=== PATIENT | female | born 1955 | race Caucasian/White ===

== ENCOUNTER 2023-08-06 12:20 | Day surgery (SDC) | payer MEDICARE, SELFPAY ==
[2023-08-04 12:43] VITALS: BMI 30.4
--- NOTE | 2023-08-05 11:59 | HO.ANESPROP2 ---
HPI - Anesthesia Eval Consult details Narrative: 68yo F for Upper Endoscopy and Colonoscopy PMFSH Past Medical History Medical History (Updated 08/04/23 @ 12:38 by Tammy Goss, RN) Hyperlipidemia Thyroid disease Hx of bladder cancer Surgical History Surgical History (Updated 08/04/23 @ 12:38 by Tammy Goss, RN) History of surgery on left wrist History of left knee replacement Hx of appendectomy History of bunionectomy Hx of cystoscopy H/O colonoscopy Meds Allergies Allergy/AdvReac Type Severity Reaction Status Date / Time acetaminophen [From Vicodin] Allergy Unknown Verified 08/04/23 12:38 hydrocodone [From Vicodin] Allergy Unknown Verified 08/04/23 12:38 methocarbamol [From Robaxin] Allergy Unknown Verified 08/04/23 12:38 Home Medications Medication Instructions Recorded Confirmed Last Taken Type amoxicillin 500 mg tablet 2,000 mg PO ONCE 08/04/23 08/04/23 Unknown History atorvastatin 20 mg tablet 20 mg PO DAILY 08/04/23 08/04/23 Unknown History cholecalciferol (vitamin D3) 50 50 mcg PO DAILY 08/04/23 08/04/23 Unknown History mcg (2,000 unit) capsule (Vitamin D3) clobetasol 0.05 % topical foam 1 appl topical DAILY 08/04/23 08/04/23 Unknown History levothyroxine 50 mcg tablet 50 mcg PO QAM 08/04/23 08/04/23 Unknown History naproxen 500 mg tablet mg PO 08/04/23 Unknown History Exam Height,Weight and Vital Signs: Height 5 ft 2 in Weight 75.296 kg Assessment and Plan Assessment Anesthesia Assessment: Chart Reviewed
[2023-08-06 12:40] VITALS: BMI 29.9
[2023-08-06 12:48] VITALS: BP 145/85; PULSE 78; RESP 16; TEMP 36.6; O2SAT 96
[2023-08-06] MEDS: Lactated Ringers 1,000 ML 100 ML IVCONT (12:55)
--- NOTE | 2023-08-06 12:59 | HO.ANESPROP2 ---
FORMERLY [facility], [facility] Past Medical History Medical History (Updated 08/04/23 @ 12:38 by Tammy Goss RN) Hyperlipidemia Thyroid disease Hx of bladder cancer Family History Family history of problems with anesthesia: No Surgical History Surgical History (Updated 08/04/23 @ 12:38 by Tammy Goss RN) History of surgery on left wrist History of left knee replacement Hx of appendectomy History of bunionectomy Hx of cystoscopy H/O colonoscopy History of Problems with Anesthesia: No Social History Social History Patient Tobacco Use Status: Never used Tobacco Use of substances other than those prescribed or required for medical reasons: Yes Substance Use Type Other:: Smoke Substance Use Frequency: Occasionally Are you DNR?: No Advance Directives: No Advance Directives Information Provided: Yes Meds Allergies Allergy/AdvReac Type Severity Reaction Status Date / Time acetaminophen [From Vicodin] Allergy Unknown Verified 08/06/23 12:58 hydrocodone [From Vicodin] Allergy Unknown Verified 08/06/23 12:58 methocarbamol [From Robaxin] Allergy Unknown Verified 08/06/23 12:58 Active Medications: Current Medications Lactated Ringer's (Lr) 1,000 mls @ 100 mls/hr IVCONT .Q10H JORDAN Last Admin: 08/06/23 12:55 Dose: 100 mls/hr Sodium Biphosphate/Sodium Phosphate (Sodium Phosphate,[place]-Dibasic 133 Ml Enema) 133 ml NH ONCE PRN PRN Reason: Poor Colonoscopy Prep Results Home Medications Medication Instructions Recorded Confirmed Last Taken Type amoxicillin 500 mg tablet 2,000 mg PO ONCE 08/04/23 08/04/23 Unknown History atorvastatin 20 mg tablet 20 mg PO DAILY 08/04/23 08/04/23 Unknown History cholecalciferol (vitamin D3) 50 50 mcg PO DAILY 08/04/23 08/04/23 Unknown History mcg (2,000 unit) capsule (Vitamin D3) clobetasol 0.05 % topical foam 1 appl topical DAILY 08/04/23 08/04/23 Unknown History levothyroxine 50 mcg tablet 50 mcg PO QAM 08/04/23 08/04/23 Unknown History naproxen 500 mg tablet mg PO 08/04/23 Unknown History Exam Height,Weight and Vital Signs: Height 5 ft 2 in Weight 74.162 kg Last Vital Signs Temp 97.9 F 08/06/23 12:48 Pulse 78 08/06/23 12:48 Resp 16 08/06/23 12:48 BP 145/85 H 08/06/23 12:48 Pulse Ox 96 08/06/23 12:48 O2 Del Method Room Air 08/06/23 12:48 Airway Mallampati Class: II TM Dist: >3cm Neck ROM: Full Denture: Upper Assessment and Plan Assessment Anesthesia Assessment: Anesthesia Plan Discussed and Chart Reviewed Final Anesthetic Review Family History of Problems with Anesthesia: No History of Problems with Anesthesia: No NPO: Yes ASA Class: II Final Preanesthetic Review: No Changes in Pt Med Stat, Meds/Allgs Chart Reviewed, Consent Obtained/Reviewed and Anes Risks/Benef Reviewed Patient Risk: Low Procedure Risk: Low Anesthetic Plan Anesthetic Plan: TIVA Disposition: Standard PACU
[2023-08-06 14:59] VITALS: BP 108/65; PULSE 85; RESP 16; TEMP 36.7; O2SAT 98
--- NOTE | 2023-08-06 15:03 | P.BOP_ITS ---
Brief Operative Note Date of Service: 08/06/23 Pre-op diagnosis: GERD, Change in Bowel habits Post-op diagnosis: other (Hiatal hernia, polyp) Procedure: EGD with biopsies, Colonoscopy to the cecum with hot snare polypectomy x 1 Surgeon: Ismael Wallace MD Anesthesia: MAC Was an Assistant Operations Manager used for this Procedure?: No Estimated blood loss (mL): 2.0 Pathology: other (A. Descending duodenum B. EG Junction at 38cm C. Polyp at Hepatic flexure) Condition: stable Disposition: PACU
[2023-08-06 15:14] VITALS: BP 118/76; PULSE 84; RESP 16; TEMP 36.7; O2SAT 99
--- NOTE | 2023-08-10 14:02 | OP_ITS ---
DATE OF SERVICE: 08/06/2023 SURGEON: Ismael Wallace MD INDICATIONS: The patient presents for evaluation of gastroesophageal reflux and change in bowel habits. Full consent has been obtained from her for this, including risks of bleeding and perforation. PREOPERATIVE DIAGNOSIS: POSTOPERATIVE DIAGNOSIS: PROCEDURE PERFORMED: Esophagogastroduodenoscopy with biopsies, and colonoscopy to the cecum with hot snare polypectomy x 1. ESTIMATED BLOOD LOSS: COMPLICATIONS: ANESTHESIA: Monitored anesthesia care. ASSISTANTS: SPECIMENS: PREOPERATIVE DIAGNOSES: Gastroesophageal reflux and change in bowel habits. POSTOPERATIVE DIAGNOSES: Gastroesophageal reflux and change in bowel habits, small hiatal hernia, rule out celiac disease, colon polyp, diverticulosis, and internal hemorrhoids. DESCRIPTION OF PROCEDURE: The patient was placed in the left lateral decubitus position. The Olympus video gastroscope was passed in the posterior oropharynx and upper esophagus under direct vision. The scope was passed slowly into the distal esophagus. The gastroesophageal junction appeared at 38 cm. There was some slight irregularity consistent with some reflux but no evidence of any esophagitis nor any definitive Cueva's mucosa. The scope entered the stomach. There was a small hiatal hernia. The scope was advanced to the pylorus, and the duodenum was cannulated to the descending portion. The duodenum including the bulb appeared normal without mass or ulceration. Biopsies were obtained from the 2nd and 3rd portions of the duodenum. The scope was withdrawn back to the stomach. The gastric antrum and body appeared normal with good peristalsis. The scope was retroflexed visualizing the proximal stomach carefully, which appeared normal, without any sign of mass or ulceration. Scope was straightened and withdrawn into the esophagus. Biopsies were obtained at the EG junction at 38 cm. Proximal to this, the esophageal mucosa appeared normal. The scope was withdrawn from the patient. She was turned around for the colonoscopy. The digital rectal exam revealed no abnormalities. The Olympus video pediatric colonoscope was entered into the rectum and advanced to the cecum with the assistance of abdominal wall pressure. Once in the cecum, I did identify cecal pouch with appendiceal orifice and a normal-appearing ileocecal valve. The entire cecum and ileocecal valve appeared normal. There was transillumination of light deep in the right lower quadrant. The scope was slowly withdrawn assessing all mucosal surfaces carefully. Preparation was excellent. In the region of the hepatic flexure, was a flat, but raised approximately 10 mm polyp, which was removed by hot snare polypectomy and recovered by suction. The polypectomy site appeared clean, without any sign of residual polyp nor bleeding. I did not visualize any other polyps, colitis, nor angiodysplasia. There was a mild amount of sigmoid diverticulosis. In the rectum, scope was retroflexed visualizing internal hemorrhoids, but no other pathology. The rectal mucosa appeared normal. The scope was straightened and withdrawn from the patient. She tolerated both procedures well and was returned to the recovery area in stable condition. IMPRESSION: 1. Small hiatal hernia, gastroesophageal reflux, rule out Cueva's esophagus. 2. Rule out celiac disease. 3. Colon polyp. 4. Diverticulosis. 5. Internal hemorrhoids. PLAN: The results of the pathology will be checked. If the colon polyp is a tubular adenoma, I would recommend a followup colonoscopy in 5 years. If it is only hyperplastic, then I do not think she would need any further screening colonoscopies given her age. She was advised not to use any aspirin nor NSAIDs for 1 week. She was advised to use omeprazole or other rbtj-nwh-uphrdeg acid entry level account manager medication as needed for any reflux and heartburn symptoms, but I do not think she needs to be on anything regularly given that her symptoms of reflux are not particularly frequent at this point. She was advised to continue her daily Metamucil and MiraLAX regimen that she has been using, which she reports has helped her bowel movements to regulate and become more comfortable. If things are otherwise stable, she will see me on a p.r.n. basis. MD YEIMY Santana/EB / [phone] ARMEN
== END 2023-08-06 15:40 | disposition home or self-care (01) ==
PROVIDERS: PCP Family Medicine; Visit Provider Internal Medicine
PROC: (CPT 43239; principal; 2023-08-06 13:40)
DX: K21.9 Gastro-esophageal reflux disease without esophagitis (principal); K44.9 Diaphragmatic hernia without obstruction or gangrene; Z12.11 Encounter for screening for malignant neoplasm of colon; D12.3 Benign neoplasm of transverse colon; K57.30 Diverticulosis of large intestine without perforation or abscess without bleeding; K64.8 Other hemorrhoids; E78.5 Hyperlipidemia, unspecified; R19.4 Change in bowel habit; Z85.51 Personal history of malignant neoplasm of bladder; Z79.899 Other long term (current) drug therapy
CPT/HCPCS: 43239; 45385; 88305; 88342

== ENCOUNTER 2023-11-30 13:52 | Outpatient (AMB) | payer MEDICARE, SELFPAY ==
[2023-11-30 14:20] VITALS: BMI 29.8
--- NOTE | 2023-11-30 14:20 | A.OFFVIS_ITS ---
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 She did undergo left total knee replacement surgery in 2017. She denies any discomfort in her left knee. She describes her right knee pain as sharp and severe in nature, 10/10. Her right knee pain has gotten worse over the last few years in spite of continued non operative treatments. She has done physical therapy which aggravated her pain. She has failed conservative treatment over the last 6 weeks. She has had multiple injections. The most recent injection gave her no relief. She has tried Tylenol and anti- inflammatory medicines which gave her minimal relief. The patient has difficulty walking even short distances because of her pain. At this point her right knee pain is interfering with her activities of daily living and her ability to sleep well through the night. Allergies acetaminophen [From Vicodin] Allergy (Verified 08/06/23 12:58) Unknown hydrocodone [From Vicodin] Allergy (Verified 08/06/23 12:58) Unknown methocarbamol [From Robaxin] Allergy (Verified 08/06/23 12:58) Unknown Medication List - Last Reconciled 12/01/23 by Milton Hammond MD amoxicillin 2,000 mg PO ONCE atorvastatin 20 mg PO DAILY cholecalciferol (vitamin D3) (Vitamin D3) 50 mcg PO DAILY clobetasol 0.05% 1 appl topical DAILY levothyroxine 50 mcg PO QAM naproxen mg PO Saccharomyces boulardii (Daily Probiotic (S. boulardii)) 250 mg PO BID PFSH Medical History Hyperlipidemia Thyroid disease Hx of bladder cancer Surgical History History of surgery on left wrist History of left knee replacement Hx of appendectomy History of bunionectomy Hx of cystoscopy H/O colonoscopy Social History Patient Tobacco Use Status: Never used Tobacco Current occupational status: retired Current occupation: Right hand dominate Physical Exam Vital Signs: BMI result Body Mass Index 29.8 Const Other: Well-nourished well-developed very friendly female awake alert and oriented x3 in no acute distress Extrem Other: Bilateral lower extremity examination shows good capillary refill, no skin lesions noted, normal sensation light touch Right knee examination shows a minimal effusion, palpable crepitus with range of motion, pain with range of motion, range of motion from -3 degrees to 115 degrees, no instability Results Reviewed Results Reviewed: X-rays of the patient's right knee show end-stage degenerative joint disease with grade 4 [id number]-[id number] arthritis, subchondral sclerosis, osteophyte formation, no acute bony abnormalities Assessment & Plan Assessment & Plan (1) Arthritis of right knee: Code(s): M17.11 - Unilateral primary osteoarthritis, right knee Category: Medical Plan Ms. Gallegos presents with progressively worsening right knee pain due to end-sta ge degenerative joint disease. I had a lengthy discussion with the patient regarding the treatment options. At this point she has failed continued non operative treatments. The risks and benefits of left total knee replacement surgery were discussed at length with the patient. The patient wishes to proceed with surgery. She will be scheduled for next available date. convention services director will be consulted following her surgery for home physical therapy and nursing. The patient will follow-up as instructed. Feel free to call me at any time should questions regarding her orthopedic management arise. I spent 22 minutes in reviewing the patient's records and imaging studies, seeing the patient and documenting in the medical record. Coding Level of Care Code New Pt Level 2 (95049) Diagnoses Arthritis of right knee M17.11
== END 2023-11-30 14:38 | disposition home or self-care (01) ==
PROVIDERS: PCP Family Medicine; Visit Provider Orthopaedic Surgery
DX: M17.11 Unilateral primary osteoarthritis, right knee (principal)
CPT/HCPCS: 99202

== ENCOUNTER → 2023-11-30 13:52 | Outpatient (BNVA) | payer MEDICARE, SELFPAY | PROVIDERS: PCP Family Medicine; Visit Provider Orthopaedic Surgery | DX: M17.11 Unilateral primary osteoarthritis, right knee (principal) | CPT/HCPCS: 99202 ==

== ENCOUNTER → 2023-12-31 08:56 | Outpatient (BNVA) | payer MEDICARE, SELFPAY | PROVIDERS: PCP Family Medicine | DX: Z01.818 Encounter for other preprocedural examination (principal) ==

== ENCOUNTER 2024-01-27 08:01 | Outpatient (AMB) | payer MEDICARE, SELFPAY ==
--- NOTE | 2024-01-27 08:16 | MHC.OFFVIS ---
Vital Signs 01/27/24 08:16 Height 5 ft 2 in Weight 164 lb BMI 30.0 Intake Visit Reasons: Pre-Op: R TKA w/DR 01/31/24 Intake Note: Adriel is a 68 year old female who presents as a new patient with progressively worsening right knee pain. She did undergo left total knee replacement surgery in 2017. She denies any discomfort in her left knee. She describes her right knee pain as sharp and severe in nature, 10/10. Her right knee pain has gotten worse over the last few years in spite of continued non operative treatments. She has done physical therapy which aggravated her pain. She has failed conservative treatment over the last 6 weeks. She has had multiple injections. The most recent injection gave her no relief. She has tried Tylenol and anti-inflammatory medicines which gave her minimal relief. The patient has difficulty walking even short distances because of her pain. At this point her right knee pain is interfering with her activities of daily living and her ability to sleep well through the night. Allergies hydrocodone [From Vicodin] Allergy (Verified 01/27/24 08:17) Unknown methocarbamol [From Robaxin] Allergy (Verified 01/27/24 08:17) Unknown Medication List - Last Reconciled 01/27/24 by Milton Hammond MD amoxicillin 2,000 mg PO ONCE atorvastatin 20 mg PO BEDTIME cholecalciferol (vitamin D3) (Vitamin D3) 50 mcg PO DAILY clobetasol 0.05% 1 appl topical BID levothyroxine 50 mcg PO QAM Saccharomyces boulardii (Daily Probiotic (S. boulardii)) 250 mg PO DAILY walker Folding front wheeled walker [facility] Medical History Scalp psoriasis Lichen sclerosus Malignant neoplasm of urinary bladder Osteopenia Supraclavicular mass Migraine aura without headache Adrenal adenoma Multiple lung nodules Coronary artery calcification Acquired hallux rigidus Benign paroxysmal positional vertigo of left ear Anxiety Prediabetes Constipation GERD (gastroesophageal reflux disease) Osteoarthritis Back pain Hyperlipidemia Thyroid disease Hx of bladder cancer Surgical History History of surgery on left wrist History of left knee replacement Hx of appendectomy History of bunionectomy Hx of cystoscopy H/O colonoscopy Social History Are you a primary career development consultant to a significant other at home: No Do you presently have visiting nurse or other home services: No Patient Tobacco Use Status: Former Tobacco user Current occupational status: retired Current occupation: Right hand dominate Physical Exam Vital Signs: BMI result Body Mass Index 30.0 Const Other: Well-nourished well-developed very friendly female awake alert and oriented x3 in no acute distress Extrem Other: Bilateral lower extremity examination shows good capillary refill, no skin lesions noted, normal sensation light touch Left knee examination shows that the surgical incision is well healed, no erythema, full active extension and flexion to 120 degrees, her patella tracks well Right knee examination shows a mild effusion, palpable crepitus with range of motion, pain with range of motion, range of motion from -3 degrees to 115 degrees, no instability Results Reviewed Results Reviewed: X-rays of the patient's left knee taken today show a total knee arthroplasty in good position with no signs of loosening, no acute bony abnormalities X-rays of the patient's right knee taken today show severe degenerative joint disease with grade 4 ozgh-ko-klqr arthritis, subchondral sclerosis, no acute bony abnormalities Assessment & Plan Assessment & Plan (1) Left knee pain: Code(s): M25.562 - Pain in left knee Category: Medical (2) Arthritis of right knee: Code(s): M17.11 - Unilateral primary osteoarthritis, right knee Category: Medical Plan Ms. Gallegos presents with progressively worsening right knee pain due to end-stage degenerative joint disease. I had a lengthy discussion with the patient regarding the treatment options. At this point she has failed continued non operative treatments. The risks and benefits of right total knee replacement surgery were discussed at length with the patient. The patient wishes to proceed with surgery. director of physiotherapy services will be consulted following her surgery for home physical therapy and nursing. The patient will follow-up as instructed. Feel free to call me at any time should questions regarding her orthopedic management arise. I spent 22 minutes in reviewing the patient's records and imaging studies, seeing the patient and documenting in the medical record. Orders: Orders XR knee RT 3V Today M17.11 - Unilateral primary osteoarthritis, right knee Coding Level of Care Code Est Pt Level 3 (31691) Diagnoses Left knee pain M25.562 Arthritis of right knee M17.11
== END 2024-01-27 08:35 | disposition home or self-care (01) ==
PROVIDERS: PCP Family Medicine; Visit Provider Orthopaedic Surgery
DX: M17.11 Unilateral primary osteoarthritis, right knee (principal); M25.562 Pain in left knee
CPT/HCPCS: 99024

== ENCOUNTER 2024-01-27 08:02 | Outpatient (REF) | payer MEDICARE, SELFPAY ==
--- NOTE | ~2024-01-27 | XR_ITS ---
EXAMINATION: XR KNEE, BILATERAL CLINICAL INDICATION: Pain. COMPARISON: 05/27/2023 Fabrice Rosado. TECHNIQUE: 3 views of each knee. FINDINGS: LEFT KNEE: Status post left total knee arthroplasty. Hardware appears intact. Alignment is maintained. Moderate joint effusion. RIGHT KNEE: Jnyuvjnj-dk-wnepyj narrowing of the medial compartment with lucency along the medial aspect of the tibial plateau and marginal osteophytes. Trace joint effusion. Degenerative changes in the patellofemoral space with small posterior osteophytes. XR/XR knee LT 3V IMPRESSION: 1. Status post left total knee arthroplasty. Hardware appears intact. 2. Moderate joint effusion. 3. Ebqvafvd-lo-dtczdo degenerative changes right knee.
--- NOTE | ~2024-01-27 | XR_ITS ---
EXAMINATION: XR KNEE, BILATERAL CLINICAL INDICATION: Pain. COMPARISON: 05/27/2023 Fabrice Rosado. TECHNIQUE: 3 views of each knee. FINDINGS: LEFT KNEE: Status post left total knee arthroplasty. Hardware appears intact. Alignment is maintained. Moderate joint effusion. RIGHT KNEE: Ymolwuid-cr-tmebqu narrowing of the medial compartment with lucency along the medial aspect of the tibial plateau and marginal osteophytes. Trace joint effusion. Degenerative changes in the patellofemoral space with small posterior osteophytes. XR/XR knee RT 3V IMPRESSION: 1. Status post left total knee arthroplasty. Hardware appears intact. 2. Moderate joint effusion. 3. Fktozqze-za-fqqomn degenerative changes right knee.
== END 2024-01-27 08:03 | disposition home or self-care (01) ==
LOC: HO.HOSX 08:02
PROVIDERS: Visit Provider Orthopaedic Surgery
DX: Z01.818 Encounter for other preprocedural examination (principal); M25.562 Pain in left knee; M17.11 Unilateral primary osteoarthritis, right knee
CPT/HCPCS: 73562; 99212

== ENCOUNTER → 2024-01-31 06:02 | Day surgery (SDC) | payer MEDICARE, SELFPAY ==
[2024-01-18 12:05] VITALS: BP 135/70; PULSE 63; RESP 18; O2SAT 98; BMI 30.4
--- NOTE | 2024-01-18 12:24 | HO.ANESPROP2 ---
HPI - Anesthesia Eval Consult details Narrative: Cx'd DOS. Per RN note: Upon intake interview of patient she disclosed she had a syncopal episode at a restaurant last night. A reverse logistics analyst who was an EMT found pt to be pulseless and initiated CPR while 911 was called. Pt was worked up at [facility] and discharged home. Dr. Ray was made aware of incident and advised pt be rescheduled. Discussed with patient and urged that she reach out to her primary care physician who would hopefully designate a cardiology work up. Urged that pt get this looked into to optimize her cardiac function prior to an elective surgery. 68yo F for Right Knee Replacement Total, 01/31/24 Medically optimized per PCP No recent illness No CP/SOB within limits of knee pain PreDM: No rx GERD: prn tx only Supraclavicular mass/subcentimeter pulmo nodules: Followed by PCP with Chest CTs. Last 2022 without new or enlarging or suspicious nodules/masses (report on chart). PMFSH Active Problems Active Problems: All Active Problems Arthritis of right knee (Acute) Past Medical History Medical History Scalp psoriasis Lichen sclerosus Malignant neoplasm of urinary bladder Osteopenia Supraclavicular mass Migraine aura without headache Adrenal adenoma Multiple lung nodules Coronary artery calcification Acquired hallux rigidus Benign paroxysmal positional vertigo of left ear Anxiety Prediabetes Constipation GERD (gastroesophageal reflux disease) Osteoarthritis Back pain Hyperlipidemia Thyroid disease Hx of bladder cancer Family History Family history of problems with anesthesia: No Surgical History Surgical History History of surgery on left wrist History of left knee replacement Hx of appendectomy History of bunionectomy Hx of cystoscopy H/O colonoscopy History of Problems with Anesthesia: No Social History Social History Are you a primary certified caregiver to a significant other at home: No Do you presently have visiting nurse or other home services: No Patient Tobacco Use Status: Former Tobacco user Use of substances other than those prescribed or required for medical reasons: Yes Substance Use Frequency: Weekly Have you been hit, kicked, punched, or otherwise hurt by someone within the past year? If so, by whom?: No Are you DNR?: No Advance Directives: No Advance Directives Information Provided: Yes Advance Directives on File: No Recently lost weight without trying: No Eating poorly because of decreased appetite: No Nutrition Risks: No Nutritional Risk Patient : No : No Poor oral hygiene: Yes (upper partial) Current occupational status: retired Current occupation: Right hand dominate Meds Allergies Allergy/AdvReac Type Severity Reaction Status Date / Time hydrocodone [From Vicodin] Allergy Unknown Verified 01/27/24 08:17 methocarbamol [From Robaxin] Allergy Unknown Verified 01/27/24 08:17 Home Medications ?Medication ?Instructions ?Recorded ?Confirmed ?Last Taken ?Type amoxicillin 500 mg tablet 2,000 mg PO ONCE 08/04/23 01/27/24 Unknown History atorvastatin 20 mg tablet 20 mg PO BEDTIME 08/04/23 01/27/24 Unknown History cholecalciferol (vitamin D3) 50 50 mcg PO DAILY 08/04/23 01/27/24 Unknown History mcg (2,000 unit) capsule (Vitamin D3) levothyroxine 50 mcg tablet 50 mcg PO QAM 08/04/23 01/27/24 08/06/23 History Saccharomyces boulardii 250 mg 250 mg PO DAILY 11/30/23 01/27/24 Unknown History capsule (Daily Probiotic (S. boulardii)) clobetasol 0.05 % topical ointment 1 appl topical BID 01/27/24 01/27/24 Unknown History Exam Height,Weight and Vital Signs: Height 5 ft 2 in Weight 75.296 kg Last Vital Signs Pulse 63 01/18/24 12:05 Resp 18 01/18/24 12:05 BP 135/70 01/18/24 12:05 Pulse Ox 98 01/18/24 12:05 O2 Del Method Room Air 01/18/24 12:05 Pertinent Lab Results Pertinent Lab Results: CBC and BMP from outside facility 12/2023 WNL Narrative Narrative: EKG 11/2023 NSR @ 82 Airway Mallampati Class: I TM Dist: >3cm Neck ROM: Full Partial: Upper Loose/Missing/Broken Teeth: Yes (Molars crowned) Heart: RRR Lungs: CTAB Assessment and Plan Assessment Anesthesia Assessment: Anesthesia Plan Discussed and PAT Visit Final Anesthetic Review Family History of Problems with Anesthesia: No History of Problems with Anesthesia: No
[2024-01-18 14:11] LABS: MRSA Nasal PCR NEGATIVE (Negative); SA Nasal PCR NEGATIVE (Negative)
--- NOTE | 2024-01-31 06:42 | PC.NURSE ---
Upon intake interview of patient she disclosed she had a syncopal episode at a restaurant last night. A morning caregiver who was an EMT found pt to be pulseless and initiated CPR while 911 was called. Pt was worked up at [facility] and discharged home. Dr. Ray was made aware of incident and advised pt be rescheduled. Discussed with patient and urged that she reach out to her primary care physician who would hopefully designate a cardiology work up. Urged that pt get this looked into to optimize her cardiac function prior to an elective surgery.
== END ==
PROVIDERS: Physician Assistant; PCP Family Medicine; Visit Provider Orthopaedic Surgery
DX: M17.11 Unilateral primary osteoarthritis, right knee (principal); Z53.8 Procedure and treatment not carried out for other reasons; I25.10 Atherosclerotic heart disease of native coronary artery without angina pectoris; I25.84 Coronary atherosclerosis due to calcified coronary lesion; E78.5 Hyperlipidemia, unspecified; R73.03 Prediabetes; Z79.899 Other long term (current) drug therapy; Z88.8 Allergy status to other drugs, medicaments and biological substances; Z96.652 Presence of left artificial knee joint; Z87.891 Personal history of nicotine dependence
CPT/HCPCS: 86850; 86900; 86901; 87640; 87641

== ENCOUNTER → 2024-08-14 13:39 | Outpatient (BNV) | payer SELFPAY | PROVIDERS: Visit Provider Internal Medicine | DX: I49.5 Sick sinus syndrome (principal); R94.31 Abnormal electrocardiogram [ECG] [EKG] | CPT/HCPCS: 93010 ==

== ENCOUNTER → 2024-08-18 08:36 | Outpatient (BNVA) | payer MEDICARE, SELFPAY | DX: Z01.818 Encounter for other preprocedural examination (principal) ==

== ENCOUNTER → 2024-09-06 07:47 | Outpatient (BNVA) | payer MEDICARE, SELFPAY | PROVIDERS: Visit Provider Orthopaedic Surgery | DX: M25.561 Pain in right knee (principal); M17.11 Unilateral primary osteoarthritis, right knee | CPT/HCPCS: 99212 ==

== ENCOUNTER 2024-09-11 07:46 | Day surgery (SDC) | payer MEDICARE, SELFPAY ==
--- OUTSIDE RECORDS SUMMARY | 2024-07-31 10:22 | XMS_ITS | Patient Health Record ---
Author Organization [facility] Address [address] [place] [address] Care Team Providers Care Vehicle Detailer Name Role Phone Inez COYNE, Bebeto Primary Care Provider Ismael Nelson Unavailable [phone] ALLERGIES Allergen (clinical drug ingredient) Drug/Non Drug Allergy documented on EMR Reaction Allergy Type Onset Date Status Vicodin Unknown Drug Allergy Active methocarbamol Robaxin Unknown Drug Allergy Act scar RESULTS Component Value Reference Range Notes Pathology Reviewed date:08/25/2023 07:56:07 AM Interpretation: Performing Lab:[facility], [address] [place] [id number] Notes/Report: REASON FOR REFERRAL No Information MEDICATIONS Medication SIG (Take, Route, Frequency, Duration) Notes Start Date End Date Status Vitamin D 50 MCG (1999) 1 tablet Orally Once a day for 30 day(s) 05/07/2023 Active Clobetasol Emul Foam w/MoistCr 0.05 % as directed Externally 05/07/2023 Active Levothyroxine Sodium 50 MCG TAKE 1 TABLET BY MOUTH EVERY DAY IN THE MORNING Oral for 90 Active Naproxen 500 MG Oral for 10 PRN for knee-started 04/2023 Active Amoxicillin 500 MG TAKE 4 TABLETS BY MOUTH 1 HOUR PRIOR TO DENTAL APPOINTMENT Oral for 5 Active Atorvastatin Calcium 20 MG TAKE 1 TABLET BY MOUTH EVERY DAY Oral for 90 Active IMMUNIZATIONS Vaccine Route Administration Date Status Comme nts Influenza Unknown 04/21/2022 Administered SOCIAL HISTORY Tobacco Use: Social History Observation Description Date Details (start date - stop date) Never Smoker NA - NA Sex Assigned At : Social History Observation Description Sex Assigned At Unknown Tobacco Use/Smoking Question Answer Notes Patient is a nonsmoker Alcohol Screen Question Answer Notes Did you have a drink contain ing alcohol in the past year? Yes How often did you have a dri nk containing alcohol in the past year? 4 or more times a week (4 points) How many drinks did you have on a typical day when you were drinking in the past year? 1 or 2 drinks (0 point) How often did you have 6 or more drinks on one occasion in the past year? Never (0 point) Points 4 Interpretation Positive PROBLEMS Problem Type ICD Code Onset Dates Problem Status W/U Status Risk SNOMED Code Notes Problem Constipation, unspecified constipation type (K59.00) Active confirmed 96310208 Problem Gastroesophageal reflux disease, unspecified whether esophagitis present (K21.9) Active confirmed 342289615 Problem Change in bowel habits (R19.4) Active confirmed 05895299 Problem Abdominal bloating (R14.0) Active confirmed 739826343 Problem Diverticulosis of large intestine without perforation or abscess without bleeding (K57.30) Active confirmed Diverticul ar disease of colon (958375279) Problem Gastroesophageal reflux disease (K21.9) Active confirmed Gastroesophagea l reflux disease (474637678) Encounters Encounter Location Date Provider Diagnosis [facility] [place] Outpatient [address] [place] [phone] 08/06/2023 Ismael Wallace Colon polyps K63.5 ; Change in bowel habits R19.4 ; Diverticulosis of large intestine without perforation or abscess without bleeding K57.30 ; Other hemorrhoids K64.8 ; Gastroesophageal reflux disease K21.9 and Hiatal hernia K44.9 ASSESSMENTS Encounter Date Diagnosis Assessment Notes Treatment Notes Treatment Clinical Notes 08/06/2023 Change in bowel habi ts (ICD-10 - R19.4) 08/06/2023 Colon polyps (ICD-10 - K63.5) 08/06/2023 Diverticulosis of la rge intestine without perforation or abscess without bleeding (ICD-10 - K57.30) 08/06/2023 Other hemorrhoids (ICD-10 - K64.8) 08/06/2023 Gastroesophageal ref lux disease (ICD-10 - K21.9) 08/06/2023 Hiatal hernia (ICD-1 0 - K44.9) PLAN OF TREATMENT Pending Test Test Name Order Date CELIAC PANEL #10 05/07/2023 Future Test Test Name Order Date UPPER GI ENDOSCOPY 05/07/2023 COLONOSCOPY 05/07/2023 Insurance Providers Payer Name Payer Address Payer Phone Subscriber Number Group Number Insured Name Patient Relationship to Insured Coverage Start Date Coverage End Date [facility] [address] [place] [id number] SAMMIMARIA INESGEE NUÑEZ Self - patient is the insured MEDICAL (GENERAL) HISTORY Medical History History ICD Code Bladder cancer for which she undergoes p eriodic cystoscopies Hypothyroidism Hyperlipidemia Denies NE,DM,CVA,Lung disease,renal dise ase She describes a negative col onoscopy at age 49 and another negative colonoscopy in 2015. Surgical History Surgery Date(Month/Year) Bladder cancer treated with cystoscopy Bunionectomy Appendectomy Left knee replacement 2016 Left wrist 2022
--- OUTSIDE RECORDS SUMMARY | 2024-07-31 10:22 | XMS_ITS | Patient Health Record ---
Author Organization [facility] Address [address] [place] [address] Care Team Providers Care Manager Fund Name Role Phone Bebeto Wiley MD Primary Care Provider Adin Watson Unavailable [phone] Allergies Allergen (clinical drug ingredient) Drug/Non Drug Allergy documented on EMR Reaction Allergy Type Onset Date Status methocarbamol Robaxin hives Drug Allergy Act scar Vicodin nausea and vomiting Drug Allergy Active Reason For Referral No Information Medications Medication SIG (Take, Route, Frequency, Duration) Notes Start Date End Date Status Atorvastatin Calcium Active Probiotic - as directed Orally Active Propranolol HCl 10 MG 1 tablet Orally Once a day for 30 day(s) Active Levothyroxine Sodium 50 MCG 1 tablet in the morning on an empty stomach Orally Once a day for 30 day(s) Active Amoxicillin 500 MG 1 capsule Orally every 8 hrs for 5 day(s) Before dental appointments Active Voltaren 1 % as directed Externally Active Clobex 0.05 % 1 application Externally Once a day for 10 day(s) Active Turmeric 1 daily Active Vitamin D3 25 MCG (1000 UT) 1 capsule Orally Once a day for 30 day(s) Active Immunizations Vaccine Route Administration Date Status Comme nts COVID-19 Moderna Vaccine Unknown 10/30/2020 Administere d 1st 10/02/20 Social History Tobacco Use: Social History Observation Description Date Details (start date - stop date) Former Smoker 12/11/2005 - NA Tobacco Use/Smoking Question Answer Notes Are you a: former smoker When did you start smoking? 12/11/2005 Additional Findings: Tobacco Non-User Ex-cigaret te smoker Alcohol Screen Question Answer Notes Did you have a drink containing alcohol in the p ast year? Yes Points 0 Interpretation Negative Tobacco use other than smoking: Question Answer Notes Are you an other tobacco user? No Problems Problem Type SNOMED Code ICD Code Onset Dates Problem Status W/U Status Risk Notes Problem Acquired hallux rigidus (7026346) Hallux rigidus, left foot (M20.22) Active confirmed Problem Acquired hammer toe of right foot (7483384490814 105) Other hammer toe(s) (acquired), right foot (M20.41) Active confirmed Problem Acquired hammer toe of left foot (8152737821939 103) Other hammer toe(s) (acquired), left foot (M20.42) Active confirmed Problem Acquired hallux rigidus (8891694) Hallux rigidus, right foot (M20.21) Active confirmed Plan Of Treatment Pending Test Test Name Order Date X ray : Foot, left 3V 01/01/2021 X ray : Foot, right 3V 01/01/2021 Insurance Providers Payer Name Payer Address Payer Phone Subscriber Number Group Number Insured Name Patient Relationship to Insured Coverage Start Date Coverage End Date [employer] [address] [place] [address] [phone] [id number] Rico Self - patient is the insured Medical (General) History Medical History History ICD Code Lung nodule Migraines Supraclavicular mass Osteopenia bladder cancer Hyperlipidemia Hypothyroidism Lichens Sclerosis Psoriasis uterine leiomyoma Knee Pain Anxiety Arthritis Back,Hip,and Knee pain Broken bones Cancer Osteoporosis Psoriasis/eczema chronic sinusitis thyroid Measles Chicken pox Joint implants/screws Degenerative joint disease Surgical History Surgery Date(Month/Year) carpal tunnel surgery, bilat 1985, 1988 left knee replacement 2017 multiple tumor removal, bladder 1986- 0 bunionectomy, left ft 03/2009
--- OUTSIDE RECORDS SUMMARY | 2024-07-31 10:22 | XMS_ITS ---
Author Organization [facility] Address [address] [place] [address] Care Team Providers Care Wind Turbine Technician Name Role Phone Bebeto Wiley MD Primary Care Provider Ismael Nelson Unavailable [phone] REASON FOR VISIT constipation, change in bowels,gerd PROBLEMS Problem Type ICD Code Onset Dates Problem Status W/U Status Risk SNOMED Code Notes Problem Diverticulosis of large intestine without perforation or abscess without bleeding (K57.30) Active confirmed Diverticul ar disease of colon (583196204) Problem Gastroesophageal reflux disease (K21.9) Active confirmed Gastroesophagea l reflux disease (228419286) Encounters Encounter Location Date Provider Diagnosis [facility] [place] Out[place] [address] [place], [place] [phone] 08/06/2023 Ismael Rodrigo Colon polyps K63.5 ; Change in bowel habits R19.4 ; Diverticulosis of large intestine without perforation or abscess without bleeding K57.30 ; Other hemorrhoids K64.8 ; Gastroesophageal reflux disease K21.9 and Hiatal hernia K44.9 ASSESSMENTS Encounter Date Diagnosis Assessment Notes Treatment Notes Treatment Clinical Notes 08/06/2023 Colon polyps (ICD-10 - K63.5) 08/06/2023 Change in bowel habi ts (ICD-10 - R19.4) 08/06/2023 Diverticulosis of la rge intestine without perforation or abscess without bleeding (ICD-10 - K57.30) 08/06/2023 Other hemorrhoids (ICD-10 - K64.8) 08/06/2023 Gastroesophageal ref lux disease (ICD-10 - K21.9) 08/06/2023 Hiatal hernia (ICD-1 0 - K44.9) PLAN OF TREATMENT No Information
--- OUTSIDE RECORDS SUMMARY | 2024-07-31 10:22 | XMS_ITS ---
Author Organization [facility] Address [address] [place] [phone] Care Team Providers Care Supervisor Instrument Mechanics Name Role Phone Bebeto Wiley MD Primary Care Provider Ismael Nelson Unavailable [phone] ALLERGIES Allergen (clinical drug ingredient) Drug/Non Drug Allergy documented on EMR Reaction Allergy Type Onset Date Status Vicodin Unknown Drug Allergy Active methocarbamol Robaxin Unknown Drug Allergy Act scar REASON FOR VISIT Patient presents today for a COLON SCREENING, CHANGE IN BOWEL HABITS MEDICATIONS Medication SIG (Take, Route, Frequency, Duration) Notes Start Date End Date Status Clobetasol Emul Foam w/MoistCr 0.05 % as [...] MOUTH EVERY DAY Oral for 90 Active Vitamin D 50 MCG (2000 UT) 1 tablet Orally Once a day for 30 day(s) 05/07/2023 Active SOCIAL HISTORY Tobacco Use: Social History Observation [...] Constipation, unspecified constipation type (K59.00) Active confirmed 40643617 Problem Gastroesophageal reflux disease, unspecified whether esophagitis present (K21.9) Active confirmed 864268331 Problem Change in bowel habits (R19.4) Active confirmed 70901562 Problem Abdominal bloating (R14.0) Active confirmed 146489642 VITAL SIGNS BMI 30.36 kg/m2 05/07/2023 Blood pressure systolic 000 mm Hg 05/07/20 23 Blood pressure diastolic 00 mm Hg 023 Height 5 ft 2 in in 05/07/2023 Temperature 98.6 degrees Fahrenheit 05/07/20 23 Weight 166 lbs 05/07/2023 Encounters Encounter Location Date Provider Diagnosis [facility] [address] [place] [phone] 05/07/2023 Ismael Wallace Constipation, unspec ified constipation type K59.00 ; Gastroesophageal reflux disease, unspecified whether esophagitis present K21.9 ; Change in bowel habits R19.4 and Abdominal bloating R14.0 ASSESSMENTS Encounter Date Diagnosis Assessment Notes Treatment Notes Treatment Clinical Notes 05/07/2023 Constipation, unspecified constipation type (ICD-10 - K59.00) Try using 2 Metamucil fiber pills once or twice a day with a lot of water, as well as some Miralax daily, to help with the BM's. 05/07/2023 Gastroesophageal ref lux disease, unspecified whether esophagitis present (ICD-10 - K21.9) 05/07/2023 Change in bowel habi ts (ICD-10 - R19.4) 05/07/2023 Abdominal bloating (ICD-10 - R14.0) PLAN OF TREATMENT Treatment Notes Assessment Notes Constipation, unspecified constipation t ype Try using 2 Metamucil fiber pills once or twice a day with a lot of water, as well as some Miralax daily, to help with the BM's. Pending Test Test Name Order Date CELIAC PANEL #10 05/07/2023 Future Test Test Name Order Date UPPER GI ENDOSCOPY 05/07/2023 COLONOSCOPY 05/07/2023 Next Appt Details Follow Up: prn, Reason: Progress Notes * Examination Category Sub-Category Detail Notes General Examination GENERAL APPEARANCE: pleasant , well nourished, well developed, in no acute distress HEAD: EYES: sclera non-icteric EARS: NOSE: THROAT: NECK/THYROID: no cervical lymphade nopathy, neck supple HEART: S1, S2 normal CHEST: LUNGS: clear to auscultatio n bilaterally ABDOMEN: normal bowel sounds, no guarding or rigidity, no guarding or rigidity, no masses palpable, soft, nontender, nondistended NEUROLOGIC: alert and oriented SKIN: nonjaundiced, no spi jurgen angiomata EXTREMITIES: no edema PERIPHERAL PULSES: BACK: BREASTS: MUSCULOSKELETAL: MALE GENITOURINARY: LYMPH NODES: RECTAL EXAM: FEMALE GENITOURINARY: ORAL CAVITY: mucosa moist
--- NOTE | 2024-08-14 | ECG_ITS ---
Test Reason : PREOP Blood Pressure : / mmHG Vent. Rate : 061 BPM Atrial Rate : 061 BPM P-R Int : 130 ms QRS Dur : 086 ms QT Int : 396 ms P-R-T Axes : 071 053 030 degrees QTc Int : 398 ms Normal sinus rhythm with sinus arrhythmia cannot exclude old Septal infarct , age undetermined - could be related to body habitus and lead placement. Abnormal ECG No previous ECGs available Referred By: Megan David Electronically Signed By:ROMEO JEAN
[2024-08-14 12:49] VITALS: BP 161/76; PULSE 80; RESP 16; O2SAT 98; BMI 30.3
--- NOTE | 2024-08-14 13:23 | HO.ANESPROP2 ---
Documented by User: Megan David NP 08/21/24 14:11 HPI - Anesthesia Eval Consult details Narrative: 69yo F for Right Total Knee Arthroplasty, 09/11/24 Rescheduled from 01/2024 d/t syncopal episode evening before [facility] optimized. Negative w/u. Tilt table test pending, but ok to proceed with surgery first. Medically optimized per PCP Recent URI with nasal congestion, no cough. Will monitor and discuss with PCP No CP/SOB within limits of knee pain PreDM: No rx GERD: prn tx only Supraclavicular mass/subcentimeter pulmo nodules: Followed by PCP with Chest CTs. Last 2022 without new or enlarging or suspicious nodules/masses (report on chart). [facility] Active Problems Active Problems: All Active Problems Left knee pain (Acute) Arthritis of right knee (Acute) Past Medical History Medical History (Updated 08/14/24 @ 13:14 by Heather Jason RN) Hx of bladder cancer (~1986) Hx of syncope (11/30/23) Seasonal allergies Scalp psoriasis Lichen sclerosus Malignant neoplasm of urinary bladder Osteopenia Supraclavicular mass Migraine aura without headache Adrenal adenoma Multiple lung nodules Coronary artery calcification Acquired hallux rigidus Benign paroxysmal positional vertigo of left ear Anxiety Prediabetes Constipation GERD (gastroesophageal reflux disease) Osteoarthritis Back pain Hyperlipidemia Thyroid disease Hx of bladder cancer Family History Family history of problems with anesthesia: No Surgical History Surgical History (Updated 08/14/24 @ 13:09 by Heather Jason RN) History of esophagogastroduodenoscopy (EGD) (08/06/23) History of surgery on left wrist History of left knee replacement Hx of appendectomy History of bunionectomy Hx of cystoscopy H/O colonoscopy History of Problems with Anesthesia: No Social History Social History (Updated 08/14/24 @ 13:25 by Heather Jason RN) Are you a primary care worker to a significant other at home: No Do you presently have visiting nurse or other home services: No Patient Tobacco Use Status: Former Tobacco user Tobacco use type: Cigarette Smoked in Last 30 Days: No Use of substances other than those prescribed or required for medical reasons: Yes Substance Use Type: Marijuana Substance Use Frequency: Occasionally Have you been hit, kicked, punched, or otherwise hurt by someone within the past year? If so, by whom?: No Are you DNR?: No Advance Directives: No Advance Directives Information Provided: Yes Advance Directives on File: No Recently lost weight without trying: No Nutrition Risks: No Nutritional Risk Poor oral hygiene: No (right upper tooth pulled 07/14/2024) Current occupational status: retired Current occupation: Right hand dominate Meds Allergies Allergy/AdvReac Type Severity Reaction Status Date / Time hydrocodone [From Vicodin] Allergy Severe Nausea Verified 09/06/24 08:00 methocarbamol [From Robaxin] Allergy Severe Hives Verified 09/06/24 08:00 Home Medications ?Medication ?Instructions ?Recorded ?Confirmed ?Last Taken ?Type cholecalciferol (vitamin D3) 50 50 mcg PO DAILY 08/04/23 09/06/24 08/29/24 History mcg (2,000 unit) capsule (Vitamin D3) levothyroxine 50 mcg tablet 50 mcg PO QAM 08/04/23 09/06/24 09/11/24 History Saccharomyces boulardii 250 mg 250 mg PO DAILY 11/30/23 09/11/24 08/29/24 History capsule (Daily Probiotic (S. boulardii)) clobetasol 0.05 % topical ointment 1 appl topical BID 01/27/24 09/06/24 08/29/24 History acetaminophen 500 mg tablet 1,000 mg PO Q6H PRN Pain 08/14/24 09/06/24 08/29/24 History (Acetaminophen Extra Strength) Exam Height,Weight and Vital Signs: Height 5 ft 2.25 in Weight 75.7 kg Last Vital Signs Pulse 80 08/14/24 12:49 Resp 16 08/14/24 12:49 BP 161/76 H 08/14/24 12:49 Pulse Ox 98 08/14/24 12:49 O2 Del Method Room Air 08/14/24 12:49 Pertinent Lab Results Pertinent Lab Results: CBC and BMP from outside facility 08/2024 WNL Narrative Narrative: EKG 08/2024 Vent. Rate : 061 BPM Atrial Rate : 061 BPM P-R Int : 130 ms QRS Dur : 086 ms QT Int : 396 ms P-R-T Axes : 071 053 030 degrees QTc Int : 398 ms Normal sinus rhythm with sinus arrhythmia cannot exclude old Septal infarct , age undetermined - could be related to body habitus and lead placement. Abnormal ECG No previous ECGs available No change from PCP office EKG Airway Mallampati Class: I TM Dist: >3cm Neck ROM: Full Partial: Upper Loose/Missing/Broken Teeth: Yes (~#6 pulled 07/2024) Heart: RRR Lungs: CTAB Assessment and Plan Assessment Anesthesia Assessment: Anesthesia Plan Discussed and PAT Visit Final Anesthetic Review Family History of Problems with Anesthesia: No History of Problems with Anesthesia: No Documented by User: Codi Joyce MD 09/11/24 10:08 [facility] Past Medical History Medical History (Updated 08/14/24 @ 13:14 by Heather Jason RN) Hx of bladder cancer (~1986) Hx of syncope (11/30/23) Seasonal allergies Scalp psoriasis Lichen sclerosus Malignant neoplasm of urinary bladder Osteopenia Supraclavicular mass Migraine aura without headache Adrenal adenoma Multiple lung nodules Coronary artery calcification Acquired hallux rigidus Benign paroxysmal positional vertigo of left ear Anxiety Prediabetes Constipation GERD (gastroesophageal reflux disease) Osteoarthritis Back pain Hyperlipidemia Thyroid disease Hx of bladder cancer Surgical History Surgical History (Updated 08/14/24 @ 13:09 by Heather Jason RN) History of esophagogastroduodenoscopy (EGD) (08/06/23) History of surgery on left wrist History of left knee replacement Hx of appendectomy History of bunionectomy Hx of cystoscopy H/O colonoscopy Social History Social History (Updated 08/14/24 @ 13:25 by Heather Jason, DUONG) Are you a primary care worker to a significant other at home: No Do you presently have visiting nurse or other home services: No Patient Tobacco Use Status: Former Tobacco user Tobacco use type: Cigarette Smoked in Last 30 Days: No Use of substances other than those prescribed or required for medical reasons: Yes Substance Use Type: Marijuana Substance Use Frequency: Occasionally Have you been hit, kicked, punched, or otherwise hurt by someone within the past year? If so, by whom?: No Are you DNR?: No Advance Directives: No Advance Directives Information Provided: Yes Advance Directives on File: No Recently lost weight without trying: No Nutrition Risks: No Nutritional Risk Poor oral hygiene: No (right upper tooth pulled 07/14/2024) Current occupational status: retired Current occupation: Right hand dominate Meds Allergies Allergy/AdvReac Type Severity Reaction Status Date / Time hydrocodone [From Vicodin] Allergy Severe Nausea Verified 09/06/24 08:00 methocarbamol [From Robaxin] Allergy Severe Hives Verified 09/06/24 08:00 Home Medications ?Medication ?Instructions ?Recorded ?Confirmed ?Last Taken ?Type cholecalciferol (vitamin D3) 50 50 mcg PO DAILY 08/04/23 09/06/24 08/29/24 History mcg (2,000 unit) capsule (Vitamin D3) levothyroxine 50 mcg tablet 50 mcg PO QAM 08/04/23 09/06/24 09/11/24 History Saccharomyces boulardii 250 mg 250 mg PO DAILY 11/30/23 09/11/24 08/29/24 History capsule (Daily Probiotic (S. boulardii)) clobetasol 0.05 % topical ointment 1 appl topical BID 01/27/24 09/06/24 08/29/24 History acetaminophen 500 mg tablet 1,000 mg PO Q6H PRN Pain 08/14/24 09/06/24 08/29/24 History (Acetaminophen Extra Strength) Assessment and Plan Final Anesthetic Review NPO: Yes ASA Class: II Final Preanesthetic Review: No Changes in Pt Med Stat, Meds/Allgs Chart Reviewed and Consent Obtained/Reviewed Patient Risk: Low Procedure Risk: Low Anesthetic Plan Anesthetic Plan: Spinal Disposition: Standard PACU
[2024-08-14 14:56] LABS: MRSA Nasal PCR NEGATIVE (Negative); SA Nasal PCR NEGATIVE (Negative)
[2024-09-11] VITALS (12 sets, daily range): BP systolic 101–165; BP diastolic 58–93; PULSE 52–87; RESP 13–18; TEMP 36.1–36.6; O2SAT 95–99; BMI 30.4
--- OUTSIDE RECORDS SUMMARY | 2024-09-11 07:50 | XMS_ITS | Clinical Summary ---
Author Organization [facility] Address [address] [place] [address] Care Team Providers Care Spa Attendant Name Role Phone Bebeto Wiley MD Primary Care Provider [phone] Immunizations Name Administration Dates Next Due Moderna SARS-CoV-2 COVID-19, mRNA, LNP-S, preservative free 10/30/2020,10/02/2020 Surgical History Surgery Date Site/Laterality Comments FOOT SURGERY PROCEDURE:FOOT SURGERY JOINT REPLACEMENT PROCEDURE:JOINT REPLACEMENT CARPAL TUNNEL RELEASE PROCEDURE:CARPAL TUNNEL RELEASE TOTAL KNEE ARTHROPLASTY 2016 Left PROCEDURE:TOTAL KNEE ARTHROPLASTY BLADDER TUMOR EXCISION 2018 PROCEDURE:BLADDER TUMOR EXCISION BLADDER TUMOR EXCISION 1986 PROCEDURE:BLADDER TUMOR EXCISION BUNIONECTOMY 2009 Left PROCEDURE:BUNIONECTOMY CARPAL TUNNEL RELEASE 1985 Bilateral PROCEDURE:CARPAL TUNNEL RELEASE Medical History Medical History Date Comments Cancer (CMS/HCC) DX:Cancer (HCC) Thyroid disorder DX:Thyroid diso rder Osteoporosis DX:Osteoporosis Psoriasis DX:Psoriasis Arthritis DX:Arthritis Daytime somnolence DX:Daytime so mnolence Snoring DX:Snoring Night muscle spasms DX:Night mus amado spasms Family History Medical History Relation Name Comments Heart attack Brother Heart disease Brother Heart attack Father Heart disease Father Hypertension Father Arthritis Mother Cancer Mother Lung disease Mother Osteoporosis Mother Arthritis Sister Cancer Sister Relation Name Status Comments Brother Father Mother Sister Social History Tobacco Use Types Packs/Day Years Used Date Smoking Tobacco: Former Cigarettes Smokeless Tobacco: Never Alcohol Use Standard Drinks/Week Comments Yes 0 (1 standard drink = 0.6 oz pur e alcohol) Sex and Gender Information Value Date Recorded Sex Assigned at Not on file Gender Identity Not on file Sexual Orientation Not on file Obstetrics History Plan of Treatment Health Maintenance Due Date Last Done Comments DTaP,Tdap,and Td Vaccines (1 - Tdap) 1973 Zoster Vaccines (1 of 2) 2004 Pneumococcal Vaccine: 65+ Years (1 of 1 - PCV) 2019 Breast Cancer Screening 12/15/2020 12/15/2018 Colorectal Cancer Screening: Colonoscopy 07/18/2022 Depression Screening 07/18/2022 Falls Risk Assessment 07/18/2022 Hepatitis C Screening 07/18/2022 Social Influencers of Health Screening 07/18/2022 COVID-19 Vaccine (3 - 2023-2 5 season) 2024 10/30/2020, 10/02/2020 Influenza Vaccine (#1) 2024 Osteoporosis Screening (Bone Density Screening) 10/21/2028 10/21/2018 RSV Immunization Patients 60 + Years Old (1 - 1-dose 75+ series) 2029 HIB Vaccines Aged Out No longer eligi ble based on patient's age to complete this topic HPV Vaccines Aged Out No longer eligi ble based on patient's age to complete this topic Hepatitis A Vaccines Aged Out No long er eligible based on patient's age to complete this topic Hepatitis B Vaccines Aged Out No long er eligible based on patient's age to complete this topic IPV Vaccines Aged Out No longer eligi ble based on patient's age to complete this topic MMR Vaccines Aged Out No longer eligi ble based on patient's age to complete this topic Meningococcal ACWY Vaccine Aged Out N o longer eligible based on patient's age to complete this topic RSV Immunization Patients Under 20 months Aged Out No longer eligible b ased on patient's age to complete this topic Varicella Vaccines Aged Out No longer eligible based on patient's age to complete this topic Procedures Procedure Name Priority Date/Time Associated Diagnosis Comments [facility] SCREENING DIGITAL Routine 12/15/2018 1:07 PM EDT Encounter for screening mammogram for malignant neoplasm of breast [facility] DEXA AXIAL SKELETON Routine 10/21/2018 2:56 PM EDT Encounter for screening for osteoporosis from Last 3 Months or Most Recently Relevant to Health Maintenance Results * [facility] SCREENING DIGITAL (12/15/2018 1:07 PM EDT) Anatomical Region Laterality Modality Mammography 12/15/2018 10:5 2 AM EDT Narrative 12/15/2018 1:07 PM EDT [facility] Diagnostic Imaging Department [address] [place] [address] Patient: ??JASWANTGEE ?/Age/Sex: 1955 63 - F Unit#: ??[id number] ? Location/Status: ??SPDIMAM/REG CLI ? Mnemonic/Ordering Site: ??DIGSC/SPMAM Ordering Physician: ??NAM SAHU MD [facility] Screening Digital - 12/15/181106 INDICATION: Screening. Family history breast cancer in sister at age 55 COMPARISON: Prior mammograms dating back to 2003 TECHNIQUE: Routine views of both breasts were obtained using full-field direct digital mammography. Bilateral tomosynthesis was performed in MLO projection. Computer Aided Detection was utilized. BREAST PARENCHYMAL COMPOSITION: The breast parenchyma is composed of scattered fibroglandular densities. (Category b density ) . FINDINGS: ??There is no suspicious finding within either breast. Benign- appearing microcalcifications including secretory and vascular calcifications in both breasts. IMPRESSION: 1. No mammographic evidence of malignancy. 2. Annual screening mammography is recommended . OVERALL FINAL ASSESSMENT: BI-RADS Assessment Category 2: Benign. PQRI CPT II 3342 F A negative mammogram in the presence of clinically suspicious palpable abnormality does not preclude the possibility of malignancy or alter the indicat ions for biopsy. Note: Patient information entered into a reminder system with a target due date for the next mammogram: ??CPT II 7025F [id number] [id number] Dictating Physician: ??NATA CHAO MD Electronically Signed by: ??NATA CHAO MD Dic Date/Time: ??12/15/18 1303 Sign date/Time: ??12/15/18 1307 Procedure Note Nata Chao MD - 07/28/2022 [facility] Diagnostic Imaging Department [address] [place] [address] Patient: JASWANTGEE /Age/Sex: 1955 - 63 - F Unit#: [id number] Location/Status: [facility] CLI Mnemonic/Ordering Site: [facility] Ordering Physician: NAM SAHU MD [facility] Screening Digital - 12/15/18 - 7 INDICATION: Screening. Family history breast cancer in sister at age 55 COMPARISON: Prior mammograms dating back to 2003 TECHNIQUE: Routine views of both breasts were obtained using full-fielddirect digital mammography. Bilateral tomosynthesis was performed in MLOprojection. Computer Aided Detection was utilized. BREAST PARENCHYMAL COMPOSITION: The breast parenchyma is composed ofscattered fibroglandular densities. (Category b density ) . FINDINGS: There is no suspicious finding within either breast. Benign- appearing microcalcifications including secretory and vascularcalcifications in both breasts. IMPRESSION: 1. No mammographic evidence of malignancy. 2. Annual screening mammography is recommended . OVERALL FINAL ASSESSMENT: BI-RADS Assessment Category 2: Benign. PQRI CPT II 3342 F A negative mammogram in the presence of clinically suspicious palpable abnormality does not preclude the possibility of malignancy or alter theindicat ions for biopsy. Note: Patient information entered into a reminder system with a target duedate for the next mammogram: CPT II 7025F [id number] [id number] Dictating Physician: NATA CHAO MD Electronically Signed by: NATA CHAO MD Dic Date/Time: 12/15/18 1305 Sign date/Time: 12/15/18 1307 Nam Sahu MD IMG BI PROCEDURES * [facility] DEXA AXIAL SKELETON (10/21/2018 2:56 PM EDT) Anatomical Region Laterality Modality Mammography 10/21/2018 8:08 AM EDT Narrative 10/21/2018 2:56 PM EDT [facility] Diagnostic Imaging Department [address] [place] [address] Patient: ??GEE GALLEGOS ?/Age/Sex: 1955 - 63 - F Unit#: ??[id number] ? Location/Status: ??SPDIMAM/REG CLI ? Mnemonic/Ordering Site: ??MAMDEXAAX/SPMAM Ordering Physician: ??NAM SAHU MD [facility] Dexa Axial Skeleton - 10/21/18 - 1440 HISTORY: ??The patient is a 63-year-old postmenopausal female with clinical concern for metabolic bone disease. FINDINGS: ??Dual energy x-ray absorptiometry of the lumbar spine and femurs is performed. The mean bone mineral density at L1-L4 (with the exclusion of L3) is 1.181 gm/cm2 which is 101% of that of young normals and 114% of that of age matched controls. This yields a T-score of 0.1 and a Z-score of 1.2 and there is therefore no evidence of osteoporosis or osteopenia here. The mean bone mineral density of the femurs bilaterally is 0.916 gm/cm2 which is 91% of that of young normals and 102% of that of age matched controls. ??This yields a T-score of -0.7 and a Z-score of 0.1 and there is therefore no evidence of osteoporosis or osteopenia here. However, the T-score of the right femoral neck is -1.9 and that of the left femoral neck is -1.6 which is diagnostic of osteopenia. IMPRESSION: 1. Osteopenia. 2. FRAX analysis yields a 10-year probability of major osteoporotic fracture of 9.7% and a 10-year probability of hip fracture of 1.3%. Code 95931 Dictating Physician: ??SALEEM LI MD Electronically Signed by: ??SALEEM LI MD Dic Date/Time: ??10/21/181453 Sign date/Time: ??10/21/181455 Procedure Note Saleem Li MD - 07/29/2022 [facility] Diagnostic Imaging Department [address] [place] [address] Patient: GEE GALLEGOS /Age/Sex: 1955 - 63 - F Unit#: [id number] [facility] Mnemonic/Ordering Site: [facility] Ordering Physician: NAM SAHU MD [facility] Dexa Axial Skeleton - 10/21/18 - 9672 HISTORY: The patient is a 63-year-old postmenopausal female withclinical concern for metabolic bone disease. FINDINGS: Dual energy x-ray absorptiometry of the lumbar spine and femursis performed. The mean bone mineral density at L1-L4 (with the exclusion ofL3) is 1.181 gm/cm2 which is 101% of that of young normals and 114% of that ofage matched controls. This yields a T-score of 0.1 and a Z-score of 1.2 andthere is therefore no evidence of osteoporosis or osteopenia here. The mean bone mineral density of the femurs bilaterally is 0.916 gm/st8torvb is 91% of that of young normals and 102% of that of age matched controls.This yields a T-score of -0.7 and a Z-score of 0.1 and there is therefore noevidence of osteoporosis or osteopenia here. However, the T-score of the rightfemoral neck is -1.9 and that of the left femoral neck is -1.6 which is diagnosticof osteopenia. IMPRESSION: 1. Osteopenia. 2. FRAX analysis yields a 10-year probability of major osteoporoticfracture of 9.7% and a 10-year probability of hip fracture of 1.3%. Code 02454 Dictating Physician: SALEEM LI MD Electronically Signed by: SALEEM LI MD Dic Date/Time: 10/21/181453 Sign date/Time: 10/21/181455 Nam Sahu MD IMG BI PROCEDURES from Last 3 Months or Most Recently Relevant to Health Maintenance Care Teams Spa Attendant Relationship Specialty Start Date End Date Bebeto Wiley MD [address] [id number] PCP - General 09/12/10
--- OUTSIDE RECORDS SUMMARY | 2024-09-11 07:50 | XMS_ITS | Clinical Summary ---
Author Organization [facility] Address [address] [place] [address] Care Team Providers Care Budget Analyst Name Role Phone Bebeto Wiley MD Primary Care Provider [phone] Allergies Active Allergy Reactions Criticality Noted Date Comments Methocarbamol Hives 09/16/2016 Hydrocodone-Acetaminophen 05/27/2017 Medications Medication Sig Dispensed Refills Start Date End Date Status levothyroxine (SYNTHROID, LEVOXYL) tablet 50 mcg TAKE 1/2 TABLET BY MOUTH EVERY DAY IN THE MORNING ON AN EMPTY STOMACH DIRECTED 3 05/04/2017 Active Cholecalciferol 25 MCG (1000 UT) tablet Take 1,000 Units by mouth. 0 Active Diclofenac Sodium 1 % GEL Apply 2 g topically. 0 12/16/2020 Active LORazepam (ATIVAN) 0.5 MG tablet Take 0.5 mg by mouth. 0 Active atorvastatin (LIPITOR) tablet 20 mg Take 20 mg by mouth daily. 0 12/09/2020 Active amoxicillin (AMOXIL) 500 MG tablet Take 4 tabs 1 hour prior to dental appointment 20 tablet 3 04/29/2022 Active Active Problems Problem Noted Date Diagnosed Date Mass of soft tissue of knee 02/27/2021 Chronic pain of left knee 05/27/2017 Family History Medical History Relation Name Comments Heart attack Brother Heart disease Brother Heart attack Father Heart disease Father Hypertension Father Arthritis Mother Cancer Mother Lung disease Mother Osteoporosis Mother Arthritis Sister Cancer Sister Relation Name Status Comments Brother Father Mother Sister Social History Tobacco Use Types Packs/Day Years Used Date Smoking Tobacco: Former Cigarettes 0.5 15 Smokeless Tobacco: Never Tobacco Cessation:Counseling Given: No Alcohol Use Standard Drinks/Week Comments Yes 0 (1 standard drink = 0.6 oz pur e alcohol) 2x/week Sex and Gender Information Value Date Recorded Sex Assigned at Not on file Gender Identity Not on file Sexual Orientation Not on file Job Start Date Occupation Industry Not on file Not on file Not on file Last Filed Vital Signs Vital Sign Reading Time Taken Comments Blood Pressure 152/91 03/11/2021 10:19 AM EDT Pulse 86 03/11/2021 10:19 AM EDT Temperature 36.5 ??C (97.7 ??F) 03/11/2021 10:19 AM E DT Respiratory Rate - - Oxygen Saturation - - Inhaled Oxygen Concentration - - Weight 77.1 kg (170 lb) 03/11/2021 10:19 AM EDT Height 160 cm (5' 3 ) 03/11/2021 10:19 AM EDT Body Mass Index 30.11 03/11/2021 10:19 AM EDT Plan of Treatment Health Maintenance Due Date Last Done Comments Hepatitis C Screening 1955 Depression Screening 1966 BMI Counseling 1972 Preventative Health Evaluation 1972 Colon Cancer Screening (Colonoscopy) 1999 Breast Cancer Screening (Mammogram) 2004 Fall Risk Assessment 2019 Osteoporosis Screening (DEXA Scan) 2019 Pneumococcal Vaccine (2 of 2 - PCV) 05/22/2021 05/22/2020 DTap / Tdap / Td (2 - Td or Tdap) 05/23/2023 05/23/2013, 04/04/1999 COVID-19 Vaccine (3 - 2023-2 5 season) 2024 10/30/2020, 10/02/2020 Influenza Vaccine (#1) 2024 0, 05/03/2014, 05/09/2013 RSV Adult > 60+ Yrs or (1 - 1-dose 75+ series) 2029 Shingrix-Zoster Vaccine Completed 05/17/20 19, 01/11/2019 Hepatitis B Vaccines Aged Out No long er eligible based on patient's age to complete this topic RSV Ped < 20 months Aged Out No longe r eligible based on patient's age to complete this topic Care Teams Budget Analyst Relationship Specialty Start Date End Date Bebeto Wiley MD [address] [address] PCP - General Family Medicine 04/19/17
[2024-09-11] MEDS: Lactated Ringers 1,000 ML 100 ML IVCONT ×3 (08:21→23:30)
--- NOTE | 2024-09-11 13:45 | PM.OP ---
Brief Operative Note Date of Service: 09/11/24 Pre-op diagnosis: Right knee degenerative joint disease Post-op diagnosis: same Procedure: Right total knee arthroplasty Implants: [place] [employer] cemented posterior stabilized total knee arthroplasty with a femoral component size 3 right, tibial component size 2, polyethylene liner size 2 with 9 mm of thickness, a symmetric patellar component size 27 with 8 mm of thickness Surgeon: Milton Hammond MD Anesthesia: regional and spinal Was an Oracle Application Consultant used for this Procedure?: No Oracle Application Consultant: Kuldip Tracy Estimated blood loss (mL): 200 Pathology: other (Bony fragments from the right femur, tibia and patella) Condition: stable Disposition: PACU
--- NOTE | 2024-09-11 13:46 | P.OP_ITS ---
Operative Note Operative Note Date of Service: 09/11/24 Narrative: After the patient was identified as Adriel Gallegos and her right knee was initialed by myself the patient was brought to the holding area where a right leg nerve block was performed by the anesthesiologist in routine fashion. The patient was then brought to the operating room where conscious sedation and spinal anesthesia were performed by the anesthesiologist in routine fashion. The patient was given 2 g of IV Ancef preoperatively for infection prophylaxis. The patient's right lower extremity was prepped and draped in sterile fashion. A formal time-out was completed. The patient's right knee was placed onto a small bump to produce 30? of knee flexion during exposure. A #10 scalpel blade was used to make a midline incision extending 1 handbreadth proximal and distal to the patella. A second #10 scalpel blade was used to dissect the subcutaneous tissues down to the extensor mechanism. The subcutaneous flaps were maintained as thick as possible. A medial parapatellar arthrotomy was then performed using a #10 scalpel blade. The arthrotomy was begun just medial to the patellar tendon. The arthrotomy was continued 1 cm medial to the patella and then 5 mm into the medial aspect of the quadriceps tendon. The infrapatellar fat pad was partially excised to help with exposure. The soft tissue retinaculum was raised one-half of the way around the medial aspect of the proximal tibia. The patella was everted and the knee was flexed to 90?. There was no injury to the patellar tendon or its insertion onto the tibial tubercle. A drill bit was introduced into the distal aspect of the femur with a starting point 1 cm anterior to the origin of the posterior cruciate ligament. The intramedullary alignment deb was put into place. The distal alignment guide was set for a 5 degree valgus cut. The distal cutting block was put into place and was held with 4 pins. The intramedullary alignment deb was removed. Soft tissues were retracted in the distal femoral cut was made using a sagittal saw. The distal aspect of the femur measured to be a size 3 right component. Two drill holes were placed into the distal aspect of the femur marking 3? of external rotation. The distal cutting block was impacted into place and was held with 2 pins. Soft tissues were retracted and the 4 distal femoral cuts were made using a sagittal saw. Final notching and drilling of the distal aspect of the femur were performed in routine fashion. The trial femoral component was impacted into place. The knee was taken through a full range of motion. The patella tracked well. The patella was everted and the knee was flexed to 90?. The trial component was removed and our attention was directed to the proximal tibia. The medial and lateral menisci were removed using a #10 scalpel blade. A small rim of the medial meniscus was left intact to help prevent injury to the medial collateral ligament. A drill bit was then introduced into the proximal tibia with a starting point midway from medial to lateral and one-third of the way posteriorly. The intramedullary alignment deb was put into place. The proximal tibial cutting guide was placed over the alignment deb in line with the 2nd toe. The guide was held in place using 3 pins. The intramedullary alignment deb was removed. Soft tissues were retracted and the proximal tibial cut was made using a sagittal saw. The proximal tibia measured to be a size 2 component. The tibial tray was put into place with a 9 mm liner. The femoral component was impacted into place. The knee was taken through a full range of motion. There was full flexion and full extension. There was no instability with varus or valgus stress testing with the knee in flexion or extension. The patella tracked well with no medially directed force. The rotation of the tibial tray was marked using electrocautery with the knee in extension. The patella was everted and the knee was flexed to 90?. All trial components were removed. The tibial tray was placed onto the proximal tibia in line with the electrocautery walter. The tray was held in place using 3 pins. Final broaching of the proximal tibia was performed in routine fashion. The trial liner and trial femoral component were put into place. The knee was brought into extension and our attention was directed to the patella. The patella measured 25 mm in thickness. The patellar resection guide was set for a 10 mm resection. Soft tissues were retracted and the patella cut was made using a sagittal saw. The remaining patella measured 15 mm in thickness. The undersurface of the patella was me asured to be a size 27 symmetric component. Three drill holes were placed into the undersurface of the patella in routine fashion. The trial component was put into place. The knee was taken through a full range of motion. The patella tracked well. The patella was everted and the knee was flexed to 90?. All trial components were removed. The knee was once again brought into extension and placed onto a small bump. The knee joint was irrigated with copious amounts of normal saline solution via pulse lavage while the cement was mixed. The patella was everted and the knee was flexed to 90?. A small amount of cement was placed along the posterior aspects of the tibial and femoral components. Cement was then pressurized into the proximal tibia. The tibial component was impacted into place. Any excess cement was removed. The polyethylene liner was then impacted into place. Cement was then pressurized into the distal aspect of the femur. A small amount of cement was placed into the intramedullary canal to help reduce bleeding. The femoral component was impacted into place. Any excess cement was removed. The knee was then brought into extension. Cement was pressurized into the undersurface of the patella. The patellar component was put into place and was held with a patella clamp. Any excess cement was removed. Once the cement had hardened the patellar clamp was removed. The knee was taken through a full range of motion. There was full flexion and extension. There was no instability with varus or valgus stress testing with the knee in flexion or extension. The patella tracked well with no medially directed force. The knee joint was irrigated with copious amounts of normal saline solution via pulse lavage. Any significant bleeding vessels were coagulated. The patient's right knee was placed onto a small bump. The arthrotomy was closed with #2 Ethibond [id number] interrupted suture as well as #1 Vicryl [id number] interrupted suture. The wound was once again irrigated. The subcutaneous tissues were closed with 0 Vicryl and 2-0 Vicryl interrupted sutures. The skin was closed with skin bhavana. Dry sterile dressing and Eduard bandages were placed over the patient's right knee. The patient was awake and alert. The patient was transferred to the recovery room in stable condition.
--- NOTE | 2024-09-11 13:47 | PHA.MEDREC ---
Addendum entered by Jessica Maza RPh 09/11/24 13:50: reviewed by [facility]. Original Note: Pharmacy Consult ? Medication Reconciliation Pharmacy has reviewed the medication reconciliation done by nursing.
--- NOTE | 2024-09-11 15:02 | P.CONHOSP_ITS ---
History of Present Illness Data of Consult Service Date: 09/11/24 Primary Care Provider: Unknown Physician HPI A 69-year-old female with hypothyroidism, vitamin D deficiency, and degenerative joint disease underwent elective right knee arthroplasty today. She is doing well postoperatively without any acute medical issues at this time. Her pain appears to be adequately controlled, and her vital signs are stable. Review of Systems Review of Systems: Gen: no fever Resp: no sob, no cough CV: no chest, no ARCHER, no leg edema GI: No n/v, no abd pain Neuro: No confusion [facility] Medical History (Updated 09/11/24 @ 15:18 by Warren Cueto MD) Hx of bladder cancer (~1986) Hx of syncope (11/30/23) Seasonal allergies Scalp psoriasis Lichen sclerosus Malignant neoplasm of urinary bladder Osteopenia Supraclavicular mass Migraine aura without headache Adrenal adenoma Multiple lung nodules Coronary artery calcification Acquired hallux rigidus Benign paroxysmal positional vertigo of left ear Anxiety Prediabetes Constipation GERD (gastroesophageal reflux disease) Osteoarthritis Back pain Hyperlipidemia Thyroid disease Hx of bladder cancer Surgical History (Updated 08/14/24 @ 13:09 by Heather Jason RN) History of esophagogastroduodenoscopy (EGD) (08/06/23) History of surgery on left wrist History of left knee replacement Hx of appendectomy History of bunionectomy Hx of cystoscopy H/O colonoscopy Social History (Updated 08/14/24 @ 13:25 by Heather Jason RN) Housing: House Are you a primary pet care associate to a significant other at home: No Do you presently have visiting nurse or other home services: No Patient Tobacco Use Status: Former Tobacco user Tobacco use type: Cigarette Substance Use Type: Marijuana Current occupational status: retired Current occupation: Right hand dominate Meds Allergies Allergy/AdvReac Type Severity Reaction Status Date / Time hydrocodone [From Vicodin] Allergy Severe Nausea Verified 09/06/24 08:00 methocarbamol [From Robaxin] Allergy Severe Hives Verified 09/06/24 08:00 Active Medications: Current Medications Acetaminophen (Acetaminophen 325 Mg Tablet) 650 mg PO Q6H PRN PRN Reason: Pain, Mild 1-3,fever,headache Aspirin (Aspirin 325 Mg Tablet) 325 mg PO BID JORDAN Celecoxib (Celecoxib 200 Mg Capsule) 200 mg PO BID JORDAN Docusate Sodium (Docusate Sodium 100 Mg Capsule) 100 mg PO BID [facility] Gabapentin (Gabapentin 100 Mg Capsule) 100 mg PO BEDTIME [facility] Hydromorphone HCl (Hydromorphone Hcl 0.5 Mg/0.5 Ml Syringe) 0.25 mg IVPUSH Q4H PRN; Protocol PRN Reason: Pain, Severe (Pain Scale 7-10) Hydromorphone HCl (Hydromorphone Hcl 0.5 Mg/0.5 Ml Syringe) 0.5 mg IVPUSH Q4H PRN; Protocol PRN Reason: Pain, Severe (Pain Scale 7-10) Cefazolin Sodium/Dextrose (Ancef) 2 gm in 50 mls @ 100 mls/hr IV Q8H [facility] Stop: 09/12/24 16:59 Lactated Ringer's (Lr) 1,000 mls @ 100 mls/hr IVCONT .Q10H [facility] Stop: 09/12/24 12:00 Levothyroxine Sodium (Levothyroxine Sodium 50 Mcg Tablet) 50 mcg PO DAILY@0600 [facility] Melatonin (Melatonin 3 Mg Tablet) 6 mg PO BEDTIME PRN PRN Reason: Insomnia Ondansetron HCl (Ondansetron Hcl 4 Mg/2 Ml Vial) 4 mg IVPUSH Q8H PRN PRN Reason: Nausea and Vomiting Oxycodone HCl (Oxycodone Hcl Immed Release 5 Mg Tablet) 5 mg PO Q4H PRN PRN Reason: Pain, Moderate(Pain Scale 4-6) Oxycodone HCl (Oxycodone Hcl Er 10 Mg Tab.Er.12h) 10 mg PO BID [facility] Oxycodone HCl (Oxycodone Hcl Immed Release 5 Mg Tablet) 10 mg PO Q4H PRN PRN Reason: Pain, Moderate(Pain Scale 4-6) Sodium Chloride (0.9 % Sodium Chloride Flush 3 Ml Syringe) 3 ml IVFLUSH QSHIFT [facility] Home Medications ?Medication ?Instructions ?Recorded ?Confirmed ?Last Taken ?Type cholecalciferol (vitamin D3) 50 50 mcg PO DAILY 08/04/23 09/06/24 08/29/24 History mcg (2,000 unit) capsule (Vitamin D3) levothyroxine 50 mcg tablet 50 mcg PO DAILY@0600 08/04/23 09/11/24 09/11/24 History Saccharomyces boulardii 250 mg 250 mg PO DAILY 11/30/23 09/11/24 08/29/24 History capsule (Daily Probiotic (S. boulardii)) acetaminophen 500 mg tablet 1,000 mg PO Q6H PRN Pain 08/14/24 09/06/24 08/29/24 History (Acetaminophen Extra Strength) Physical Exam Vital Signs and Narrative: Vital Signs: Last Vital Signs Temp 97.3 F 09/11/24 14:45 Pulse 60 09/11/24 14:45 Resp 16 09/11/24 14:45 BP 132/93 H 09/11/24 14:45 Pulse Ox 98 09/11/24 14:45 O2 Del Method Nasal Cannula 09/11/24 14:45 BMI result Body Mass Index 30.3 Const: Other: General: AO X 3, no acute distress Resp: CTA bilateral CVS: S1,S2,RRR GI: +BS, NT, no distention Skin: No rash Neuro: motor grossly intact Psych: appropriate affect Results Labs Labs: Laboratory Results - last 24 hr 09/11/24 08:36 Blood Type O Positive Antibody Screen NEGATIVE Assessment and Plan (1) Hypothyroidism: Status: Acute Plan A 69-year-old female with hypothyroidism, vitamin D deficiency, and degenerative joint disease underwent elective right knee arthroplasty today. She is doing well postoperatively without any acute medical issues at this time. Her pain appears to be adequately controlled, and her vital signs are stable. Continue her med for hypothyroidism, vit-d deficiency post op care by ortho including pain control and dvt prevention Given no acute medical issues at this time and patient being stable, will sing off and follow on as needed basis. Thanks
[2024-09-11] MEDS: HYDROmorphone HCl 0.5 MG/0.5 ML SYRINGE 0.25 MG IVPUSH (16:23)
[2024-09-11] MEDS: ceFAZolin Sodium/Dextrose,Iso 2 GM/50 ML PIGGYBACK IV ×2 (16:29→23:30)
--- NOTE | 2024-09-11 17:27 | PC.NURSE ---
Pt was able to ambulate to bathroom with 1A and walker, voided 1x. Pt tolerated well.
[2024-09-11] MEDS: Aspirin 325 MG TABLET PO (19:58)
[2024-09-11] MEDS: Celecoxib 200 MG CAPSULE PO (19:58)
[2024-09-11] MEDS: Docusate Sodium 100 MG CAPSULE PO (20:02)
[2024-09-11] MEDS: oxyCODONE HCl ER 10 MG TAB.ER.12H PO (20:03)
[2024-09-12] VITALS: BP 124/70; PULSE 62; RESP 16; TEMP 36.1; O2SAT 96
[2024-09-12 03:08] VITALS: BP 116/71; PULSE 71; RESP 16; TEMP 36; O2SAT 96
[2024-09-12] MEDS: Levothyroxine Sodium 50 MCG TABLET PO (05:56)
[2024-09-12 06:13] LABS: MANUAL DIFF FLAG NO
[2024-09-12 06:23] LABS: Basophils Percent Auto 0.3 % (0-2); Eosinophils Percent Auto 0.1 % (0-4); Hematocrit 37.5 % (37.0-47.0); Hemoglobin 12.8 g/dl (12.0-16.0); Imm Gran Abs Auto 0.05 X10*3/uL (0.00-0.03); Imm Gran Pct Auto 0.4 % (0.0-0.4); Lymphocytes Absolute Auto 1.4 X10*3/uL (1.2-4.9); Mean Corpuscular HGB Conc 34.1 g/dl (31.0-35.0); Mean Corpuscular Hemoglobin 30.1 pg (27.0-33.0); Mean Corpuscular Volume 88.2 fL (80.0-98.0); Mean Platelet Volume 10.2 fL (9.4-12.3); Monocytes Percent Auto 7.9 % (2-11); Neutrophils Percent Auto 80.3 % (45-73); Platelet Count 197 X10*3/uL (160-400); Red Blood Count 4.25 X10*6/uL (4.20-5.50); Red Cell Distribution Width 13.2 % (11.0-16.0); White Blood Count 12.4 X10*3/uL (4.8-10.8)
[2024-09-12 06:34] LABS: Anion Gap 11 (12-20); Blood Urea Nitrogen 13 mg/dL (9-16); Calcium 8.7 mg/dL (8.4-10.2); Carbon Dioxide 26 mmol/L (22-29); Chloride 109 mmol/L (96-108); Creatinine Clr Calc Pharmacy 72.3; Estimated Glomerular Filt Rate > 60; Glucose Fasting 124 mg/dL (60-99); Potassium 4.2 mmol/L (3.3-5.1); Sodium 142 mmol/L (135-145)
[2024-09-12] MEDS: HYDROmorphone HCl 0.5 MG/0.5 ML SYRINGE 0.25 MG IVPUSH ×2 (07:30→14:43)
[2024-09-12] MEDS: 0.9 % Sodium Chloride Flush 3 ML SYRINGE IVFLUSH (07:31)
[2024-09-12 07:37] VITALS: BP 145/84; PULSE 76; RESP 18; TEMP 36.5; O2SAT 97
[2024-09-12 07:58] VITALS: BP 145/84; PULSE 76; O2SAT 97
[2024-09-12] MEDS: Aspirin 325 MG TABLET PO (08:28)
[2024-09-12] MEDS: ceFAZolin Sodium/Dextrose,Iso 2 GM/50 ML PIGGYBACK IV (08:28)
[2024-09-12] MEDS: Celecoxib 200 MG CAPSULE PO (08:29)
[2024-09-12] MEDS: oxyCODONE HCl ER 10 MG TAB.ER.12H PO (08:29)
[2024-09-12] MEDS: Docusate Sodium 100 MG CAPSULE PO (08:29)
--- NOTE | 2024-09-12 09:20 | MHC.CM.PN ---
Addendum entered by Charu East RN 09/12/24 12:08: Patient medically cleared for dc home w/ services. [facility] aware of dc. Private transport. Addendum entered by Charu East RN 09/12/24 09:21: Son plans to stay w/ patient for first few days while recovering. Original Note: Patient lives in a home alone. Functionally independent. Uses a cane PRN when in community. Also has crutches and a walker. PCP Bebeto Wiley MD No HCP. CM provided education and offered assistance. Patient declined. Accepted blank HCP and will consider completing at home after discussing w/ family. DP: PT rec home w/ services. [facility] is preferred and has accepted. Son to transport. CM will continue to follow.
--- NOTE | 2024-09-12 09:37 | W.MHC.F2F ---
Service Date Service Date: 09/12/24 Encounter Date of encounter: 09/12/24 Reasons for Services Signs and symptoms assessed: Weakness, poor balance, poor gait mechanics Reason for physical therapy: home safety and mobility, therapeutic exercises, restore joint function, gait/transfer training, ADL training and energy conservation Reason for occupational therapy: home safety and mobility, therapeutic exercises, restore joint function, gait/transfer training, ADL training and energy conservation Overseeing Care: Mliton Hammond Homebound: Leaving the home is medically contraindicated at this time without the asist of a device and/or another person due th the listed conditions above and below. Reason homebound: unsteady gait / fall risk, pain with ambulation, poor balance / fall risk, shortness of breath at rest and unable to drive Homebound supporting statement: Pt. is considered home bound due to recent surgery. Unable to drive, poor balance, poor gait mechanics. Certification: Based on the above findings, I certify that this patient is confined to the home and needs intermittent residential care, physical therapy and/or speech therapy, or continues to need occupational therapy. The patient is under my care, and I have initiated the establishment of the plan of care. The patient will be followed by a physician who will periodically review the plan of care. Time Spent With Patient Time: Total time managing care of this patient today ____ minutes.
--- NOTE | 2024-09-12 09:38 | P.DS_ITS ---
DS: Providers Provider Date of Service: 09/12/24 Date of discharge: 09/12/24 Primary care physician: Unknown Physician Consults: 09/11/24 14:45 Consult to Hospitalist Routine Comment: Consulting Provider: [facility] Hospitalists Reason For Exam: Ongoing medical management DS: Diagnosis Discharge Diagnosis (1) Status post total right knee replacement: Status: Acute DS: Summary Hospital Course Hospital Course: The patient underwent a successful right total knee arthroplasty on 09/11/[address] Hammond, was transferred to PACU and then to the floor to recover. During their stay, their vitals were stable, afebrile at 97.7. Labs were unremarkable, H/H 12.8/37.5 . POD 1 she was started on ASA 325mg tabs po bid for DVT ppx, they also received Physical Therapy services twice a day. Physical therapy should include gait training, ROM to tolerance and quad strength. He is WBAT. Prior to discharge, her dressing was clean dry and intact, The Aquacel dressing should remain intact and dry at all times. Any concerns with the dressing, please contact orthopedic office. No showering. The plan is to be discharged home with VNA Time Attestation Discharge Coordination Time (in mins): 30 Quality: Safe Use of Opioids Does Pt have an Active Cancer Diagnosis on the Problem List?: No Quality: Stroke Does the patient have a stroke diagnosis?: No Physical Exam Vital Signs: Vital Signs: Last Vital Signs Temp 97.7 F 09/12/24 07:37 Pulse 76 09/12/24 07:58 Resp 18 09/12/24 07:37 BP 145/84 H 09/12/24 07:58 Pulse Ox 97 09/12/24 07:58 O2 Del Method Room Air 09/12/24 07:37 BMI result Body Mass Index 30.4 Const: General: cooperative, healthy appearing and no acute distress Resp: Effort & Inspection: normal respiratory effort and able to speak in complete sentences Cardio: Rate: regular rate Peripheral pulses: Peripheral pulses 2+ throughout GI: Palpation (GI): Soft to palpation Skin: General skin exam: no rashes or lesions noted Extrem: Other: right knee bandage clean , dry and intact. She is able to dorsi and plantar flex. NVI. DS: Data Data Completed and Pending Pending studies at discharge: Pending at discharge 09/11/24 12:21 Surgical [PTH] Routine Labs on day of discharge: Laboratory Results - last 24 hr 09/12/24 05:55 WBC 12.4 H RBC 4.25 Hgb 12.8 Hct 37.5 MCV 88.2 MCH 30.1 MCHC 34.1 RDW 13.2 Plt Count 197 MPV 10.2 Immature Gran % (Auto) 0.4 Neut % (Auto) 80.3 H Lymph % (Auto) 11.0 L [place] % (Auto) 7.9 Eos % (Auto) 0.1 Baso % (Auto) 0.3 Lymph # (Auto) 1.4 [place] # (Auto) 1.0 Eos # (Auto) 0.0 Baso # (Auto) 0.0 Abs Immat Gran (auto) 0.05 H Absolute Neuts (auto) 10.0 H Absolute Nucleated RBC 0.000 Nucleated RBC % (auto) 0.0 Sodium 142 Potassium 4.2 Chloride 109 H Carbon Dioxide 26 Anion Gap 11 L BUN 13 Creatinine 0.69 Estim Creat Clear Calc 72.3 Estimated GFR > 60 Fasting Glucose 124 H Calcium 8.7 Discharge Plan Discharge Patient Disposition: Home Health Service Referrals: [facility] [Outside[facility] - [facility] to [facility] Nhi Villavicencio PA-C [Physician Environmental Compliance Officer] - 2 Weeks (09/28/24 12:45 [facility] Orthopedic Surgeons Nhi Villavicencio PA-C) Discharge Medications: New celecoxib 200 mg Capsule 200 mg PO BID 30 Days Qty: 60 0RF aspirin 325 mg Tablet 325 mg PO BID 30 Days Qty: 60 0RF docusate sodium 100 mg Capsule 100 mg PO BID 7 Days Qty: 14 0RF gabapentin 100 mg Capsule 100 mg PO BEDTIME 7 Days Qty: 7 0RF oxycodone 5 mg Tablet 5 mg PO Q4H PRN (Reason: Pain, Moderate(Pain Scale 4-6)) 7 Days Qty: 42 0RF Rx Instructions: Partial Fill upon patient request. acetaminophen 325 mg Tablet 650 mg PO Q6H PRN (Reason: Pain, Mild 1-3,Fever,Headache) 30 Days Qty: 240 0RF Continued (DME) walker Misc See Rx Instructions .ROUTE .MEDSUPPLY Qty: 1 0RF Rx Instructions: Folding front wheeled walker levothyroxine 50 mcg tablet 50 mcg PO DAILY@0600 cholecalciferol (vitamin D3) [Vitamin D3] 50 mcg (2,000 unit) Capsule 50 mcg PO DAILY Saccharomyces boulardii [Daily Probiotic (S. boulardii)] 250 mg capsule 250 mg PO DAILY Discontinued acetaminophen [Acetaminophen Extra Strength] 500 mg Tablet 1,000 mg PO Q6H PRN (Reason: Pain) Discharge Orders: Discharge Order (Routine); Ordered 09/12/24 Ordered By: Vitaly Mendoza Diet: Regular diet Activity on Discharge: Use cane or walker Activity Restrictions/Additional Instructions: Physical Therapy for Total knee arthroplasty: WBAT, gait training, ROM 0-12, quad strength * Limit stair climbing * No showering, no tub bath-keep dressing clean, dry and intact * No driving x6 weeks * Continue Aspirin twice a day x 6 weeks * Follow up with [facility] Orthopedics in 2 weeks: Print Language: Persian
[2024-09-12 10:48] VITALS: BP 145/84; PULSE 76; O2SAT 97
--- NOTE | 2024-09-12 11:54 | HO.POSTANES ---
Post Anesthesia Evaluation Post Anesthesia Evaluation Date of Service: 09/12/24 Vital Signs: Vital Signs Temp Pulse Resp BP Pulse Ox O2 Del Method 09/12/24 10:48 76 145/84 H 97 09/12/24 07:58 76 145/84 H 97 09/12/24 07:37 97.7 F 76 18 145/84 H 97 Room Air 09/12/24 03:08 96.8 F 71 16 116/71 96 Room Air 09/12/24 00:00 96.9 F 62 16 124/70 96 Room Air Anesthesia: Spinal and Nerve Block (right adductor canal block and right ipack block) Mental Status: Awake Pain Control: Satisfactory Nausea/Vomiting: None Hydration: Adequate Anesthesia-Related Issues: No Anes. Related Issues
[2024-09-12 12:00] VITALS: BP 148/71; PULSE 80; RESP 16; TEMP 36.2; O2SAT 97
[2024-09-12] MEDS: oxyCODONE HCl Immed Release 5 MG TABLET 10 MG PO (12:29)
== END 2024-09-12 14:43 | disposition home health service (06) ==
LOC: HO.SSS 07:53 → HO.S3 14:02
PROVIDERS: Physician Assistant; PCP Family Medicine; Visit Provider Orthopaedic Surgery
PROC: (CPT 27447; principal; 2024-09-11 11:00)
DX: M17.11 Unilateral primary osteoarthritis, right knee (principal); M85.80 Other specified disorders of bone density and structure, unspecified site; E03.9 Hypothyroidism, unspecified; R73.03 Prediabetes; E55.9 Vitamin D deficiency, unspecified; E78.5 Hyperlipidemia, unspecified; Z85.51 Personal history of malignant neoplasm of bladder; D35.02 Benign neoplasm of left adrenal gland; R91.8 Other nonspecific abnormal finding of lung field; H81.12 Benign paroxysmal vertigo, left ear; Z96.652 Presence of left artificial knee joint; Z87.891 Personal history of nicotine dependence; Z98.890 Other specified postprocedural states
CPT/HCPCS: 27447; 36415; 80048; 85025; 86850; 86900; 86901; 87640; 87641; 88305; 88311; 93005; 97110; 97116; 97161; C1776; J0131; J0665; J0690; J1100; J1171; J2003; J2250; J2704; J3370; J7120

== ENCOUNTER → 2024-09-11 07:46 | Outpatient (BNV) | payer MEDICARE, SELFPAY | PROVIDERS: Visit Provider Internal Medicine | DX: E03.9 Hypothyroidism, unspecified (principal) | CPT/HCPCS: 99222 ==

== ENCOUNTER → 2024-09-11 07:46 | Outpatient (BNV) | payer MEDICARE, SELFPAY | PROVIDERS: Visit Provider Orthopaedic Surgery | DX: Z47.1 Aftercare following joint replacement surgery (principal); Z96.651 Presence of right artificial knee joint | CPT/HCPCS: 27447; 99024 ==

== ENCOUNTER 2024-09-28 10:33 | Outpatient (REF) | payer MEDICARE, SELFPAY ==
--- NOTE | ~2024-09-28 | XR_ITS ---
EXAMINATION: XR KNEE, RIGHT CLINICAL INFORMATION: M25.569 - Pain in unspecified knee COMPARISON: 05/27/2023. MRI right knee 10/20/2023. TECHNIQUE: AP view bilateral knees, and 2 views right knee. FINDINGS: Left Knee: Total left knee arthroplasty without complication and normal alignment on this limited AP view. Normal soft tissues. Right Knee: Recent total right knee arthroplasty. Femoral and tibial components are intact, anatomically aligned, without periprosthetic fracture or complication. There has been associated patellar resurfacing. There is ventral soft tissue swelling with joint effusion. There are skin bhavana ventrally along the midline. There are early vascular calcifications. XR/XR knee RT 3V IMPRESSION: 1. Status post right knee arthroplasty without complication. 2. Total left knee arthroplasty without complication on this limited AP view.. Electronically signed by: Nish Tamez MD 09/29/2024 09:34 AM EST
--- OUTSIDE RECORDS SUMMARY | 2024-09-29 11:31 | XMS_ITS | Clinical Summary ---
Author Organization [facility] Address [address] [place] [address] Care Team Providers Care Laboratory Helper Name Role Phone Bebeto Wiley MD Primary Care Provider [phone] Allergies Active Allergy Reactions Criticality Noted Date [...] age to complete this topic Care Teams Laboratory Helper Relationship Specialty Start Date End Date Bebeto Wiley MD [address] [address] PCP - General Family Medicine 04/19/17
--- OUTSIDE RECORDS SUMMARY | 2024-09-29 11:31 | XMS_ITS | Clinical Summary ---
Author Organization [facility] Address [address] [place] [address] Care Team Providers Care Soil Fertility Specialist Name Role Phone Bebeto Wiley MD Primary Care Provider [phone] Immunizations Name Administration Dates Next Due Moderna [...] Name Priority Date/Time Associated Diagnosis Comments [facility] SCREENING DIGITAL Routine 12/15/2018 1:07 PM EDT Encounter for screening mammogram for malignant neoplasm of breast [facility] DEXA AXIAL SKELETON Routine 10/21/2018 2:56 PM EDT Encounter for screening for osteoporosis from Last 3 Months or Most Recently Relevant to Health Maintenance Results * [facility] SCREENING DIGITAL (12/15/2018 1:07 PM EDT) Anatomical Region Laterality Modality Mammography 12/15/2018 10:5 2 AM EDT Narrative 12/15/2018 1:07 PM EDT [facility] Diagnostic Imaging Department [address] [place] [address] Patient: ??GEE MICHAUD ?/Age/Sex: 1955 - 63 - F Unit#: ??[id number] ? Location/Status: ??SPDIMAM/REG CLI ? Mnemonic/Ordering Site: [...] for the next mammogram: ??CPT II 7025F [id number] Dictating Physician: ??NATA CHAO MD Electronically Signed by: ??NATA CHAO MD Dic Date/Time: ??12/15/18 1305 Sign date/Time: ??12/15/18 1307 Procedure Note Nata Chao MD - 07/28/2022 [facility] Diagnostic Imaging Department [address] [place] [address] Patient: GEE MICHAUD D.O.B./Age/Sex: 1955 - 63 - F Unit#: [id number] [facility]/Ordering Site: [facility] Ordering Physician: NAM SAHU MD Elissa Screening [...] for the next mammogram: CPT II 7025F [id number] Dictating Physician: NATA CHAO MD Electronically Signed by: NATA CHAO MD Dic Date/Time: 12/15/18 1305 Sign date/Time: 12/15/18 1307 Nam Sahu MD IMG BI PROCEDURES Final Result * [facility] DEXA AXIAL SKELETON (10/21/2018 2:56 PM EDT) Anatomical Region Laterality Modality Mammography 10/21/2018 8:08 AM EDT Narrative 10/21/2018 2:56 PM EDT [facility] Diagnostic Imaging Department [address] [place] [address] Patient: ??GEE MICHAUD ?/Age/Sex: 1955 - 63 - F Unit#: ??[id number] ? Location/Status: ??SPDIMAM/REG CLI ? Mnemonic/Ordering Site: ??MAMDEXAAX/SPMAM Ordering Physician: ??NAM SAHU MD [facility] Dexa Axial Skeleton - 10/21/18 - 8833 HISTORY: ??The patient is a 63-year-old postmenopausal [...] probability of hip fracture of 1.3%. Code 55802 Dictating Physician: ??SALEEM LI MD Electronically Signed by: ??SALEEM LI MD Dic Date/Time: ??10/21/181453 Sign date/Time: ??10/21/181455 Procedure Note Saleem Li MD - 07/29/2022 [facility] Diagnostic Imaging Department [address] [place] [address] Patient: GEE MICHAUD/Age/Sex: 1955 - 63 - F Unit#: [id number] Location/Status: SPDIMAM/REG CLI [facility] Ordering Physician: NAM SAHU MD [facility] Dexa Axial Skeleton - 10/21/18 - 1440 [...] density of the femurs bilaterally is 0.916 gm/ud8gnrmd is 91% of that of young normals [...] probability of hip fracture of 1.3%. Code 07409 Dictating Physician: SALEEM LI MD Electronically Signed by: SALEEM LI MD Dic Date/Time: 10/21/18 Sign date/Time: 10/21/181455 Nam Sahu MD IMG BI PROCEDURES Final Result from Last 3 Months or Most Recently Relevant to Health Maintenance Care Teams Soil Fertility Specialist Relationship Specialty Start Date End Date Wiley, Bebeto, MD [address] [address] PCP - General 09/12/10
--- OUTSIDE RECORDS SUMMARY | 2024-09-29 11:31 | XMS_ITS | Clinical Summary ---
Author Organization Unknown Care Team Providers Care Broom Worker Name Role Phone BARRINGTON PETERSON MD Unavailable Unavailable BRIDGETTE PT, SALEEM Unavailable Unavailable KATERYNA AGUIAR, SALEEM Unavailable Unavailable Payers Payer Name Policy Type Policy Number Effective Date Expira tion Date MEDICARE.NGS.PDGM [id number] Problems Condition Name Condition Details Condition Category Status Onset Date Resolution Date Last Treatment Date Treating Clinician Comments AFTERCARE FOLLOWING JOINT REPLACEMENT SURGERY Active 09-13 00:00: 00 PRESENCE OF RIGHT ARTIFICIAL KNEE JOINT Active 09-13 00:00: 00 ATHSCL HEART DISEASE OF [place] CORONARY ARTERY W/O ANG PCTRS Active 09-13 [...] 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 Active 09-13 00:00: 00 SCREENING TECH (CURRENT) USE OF ASPIRIN Active 09-13 00:00: 00 MCC (CURRENT) USE OF NON-STEROIDA L NON-INFLAM (NSAID) [...] Planned Date Details Comments Future Scheduled Test PT/SCREW CUTTER TO PROVIDE GAIT TRAINING FOR IMPROVED MOBILITY AND /OR TO NORMALIZE GAIT PATTERN [code = PT/SCREW CUTTER TO PROVIDE GAIT TRAINING FOR IMPROVED MOBILITY AND /OR TO NORMALIZE GAIT PATTERN] Future Scheduled Test THERAPEUTI C EXERCISES AND ESTABLISHING A HOME EXERCISE PROGRAM (PT/SCREW CUTTER) [code = THERAPEUTIC EXERCISES AND ESTABLISHING A HOME EXERCISE PROGRAM (PT/SCREW CUTTER)] Future Scheduled Test PT/SCREW CUTTER TO IDENTIFY FALL RISK FACTORS; EDUCATE THE PATIENT/CAREGIVER ON WAYS TO REDUCE FALL RISK FACTORS AND ESTABLISH HOME EXERCISE PROGRAM TO MINIMIZE FALL RISK. MAY TEACH THE PATIENT FLOOR RECOVERY WHEN CLINICALLY APPROPRIATE [code = PT/SCREW CUTTER TO IDENTIFY FALL RISK FACTORS; EDUCATE THE PATIENT/CAREGIVER ON WAYS TO REDUCE FALL RISK FACTORS AND ESTABLISH HOME EXERCISE PROGRAM TO MINIMIZE FALL RISK. MAY TEACH THE PATIENT FLOOR RECOVERY WHEN CLINICALLY APPROPRIATE] Future Scheduled Test PT/SCREW CUTTER TO PROVIDE STAIR TRAINING [code = PT/SCREW CUTTER TO PROVIDE STAIR TRAINING] Future Scheduled Test BED TRANSF ERS (PT/SCREW CUTTER) [code = BED TRANSFERS (PT/SCREW CUTTER)] Future Scheduled Test CHAIR DONIS SFERS (PT/SCREW CUTTER) [code = CHAIR TRANSFERS (PT/SCREW CUTTER)] Future Scheduled Test PT / SCREW CUTTER M AY EDUCATE ON PAIN MANAGEMENT CLINICALLY INDICATED, INCLUDING NON-PHARMACOLOGICAL PAIN REDUCTION TECHNIQUES [code = PT / SCREW CUTTER MAY EDUCATE ON PAIN MANAGEMENT CLINICALLY INDICATED, INCLUDING NON-PHARMACOLOGICAL PAIN REDUCTION TECHNIQUES] Future Scheduled Test AGENCY MAY PERFORM A RESUMPTION OF CARE VISIT FOLLOWING ANY HOSPITAL ADMISSION. PT TO EVALUATE, OBSERVE / ASSESS, AND MONITOR, SCREW CUTTER TO OBSERVE AND MONITOR, PROVIDE SKILLED THERAPEUTIC INTERVENTION, ACTIVITY, EDUCATION, AND TRAINING TO ADDRESS; [code = AGENCY MAY PERFORM A RESUMPTION OF CARE VISIT FOLLOWING ANY HOSPITAL ADMISSION. PT TO EVALUATE, OBSERVE / ASSESS, AND MONITOR, SCREW CUTTER TO OBSERVE AND MONITOR, PROVIDE SKILLED THERAPEUTIC INTERVENTION, ACTIVITY, EDUCATION, AND TRAINING TO ADDRESS;] Future Scheduled Test NEUROMUSCU LAR RE-EDUCATION / BALANCE / POSTURAL CONTROL (PT) [code = NEUROMUSCULAR RE-EDUCATION / BALANCE / POSTURAL CONTROL (PT)] Future Scheduled Test PT/SCREW CUTTER TO TEACH KNEE REPLACEMENT SELF-MANAGEMENT [code = PT/SCREW CUTTER TO TEACH KNEE REPLACEMENT SELF-MANAGEMENT] Future Scheduled Test PT TO ASSE SS / SCREW CUTTER TO MONITOR FOR AND REPORT EARLY SIGNS OF ANTICOAGULANT TOXICITY TO THE PHYSICIAN AND/OR THE RN CLINICAL PAYROLL LEAD FOR PHYSICIAN NOTIFICATION AND TO PROVIDE PATIENT/CAREGIVER EDUCATION ON ANTICOAGULANT THERAPY [code = PT TO ASSESS / SCREW CUTTER TO MONITOR FOR AND REPORT EARLY SIGNS OF ANTICOAGULANT TOXICITY TO THE PHYSICIAN AND/OR THE RN CLINICAL PAYROLL LEAD FOR PHYSICIAN NOTIFICATION AND TO PROVIDE PATIENT/CAREGIVER EDUCATION ON ANTICOAGULANT THERAPY] Future Scheduled Test PT / SCREW CUTTER T O OBSERVE WOUND/INCISION AND/OR INTACT DRESSING ON R KNEE AND REPORT EARLY SIGNS AND SYMPTOMS OF WOUND DETERIORATION, COMPLICATIONS, OR INFECTION TO PHYSICIAN AND/OR THE RN CLINICAL PAYROLL LEAD FOR PHYSICIAN NOTIFICATION. NON-REMOVABLE DRESSING TO BE TAKEN OFF AT FIRST POST-OP VISIT. [code = PT / SCREW CUTTER TO OBSERVE WOUND/INCISION AND/OR INTACT DRESSING ON R KNEE AND REPORT EARLY SIGNS AND SYMPTOMS OF WOUND DETERIORATION, COMPLICATIONS, OR INFECTION TO PHYSICIAN AND/OR THE RN CLINICAL PAYROLL LEAD FOR PHYSICIAN NOTIFICATION. NON-REMOVABLE DRESSING TO BE [...] End Date/Time Encounter Type Admission Type Attending [facility] Care Department Encounter ID Discharge Date Discharge Status Discharge Condition Discharge Reason Percent Goals Met 2024-09-13 00:00:00 2024-11-11 00:00:00 Outpatient NEW ADMISSION [facility] [id number] .00
--- OUTSIDE RECORDS SUMMARY | 2024-09-29 11:31 | XMS_ITS ---
Author Organization [facility] Address [address] [place] [address] Care Team Providers Care Certified Pharmacy Technician Name Role Phone Bebeto Wiley MD Primary Care Provider Ismael Nelson Unavailable [phone] REASON FOR VISIT constipation, change in bowels,gerd PROBLEMS Problem Type ICD Code Onset Dates Problem Status W/U Status Risk SNOMED Code Notes Problem Diverticulosis of large intestine without perforation or abscess without bleeding (K57.30) Active confirmed Diverticul ar disease of colon (151802118) Problem Gastroesophageal reflux disease (K21.9) Active confirmed Gastroesophagea l reflux disease (538908584) Encounters Encounter Location Date Provider Diagnosis [facility] [address] [place], [place] [id number] 08/06/2023 Ismael Rodrigo Colon polyps K63.5 ; [...]
--- OUTSIDE RECORDS SUMMARY | 2024-09-29 11:31 | XMS_ITS | Clinical Summary ---
Author Organization Unknown Care Team Providers Care Credit Verifier Name Role Phone BARRINGTON PETERSON MD Unavailable Unavailable BRIDGETTE PT, SALEEM Unavailable Unavailable KATERYNA AGUIAR, SALEEM Unavailable Unavailable Payers Payer Name Policy Type Policy Number Effective Date Expira tion Date MEDICARE.NGS.PDGM [id number] Problems Condition Name Condition Details Condition Category Status Onset Date Resolution Date Last Treatment Date Treating Clinician Comments AFTERCARE FOLLOWING JOINT REPLACEMENT SURGERY Active 09-13 00:00: 00 PRESENCE OF RIGHT ARTIFICIAL KNEE JOINT Active 09-13 00:00: 00 ATHSCL HEART DISEASE OF [place] CORONARY ARTERY W/O ANG PCTRS Active 09-13 [...] 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 Active 09-13 00:00: 00 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 ASPIRIN Active 09-13 00:00: 00 USP (CURRENT) USE OF NON-STEROIDA L NON-INFLAM (NSAID) [...] Planned Date Details Comments Future Scheduled Test PT/FRONT END WEB DESIGNER TO PROVIDE GAIT TRAINING FOR IMPROVED MOBILITY AND /OR TO NORMALIZE GAIT PATTERN [code = PT/FRONT END WEB DESIGNER TO PROVIDE GAIT TRAINING FOR IMPROVED MOBILITY AND /OR TO NORMALIZE GAIT PATTERN] Future Scheduled Test THERAPEUTI C EXERCISES AND ESTABLISHING A HOME EXERCISE PROGRAM (PT/FRONT END WEB DESIGNER) [code = THERAPEUTIC EXERCISES AND ESTABLISHING A HOME EXERCISE PROGRAM (PT/FRONT END WEB DESIGNER)] Future Scheduled Test PT/FRONT END WEB DESIGNER TO IDENTIFY FALL RISK FACTORS; EDUCATE THE PATIENT/CAREGIVER ON WAYS TO REDUCE FALL RISK FACTORS AND ESTABLISH HOME EXERCISE PROGRAM TO MINIMIZE FALL RISK. MAY TEACH THE PATIENT FLOOR RECOVERY WHEN CLINICALLY APPROPRIATE [code = PT/FRONT END WEB DESIGNER TO IDENTIFY FALL RISK FACTORS; EDUCATE THE PATIENT/CAREGIVER ON WAYS TO REDUCE FALL RISK FACTORS AND ESTABLISH HOME EXERCISE PROGRAM TO MINIMIZE FALL RISK. MAY TEACH THE PATIENT FLOOR RECOVERY WHEN CLINICALLY APPROPRIATE] Future Scheduled Test PT/FRONT END WEB DESIGNER TO PROVIDE STAIR TRAINING [code = PT/FRONT END WEB DESIGNER TO PROVIDE STAIR TRAINING] Future Scheduled Test BED TRANSF ERS (PT/FRONT END WEB DESIGNER) [code = BED TRANSFERS (PT/FRONT END WEB DESIGNER)] Future Scheduled Test CHAIR DONIS SFERS (PT/FRONT END WEB DESIGNER) [code = CHAIR TRANSFERS (PT/FRONT END WEB DESIGNER)] Future Scheduled Test PT / FRONT END WEB DESIGNER M AY EDUCATE ON PAIN MANAGEMENT CLINICALLY INDICATED, INCLUDING NON-PHARMACOLOGICAL PAIN REDUCTION TECHNIQUES [code = PT / FRONT END WEB DESIGNER MAY EDUCATE ON PAIN MANAGEMENT CLINICALLY INDICATED, INCLUDING NON-PHARMACOLOGICAL PAIN REDUCTION TECHNIQUES] Future Scheduled Test AGENCY MAY PERFORM A RESUMPTION OF CARE VISIT FOLLOWING ANY HOSPITAL ADMISSION. PT TO EVALUATE, OBSERVE / ASSESS, AND MONITOR, FRONT END WEB DESIGNER TO OBSERVE AND MONITOR, PROVIDE SKILLED THERAPEUTIC INTERVENTION, ACTIVITY, EDUCATION, AND TRAINING TO ADDRESS; [code = AGENCY MAY PERFORM A RESUMPTION OF CARE VISIT FOLLOWING ANY HOSPITAL ADMISSION. PT TO EVALUATE, OBSERVE / ASSESS, AND MONITOR, FRONT END WEB DESIGNER TO OBSERVE AND MONITOR, PROVIDE SKILLED THERAPEUTIC INTERVENTION, ACTIVITY, EDUCATION, AND TRAINING TO ADDRESS;] Future Scheduled Test NEUROMUSCU LAR RE-EDUCATION / BALANCE / POSTURAL CONTROL (PT) [code = NEUROMUSCULAR RE-EDUCATION / BALANCE / POSTURAL CONTROL (PT)] Future Scheduled Test PT/FRONT END WEB DESIGNER TO TEACH KNEE REPLACEMENT SELF-MANAGEMENT [code = PT/FRONT END WEB DESIGNER TO TEACH KNEE REPLACEMENT SELF-MANAGEMENT] Future Scheduled Test PT TO ASSE SS / FRONT END WEB DESIGNER TO MONITOR FOR AND REPORT EARLY SIGNS OF ANTICOAGULANT TOXICITY TO THE PHYSICIAN AND/OR THE RN CLINICAL RAISIN WASHER FOR PHYSICIAN NOTIFICATION AND TO PROVIDE PATIENT/CAREGIVER EDUCATION ON ANTICOAGULANT THERAPY [code = PT TO ASSESS / FRONT END WEB DESIGNER TO MONITOR FOR AND REPORT EARLY SIGNS OF ANTICOAGULANT TOXICITY TO THE PHYSICIAN AND/OR THE RN CLINICAL RAISIN WASHER FOR PHYSICIAN NOTIFICATION AND TO PROVIDE PATIENT/CAREGIVER EDUCATION ON ANTICOAGULANT THERAPY] Future Scheduled Test PT / FRONT END WEB DESIGNER T O OBSERVE WOUND/INCISION AND/OR INTACT DRESSING ON R KNEE AND REPORT EARLY SIGNS AND SYMPTOMS OF WOUND DETERIORATION, COMPLICATIONS, OR INFECTION TO PHYSICIAN AND/OR THE RN CLINICAL RAISIN WASHER FOR PHYSICIAN NOTIFICATION. NON-REMOVABLE DRESSING TO BE TAKEN OFF AT FIRST POST-OP VISIT. [code = PT / FRONT END WEB DESIGNER TO OBSERVE WOUND/INCISION AND/OR INTACT DRESSING ON R KNEE AND REPORT EARLY SIGNS AND SYMPTOMS OF WOUND DETERIORATION, COMPLICATIONS, OR INFECTION TO PHYSICIAN AND/OR THE RN CLINICAL RAISIN WASHER FOR PHYSICIAN NOTIFICATION. NON-REMOVABLE DRESSING TO BE [...] End Date/Time Encounter Type Admission Type Attending [facility] Care Department Encounter ID Discharge Date Discharge Status Discharge Condition Discharge Reason Percent Goals Met 2024-09-13 00:00:00 2024-11-11 00:00:00 Outpatient NEW ADMISSION SALEEM [facility] [id number] .00
--- OUTSIDE RECORDS SUMMARY | 2024-09-29 11:31 | XMS_ITS | Patient Health Record ---
Author Organization [facility] Address [address] [place] [address] Care Team Providers Care Hvac Sales Engineer Name Role Phone Inez COYNE, Bebeto Primary Care Provider Ismael Nelson Unavailable [phone] ALLERGIES Allergen (clinical drug ingredient) Drug/Non Drug [...] Constipation, unspecified constipation type (K59.00) Active confirmed 60950336 Problem Gastroesophageal reflux disease, unspecified whether esophagitis present (K21.9) Active confirmed 854832482 Problem Change in bowel habits (R19.4) Active confirmed 84434062 Problem Abdominal bloating (R14.0) Active confirmed 723882549 Problem Diverticulosis of large intestine without perforation or abscess without bleeding (K57.30) Active confirmed Diverticul ar disease of colon (209086790) Problem Gastroesophageal reflux disease (K21.9) Active confirmed Gastroesophagea l reflux disease (515444639) PLAN OF TREATMENT Pending Test Test Name Order Date CELIAC PANEL #10 05/07/2023 Future Test Test Name Order Date UPPER GI ENDOSCOPY 05/07/2023 COLONOSCOPY 05/07/2023 Insurance Providers Payer Name Payer Address Payer Phone Subscriber Number Group Number Insured Name Patient Relationship to Insured Coverage Start Date Coverage End Date [facility] [address] [place], [place] [id number] JASWANT GEE Self - patient is the insured MEDICAL (GENERAL) HISTORY Medical History History ICD Code Bladder cancer for which she undergoes p eriodic cystoscopies Hypothyroidism Hyperlipidemia Denies AR,DM,CVA,Lung disease,renal dise ase She describes a negative col onoscopy at age 49 and another negative colonoscopy in 2015. Surgical History Surgery Date(Month/Year) Bladder cancer treated with cystoscopy Bunionectomy Appendectomy Left knee replacement 2016 Left wrist 2022
--- OUTSIDE RECORDS SUMMARY | 2024-09-29 11:31 | XMS_ITS | Patient Health Record ---
Author Organization [facility] Address [address] [place] [address] Care Team Providers Care Guncotton Packer Name Role Phone Bebeto Wiley MD Primary Care Provider Adin Watson Unavailable [phone] Allergies Allergen (clinical drug ingredient) Drug/Non Drug [...] Status Risk Notes Problem Acquired hallux rigidus (2691172) Hallux rigidus, left foot (M20.22) Active confirmed Problem Acquired hammer toe of right foot (2277068993539 105) Other hammer toe(s) (acquired), right foot (M20.41) Active confirmed Problem Acquired hammer toe of left foot (4621218620446 103) Other hammer toe(s) (acquired), left foot (M20.42) Active confirmed Problem Acquired hallux rigidus (5219030) Hallux rigidus, right foot (M20.21) Active confirmed Plan Of Treatment Pending Test Test Name Order Date X ray : Foot, left 3V 01/01/2021 X ray : Foot, right 3V 01/01/2021 Insurance Providers Payer Name Payer Address Payer Phone Subscriber Number Group Number Insured Name Patient Relationship to Insured Coverage Start Date Coverage End Date [employer] [address] [place] [address] [id number] Rico Self - patient is the insured [...]
--- OUTSIDE RECORDS SUMMARY | 2024-09-29 11:31 | XMS_ITS ---
Author Organization [facility] Address [address] [place] [address] Care Team Providers Care Aircraft Structural Repair Mechanic Name Role Phone Bebeto Wiley MD Primary Care Provider Ismael Nelson Unavailable [phone] ALLERGIES Allergen (clinical drug ingredient) Drug/Non Drug [...] Constipation, unspecified constipation type (K59.00) Active confirmed 26154689 Problem Gastroesophageal reflux disease, unspecified whether esophagitis present (K21.9) Active confirmed 875010140 Problem Change in bowel habits (R19.4) Active confirmed 86337529 Problem Abdominal bloating (R14.0) Active confirmed 878107804 VITAL SIGNS BMI 30.36 kg/m2 05/07/2023 Blood pressure systolic 000 mm Hg 05/07/20 23 Blood pressure diastolic 00 mm Hg 023 Height 5 ft 2 in in 05/07/2023 Temperature 98.6 degrees Fahrenheit 05/07/20 23 Weight 166 lbs 05/07/2023 Encounters Encounter Location Date Provider Diagnosis [facility] [address] [place] [address] 05/07/2023 Ismael Wallace Constipation, unspec ified constipation [...]
== END 2024-09-28 10:34 | disposition home or self-care (01) ==
LOC: HO.HOSX 10:33
PROVIDERS: Visit Provider Physician Assistant
DX: M25.561 Pain in right knee (principal); Z96.651 Presence of right artificial knee joint
CPT/HCPCS: 73562; 99212

== ENCOUNTER 2024-09-28 12:18 | Outpatient (AMB) | payer MEDICARE, SELFPAY ==
--- NOTE | 2024-09-28 12:31 | A.OFFVIS_ITS ---
Intake Visit Reasons: 2WK PO: R TKA w/ 09/11/24 Intake Note: Adriel is a 69 year old female who presents today for a post op appointment s/p right TKA 09/11/24 NE. Patient states she is attending P.T and so far its been helpful with her ROM. States she feels like her knee feels tight. Next appt rhonda/ 10/19 @ 12:45PM Allergies hydrocodone [From Vicodin] Allergy (Severe, Verified 09/28/24 12:33) Nausea methocarbamol [From Robaxin] Allergy (Severe, Verified 09/28/24 12:33) Hives HPI HPI 2WK PO: R TKA w/ 09/11/24: Details: Patient presents to the office today for routine follow-up status post right total knee arthroplasty with Dr. Hammond on 09/11/2024. Overall the patient is doing very well. Her pain is well-controlled. No additional complaints. [facility] Medical History (Updated 09/14/24 @ 00:02 by Waqar Cortes) Hypothyroidism Hx of bladder cancer (~1986) Hx of syncope (11/30/23) Seasonal allergies Scalp psoriasis Lichen sclerosus Malignant neoplasm of urinary bladder Osteopenia Supraclavicular mass Migraine aura without headache Adrenal adenoma Multiple lung nodules Coronary artery calcification Acquired hallux rigidus Benign paroxysmal positional vertigo of left ear Anxiety Prediabetes Constipation GERD (gastroesophageal reflux disease) Osteoarthritis Back pain Hyperlipidemia Thyroid disease Hx of bladder cancer Surgical History History of esophagogastroduodenoscopy (EGD) (08/06/23) History of surgery on left wrist History of left knee replacement Hx of appendectomy History of bunionectomy Hx of cystoscopy H/O colonoscopy Social History Housing: House Are you a primary manager career to a significant other at home: No Do you presently have visiting nurse or other home services: No Patient Tobacco Use Status: Former Tobacco user Tobacco use type: Cigarette Substance Use Type: Marijuana service: No Current occupational status: retired Current occupation: Right hand dominate Review of Systems Const All systems reviewed & are unremarkable except as noted in HPI and below Physical Exam Const General: cooperative, healthy appearing and no acute distress Resp Effort & Inspection: normal respiratory effort and able to speak in complete sentences Cardio Rate: regular rate Peripheral pulses: Peripheral pulses 2+ throughout Skin Lesions: no lesions Rashes: no rashes Extrem Other: Right knee bhavana intact. No surrounding erythema drainage. No signs of infection. Range of motion 0-125 degrees. NVI. Assessment & Plan Assessment & Plan (1) Status post total right knee replacement: Code(s): Z96.651 - Presence of right artificial knee joint Category: Surgical Plan While in the office today, bhavana were removed and Steri-Strips were applied. We did discuss the role of physical therapy and the patient is interested in attending physical therapy for strengthening of the right lower extremity. Physical therapy should focus on glute core and quad strengthening as well as gait training. I sent a prescription for an antibiotic prophylactically for possible dental work in the future. However, the patient was educated they should not have any major dental work for the first 3 months post op after a?right total knee arthroplasty. X-rays were obtained while in the office today of the right knee and reviewed by me, reveal intact arthroplasty with satisfactory alignment. Orders: Orders XR knee RT 3V Today M25.569 - Pain in unspecified knee XR knee LT 1V Today M25.569 - Pain in unspecified knee Medications: New amoxicillin 2,000 mg (4 x 500 mg) PO ONCE 1 day 4 tabs 0RF take 4 tabs by mouth 1 hour prior to dental ppx Coding Level of Care Code Global (65965) Diagnoses Status post total right knee replacement Z96.651
--- OUTSIDE RECORDS SUMMARY | 2024-09-28 13:17 | XMS_ITS | Patient Health Record ---
Author Organization [facility] Address [address] [place] [id number] Care Team Providers Care Machine Stuffer Name Role Phone Inez COYNE, Bebeto Primary Care Provider Ismael Nelson Unavailable [phone] ALLERGIES Allergen (clinical drug ingredient) Drug/Non Drug Allergy documented on EMR Reaction Allergy Type Onset Date Status Vicodin Unknown Drug Allergy Active methocarbamol Robaxin Unknown Drug Allergy Act scar REASON FOR REFERRAL No Information MEDICATIONS Medication [...] Constipation, unspecified constipation type (K59.00) Active confirmed 84738302 Problem Gastroesophageal reflux disease, unspecified whether esophagitis present (K21.9) Active confirmed 995021076 Problem Change in bowel habits (R19.4) Active confirmed 31705932 Problem Abdominal bloating (R14.0) Active confirmed 564289829 Problem Diverticulosis of large intestine without perforation or abscess without bleeding (K57.30) Active confirmed Diverticul ar disease of colon (494970646) Problem Gastroesophageal reflux disease (K21.9) Active confirmed Gastroesophagea l reflux disease (887693951) PLAN OF TREATMENT Pending Test Test Name Order Date CELIAC PANEL #10 05/07/2023 Future Test Test Name Order Date UPPER GI ENDOSCOPY 05/07/2023 COLONOSCOPY 05/07/2023 Insurance Providers Payer Name Payer Address Payer Phone Subscriber Number Group Number Insured Name Patient Relationship to Insured Coverage Start Date Coverage End Date [facility] [address] [place], [place] [id number] JASWANT GEE Self - patient is the insured MEDICAL (GENERAL) HISTORY Medical History History ICD Code Bladder cancer for which she undergoes p eriodic cystoscopies Hypothyroidism Hyperlipidemia Denies CA,DM,CVA,Lung disease,renal dise ase She describes a negative col onoscopy at age 49 and another negative colonoscopy in 2015. Surgical History Surgery Date(Month/Year) Bladder cancer treated with cystoscopy Bunionectomy Appendectomy Left knee replacement 2016 Left wrist 2022
--- OUTSIDE RECORDS SUMMARY | 2024-09-28 13:17 | XMS_ITS | Clinical Summary ---
Author Organization [facility] Address [address] [place] [address] Care Team Providers Care Crankshaft Balancer Name Role Phone Bebeto Wiley MD Primary Care Provider [phone] Immunizations Name Administration Dates Next Due Moderna [...] drink = 0.6 oz pur e alcohol) Comments Unknown Sex and Gender Information Value Date Recorded Sex Assigned at Not on file Legal Sex Female 8:50 PM EST Gender Identity Not on file Sexual Orientation Not on file Obstetrics History Plan of Treatment Health Maintenance Due Date Last Done Comments DTaP,Tdap,and Td Vaccines (1 - Tdap) 1973 Pneumococcal Vaccine: 50+ Years (1 of 1 - PCV) 2004 Zoster Vaccines (1 of 2) 2004 Breast Cancer Screening 12/15/2020 12/15/2018 Colorectal Cancer [...] patient's age to complete this topic Meningococcal B Vacine Aged Out No lo nger eligible based on patient's age to complete this topic RSV Immunization Patients Under 20 months Aged Out No longer eligible b ased on patient's age to complete this topic Varicella Vaccines Aged Out No longer eligible based on patient's age to complete this topic Procedures Procedure Name Priority Date/Time Associated Diagnosis Comments [facility] SCREENING DIGITAL Routine 12/15/2018 1:07 PM EDT Encounter for screening mammogram for malignant neoplasm of breast [facility] DEXA AXIAL SKELETON Routine 10/21/2018 2:56 PM EDT Encounter for screening for osteoporosis from Last 3 Months or Most Recently Relevant to Health Maintenance Results * [facility] SCREENING DIGITAL (12/15/2018 1:07 PM EDT) Anatomical Region Laterality Modality Mammography 12/15/2018 10:5 2 AM EDT Narrative 12/15/2018 1:07 PM EDT [facility] Diagnostic Imaging Department [address] [place] [address] Patient: ??GEE MICHAUD ?/Age/Sex: 1955 - 63 - F Unit#: ??[id number] ? Location/Status: ??SPDIMAM/REG CLI ? Mnemonic/Ordering Site: ??DIGSC/SPMAM Ordering Physician: ??NAM SAHU MD Elissa Screening Digital - 12/15/18 - 1107 INDICATION: Screening. Family history breast cancer in [...] for the next mammogram: ??CPT II 7025F [id number] Dictating Physician: ??NATA CHAO MD Electronically Signed by: ??NATA CHAO MD Dic Date/Time: ??12/15/18 1305 Sign date/Time: ??12/15/18 1307 Procedure Note Nata Chao MD - 07/28/2022 [facility] Diagnostic Imaging Department [address] [place] [address] Patient: GEE MICHAUD D.O.B./Age/Sex: 1955 - 63 - F Unit#: [id number] Location/Status: [facility] Mnemonic/Ordering Site: [facility] Ordering Physician: NAM SAHU MD Elissa Screening Digital - 12/15/18 - 1107 INDICATION: Screening. Family history breast cancer in [...] for the next mammogram: CPT II 7025F [id number] Dictating Physician: NATA CHAO MD Electronically Signed by: NATA CHAO MD Dic Date/Time: 12/15/18 1305 Sign date/Time: 12/15/18 1307 Nam Sahu MD IMG BI PROCEDURES Final Result * ELISSA DEXA AXIAL SKELETON (10/21/2018 2:56 PM EDT) Anatomical Region Laterality Modality Mammography 10/21/2018 8:08 AM EDT Narrative 10/21/2018 2:56 PM EDT [facility] Diagnostic Imaging Department [address] [place] [address] Patient: ??GEE MICHAUD ?/Age/Sex: 1955 - 63 - F Unit#: ??[id number] ? Location/Status: ??SPDIMAM/REG CLI ? Mnemonic/Ordering Site: ??MAMDEXAAX/SPMAM Ordering Physician: ??NAM SAHU MD Elissa Dexa Axial Skeleton - 10/21/18 - 9198 HISTORY: ??The patient is a 63-year-old postmenopausal [...] probability of hip fracture of 1.3%. Code 63674 Dictating Physician: ??SALEEM LI MD Electronically Signed by: ??SALEEM LI MD Dic Date/Time: ??10/21/181453 Sign date/Time: ??10/21/181455 Procedure Note Saleem Li MD - 07/29/2022 [facility] Diagnostic Imaging Department [address] [place] [address] Patient: GEE MICHAUD/Age/Sex: 1955 - 63 - F Unit#: [id number] Location/Status: SPDIMAM/REG CLI [facility] Ordering Physician: NAM SAHU MD [facility] Dexa Axial Skeleton - 10/21/18 - 1440 HISTORY: The patient is a 63-year-old postmenopausal [...] density of the femurs bilaterally is 0.916 gm/wr3supzh is 91% of that of young normals [...] probability of hip fracture of 1.3%. Code 71876 Dictating Physician: SALEEM LI MD Electronically Signed by: SALEEM LI MD Dic Date/Time: 10/21/188 Sign date/Time: 10/21/181455 Nam Sahu MD IMG BI PROCEDURES Final Result from Last 3 Months or Most Recently Relevant to Health Maintenance Care Teams Crankshaft Balancer Relationship Specialty Start Date End Date Wiley, Bebeto, MD [address] [address] PCP - General 09/12/10
--- OUTSIDE RECORDS SUMMARY | 2024-09-28 13:17 | XMS_ITS ---
Author Organization [facility] Address [address] [place] [address] Care Team Providers Care Yard Manager Name Role Phone Bebeto Wiley MD Primary Care Provider Ismael Nelson Unavailable [phone] ALLERGIES Allergen (clinical drug ingredient) Drug/Non Drug [...] Constipation, unspecified constipation type (K59.00) Active confirmed 72749870 Problem Gastroesophageal reflux disease, unspecified whether esophagitis present (K21.9) Active confirmed 958643121 Problem Change in bowel habits (R19.4) Active confirmed 53392596 Problem Abdominal bloating (R14.0) Active confirmed 156104793 VITAL SIGNS BMI 30.36 kg/m2 05/07/2023 Blood pressure systolic 000 mm Hg 05/07/20 23 Blood pressure diastolic 00 mm Hg 023 Height 5 ft 2 in in 05/07/2023 Temperature 98.6 degrees Fahrenheit 05/07/20 23 Weight 166 lbs 05/07/2023 Encounters Encounter Location Date Provider Diagnosis [facility] [address] [place] [phone] 05/07/2023 Ismael Wallace Constipation, unspec ified constipation [...]
--- OUTSIDE RECORDS SUMMARY | 2024-09-28 13:17 | XMS_ITS ---
Author Organization [facility] Address [address] [place] [address] Care Team Providers Care Fast Food Manager Name Role Phone Bebeto Wiley MD Primary Care Provider Ismael Nelson Unavailable [phone] REASON FOR VISIT constipation, change in bowels,gerd PROBLEMS Problem Type ICD Code Onset Dates Problem Status W/U Status Risk SNOMED Code Notes Problem Diverticulosis of large intestine without perforation or abscess without bleeding (K57.30) Active confirmed Diverticul ar disease of colon (774730555) Problem Gastroesophageal reflux disease (K21.9) Active confirmed Gastroesophagea l reflux disease (755891735) Encounters Encounter Location Date Provider Diagnosis [facility] Outpatient [address] [place], [place] [id number] 08/06/2023 Ismael Rodrigo Colon polyps K63.5 ; [...]
--- OUTSIDE RECORDS SUMMARY | 2024-09-28 13:18 | XMS_ITS | Clinical Summary ---
Author Organization Unknown Care Team Providers Care Fiber Artist Name Role Phone BARRINGTON PETERSON MD Unavailable Unavailable BRIDGETTE PT, SALEEM Unavailable Unavailable KATERYNA AGUIAR, SALEEM Unavailable Unavailable Payers Payer Name Policy Type Policy Number Effective Date Expira tion Date MEDICARE.NGS.PDGM [id number] Problems Condition Name Condition Details Condition Category Status Onset Date Resolution Date Last Treatment Date Treating Clinician Comments AFTERCARE FOLLOWING JOINT REPLACEMENT SURGERY Active 09-13 00:00: 00 PRESENCE OF RIGHT ARTIFICIAL KNEE JOINT Active 09-13 00:00: 00 ATHSCL HEART DISEASE OF [place] CORONARY ARTERY W/O ANG PCTRS Active 09-13 00:00: 00 HYPERLIPIDEM IA, UNSPECIFIED Active 09-13 00:00: 00 MIGRAINE, UNSP, NOT INTRACTABLE, WITHOUT STATUS MIGRAINOSUS Active 09-13 00:00: 00 OTH DISRD OF BONE DENSITY AND STRUCTURE, UNSPECIFIED SITE Active 09-13 00:00: 00 ANXIETY DISORDER, UNSPECIFIED Active 09-13 00:00: 00 HYPOTHYROIDI SM, UNSPECIFIED Active 09-13 00:00: 00 UNSPECIFIED OSTEOARTHRIT IS, UNSPECIFIED SITE Active 09-13 00:00: 00 HALLUX RIGIDUS, UNSPECIFIED FOOT Active 09-13 00:00: 00 BENIGN PAROXYSMAL VERTIGO, LEFT EAR Active 09-13 00:00: 00 OTHER PSORIASIS Active 09-13 00:00: 00 LICHEN SCLEROSUS ET ATROPHICUS Active 09-13 00:00: 00 PREDIABETES Active - 00:00: 00 OTHER NONSPECIFIC ABNORMAL FINDING OF LUNG FIELD Active 09-13 00:00: 00 CONSTIPATION , UNSPECIFIED Active 09-13 00:00: 00 GASTRO-ESOPH AGEAL REFLUX 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 Active 09-13 00:00: 00 JOB SITE SUPERVISOR (CURRENT) USE OF ASPIRIN Active 09-13 00:00: 00 MCFP (CURRENT) USE OF NON-STEROIDA L NON-INFLAM (NSAID) Active 09-13 00:00: 00 PERSONAL HISTORY OF NICOTINE DEPENDENCE Active 09-13 00:00: 00 PRESENCE OF LEFT ARTIFICIAL KNEE JOINT Active 09-13 00:00: 00 Allergies, Adverse Reactions, Alerts Allergy Name Allergy Type Status Severity Reaction(s) Onset Date Inactive Date Treating Clinician Comments VICODIN Propensity to adverse reactions Active 2024-09 07:39:1 5 ROBAXIN Propensity to adverse reactions Active 2024-09 07:39:5 7 Vital Signs Vital Name Observation Time Observation Value Commen ts Temperature 2024-09-27 14:26:00.000 98.1 [degF] Temperature 2024-09-22 14:47:00.000 98.1 [degF] Temperature 2024-09-21 20:52:00.000 98.1 [degF] Temperature 2024-09-18 09:10:00.000 97.2 [degF] Temperature 2024-09-15 09:05:00.000 97.5 [degF] Temperature 2024-09-13 13:38:00.000 97.5 [degF] BMI (%) 2024-09-13 13:38:00.000 29 kg/m2 Height 2024-09-13 13:38:00.000 62 [in_us] Pulse 2024-09-27 14:26:00.000 90 /min Pulse 2024-09-22 14:47:00.000 68 /min Pulse 2024-09-21 20:52:00.000 74 /min Pulse 2024-09-18 09:10:00.000 86 /min Pulse 2024-09-15 09:05:00.000 80 /min Pulse 2024-09-13 13:38:00.000 90 /min O2 Saturation (%) 2024-09-27 14:26:00.000 98 % O2 Saturation (%) 2024-09-22 14:47:00.000 98 % O2 Saturation (%) 2024-09-21 20:52:00.000 98 % O2 Saturation (%) 2024-09-18 09:10:00.000 98 % O2 Saturation (%) 2024-09-15 09:05:00.000 98 % O2 Saturation (%) 2024-09-13 13:38:00.000 97 % Respirations 2024-09-27 14:26:00.000 16 /min Respirations 2024-09-22 14:47:00.000 16 /min Respirations 2024-09-21 20:52:00.000 16 /min Respirations 2024-09-18 09:10:00.000 18 /min Respirations 2024-09-15 09:05:00.000 16 /min Respirations 2024-09-13 13:38:00.000 16 /min Weight (lbs) 2024-09-13 13:38:00.000 164 [lb_av] Systolic Blood Pressure 2024-09-27 14:26:00.000 112 mm [Hg] Systolic Blood Pressure 2024-09-22 14:47:00.000 148 mm [Hg] Systolic Blood Pressure 2024-09-21 20:52:00.000 124 mm [Hg] Systolic Blood Pressure 2024-09-18 09:10:00.000 122 mm [Hg] Systolic Blood Pressure 2024-09-15 09:05:00.000 120 mm [Hg] Systolic Blood Pressure 2024-09-13 13:38:00.000 138 mm [Hg] Diastolic Blood Pressure 2024-09-27 14:26:00.000 78 mm [Hg] Diastolic Blood Pressure 2024-09-22 14:47:00.000 84 mm [Hg] Diastolic Blood Pressure 2024-09-21 20:52:00.000 68 mm [Hg] Diastolic Blood Pressure 2024-09-18 09:10:00.000 76 mm [Hg] Diastolic Blood Pressure 2024-09-15 09:05:00.000 70 mm [Hg] Diastolic Blood Pressure 2024-09-13 13:38:00.000 70 mm [Hg] Plan of Treatment Planned Activity Planned Date Details Comments Future Scheduled Test PT/PULMONARY PHYSICIAN TO PROVIDE GAIT TRAINING FOR IMPROVED MOBILITY AND /OR TO NORMALIZE GAIT PATTERN [code = PT/PULMONARY PHYSICIAN TO PROVIDE GAIT TRAINING FOR IMPROVED MOBILITY AND /OR TO NORMALIZE GAIT PATTERN] Future Scheduled Test THERAPEUTI C EXERCISES AND ESTABLISHING A HOME EXERCISE PROGRAM (PT/PULMONARY PHYSICIAN) [code = THERAPEUTIC EXERCISES AND ESTABLISHING A HOME EXERCISE PROGRAM (PT/PULMONARY PHYSICIAN)] Future Scheduled Test PT/PULMONARY PHYSICIAN TO IDENTIFY FALL RISK FACTORS; EDUCATE THE PATIENT/CAREGIVER ON WAYS TO REDUCE FALL RISK FACTORS AND ESTABLISH HOME EXERCISE PROGRAM TO MINIMIZE FALL RISK. MAY TEACH THE PATIENT FLOOR RECOVERY WHEN CLINICALLY APPROPRIATE [code = PT/PULMONARY PHYSICIAN TO IDENTIFY FALL RISK FACTORS; EDUCATE THE PATIENT/CAREGIVER ON WAYS TO REDUCE FALL RISK FACTORS AND ESTABLISH HOME EXERCISE PROGRAM TO MINIMIZE FALL RISK. MAY TEACH THE PATIENT FLOOR RECOVERY WHEN CLINICALLY APPROPRIATE] Future Scheduled Test PT/PULMONARY PHYSICIAN TO PROVIDE STAIR TRAINING [code = PT/PULMONARY PHYSICIAN TO PROVIDE STAIR TRAINING] Future Scheduled Test BED TRANSF ERS (PT/PULMONARY PHYSICIAN) [code = BED TRANSFERS (PT/PULMONARY PHYSICIAN)] Future Scheduled Test CHAIR DONIS SFERS (PT/PULMONARY PHYSICIAN) [code = CHAIR TRANSFERS (PT/PULMONARY PHYSICIAN)] Future Scheduled Test PT / PULMONARY PHYSICIAN M AY EDUCATE ON PAIN MANAGEMENT CLINICALLY INDICATED, INCLUDING NON-PHARMACOLOGICAL PAIN REDUCTION TECHNIQUES [code = PT / PULMONARY PHYSICIAN MAY EDUCATE ON PAIN MANAGEMENT CLINICALLY INDICATED, INCLUDING NON-PHARMACOLOGICAL PAIN REDUCTION TECHNIQUES] Future Scheduled Test AGENCY MAY PERFORM A RESUMPTION OF CARE VISIT FOLLOWING ANY HOSPITAL ADMISSION. PT TO EVALUATE, OBSERVE / ASSESS, AND MONITOR, PULMONARY PHYSICIAN TO OBSERVE AND MONITOR, PROVIDE SKILLED THERAPEUTIC INTERVENTION, ACTIVITY, EDUCATION, AND TRAINING TO ADDRESS; [code = AGENCY MAY PERFORM A RESUMPTION OF CARE VISIT FOLLOWING ANY HOSPITAL ADMISSION. PT TO EVALUATE, OBSERVE / ASSESS, AND MONITOR, PULMONARY PHYSICIAN TO OBSERVE AND MONITOR, PROVIDE SKILLED THERAPEUTIC INTERVENTION, ACTIVITY, EDUCATION, AND TRAINING TO ADDRESS;] Future Scheduled Test NEUROMUSCU LAR RE-EDUCATION / BALANCE / POSTURAL CONTROL (PT) [code = NEUROMUSCULAR RE-EDUCATION / BALANCE / POSTURAL CONTROL (PT)] Future Scheduled Test PT/PULMONARY PHYSICIAN TO TEACH KNEE REPLACEMENT SELF-MANAGEMENT [code = PT/PULMONARY PHYSICIAN TO TEACH KNEE REPLACEMENT SELF-MANAGEMENT] Future Scheduled Test PT TO ASSE SS / PULMONARY PHYSICIAN TO MONITOR FOR AND REPORT EARLY SIGNS OF ANTICOAGULANT TOXICITY TO THE PHYSICIAN AND/OR THE RN CLINICAL DRUM DRIER FOR PHYSICIAN NOTIFICATION AND TO PROVIDE PATIENT/CAREGIVER EDUCATION ON ANTICOAGULANT THERAPY [code = PT TO ASSESS / PULMONARY PHYSICIAN TO MONITOR FOR AND REPORT EARLY SIGNS OF ANTICOAGULANT TOXICITY TO THE PHYSICIAN AND/OR THE RN CLINICAL DRUM DRIER FOR PHYSICIAN NOTIFICATION AND TO PROVIDE PATIENT/CAREGIVER EDUCATION ON ANTICOAGULANT THERAPY] Future Scheduled Test PT / PULMONARY PHYSICIAN T O OBSERVE WOUND/INCISION AND/OR INTACT DRESSING ON R KNEE AND REPORT EARLY SIGNS AND SYMPTOMS OF WOUND DETERIORATION, COMPLICATIONS, OR INFECTION TO PHYSICIAN AND/OR THE RN CLINICAL DRUM DRIER FOR PHYSICIAN NOTIFICATION. NON-REMOVABLE DRESSING TO BE TAKEN OFF AT FIRST POST-OP VISIT. [code = PT / PULMONARY PHYSICIAN TO OBSERVE WOUND/INCISION AND/OR INTACT DRESSING ON R KNEE AND REPORT EARLY SIGNS AND SYMPTOMS OF WOUND DETERIORATION, COMPLICATIONS, OR INFECTION TO PHYSICIAN AND/OR THE RN CLINICAL DRUM DRIER FOR PHYSICIAN NOTIFICATION. NON-REMOVABLE DRESSING TO BE TAKEN OFF AT FIRST POST-OP VISIT.] Goal Patient Goal - DECREASE PAIN . WALK Goal Provider Goal - PT LTG: PATIENT WILL DEMONSTRATE IMPROVED AMBULATION FROM MIN A TO INDEPENDENT WITHIN 5 WEEKS PT LTG: PATIENT WILL DEMONSTRATE IMPROVE STAIR SKILLS FROM MINIMAL ASSISTANCE TO INDEPENDENT WITHIN 5 WEEKS TO ALLOW PATIENT TO GET TO AND FROM CAR INDEPENDENTLY. PT LTG: PATIENT WILL DEMONSTRATE INCREASED STRENGTH OF RLE LES FROM 3- TO 3+/5 WITHIN 4 WEEKS IN ORDER TO RETURN TO INDEPENDENT TRANSFER AND AMBULATION SKILLS. PT STG: PATIENT WILL DEMONSTRATE IMPROVED ABILITY TO PERFORM SIT TO/FROM STAND TRANSFERS TO REDUCE THE RISK OF SKIN BREAKDOWN AND REDUCE FALL RISK FROM MIN A TO INDEPENDENT WITHIN 1 WEEK. PT STG: PATIENT WILL DEMONSTRATE IMPROVED ABILITY TO PERFORM CHAIR TRANSFERS TO REDUCE THE RISK OF SKIN BREAKDOWN AND FALL RISK FROM MIN A TO INDEPENDENT WITHIN 1 WEEK. PT GOAL: PATIENT WILL DEMONSTRATE UNDERSTANDING OF PAIN MANAGEMENT TECHNIQUES EVIDENCED BY REDUCED PAIN IN L HIP FROM 7 TO 2 WITHIN 5 WEEKS. Goal Provider Goal - PT LTG: PATIENT WILL DEMONSTRATE INCREASED ROM OF R KNEE FROM 5-90 TO 0-120 WITHIN 5 WEEKS. Goal Provider Goal - PT LTG: PATIENT/CAREGIVER WILL DEMONSTRATE ADHERENCE TO FALL REDUCTION SELF-MANAGEMENT AND REDUCING FALL RISK FACTORS TO MINIMIZE FALL RISK BY END OF EPISODE. Goal Provider Goal - Goal Provider Goal - PT STG: PATIENT WILL DEMONSTRATE IMPROVED ABILITY TO PERFORM BED TRANSFERS IN ORDER TO REDUCE RISK OF SKIN BREAKDOWN FROM MIN A TO INDEPENDENT WITHIN 1 WEEK. Goal Provider Goal - Goal Provider Goal - PT GOAL: PATIENT WILL DEMONSTRATE UNDERSTANDING OF PAIN MANAGEMENT TECHNIQUES EVIDENCED BY REDUCED PAIN Goal Provider Goal - Goal Provider Goal - Goal Provider Goal - PT GOAL: PATIENT WILL DEMONSTRATE OPTIMAL OUTCOMES, INCLUDING INCREASED ROM AND STRENGTH AND FUNCTIONAL MOBILITY FOLLOWING KNEE SURGERY BY END OF EPISODE. Goal Provider Goal - PT LTG: PATIENT WILL NOT EXHIBIT SIGNS AND SYMPTOMS OF ANTICOAGULANT TOXICITY THROUGHOUT EPISODE OF CARE. Goal Provider Goal - PT GOAL: THE PATIENT WILL NOT DEMONSTRATE ANY WOUND COMPLICATIONS DURING THE EPISODE OF CARE. Encounters Start Date/Time End Date/Time Encounter Type Admission Type Attending [facility] Care Department Encounter ID Discharge Date Discharge Status Discharge Condition Discharge Reason Percent Goals Met 2024-09-13 00:00:00 2024-11-11 00:00:00 Outpatient NEW ADMISSION SALEEM ANGELES [facility] [id number]
--- OUTSIDE RECORDS SUMMARY | 2024-09-28 13:18 | XMS_ITS | Clinical Summary ---
Author Organization [facility] Address [address] [place] [address] Care Team Providers Care Tuber Helper Name Role Phone Bebeto Wiley MD Primary Care Provider [phone] Allergies Active Allergy Reactions Criticality Noted Date [...] age to complete this topic Care Teams Tuber Helper Relationship Specialty Start Date End Date Bebeto Wiley MD [address] [address] PCP - General Family Medicine 04/19/17
--- OUTSIDE RECORDS SUMMARY | 2024-09-28 13:18 | XMS_ITS | Patient Health Record ---
Author Organization [facility] Address [address] [place] [address] Care Team Providers Care Roller Man Name Role Phone Bebeto Wiley MD Primary Care Provider Adin Watson Unavailable [phone] Allergies Allergen (clinical drug ingredient) Drug/Non Drug [...] Status Risk Notes Problem Acquired hallux rigidus (9258229) Hallux rigidus, left foot (M20.22) Active confirmed Problem Acquired hammer toe of right foot (4608586318253 105) Other hammer toe(s) (acquired), right foot (M20.41) Active confirmed Problem Acquired hammer toe of left foot (5609027854101 103) Other hammer toe(s) (acquired), left foot (M20.42) Active confirmed Problem Acquired hallux rigidus (5896667) Hallux rigidus, right foot (M20.21) Active confirmed Plan Of Treatment Pending Test Test Name Order Date X ray : Foot, left 3V 01/01/2021 X ray : Foot, right 3V 01/01/2021 Insurance Providers Payer Name Payer Address Payer Phone Subscriber Number Group Number Insured Name Patient Relationship to Insured Coverage Start Date Coverage End Date [employer] [address] [place] [address] [id number] Rico Self - patient is the insured [...]
== END 2024-09-28 13:06 | disposition home or self-care (01) ==
PROVIDERS: Visit Provider Physician Assistant
DX: Z96.651 Presence of right artificial knee joint (principal)
CPT/HCPCS: 99024

== ENCOUNTER → 2024-09-28 12:24 | Outpatient (BNV) | payer MEDICARE, SELFPAY | PROVIDERS: Visit Provider Radiology Diagnostic Radiology | DX: M25.561 Pain in right knee (principal); Z96.651 Presence of right artificial knee joint | CPT/HCPCS: 73562 ==

== ENCOUNTER 2024-10-19 12:15 | Outpatient (AMB) | payer MEDICARE, SELFPAY ==
--- NOTE | 2024-10-19 12:38 | MHC.OFFVIS ---
Vital Signs 10/19/24 12:41 Height 5 ft 2.25 in Weight 167 lb BMI 30.3 Intake Visit Reasons: 6WK PO: R TKA w/DR 09/11/24 Intake Note: Adriel is a 69 year old female who presents with complaints of mild discomfort in her right knee after undergoing right total knee replacement surgery on 09/11/2024. She continues to go to formal physical therapy here at [facility]. She denies any fevers or chills. She takes Tylenol for her discomfort which gives her fairly good relief. Allergies hydrocodone [From Vicodin] Allergy (Severe, Verified 10/19/24 12:42) Nausea methocarbamol [From Robaxin] Allergy (Severe, Verified 10/19/24 12:42) Hives Medication List - Last Reviewed 10/19/24 by SOTERO Booker acetaminophen 650 mg (2 x 325 mg) PO Q6H PRN 30 days amoxicillin 2,000 mg (4 x 500 mg) PO ONCE 1 day aspirin 325 mg PO BID 30 days celecoxib 200 mg PO BID 30 days cholecalciferol (vitamin D3) (Vitamin D3) 50 mcg PO DAILY docusate sodium 100 mg PO BID 7 days gabapentin 100 mg PO BEDTIME 7 days levothyroxine 50 mcg PO DAILY@0600 Saccharomyces boulardii (Daily Probiotic (S. boulardii)) 250 mg PO DAILY walker Folding front wheeled walker [facility] Medical History (Updated 10/20/24 @ 10:37 by Milton Hammond MD) Hypothyroidism Hx of bladder cancer (~1986) Hx of syncope (11/30/23) Seasonal allergies Scalp psoriasis Lichen sclerosus Malignant neoplasm of urinary bladder Osteopenia Supraclavicular mass Migraine aura without headache Adrenal adenoma Multiple lung nodules Coronary artery calcification Acquired hallux rigidus Benign paroxysmal positional vertigo of left ear Anxiety Prediabetes Constipation GERD (gastroesophageal reflux disease) Osteoarthritis Back pain Hyperlipidemia Thyroid disease Hx of bladder cancer Surgical History History of esophagogastroduodenoscopy (EGD) (08/06/23) History of surgery on left wrist History of left knee replacement Hx of appendectomy History of bunionectomy Hx of cystoscopy H/O colonoscopy Social History (Reviewed 09/28/24 @ 12:33 by VINOD Jefferson Housing: House Are you a primary director of patient care to a significant other at home: No Do you presently have visiting nurse or other home services: No Patient Tobacco Use Status: Former Tobacco user Tobacco use type: Cigarette Substance Use Type: Marijuana service: No Current occupational status: retired Current occupation: Right hand dominate Physical Exam Vital Signs: BMI result Body Mass Index 30.3 Extrem Other: Right knee examination shows that the surgical incision is healing well, no erythema, full active extension and flexion to 120 degrees, her patella tracks well Assessment & Plan Assessment & Plan (1) Right knee pain: Code(s): M25.561 - Pain in right knee Category: Medical Plan Adriel continues to do well after undergoing right total knee replacement surgery on 09/11/2024 she will continue going to formal physical for now. She will gradually transition to a home exercise program. She does know to take antibiotics before any dental work. She will contact me prior to her follow-up appointment in 6 weeks should any questions or concerns arise. Feel free to call me at any time should questions regarding her orthopedic management arise. Coding Level of Care Code Global (09399) Diagnoses Right knee pain M25.561
[2024-10-19 12:41] VITALS: BMI 30.3
--- OUTSIDE RECORDS SUMMARY | 2024-10-19 15:38 | XMS_ITS | Patient Health Record ---
[facility] Address [address] [place] [address] Care Team Providers Care Electrical Appliance Servicer Name Role Phone Bebeto Wiley MD Primary Care Provider Adin Watson Unavailable [phone] Allergies Allergen (clinical drug ingredient) Drug/Non Drug [...] Status Risk Notes Problem Acquired hallux rigidus (3693370) Hallux rigidus, left foot (M20.22) Active confirmed Problem Acquired hammer toe of right foot (1037779227376 105) Other hammer toe(s) (acquired), right foot (M20.41) Active confirmed Problem Acquired hammer toe of left foot (3332953145229 103) Other hammer toe(s) (acquired), left foot (M20.42) Active confirmed Problem Acquired hallux rigidus (2321701) Hallux rigidus, right foot (M20.21) Active confirmed Plan Of Treatment Pending Test Test Name Order Date X ray : Foot, left 3V 01/01/2021 X ray : Foot, right 3V 01/01/2021 Insurance Providers Payer Name Payer Address Payer Phone Subscriber Number Group Number Insured Name Patient Relationship to Insured Coverage Start Date Coverage End Date [employer] [address] [place] [phone] [id number] Rico Self - patient is the insured [...]
--- OUTSIDE RECORDS SUMMARY | 2024-10-19 15:38 | XMS_ITS ---
Author Organization [facility] Address [address] [place] [id number] Care Team Providers Care Plastic Surgery Manager Name Role Phone Bebeto Wiley MD Primary Care Provider Ismael Nelson Unavailable [phone] Allergies Allergen (clinical drug ingredient) Drug/Non Drug Allergy documented on EMR Reaction Allergy Type Onset Date Status Vicodin Unknown Drug Allergy Active methocarbamol Robaxin Unknown Drug Allergy Act scar REASON FOR VISIT Patient presents today for a COLON SCREENING, CHANGE IN BOWEL HABITS Medications Medication SIG (Take, Route, Frequency, Duration) [...] a day for 30 day(s) 05/07/2023 Active Social History Tobacco Use: Social History Observation Description Date Details (start date - stop date) Never Smoker NA - NA Tobacco Use/Smoking Question Answer Notes Patient is [...] Never (0 point) Points 4 Interpretation Positive Section Notes: 4 or 5 drinks per week; nons moker Problems Problem Type SNOMED Code ICD Code Onset Dates Problem Status W/U Status Risk Notes Problem 36286055 Constipation, unspecified constipation type (K59.00) Active confirmed Problem 555178455 Gastroesophageal reflux disease, unspecified whether esophagitis present (K21.9) Active confirmed Problem 31865400 Change in bowel habits (R19.4) Active confirmed Problem 966609339 Abdominal bloati ng (R14.0) Active confirmed Vital Signs Temperature 98.6 degrees Fahrenheit 05/07/20 23 Blood pressure systolic 000 mm Hg 05/07/20 23 Blood pressure diastolic 00 mm Hg 023 Height 5 ft 2 in in 05/07/2023 Weight 166 lbs 05/07/2023 BMI 30.36 kg/m2 05/07/2023 Encounters Encounter Location Date Provider Diagnosis [facility] [address] [place] [phone] 05/07/2023 Ismael Wallace Constipation, unspec ified constipation type K59.00 ; Gastroesophageal reflux disease, unspecified whether esophagitis present K21.9 ; Change in bowel habits R19.4 and Abdominal bloating R14.0 Assessments Encounter Date Diagnosis (ICD Code) Assessment Notes Treatment Notes Treatment Clinical Notes Section Notes 05/07/2023 Constipation, unspecified constipation type (ICD-10 - K59.00) Try using 2 Metamucil fiber pills once or twice a day with a lot of water, as well as some Miralax daily, to help with the BM's. Overall, Beth appears well from a clinical standpoint. Given her overall symptomatology, her good clinical appearance, and 2 negative colonoscopies in the past, I suspect she has some functional bowel disease. I doubt her change in bowel habits represents any significant GI pathology. I suspect her abdominal bloating and discomfort are as a result of her constipation. I did recommend that she start a regimen of daily Metamucil and MiraLax with plenty of fluids to hopefully facilitate a better and more regular bowel regimen. We also reviewed that she should stay on a healthy and high-fiber diet with plenty of fluids as well. Although my suspicion is low, I did recommend a colonoscopy for further evaluation given her persistent change in bowel habits and her last colonoscopy being back in 2016. We did review the rationale for that in regard to colorectal cancer prevention and/or early detection. I also recommended an upper endoscopy on the same day given her reflux and GI symptomatology. I advised her that I would plan to obtain duodenal biopsies to rule out celiac disease as a contributing factor. I shall check laboratories for celiac disease in the meanwhile. Full consent was obtained from her for both procedures, including risks of bleeding and perforation. The procedures will be done with monitored anesthesia care. Gee was comfortable with this plan. Thank you again for allowing me to participate in Gee's care. I shall continue to keep you advised of her progress. 05/07/2023 Gastroesophageal reflux disease, unspecified whether esophagitis present (ICD-10 - K21.9) Overall, Beth appears well from a clinical standpoint. Given her overall symptomatology, her good clinical appearance, and 2 negative colonoscopies in the past, I suspect she has some functional bowel disease. I doubt her change in bowel habits represents any significant GI pathology. I suspect her abdominal bloating and discomfort are as a result of her constipation. I did recommend that she start a regimen of daily Metamucil and MiraLax with plenty of fluids to hopefully facilitate a better and more regular bowel regimen. We also reviewed that she should stay on a healthy and high-fiber diet with plenty of fluids as well. Although my suspicion is low, I did recommend a colonoscopy for further evaluation given her persistent change in bowel habits and her last colonoscopy being back in 2016. We did review the rationale for that in regard to colorectal cancer prevention and/or early detection. I also recommended an upper endoscopy on the same day given her reflux and GI symptomatology. I advised her that I would plan to obtain duodenal biopsies to rule out celiac disease as a contributing factor. I shall check laboratories for celiac disease in the meanwhile. Full consent was obtained from her for both procedures, including risks of bleeding and perforation. The procedures will be done with monitored anesthesia care. Gee was comfortable with this plan. Thank you again for allowing me to participate in Gee's care. I shall continue to keep you advised of her progress. 05/07/2023 Change in bowel habits (ICD-10 - R19.4) Overall, Beth appears well from a clinical standpoint. Given her overall symptomatology, her good clinical appearance, and 2 negative colonoscopies in the past, I suspect she has some functional bowel disease. I doubt her change in bowel habits represents any significant GI pathology. I suspect her abdominal bloating and discomfort are as a result of her constipation. I did recommend that she start a regimen of daily Metamucil and MiraLax with plenty of fluids to hopefully facilitate a better and more regular bowel regimen. We also reviewed that she should stay on a healthy and high-fiber diet with plenty of fluids as well. Although my suspicion is low, I did recommend a colonoscopy for further evaluation given her persistent change in bowel habits and her last colonoscopy being back in 2015. We did review the rationale for that in regard to colorectal cancer prevention and/or early detection. I also recommended an upper endoscopy on the same day given her reflux and GI symptomatology. I advised her that I would plan to obtain duodenal biopsies to rule out celiac disease as a contributing factor. I shall check laboratories for celiac disease in the meanwhile. Full consent was obtained from her for both procedures, including risks of bleeding and perforation. The procedures will be done with monitored anesthesia care. Gee was comfortable with this plan. Thank you again for allowing me to participate in Gee's care. I shall continue to keep you advised of her progress. 05/07/2023 Abdominal bloating (ICD-10 - R14.0) Overall, Beth appears well from a clinical standpoint. Given her overall symptomatology, her good clinical appearance, and 2 negative colonoscopies in the past, I suspect she has some functional bowel disease. I doubt her change in bowel habits represents any significant GI pathology. I suspect her abdominal bloating and discomfort are as a result of her constipation. I did recommend that she start a regimen of daily Metamucil and MiraLax with plenty of fluids to hopefully facilitate a better and more regular bowel regimen. We also reviewed that she should stay on a healthy and high-fiber diet with plenty of fluids as well. Although my suspicion is low, I did recommend a colonoscopy for further evaluation given her persistent change in bowel habits and her last colonoscopy being back in 2015. We did review the rationale for that in regard to colorectal cancer prevention and/or early detection. I also recommended an upper endoscopy on the same day given her reflux and GI symptomatology. I advised her that I would plan to obtain duodenal biopsies to rule out celiac disease as a contributing factor. I shall check laboratories for celiac disease in the meanwhile. Full consent was obtained from her for both procedures, including risks of bleeding and perforation. The procedures will be done with monitored anesthesia care. Gee was comfortable with this plan. Thank you again for allowing me to participate in Gee's care. I shall continue to keep you advised of her progress. Plan Of Treatment Treatment Notes Assessment Notes Constipation, unspecified constipation [...] Follow Up: prn, Reason: Progress Notes * GEE MICHAUD EDOB:1954 (67 yo F)Acc No.[id number]:05/07/2023 Progress Notes Patient:?GEE MICHAUD Provider:?Ismael Wallace MD :1955???Age:67 Y???Sex:Female D ate:05/07/2023 Address:[address] [place] [address] Pcp:Bebeto Wiley MD Subjective: * Chief Complaints: * ???Patient presents today fo r a COLON SCREENING, CHANGE IN BOWEL HABITS * HPI: ???incontinence:? I saw Gee in consultation today in regard to further evaluation of her change in bowel habits with associated constipation, gastroesophageal reflux, and abdominal bloating and discomfort. ?As you know, Gee is a generally healthy 59-year-old female who presently feels well. However, she has been troubled by some persistent and somewhat progressive change in bowel habits for more than one year. She describes constipation in which she will not have a bowel movement for about 2 or 3 days and will then use some senna on a p.r.n. basis with some relief. She has also used some probiotics with some relief. During this time she has had some nausea, abdominal bloating, and abdominal cramps. She did have some transient episodes of diarrhea but those have resolved. She has never noticed any hematochezia nor melena. ?She has had intermittent heartburn as well, but she denies any associated vomiting, early satiety, anorexia, abdominal pain, jaundice, nor significant weight loss. However, she does think she has lost about 10 pounds over the past year or so. ?She describes a negative colonoscopy at age 49 and again in 2016 at [facility]. She has never had an upper endoscopy. She denies any known family history of colorectal cancer, inflammatory bowel disease, nor celiac disease. She does not use much in the way of any milk products. ?She denies any particular rashes, fevers, red or swollen joints, nor any eye problems. * ROS:?General/Constitutional:?Change in appetite?denies.?Chills?denies.?Fatigue?denies.?Ophthalmologic:?Comments?all negative.?ENT:?Comments?all negative.?Respiratory:?hemoptysis?denies.?Cough?denies.?Cardiovascular:?Chest pain?denies.?Orthopnea?denies.?Gastrointestinal:?Comments?See HPI for details.?Genitourinary:?Hematuria?denies.?Dysuria?denies.?Musculoskeletal:?Painful joints?denies.?Weakness?denies.?Skin:?Itching?denies.?Rash?denies.?Neurologic:?Headache?denies.?Seizures?denies.?Psychiatric:?Comments?all negative.? * Medical History:? * Surgical History:?Bladder ca ncer treated with cystoscopy Bunionectomy Appendectomy Left knee replacement 2016Left 2022 * Hospitalization/Major Diagno stic Procedure:? * Family History:?Father: dece ased, diagnosed with HTN (hypertension).?Mother: .? No family history of colon cancer, inflammatory bowel disease, nor celiac disease. * Social History:?Tobacco Use:?Tobacco Use/Smoking?Patient is a?nonsmoker.?Drugs/Alcohol:?Alcohol Screen?Did you have a drink containing alcohol in the past year??Yes,?How often did you have a drink containing alcohol in the past year??4 or more times a week (4 points),?How many drinks did you have on a typical day when you were drinking in the past year??1 or 2 drinks (0 point),?How often did you have 6 or more drinks on one occasion in the past year??Never (0 point),?Points?4,?Interpretation?Positive.?Miscellaneous:?Marital status: . Occupation: retired. ???4 or 5 drinks per week; nonsmoker. * Medications:?TakingNaproxen 500 MG Tablet Oral , Notes: PRN for knee-started 04/2023Levothyroxine Sodium 50 MCG Tablet TAKE 1 TABLET BY MOUTH EVERY DAY IN THE MORNING Oral Atorvastatin Calcium 20 MG Tablet TAKE 1 TABLET BY MOUTH EVERY DAY Oral Amoxicillin 500 MG Tablet TAKE 4 TABLETS BY MOUTH 1 HOUR PRIOR TO DENTAL APPOINTMENT Oral Vitamin D 50 MCG (2000 UT) Tablet 1 tablet Orally Once a dayClobetasol Emul Foam w/MoistCr 0.05 % Kit as directed Externally Medication List reviewed and reconciled with the patientTaking Naproxen 500 MG Tablet Oral , Notes: PRN for knee-started 04/2023Taking Levothyroxine Sodium 50 MCG Tablet TAKE 1 TABLET BY MOUTH EVERY DAY IN THE MORNING Oral Taking Atorvastatin Calcium 20 MG Tablet TAKE 1 TABLET BY MOUTH EVERY DAY Oral Taking Amoxicillin 500 MG Tablet TAKE 4 TABLETS BY MOUTH 1 HOUR PRIOR TO DENTAL APPOINTMENT Oral Taking Vitamin D 50 MCG (2000 UT) Tablet 1 tablet Orally Once a dayTaking Clobetasol Emul Foam w/MoistCr 0.05 % Kit as directed Externally Medication List reviewed and reconciled with the patient * Allergies:?VicodinRobaxinyes [Allergies Verified] Objective: * Vitals:?Wt: 166 lbs, Ht: 5 f t 2 in, BMI:30.36 Index, BP: 000/00 mm Hg, Temp: 98.6. * Examination: ???General Examination: ?GENERAL APPEARANCE:?pleasant, well nourished, well developed, in no acute distress.?EYES:?sclera non-icteric.?ORAL CAVITY:?mucosa moist.?NECK/THYROID:?no cervical lymphadenopathy, neck supple.?SKIN:?nonjaundiced, no spider angiomata.?HEART:?S1, S2 normal.?LUNGS:?clear to auscultation bilaterally.?ABDOMEN:?normal bowel sounds, no guarding or rigidity, no guarding or rigidity, no masses palpable, soft, nontender, nondistended.?EXTREMITIES:?no edema.?NEUROLOGIC:?alert and oriented.? Assessment: * Assessment: 1.?Constipation, unspecified constipation type - K59.00 (Primary)?2.?Gastroesophageal reflux disease, unspecified whether esophagitis present - K21.9?3.?Change in bowel habits - R19.4?4.?Abdominal bloating - R14.0? Overall, Beth appears we ll from a clinical standpoint. Given her overall symptomatology, her good clinical appearance, and 2 negative colonoscopies in the past, I suspect she has some functional bowel disease. I doubt her change in bowel habits represents any significant GI pathology. I suspect her abdominal bloating and discomfort are as a result of her constipation. I did recommend that she start a regimen of daily Metamucil and MiraLax with plenty of fluids to hopefully facilitate a better and more regular bowel regimen. We also reviewed that she should stay on a healthy and high-fiber diet with plenty of fluids as well. Although my suspicion is low, I did recommend a colonoscopy for further evaluation given her persistent change in bowel habits and her last colonoscopy being back in 2016. We did review the rationale for that in regard to colorectal cancer prevention and/or early detection. I also recommended an upper endoscopy on the same day given her reflux and GI symptomatology. I advised her that I would plan to obtain duodenal biopsies to rule out celiac disease as a contributing factor. I shall check laboratories for celiac disease in the meanwhile. Full consent was obtained from her for both procedures, including risks of bleeding and perforation. The procedures will be done with monitored anesthesia care. Gee was comfortable with this plan. Thank you again for allowing me to participate in Gee's care. I shall continue to keep you advised of her progress. Plan: * Treatment: Notes: Try using 2 Metamucil fiber pills once or twice a day with a lot of water, as well as some Miralax daily, to help with the BM's.?? 2.?Gastroesophageal reflux disease, unspecified whether esophagitis present?Procedure: UPPER GI ENDOSCOPY (Ordered for 05/07/2023)* with MACsched for 08/06/23 a t 1:40 pm 3.?Change in bowel habits?LAB: CELIAC PANEL #10 ?Procedure: COLONOSCOPY (Ordered for 05/07/2023)* with MACsched for 08/06/23 a t 1:40 pmmiralax 4.?Abdominal bloating?LAB: CELIAC PANEL #10 * Procedure Codes:?3017F COLOR ECTAL CA SCREEN DOC [id number] TOBACCO NON-[id number] BP SCR NOT PRFRM REC REASON NOS * Preventive Medicine:? ??Counseling:?Care goal follow-up plan:?Above Normal BMI Follow-up?Giving encouragement to exercise,?BMI management provided?Yes.? ??Urinary Incontinence:?Urinary Incontinence?Assessment:?Absent,?Plan of care documented:?No, reason not specified.? * Follow Up:?prn * * Sign off status: Completed true * Provider:?Ismael Wallace MD Date:? 023 Generated for Chetan huang/Janelle/Bib on:?10/19/2024 03:38 PM EDT History and Physical Notes * HPI (History of Present Illness) Category Sub-Category Detail Notes Category Not es incontinence I saw Gee in consultation today in regard to further evaluation of her change in bowel habits with associated constipation, gastroesophageal reflux, and abdominal bloating and discomfort. As you know, Gee is a generally healthy 59-year-old female who presently feels well. However, she has been troubled by some persistent and somewhat progressive change in bowel habits for more than one year. She describes constipation in which she will not have a bowel movement for about 2 or 3 days and will then use some senna on a p.r.n. basis with some relief. She has also used some probiotics with some relief. During this time she has had some nausea, abdominal bloating, and abdominal cramps. She did have some transient episodes of diarrhea but those have resolved. She has never noticed any hematochezia nor melena. She has had intermittent heartburn as well, but she denies any associated vomiting, early satiety, anorexia, abdominal pain, jaundice, nor significant weight loss. However, she does think she has lost about 10 pounds over the past year or so. She describes a negative colonoscopy at age 49 and again in 2016 at [facility]. She has never had an upper endoscopy. She denies any known family history of colorectal cancer, inflammatory bowel disease, nor celiac disease. She does not use much in the way of any milk products. She denies any particular rashes, fevers, red or swollen joints, nor any eye problems. Examination Category Sub-Category Detail Notes Category Not es General Examination GENERAL APPEARANCE: pleasant , well [...]
--- OUTSIDE RECORDS SUMMARY | 2024-10-19 15:38 | XMS_ITS | Patient Health Record ---
Author Organization [facility] Address [address] [place] [address] Care Team Providers Care Quality Engineer Name Role Phone Inez COYNE, Bebeto Primary Care Provider Ismael Nelson Unavailable [phone] Allergies Allergen (clinical drug ingredient) Drug/Non Drug Allergy documented on EMR Reaction Allergy Type Onset Date Status Vicodin Unknown Drug Allergy Active methocarbamol Robaxin Unknown Drug Allergy Act scar Reason For Referral No Information Medications Medication [...] MOUTH EVERY DAY Oral for 90 Active Immunizations Vaccine Route Administration Date Status Comme nts Influenza Unknown 04/21/2022 Administered Social History Tobacco Use: Social History Observation [...] Problem Status W/U Status Risk Notes Problem 415412282 Abdominal bloati ng (R14.0) Active confirmed Problem 60523457 Change in bowel habits (R19.4) Active confirmed Problem Diverticular disease of colon (863860486) Diverticulosis of large intestine without perforation or abscess without bleeding (K57.30) Active confirmed Problem Gastroesophageal reflux disease (314382565) Gastroesophageal reflux disease (K21.9) Active confirmed Problem 46050013 Constipation, unspecified constipation type (K59.00) Active confirmed Problem 958812985 Gastroesophageal reflux disease, unspecified whether esophagitis present (K21.9) Active confirmed Plan Of Treatment Pending Test Test Name Order Date CELIAC PANEL #10 05/07/2023 Future Test Test Name Order Date UPPER GI ENDOSCOPY 05/07/2023 COLONOSCOPY 05/07/2023 Insurance Providers Payer Name Payer Address Payer Phone Subscriber Number Group Number Insured Name Patient Relationship to Insured Coverage Start Date Coverage End Date [facility] [address] [place], [place] [id number] SAMMIMARIA INESGEE NUÑEZ Self - patient is the insured Medical (General) History Medical History History ICD Code Bladder cancer for which she undergoes p eriodic cystoscopies Hypothyroidism Hyperlipidemia Denies DC,DM,CVA,Lung disease,renal dise ase She describes a negative col onoscopy at age 49 and another negative colonoscopy in 2015. Surgical History Surgery Date(Month/Year) Bladder cancer treated with cystoscopy Bunionectomy Appendectomy Left knee replacement 2016 Left wrist 2022
--- OUTSIDE RECORDS SUMMARY | 2024-10-19 15:38 | XMS_ITS | Clinical Summary ---
Author Organization Unknown Care Team Providers Care Customer Resolution Specialist Name Role Phone BARRINGTON PETERSON MD Unavailable Unavailable BRIDGETTE PT, SALEEM Unavailable Unavailable KATERYNA AGUIAR, SALEEM Unavailable Unavailable Payers Payer Name Policy Type Policy Number Effective Date Expira tion Date MEDICARE.NGS.PDGM [id number] Problems Condition Name Condition Details Condition Category Status Onset Date Resolution Date Last Treatment Date Treating Clinician Comments AFTERCARE FOLLOWING JOINT REPLACEMENT SURGERY Active 09-13 00:00: 00 PRESENCE OF RIGHT ARTIFICIAL KNEE JOINT Active 09-13 00:00: 00 ATHSCL HEART DISEASE OF [place] CORONARY ARTERY W/O ANG PCTRS Active 09-13 [...] 00:00: 00 LICHEN SCLEROSUS ET ATROPHICUS Active - 00:00: 00 PREDIABETES Active - 00:00: 00 OTHER NONSPECIFIC ABNORMAL FINDING OF LUNG FIELD Active - 00:00: 00 CONSTIPATION , UNSPECIFIED Active 09-13 00:00: 00 GASTRO-ESOPH AGEAL REFLUX 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 Active 09-13 00:00: 00 [facility] (CURRENT) USE OF ASPIRIN Active 09-13 00:00: 00 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 Ordering Clinician Indication Dosage Frequency Signature (SIG) Comments Components celecoxib 200 mg capsule 09-12 00:00: 00 Yes [id number] PAIN 1 capsule 2 TIMES DAILY 1 capsule 2 TIMES DAILY (route: oral) Med Classific ation: Analgesic , Anti-infl ammatory or Antipyret ic gabapentin 100 mg capsule 09-12 00:00: 00 Yes [id number] PAIN 1 capsule BEDTIME 1 capsule BEDTIME (route: oral) Med Classific ation: Central Nervous System Agents oxycodone 5 mg tablet 09-12 00:00: 00 Yes [id number] PAIN 1 tablet EVERY 4 HOURS 1 tablet EVERY 4 HOURS (route: oral) Med Classific ation: Analgesic , Anti-infl ammatory or Antipyret ic levothyroxi ne 50 mcg tablet 125 00:00: 00 Yes [id number] THYROID Per instruc tions EVERY DAY Per instructio ns EVERY DAY (route: oral) Med Classific ation: Endocrine aspirin 325 mg tablet 09-12 00:00: 00 Yes [id number] DVT PROPHYLAXIS 1 tablet 2 TIMES DAILY 1 tablet 2 TIMES DAILY (route: oral) Med Classific ation: Analgesic , Anti-infl ammatory or Antipyret ic docusate sodium 100 mg capsule 09-12 00:00: 00 Yes [id number] CONSTIPATIO N 1 capsule 2 TIMES DAILY 1 capsule 2 TIMES DAILY (route: oral) Med Classific ation: Gastroint estinal Therapy Agents Tylenol 325 mg tablet 09-12 00:00: 00 Yes [id number] PAIN 2 tablet EVERY 6 HOURS 2 tablet EVERY 6 HOURS (route: oral) Med Classific ation: Analgesic , Anti-infl ammatory or Antipyret ic cholecalcif vladimir (vitamin D3) 50 mcg (2,000 unit) capsule 09-14 00:00: 00 Yes [id number] supplement 1 capsule DAILY 1 capsule DAILY (route: oral) Med Classific ation: Electroly te Balance-N utritiona l Products Vital Signs Vital Name Observation Time Observation Value Commen ts Temperature 2024-10-06 14:14:00.000 97.9 [degF] Temperature 2024-10-03 14:01:00.000 98.1 [degF] Temperature 2024-09-27 14:26:00.000 98.1 [degF] Temperature 2024-09-22 14:47:00.000 98.1 [degF] Temperature 2024-09-21 20:52:00.000 98.1 [degF] Temperature 2024-09-18 09:10:00.000 97.2 [degF] Temperature 2024-09-15 09:05:00.000 97.5 [degF] Temperature 2024-09-13 13:38:00.000 97.5 [degF] BMI (%) 2024-09-13 13:38:00.000 29 kg/m2 Height 2024-09-13 13:38:00.000 62 [in_us] Pulse 2024-10-06 14:14:00.000 92 /min Pulse 2024-10-03 14:01:00.000 76 /min Pulse 2024-09-27 14:26:00.000 90 /min Pulse 2024-09-22 14:47:00.000 68 /min Pulse 2024-09-21 20:52:00.000 74 /min Pulse 2024-09-18 09:10:00.000 86 /min Pulse 2024-09-15 09:05:00.000 80 /min Pulse 2024-09-13 13:38:00.000 90 /min O2 Saturation (%) 2024-10-06 14:14:00.000 99 % O2 Saturation (%) 2024-10-03 14:01:00.000 98 % O2 Saturation (%) 2024-09-27 14:26:00.000 98 % O2 Saturation (%) 2024-09-22 14:47:00.000 98 % O2 Saturation (%) 2024-09-21 20:52:00.000 98 % O2 Saturation (%) 2024-09-18 09:10:00.000 98 % O2 Saturation (%) 2024-09-15 09:05:00.000 98 % O2 Saturation (%) 2024-09-13 13:38:00.000 97 % Respirations 2024-10-06 14:14:00.000 18 /min Respirations 2024-10-03 14:01:00.000 16 /min Respirations 2024-09-27 14:26:00.000 16 /min Respirations 2024-09-22 14:47:00.000 16 /min Respirations 2024-09-21 20:52:00.000 16 /min Respirations 2024-09-18 09:10:00.000 18 /min Respirations 2024-09-15 09:05:00.000 16 /min Respirations 2024-09-13 13:38:00.000 16 /min Weight (lbs) 2024-09-13 13:38:00.000 164 [lb_av] Systolic Blood Pressure 2024-10-06 14:14:00.000 118 mm [Hg] Systolic Blood Pressure 2024-10-03 14:01:00.000 130 mm [Hg] Systolic Blood Pressure 2024-09-27 14:26:00.000 112 mm [Hg] Systolic Blood Pressure 2024-09-22 14:47:00.000 148 mm [Hg] Systolic Blood Pressure 2024-09-21 20:52:00.000 124 mm [Hg] Systolic Blood Pressure 2024-09-18 09:10:00.000 122 mm [Hg] Systolic Blood Pressure 2024-09-15 09:05:00.000 120 mm [Hg] Systolic Blood Pressure 2024-09-13 13:38:00.000 138 mm [Hg] Diastolic Blood Pressure 2024-10-06 14:14:00.000 70 mm [Hg] Diastolic Blood Pressure 2024-10-03 14:01:00.000 88 mm [Hg] Diastolic Blood Pressure 2024-09-27 14:26:00.000 78 mm [Hg] Diastolic Blood Pressure 2024-09-22 14:47:00.000 84 mm [Hg] Diastolic Blood Pressure 2024-09-21 20:52:00.000 68 mm [Hg] Diastolic Blood Pressure 2024-09-18 09:10:00.000 76 mm [Hg] Diastolic Blood Pressure 2024-09-15 09:05:00.000 70 mm [Hg] Diastolic Blood Pressure 2024-09-13 13:38:00.000 70 mm [Hg] Plan of Treatment Planned Activity Planned Date Details Comments Future Scheduled Test PT/PRIVATE BANKER TO PROVIDE GAIT TRAINING FOR IMPROVED MOBILITY AND /OR TO NORMALIZE GAIT PATTERN [code = PT/PRIVATE BANKER TO PROVIDE GAIT TRAINING FOR IMPROVED MOBILITY AND /OR TO NORMALIZE GAIT PATTERN] Future Scheduled Test THERAPEUTI C EXERCISES AND ESTABLISHING A HOME EXERCISE PROGRAM (PT/PRIVATE BANKER) [code = THERAPEUTIC EXERCISES AND ESTABLISHING A HOME EXERCISE PROGRAM (PT/PRIVATE BANKER)] Future Scheduled Test PT/PRIVATE BANKER TO IDENTIFY FALL RISK FACTORS; EDUCATE THE PATIENT/CAREGIVER ON WAYS TO REDUCE FALL RISK FACTORS AND ESTABLISH HOME EXERCISE PROGRAM TO MINIMIZE FALL RISK. MAY TEACH THE PATIENT FLOOR RECOVERY WHEN CLINICALLY APPROPRIATE [code = PT/PRIVATE BANKER TO IDENTIFY FALL RISK FACTORS; EDUCATE THE PATIENT/CAREGIVER ON WAYS TO REDUCE FALL RISK FACTORS AND ESTABLISH HOME EXERCISE PROGRAM TO MINIMIZE FALL RISK. MAY TEACH THE PATIENT FLOOR RECOVERY WHEN CLINICALLY APPROPRIATE] Future Scheduled Test PT/PRIVATE BANKER TO PROVIDE STAIR TRAINING [code = PT/PRIVATE BANKER TO PROVIDE STAIR TRAINING] Future Scheduled Test BED TRANSF ERS (PT/PRIVATE BANKER) [code = BED TRANSFERS (PT/PRIVATE BANKER)] Future Scheduled Test CHAIR DONIS SFERS (PT/PRIVATE BANKER) [code = CHAIR TRANSFERS (PT/PRIVATE BANKER)] Future Scheduled Test PT / PRIVATE BANKER M AY EDUCATE ON PAIN MANAGEMENT CLINICALLY INDICATED, INCLUDING NON-PHARMACOLOGICAL PAIN REDUCTION TECHNIQUES [code = PT / PRIVATE BANKER MAY EDUCATE ON PAIN MANAGEMENT CLINICALLY INDICATED, INCLUDING NON-PHARMACOLOGICAL PAIN REDUCTION TECHNIQUES] Future Scheduled Test AGENCY MAY PERFORM A RESUMPTION OF CARE VISIT FOLLOWING ANY HOSPITAL ADMISSION. PT TO EVALUATE, OBSERVE / ASSESS, AND MONITOR, PRIVATE BANKER TO OBSERVE AND MONITOR, PROVIDE SKILLED THERAPEUTIC INTERVENTION, ACTIVITY, EDUCATION, AND TRAINING TO ADDRESS; [code = AGENCY MAY PERFORM A RESUMPTION OF CARE VISIT FOLLOWING ANY HOSPITAL ADMISSION. PT TO EVALUATE, OBSERVE / ASSESS, AND MONITOR, PRIVATE BANKER TO OBSERVE AND MONITOR, PROVIDE SKILLED THERAPEUTIC INTERVENTION, ACTIVITY, EDUCATION, AND TRAINING TO ADDRESS;] Future Scheduled Test NEUROMUSCU LAR RE-EDUCATION / BALANCE / POSTURAL CONTROL (PT) [code = NEUROMUSCULAR RE-EDUCATION / BALANCE / POSTURAL CONTROL (PT)] Future Scheduled Test PT/PRIVATE BANKER TO TEACH KNEE REPLACEMENT SELF-MANAGEMENT [code = PT/PRIVATE BANKER TO TEACH KNEE REPLACEMENT SELF-MANAGEMENT] Future Scheduled Test PT TO ASSE SS / PRIVATE BANKER TO MONITOR FOR AND REPORT EARLY SIGNS OF ANTICOAGULANT TOXICITY TO THE PHYSICIAN AND/OR THE RN CLINICAL DIRECTOR MEDICAL SURGICAL FOR PHYSICIAN NOTIFICATION AND TO PROVIDE PATIENT/CAREGIVER EDUCATION ON ANTICOAGULANT THERAPY [code = PT TO ASSESS / PRIVATE BANKER TO MONITOR FOR AND REPORT EARLY SIGNS OF ANTICOAGULANT TOXICITY TO THE PHYSICIAN AND/OR THE RN CLINICAL DIRECTOR MEDICAL SURGICAL FOR PHYSICIAN NOTIFICATION AND TO PROVIDE PATIENT/CAREGIVER EDUCATION ON ANTICOAGULANT THERAPY] Future Scheduled Test PT / PRIVATE BANKER T O OBSERVE WOUND/INCISION AND/OR INTACT DRESSING ON R KNEE AND REPORT EARLY SIGNS AND SYMPTOMS OF WOUND DETERIORATION, COMPLICATIONS, OR INFECTION TO PHYSICIAN AND/OR THE RN CLINICAL DIRECTOR MEDICAL SURGICAL FOR PHYSICIAN NOTIFICATION. NON-REMOVABLE DRESSING TO BE TAKEN OFF AT FIRST POST-OP VISIT. [code = PT / PRIVATE BANKER TO OBSERVE WOUND/INCISION AND/OR INTACT DRESSING ON R KNEE AND REPORT EARLY SIGNS AND SYMPTOMS OF WOUND DETERIORATION, COMPLICATIONS, OR INFECTION TO PHYSICIAN AND/OR THE RN CLINICAL DIRECTOR MEDICAL SURGICAL FOR PHYSICIAN NOTIFICATION. NON-REMOVABLE DRESSING TO BE TAKEN OFF AT FIRST POST-OP VISIT.] Goal 2024-10-06 Patient Goal - DECREASE PAIN . WALK [...] WOUND COMPLICATIONS DURING THE EPISODE OF CARE. Reason for Visit INDEPENDENT IN THE HOME Encounters Start Date/Time End Date/Time Encounter Type Admission Type Attending [facility] Care Department Encounter ID Discharge Date Discharge Status Discharge Condition Discharge Reason Percent Goals Met 2024-09-13 00:00:00 2024-10-06 00:00:00 Outpatient NEW ADMISSION SALEEM ANGELES [facility] [id number] 2024-10-06 00:00:00 DISCHARGE TO HOME OR SELF CARE INDEPENDEN T IN THE HOME HH ONLY - OUT PATIENT 93.75
--- OUTSIDE RECORDS SUMMARY | 2024-10-19 15:38 | XMS_ITS | Clinical Summary ---
Author Organization [facility] Address [address] [place] [address] Care Team Providers Care Banbury Machine Operator Name Role Phone Bebeto Wiley MD Primary Care Provider [phone] Immunizations Name Administration Dates Next Due Moderna [...] 12/15/2020 12/15/2018 Colorectal Cancer Screening: Colonoscopy 07/18/2022 COVID-19 Vaccine (3 - 2023-2 5 [...] Procedure Name Priority Date/Time Associated Diagnosis Comments [facility] SCREENING DIGITAL Routine 12/15/2018 1:07 PM EDT Encounter for screening mammogram for malignant neoplasm of breast [facility] DEXA AXIAL SKELETON Routine 10/21/2018 2:56 PM EDT Encounter for screening for osteoporosis from Last 3 Months or Most Recently Relevant to Health Maintenance Results * [facility] SCREENING DIGITAL (12/15/2018 1:07 PM EDT) Anatomical Region Laterality Modality Mammography 12/15/2018 10:5 2 AM EDT Narrative 12/15/2018 1:07 PM EDT [facility] Diagnostic Imaging Department [address] [place] [id number] Patient: ??JASWANTGEE ?/Age/Sex: 1955 63 - F Unit#: ??[id number] ? Location/Status: ??SPDIMAM/REG CLI ? Mnemonic/Ordering Site: [...] for the next mammogram: ??CPT II 7025F [id number] Dictating Physician: ??NATA CHAO MD Electronically Signed by: ??NATA CHAO MD Dic Date/Time: ??12/15/18 1301 Sign date/Time: ??12/15/18 1307 Procedure Note Nata Chao MD - 07/28/2022 [facility] Diagnostic Imaging Department [address] [place] [address] Patient: JASWANTGEE /Age/Sex: 1955 - 63 - F Unit#: [id number] Location/Status: [facility] CLI Mnemonic/Ordering Site: [facility] Ordering Physician: NAM SAHU MD Elissa Screening [...] for the next mammogram: CPT II 7025F [id number] Dictating Physician: NATA CHAO MD Electronically Signed by: NATA CHAO MD Dic Date/Time: 12/15/18 1301 Sign date/Time: 12/15/18 1307 us Nam Sahu MD IMG BI PROCEDURES Final Result * [facility] DEXA AXIAL SKELETON (10/21/2018 2:56 PM EDT) Anatomical Region Laterality Modality Mammography 10/21/2018 8:08 AM EDT Narrative 10/21/2018 2:56 PM EDT [facility] Diagnostic Imaging Department [address] [place] [address] Patient: ??GEE MICHAUD ?/Age/Sex: 1955 - 63 - F Unit#: ??[id number] ? Location/Status: ??SPDIMAM/REG CLI ? Mnemonic/Ordering Site: ??MAMDEXAAX/SPMAM Ordering Physician: ??NAM SAHU MD [facility]issa Dexa Axial Skeleton - 10/21/18 - 1800 HISTORY: ??The patient is a 63-year-old postmenopausal [...] probability of hip fracture of 1.3%. Code 12570 Dictating Physician: ??SALEEM LI MD Electronically Signed by: ??SALEEM LI MD Dic Date/Time: ??10/21/181453 Sign date/Time: ??10/21/181455 Procedure Note Saleem Li MD - 07/29/2022 [facility] Diagnostic Imaging Department [address] [place] [address] Patient: GEE MICHAUD Lia/Age/Sex: 1955 - 63 - F Unit#: [id number] [facility]Ordering Site: MAMDEXAAX/SPMAM Ordering Physician: NAM SAHU MD [facility] Dexa Axial Skeleton - 10/21/18 - 1440 [...] density of the femurs bilaterally is 0.916 gm/jc0reybw is 91% of that of young normals [...] probability of hip fracture of 1.3%. Code 77644 Dictating Physician: SALEEM LI MD Electronically Signed by: SALEEM LI MD Dic Date/Time: 10/21/181453 Sign date/Time: 10/21/181455 Nam Sahu MD IMG BI PROCEDURES Final Result from Last 3 Months or Most Recently Relevant to Health Maintenance Care Teams Banbury Machine Operator Relationship Specialty Start Date End Date Bebeto Wiley [place] [address] PCP - General 09/12/10
--- OUTSIDE RECORDS SUMMARY | 2024-10-19 15:38 | XMS_ITS ---
Author Organization [facility] Address [address] [place] [address] Care Team Providers Care Electric Motorman Name Role Phone Bebeto Wiley MD Primary Care Provider Ismael Nelson Unavailable [phone] REASON FOR VISIT constipation, change in bowels,gerd Problems Problem Type SNOMED Code ICD Code Onset Dates Problem Status W/U Status Risk Notes Problem Diverticular disease of colon (100559586) Diverticulosis of large intestine without perforation or abscess without bleeding (K57.30) Active confirmed Problem Gastroesophageal reflux disease (428461904) Gastroesophageal reflux disease (K21.9) Active confirmed Encounters Encounter Location Date Provider Diagnosis [facility] Outpatient [address] [place], [place] [id number] 08/06/2023 Ismael Wallace Colon polyps K63.5 ; Change in bowel habits R19.4 ; Diverticulosis of large intestine without perforation or abscess without bleeding K57.30 ; Other hemorrhoids K64.8 ; Gastroesophageal reflux disease K21.9 and Hiatal hernia K44.9 Assessments Encounter Date Diagnosis (ICD Code) Assessment Notes Treatment Notes Treatment Clinical Notes Section Notes 08/06/2023 Colon polyps (ICD-10 - K63.5) 08/06/2023 Change in bowel habits (ICD-10 - R19.4) 08/06/2023 Diverticulosis of large intestine without perforation or abscess without bleeding (ICD-10 - K57.30) 08/06/2023 Other hemorrhoids (ICD-10 - K64.8) 08/06/2023 Gastroesophageal reflux disease (ICD-10 - K21.9) 08/06/2023 Hiatal hernia (ICD-10 - K44.9) Plan Of Treatment No Information Progress Notes * GEE MICHAUD EDOB:1954 (69 yo F)Acc No.[id number]:08/06/2023 EGD and COL/MAC Patient:?GEE MICHAUD Provider:?Ismael Wallace MD :1955???Age:68 Y???Sex:Female D ate:08/06/2023 Address:[address] [place], [place] [id number] Pcp:Bebeto Wiley MD Subjective: * Chief Complaints: * ???1. Constipation, change i n bowels,gerd. * Medical History:? Objective: * Vitals:? 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 Plan: * Treatment: * Procedure Codes:?13370 LESIO N REMOVAL COLONOSCOPY, 0529F INTRVL 3+YRS PTS CLNSCP DOCD, Modifiers: 8P , 0528F RCMND FLW-UP 10 YRS DOCD, Modifiers: 1P , 28890 UPPER GI ENDOSCOPY, BIOPSY * * The named appointment provid er may or may not be the originator of this progress note, and it is not deemed complete until electronically signed by the appointment provider. Sign off status: Pending * Provider:?Ismael Wallace MD Date:? 023 Generated for Chetan huang/Janelle/eTransmitting on:?10/19/2024 03:38 PM EDT
--- OUTSIDE RECORDS SUMMARY | 2024-10-19 15:39 | XMS_ITS | Clinical Summary ---
Author Organization [facility] Address [address] [place] [address] Care Team Providers Care Veneer Stock Layer Name Role Phone Bebeto Wiley MD Primary Care Provider [phone] Allergies Active Allergy Reactions Criticality Noted Date [...] age to complete this topic Care Teams Veneer Stock Layer Relationship Specialty Start Date End Date Bebeto Wiley MD [address] [address] PCP - General Family Medicine 04/19/17
--- OUTSIDE RECORDS SUMMARY | 2024-10-19 15:39 | XMS_ITS | Clinical Summary ---
Author Organization Unknown Care Team Providers Care Paper Cutting Machine Operator Name Role Phone BARRINGTON PETERSON MD Unavailable Unavailable BRIDGETTE PT, SALEEM Unavailable Unavailable KATERYNA AGUIAR, SALEEM Unavailable Unavailable Payers Payer Name Policy Type Policy Number Effective Date Expira tion Date MEDICARE.NGS.PDGM [id number] Problems Condition Name Condition Details Condition Category Status Onset Date Resolution Date Last Treatment Date Treating Clinician Comments AFTERCARE FOLLOWING JOINT REPLACEMENT SURGERY Active 09-13 00:00: 00 PRESENCE OF RIGHT ARTIFICIAL KNEE JOINT Active 09-13 00:00: 00 ATHSCL HEART DISEASE OF [place] CORONARY ARTERY W/O ANG PCTRS Active 09-13 [...] 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 Active 09-13 00:00: 00 SKILLED NURSING (CURRENT) USE OF ASPIRIN Active 09-13 00:00: 00 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 NON-STEROIDA L NON-INFLAM (NSAID) [...] 200 mg capsule 09-12 00:00: 00 Yes [id number] PAIN 1 capsule 2 TIMES DAILY 1 capsule 2 TIMES DAILY (route: oral) Med Classific ation: Analgesic , Anti-infl ammatory or Antipyret ic gabapentin 100 mg capsule 09-12 00:00: 00 Yes [id number] PAIN 1 capsule BEDTIME 1 capsule BEDTIME (route: oral) Med Classific ation: Central Nervous System Agents oxycodone 5 mg tablet 09-12 00:00: 00 Yes [id number] PAIN 1 tablet EVERY 4 HOURS 1 tablet EVERY 4 HOURS (route: oral) Med Classific ation: Analgesic , Anti-infl ammatory or Antipyret ic levothyroxi ne 50 mcg tablet 125 00:00: 00 Yes [id number] THYROID Per instruc tions EVERY DAY Per instructio ns EVERY DAY (route: oral) Med Classific ation: Endocrine aspirin 325 mg tablet 09-12 00:00: 00 Yes [id number] DVT PROPHYLAXIS 1 tablet 2 TIMES DAILY 1 tablet 2 TIMES DAILY (route: oral) Med Classific ation: Analgesic , Anti-infl ammatory or Antipyret ic docusate sodium 100 mg capsule 09-12 00:00: 00 Yes [id number] CONSTIPATIO N 1 capsule 2 TIMES DAILY 1 capsule 2 TIMES DAILY (route: oral) Med Classific ation: Gastroint estinal Therapy Agents Tylenol 325 mg tablet 09-12 00:00: 00 Yes [id number] PAIN 2 tablet EVERY 6 HOURS 2 tablet EVERY 6 HOURS (route: oral) Med Classific ation: Analgesic , Anti-infl ammatory or Antipyret ic cholecalcif vladimir (vitamin D3) 50 mcg (2,000 unit) capsule 09-14 00:00: 00 Yes [id number] supplement 1 capsule DAILY 1 capsule DAILY [...] Planned Date Details Comments Future Scheduled Test PT/ETHICAL HACKER TO PROVIDE GAIT TRAINING FOR IMPROVED MOBILITY AND /OR TO NORMALIZE GAIT PATTERN [code = PT/ETHICAL HACKER TO PROVIDE GAIT TRAINING FOR IMPROVED MOBILITY AND /OR TO NORMALIZE GAIT PATTERN] Future Scheduled Test THERAPEUTI C EXERCISES AND ESTABLISHING A HOME EXERCISE PROGRAM (PT/ETHICAL HACKER) [code = THERAPEUTIC EXERCISES AND ESTABLISHING A HOME EXERCISE PROGRAM (PT/ETHICAL HACKER)] Future Scheduled Test PT/ETHICAL HACKER TO IDENTIFY FALL RISK FACTORS; EDUCATE THE PATIENT/CAREGIVER ON WAYS TO REDUCE FALL RISK FACTORS AND ESTABLISH HOME EXERCISE PROGRAM TO MINIMIZE FALL RISK. MAY TEACH THE PATIENT FLOOR RECOVERY WHEN CLINICALLY APPROPRIATE [code = PT/ETHICAL HACKER TO IDENTIFY FALL RISK FACTORS; EDUCATE THE PATIENT/CAREGIVER ON WAYS TO REDUCE FALL RISK FACTORS AND ESTABLISH HOME EXERCISE PROGRAM TO MINIMIZE FALL RISK. MAY TEACH THE PATIENT FLOOR RECOVERY WHEN CLINICALLY APPROPRIATE] Future Scheduled Test PT/ETHICAL HACKER TO PROVIDE STAIR TRAINING [code = PT/ETHICAL HACKER TO PROVIDE STAIR TRAINING] Future Scheduled Test BED TRANSF ERS (PT/ETHICAL HACKER) [code = BED TRANSFERS (PT/ETHICAL HACKER)] Future Scheduled Test CHAIR DONIS SFERS (PT/ETHICAL HACKER) [code = CHAIR TRANSFERS (PT/ETHICAL HACKER)] Future Scheduled Test PT / ETHICAL HACKER M AY EDUCATE ON PAIN MANAGEMENT CLINICALLY INDICATED, INCLUDING NON-PHARMACOLOGICAL PAIN REDUCTION TECHNIQUES [code = PT / ETHICAL HACKER MAY EDUCATE ON PAIN MANAGEMENT CLINICALLY INDICATED, INCLUDING NON-PHARMACOLOGICAL PAIN REDUCTION TECHNIQUES] Future Scheduled Test AGENCY MAY PERFORM A RESUMPTION OF CARE VISIT FOLLOWING ANY HOSPITAL ADMISSION. PT TO EVALUATE, OBSERVE / ASSESS, AND MONITOR, ETHICAL HACKER TO OBSERVE AND MONITOR, PROVIDE SKILLED THERAPEUTIC INTERVENTION, ACTIVITY, EDUCATION, AND TRAINING TO ADDRESS; [code = AGENCY MAY PERFORM A RESUMPTION OF CARE VISIT FOLLOWING ANY HOSPITAL ADMISSION. PT TO EVALUATE, OBSERVE / ASSESS, AND MONITOR, ETHICAL HACKER TO OBSERVE AND MONITOR, PROVIDE SKILLED THERAPEUTIC INTERVENTION, ACTIVITY, EDUCATION, AND TRAINING TO ADDRESS;] Future Scheduled Test NEUROMUSCU LAR RE-EDUCATION / BALANCE / POSTURAL CONTROL (PT) [code = NEUROMUSCULAR RE-EDUCATION / BALANCE / POSTURAL CONTROL (PT)] Future Scheduled Test PT/ETHICAL HACKER TO TEACH KNEE REPLACEMENT SELF-MANAGEMENT [code = PT/ETHICAL HACKER TO TEACH KNEE REPLACEMENT SELF-MANAGEMENT] Future Scheduled Test PT TO ASSE SS / ETHICAL HACKER TO MONITOR FOR AND REPORT EARLY SIGNS OF ANTICOAGULANT TOXICITY TO THE PHYSICIAN AND/OR THE RN CLINICAL EVENT ATTENDANT FOR PHYSICIAN NOTIFICATION AND TO PROVIDE PATIENT/CAREGIVER EDUCATION ON ANTICOAGULANT THERAPY [code = PT TO ASSESS / ETHICAL HACKER TO MONITOR FOR AND REPORT EARLY SIGNS OF ANTICOAGULANT TOXICITY TO THE PHYSICIAN AND/OR THE RN CLINICAL EVENT ATTENDANT FOR PHYSICIAN NOTIFICATION AND TO PROVIDE PATIENT/CAREGIVER EDUCATION ON ANTICOAGULANT THERAPY] Future Scheduled Test PT / ETHICAL HACKER T O OBSERVE WOUND/INCISION AND/OR INTACT DRESSING ON R KNEE AND REPORT EARLY SIGNS AND SYMPTOMS OF WOUND DETERIORATION, COMPLICATIONS, OR INFECTION TO PHYSICIAN AND/OR THE RN CLINICAL EVENT ATTENDANT FOR PHYSICIAN NOTIFICATION. NON-REMOVABLE DRESSING TO BE TAKEN OFF AT FIRST POST-OP VISIT. [code = PT / ETHICAL HACKER TO OBSERVE WOUND/INCISION AND/OR INTACT DRESSING ON R KNEE AND REPORT EARLY SIGNS AND SYMPTOMS OF WOUND DETERIORATION, COMPLICATIONS, OR INFECTION TO PHYSICIAN AND/OR THE RN CLINICAL EVENT ATTENDANT FOR PHYSICIAN NOTIFICATION. NON-REMOVABLE DRESSING TO BE [...] End Date/Time Encounter Type Admission Type Attending [facility] Care Department Encounter ID Discharge Date Discharge Status Discharge Condition Discharge Reason Percent Goals Met 2024-09-13 00:00:00 2024-10-06 00:00:00 Outpatient NEW ADMISSION SALEEM ANGELES [facility] [id number] 2024-10-06 00:00:00 DISCHARGE TO HOME OR SELF CARE INDEPENDEN T IN THE HOME HH ONLY - OUT PATIENT 93.75
== END 2024-10-19 13:03 | disposition home or self-care (01) ==
LOC: HO.HOS 12:15
PROVIDERS: Visit Provider Orthopaedic Surgery
DX: M25.561 Pain in right knee (principal)
CPT/HCPCS: 99024

== ENCOUNTER → 2024-10-19 12:15 | Outpatient (BNVA) | payer MEDICARE, SELFPAY | PROVIDERS: Visit Provider Orthopaedic Surgery | DX: M25.561 Pain in right knee (principal) | CPT/HCPCS: 99212 ==

== ENCOUNTER 2024-10-27 09:35 | Outpatient (AMB) | payer MEDICARE, SELFPAY ==
--- NOTE | 2024-10-27 09:40 | A.OFFVIS_ITS ---
Intake Visit Reasons: PO - right TKA 09/11/24 Intake Note: Adriel is a 69 year old female who presents today for a wound check s/p right TKA 09/11/24 Patient reports she noticed the bruising about a week ago. No history of injury. Patient states that it is tender to touch and feels 3 bumps along the incision site. Allergies hydrocodone [From Vicodin] Allergy (Severe, Verified 10/27/24 09:47) Nausea methocarbamol [From Robaxin] Allergy (Severe, Verified 10/27/24 09:47) Hives HPI HPI PO - right TKA 09/11/24 DR: Details: Ms. Gallegos is a 69-year-old female who presents to the office today for a wound check status post right total knee arthroplasty on 09/11/[address] Hammond. Patient was at physical therapy and the physical therapist sent a tiger message to Dr. Hammond and myself the patient was having some discoloration along the incision site. There is no increase in pain. No tenderness to palpation. And no drainage. [facility] Medical History (Updated 10/20/24 @ 10:37 by Milton Hammond MD) Hypothyroidism Hx of bladder cancer (~1986) Hx of syncope (11/30/23) Seasonal allergies Scalp psoriasis Lichen sclerosus Malignant neoplasm of urinary bladder Osteopenia Supraclavicular mass Migraine aura without headache Adrenal adenoma Multiple lung nodules Coronary artery calcification Acquired hallux rigidus Benign paroxysmal positional vertigo of left ear Anxiety Prediabetes Constipation GERD (gastroesophageal reflux disease) Osteoarthritis Back pain Hyperlipidemia Thyroid disease Hx of bladder cancer Surgical History History of esophagogastroduodenoscopy (EGD) (08/06/23) History of surgery on left wrist History of left knee replacement Hx of appendectomy History of bunionectomy Hx of cystoscopy H/O colonoscopy Social History Housing: House Are you a primary child care attendant school to a significant other at home: No Do you presently have visiting nurse or other home services: No Patient Tobacco Use Status: Former Tobacco user Tobacco use type: Cigarette Substance Use Type: Marijuana service: No Current occupational status: retired Current occupation: Right hand dominate Review of Systems Const All systems reviewed & are unremarkable except as noted in HPI and below Physical Exam Extrem Other: Right knee incision site is clean dry and intact. There is an area along the incision site just proximal to the correction walter of slight discoloration but looks as though perhaps there is some telangiectasias in this area. When pressing down the discoloration goes away and then feels back with what appears to be blood in these telangiectasias. No signs of infection. Range of motion is 0-120. NVI. Assessment & Plan Assessment & Plan (1) Status post total right knee replacement: Code(s): Z96.651 - Presence of right artificial knee joint Category: Surgical Plan Ms. Gallegos is a 69-year-old female who presents to the office today for a wound check status post right total knee arthroplasty on 09/11/[address] Hammond. Patient was at physical therapy and the physical therapist sent a tiger message to Dr. Hammond and myself the patient was having some discoloration along the incision site. There is no increase in pain. No tenderness to palpation. And no drainage. Only office today, there are no signs of infection at the incision site. There does appear to have some telangiectasias over the incision site which I believe is leading to this slight discoloration. Overall the patient is doing very well. She will continue with physical therapy. Follow up will be at her normally scheduled follow-up appointment sooner if needed. Coding Level of Care Code Global (44780) Diagnoses Status post total right knee replacement Z96.651
--- OUTSIDE RECORDS SUMMARY | 2024-10-27 11:01 | XMS_ITS | Patient Health Record ---
Author Organization [facility] Address [address] [place] [address] Care Team Providers Care Firmware Manager Name Role Phone Inez COYNE, Bebeto Primary Care Provider Ismael Nelson Unavailable [phone] Allergies Allergen (clinical drug ingredient) Drug/Non Drug [...] Problem Status W/U Status Risk Notes Problem 998376532 Abdominal bloati ng (R14.0) Active confirmed Problem 32725855 Change in bowel habits (R19.4) Active confirmed Problem Diverticular disease of colon (763053859) Diverticulosis of large intestine without perforation or abscess without bleeding (K57.30) Active confirmed Problem Gastroesophageal reflux disease (222467770) Gastroesophageal reflux disease (K21.9) Active confirmed Problem 94276185 Constipation, unspecified constipation type (K59.00) Active confirmed Problem 245318574 Gastroesophageal reflux disease, unspecified whether esophagitis present (K21.9) Active confirmed Plan Of Treatment Pending Test Test Name Order Date CELIAC PANEL #10 05/07/2023 Future Test Test Name Order Date UPPER GI ENDOSCOPY 05/07/2023 COLONOSCOPY 05/07/2023 Insurance Providers Payer Name Payer Address Payer Phone Subscriber Number Group Number Insured Name Patient Relationship to Insured Coverage Start Date Coverage End Date [facility] [address] [place], [place] [phone] [id number] SAMMIMARIA INESGEE NUÑEZ Self - patient is the insured Medical (General) History Medical History History ICD Code Bladder cancer for which she undergoes p eriodic cystoscopies Hypothyroidism Hyperlipidemia Denies MO,DM,CVA,Lung disease,renal dise ase She describes a negative col onoscopy at age 49 and another negative colonoscopy in 2015. Surgical History Surgery Date(Month/Year) Bladder cancer treated with cystoscopy Bunionectomy Appendectomy Left knee replacement 2016 Left wrist 2022
--- OUTSIDE RECORDS SUMMARY | 2024-10-27 11:01 | XMS_ITS | Clinical Summary ---
Author Organization [facility] Address [address] [place] [address] Care Team Providers Care Quartz Mounter Name Role Phone Bebeto Wiley MD Primary Care Provider [phone] Immunizations Name Administration Dates Next Due Moderna [...] Procedure Name Priority Date/Time Associated Diagnosis Comments [facility] Routine 12/15/2018 1:07 PM EDT Encounter for screening mammogram for malignant neoplasm of breast [facility] DEXA AXIAL SKELETON Routine 10/21/2018 2:56 PM EDT Encounter for screening for osteoporosis from Last 3 Months or Most Recently Relevant to Health Maintenance Results * [facility] (12/15/2018 1:07 PM EDT) Anatomical Region Laterality Modality Mammography 12/15/2018 10:5 2 AM EDT Narrative 12/15/2018 1:07 PM EDT [facility] Diagnostic Imaging Department [address] [place] [address] Patient: ??JASWANTGEE ?/Age/Sex: 1955 63 - F Unit#: ??[id number] ? Location/Status: ??SPDIMAM/REG CLI ? Mnemonic/Ordering Site: [...] for the next mammogram: ??CPT II 7025F [id number] +[id number] Dictating Physician: ??NATA CHAO MD Electronically Signed by: ??NATA CHAO MD Dic Date/Time: ??12/15/18 1308 Sign date/Time: ??12/15/18 1307 Procedure Note Nata Chao MD - 07/28/2022 [facility] Diagnostic Imaging Department [address] [place] [address] Patient: JASWANTGEE /Age/Sex: 1955 - 63 - F Unit#: [id number] Location/Status: [facility] CLI Mnemonic/Ordering Site: [facility] Ordering Physician: NAM SAHU MD Elissa Screening [...] for the next mammogram: CPT II 7025F [id number] +[id number] Dictating Physician: NATA CHAO MD Electronically Signed by: NATA CHAO MD Dic Date/Time: 12/15/18 1304 Sign date/Time: 12/15/18 1307 us Nam Sahu MD IMG BI PROCEDURES Final Result * ELISSA DEXA AXIAL SKELETON (10/21/2018 2:56 PM EDT) Anatomical Region Laterality Modality Mammography 10/21/2018 8:08 AM EDT Narrative 10/21/2018 2:56 PM EDT [facility] Diagnostic Imaging Department [address] [place] [address] Patient: ??GEE MICHAUD ?/Age/Sex: 1955 - 63 - F Unit#: ??[id number] ? Location/Status: ??SPDIMAM/REG CLI ? Mnemonic/Ordering Site: ??MAMDEXAAX/SPMAM Ordering Physician: ??NAM SAHU MD Elissa Dexa Axial Skeleton - 10/21/18 - 7440 HISTORY: ??The patient is a 63-year-old postmenopausal [...] probability of hip fracture of 1.3%. Code 00020 Dictating Physician: ??SALEEM LI MD Electronically Signed by: ??SALEEM LI MD Dic Date/Time: ??10/21/181453 Sign date/Time: ??10/21/181455 Procedure Note Saleem Li MD - 07/29/2022 [facility] Diagnostic Imaging Department [address] [place] [address] Patient: GEE MICHAUD Lia/Age/Sex: 1955 - 63 - F Unit#: [id number] [facility] Mn[facility]/Ordering Site: MAMDEXAAX/SPMAM Ordering Physician: NAM SAHU MD [facility] Dexa Axial Skeleton - 10/21/18 [...] density of the femurs bilaterally is 0.916 gm/pa2rekhe is 91% of that of young normals [...] probability of hip fracture of 1.3%. Code 58943 Dictating Physician: SALEEM LI MD Electronically Signed by: SALEEM LI MD Dic Date/Time: 10/21/181453 Sign date/Time: 10/21/181455 Nam Sahu MD IMG BI PROCEDURES Final Result from Last 3 Months or Most Recently Relevant to Health Maintenance Care Teams Quartz Mounter Relationship Specialty Start Date End Date Bebeto [place] [address] PCP - General 09/12/10
--- OUTSIDE RECORDS SUMMARY | 2024-10-27 11:02 | XMS_ITS | Clinical Summary ---
Author Organization [facility] Address [address] [place] [address] Care Team Providers Care Spray Rig Operator Name Role Phone Bebeto Wiley MD Primary Care Provider [phone] Allergies Active Allergy Reactions Criticality Noted Date [...] age to complete this topic Care Teams Spray Rig Operator Relationship Specialty Start Date End Date Bebeto Wiley MD [address] [address] PCP - General Family Medicine 04/19/17
--- OUTSIDE RECORDS SUMMARY | 2024-10-27 11:02 | XMS_ITS ---
Author Organization [facility] Address [address] [place] [address] Care Team Providers Care Shrimp Peeling Machine Tender Name Role Phone Bebeto Wiley MD Primary Care Provider Ismael Nelson Unavailable [phone] REASON FOR VISIT constipation, change in bowels,gerd Problems Problem Type SNOMED Code ICD Code Onset Dates Problem Status W/U Status Risk Notes Problem Diverticular disease of colon (486557264) Diverticulosis of large intestine without perforation or abscess without bleeding (K57.30) Active confirmed Problem Gastroesophageal reflux disease (873413095) Gastroesophageal reflux disease (K21.9) Active confirmed Encounters Encounter Location Date Provider Diagnosis [facility] [address] [place], [place] [id number] 08/06/2023 Ismael Wallace Colon polyps K63.5 ; [...] * GEE MICHAUD EDOB:1954 (69 yo F)Acc No.[id number]:08/06/2023 EGD and COL/MAC Patient:?GEE MICHAUD Provider:?Ismael Wallace MD :1955???Age:68 Y???Sex:Female D ate:08/06/2023 Address:[address] [place], [place] [address] Pcp:Bebeto Wiley MD Subjective: * Chief Complaints: * ???1. Constipation, change i n bowels,gerd. * Medical History:? Objective: * Vitals:? 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 Plan: * Treatment: * Procedure Codes:?58599 LESIO N REMOVAL COLONOSCOPY, 0529F INTRVL 3+YRS PTS CLNSCP DOCD, Modifiers: 8P , 0528F RCMND FLW-UP 10 YRS DOCD, Modifiers: 1P , 67206 UPPER GI ENDOSCOPY, BIOPSY * * The named appointment provid er may or may not be the originator of this progress note, and it is not deemed complete until electronically signed by the appointment provider. Sign off status: Pending * Provider:?Ismael Wallace MD Date:? 023 Generated for Chetan huang/Janelle/eTransmitting on:?10/27/2024 11:01 AM EDT
--- OUTSIDE RECORDS SUMMARY | 2024-10-27 11:02 | XMS_ITS ---
Author Organization [facility] Address [address] [place] [address] Care Team Providers Care Powder Worker Name Role Phone Bebeto Wiley MD Primary Care Provider Ismael Nelson Unavailable [phone] Allergies Allergen (clinical drug ingredient) Drug/Non Drug [...] Problem Status W/U Status Risk Notes Problem 96648657 Constipation, unspecified constipation type (K59.00) Active confirmed Problem 582933326 Gastroesophageal reflux disease, unspecified whether esophagitis present (K21.9) Active confirmed Problem 32368665 Change in bowel habits (R19.4) Active confirmed Problem 554548428 Abdominal bloati ng (R14.0) Active confirmed Vital Signs Temperature 98.6 degrees Fahrenheit 05/07/20 23 Blood pressure systolic 000 mm Hg 05/07/20 23 Blood pressure diastolic 00 mm Hg 023 Height 5 ft 2 in in 05/07/2023 Weight 166 lbs 05/07/2023 BMI 30.36 kg/m2 05/07/2023 Encounters Encounter Location Date Provider Diagnosis [facility] [address] [place] [address] 05/07/2023 Ismael Wallace Constipation, unspec ified constipation [...] * GEE MICHAUD EDOB:1954 (67 yo F)Acc No.[id number]:05/07/2023 Progress Notes Patient:?GEE MICHAUD Provider:?Ismael Wallace MD :1955???Age:67 Y???Sex:Female D ate:05/07/2023 Address:[address] [place] [address] Pcp:Bebeto Wiley MD Subjective: * Chief Complaints: [...] age 49 and again in 2016 at [facility]. She has never had an upper endoscopy. [...] Procedure Codes:?3017F COLOR ECTAL CA SCREEN DOC [id number] TOBACCO NON-ADWHV2712 BP SCR NOT PRFRM REC REASON NOS * Preventive Medicine:? ??Counseling:?Care goal follow-up plan:?Above Normal BMI Follow-up?Giving encouragement to exercise,?BMI management provided?Yes.? ??Urinary Incontinence:?Urinary Incontinence?Assessment:?Absent,?Plan of care documented:?No, reason not specified.? * Follow Up:?prn * * Sign off status: Completed true * Provider:?Ismael Wallace MD Date:? 023 Generated for Chetan huang/Janelle/Bib on:?10/27/2024 11:01 AM EDT History and Physical Notes * HPI [...] age 49 and again in 2016 at [facility]. She has never had an upper endoscopy. [...]
--- OUTSIDE RECORDS SUMMARY | 2024-10-27 11:02 | XMS_ITS | Patient Health Record ---
Author Organization [facility] Address [address] [place] [address] Care Team Providers Care Ultrasonic Welding Machine Operator Name Role Phone Bebeto Wiley MD Primary Care Provider Adin Watson Unavailable [phone] Allergies Allergen (clinical drug ingredient) Drug/Non Drug [...] Status Risk Notes Problem Acquired hallux rigidus (8638181) Hallux rigidus, left foot (M20.22) Active confirmed Problem Acquired hammer toe of right foot (7001928698398 105) Other hammer toe(s) (acquired), right foot (M20.41) Active confirmed Problem Acquired hammer toe of left foot (3400078660514 103) Other hammer toe(s) (acquired), left foot (M20.42) Active confirmed Problem Acquired hallux rigidus (2330799) Hallux rigidus, right foot (M20.21) Active confirmed Plan Of Treatment Pending Test Test Name Order Date X ray : Foot, left 3V 01/01/2021 X ray : Foot, right 3V 01/01/2021 Insurance Providers Payer Name Payer Address Payer Phone Subscriber Number Group Number Insured Name Patient Relationship to Insured Coverage Start Date Coverage End Date [employer] [address] [place] [address] [id number] Rico Self - patient is the insured [...]
== END 2024-10-27 09:49 | disposition home or self-care (01) ==
LOC: HO.HOS 09:36
PROVIDERS: Visit Provider Physician Assistant
DX: Z96.651 Presence of right artificial knee joint (principal)
CPT/HCPCS: 99024

== ENCOUNTER → 2024-10-27 09:35 | Outpatient (BNVA) | payer MEDICARE, SELFPAY | PROVIDERS: Visit Provider Physician Assistant | DX: Z47.1 Aftercare following joint replacement surgery (principal); Z96.651 Presence of right artificial knee joint | CPT/HCPCS: 99212 ==

== ENCOUNTER 2024-12-19 11:50 | Outpatient (AMB) | payer MEDICARE, SELFPAY ==
--- NOTE | 2024-12-19 11:51 | MHC.OFFVIS ---
Vital Signs 12/19/24 11:56 Height 5 ft 2.25 in Weight 167 lb BMI 30.3 Intake Visit Reasons: OV: R TKA w/DR 09/11/24 Intake Note: Adriel is a 69 year old female who presents with complaints of mild to moderate discomfort in her right knee after undergoing right total knee replacement surgery on 09/11/2024. She continues with her physical therapy exercises. She denies any fevers or chills. She takes Tylenol as needed for her discomfort. Allergies hydrocodone [From Vicodin] Allergy (Severe, Verified 12/19/24 11:56) Nausea methocarbamol [From Robaxin] Allergy (Severe, Verified 12/19/24 11:56) Hives Medication List - Last Reconciled 12/19/24 by Milton Hammond MD acetaminophen 650 mg (2 x 325 mg) PO Q6H PRN 30 days amoxicillin 2,000 mg (4 x 500 mg) PO ONCE 1 day aspirin 325 mg PO BID 30 days celecoxib 200 mg PO BID 30 days cholecalciferol (vitamin D3) (Vitamin D3) 50 mcg PO DAILY docusate sodium 100 mg PO BID 7 days gabapentin 100 mg PO BEDTIME 7 days levothyroxine 50 mcg PO DAILY@0600 Saccharomyces boulardii (Daily Probiotic (S. boulardii)) 250 mg PO DAILY walker Folding front wheeled walker [facility] Medical History (Updated 10/20/24 @ 10:37 by Milton Hammond MD) Hypothyroidism Hx of bladder cancer (~1986) Hx of syncope (11/30/23) Seasonal allergies Scalp psoriasis Lichen sclerosus Malignant neoplasm of urinary bladder Osteopenia Supraclavicular mass Migraine aura without headache Adrenal adenoma Multiple lung nodules Coronary artery calcification Acquired hallux rigidus Benign paroxysmal positional vertigo of left ear Anxiety Prediabetes Constipation GERD (gastroesophageal reflux disease) Osteoarthritis Back pain Hyperlipidemia Thyroid disease Hx of bladder cancer Surgical History History of esophagogastroduodenoscopy (EGD) (08/06/23) History of surgery on left wrist History of left knee replacement Hx of appendectomy History of bunionectomy Hx of cystoscopy H/O colonoscopy Social History Housing: House Are you a primary primary care nurse practitioner to a significant other at home: No Do you presently have visiting nurse or other home services: No Patient Tobacco Use Status: Former Tobacco user Tobacco use type: Cigarette Substance Use Type: Marijuana service: No Current occupational status: retired Current occupation: Right hand dominate Physical Exam Vital Signs: BMI result Body Mass Index 30.3 Const Other: Well-nourished well-developed very friendly female awake alert and oriented x3 in no acute distress Extrem Other: Bilateral lower extremity examination shows good capillary refill, no skin lesions noted, normal sensation light touch Right knee examination shows the surgical incision is well healed, no erythema, full active extension and flexion to 120 degrees, her patella tracks well Assessment & Plan Assessment & Plan (1) Right knee pain: Code(s): M25.561 - Pain in right knee Category: Medical Plan Ms. Gallegos continues to do well after undergoing right total knee replacement surgery on 09/11/2024. She will continue going to formal physical therapy for now. She will gradually transition to a home exercise program. She will contact me prior to her follow-up appointment in 3 months should any questions or concerns arise. I spent 20 minutes in reviewing the patient's records and imaging studies, seeing the patient and documenting in the medical record. Coding Level of Care Code Est Pt Level 3 (39924) Complex EM visit Add On G2211 Diagnoses Right knee pain M25.561
[2024-12-19 11:56] VITALS: BMI 30.3
--- OUTSIDE RECORDS SUMMARY | 2024-12-19 13:14 | XMS_ITS | Patient Health Record ---
Author Organization [facility] Address [address] [place] [address] Care Team Providers Care Formula Weigher Name Role Phone Inez COYNE, Bebeto Primary Care Provider Ismael Nelson Unavailable [phone] Allergies Allergen (clinical drug ingredient) Drug/Non Drug [...] Problem Status W/U Status Risk Notes Problem 185872716 Abdominal bloati ng (R14.0) Active confirmed Problem 96716389 Change in bowel habits (R19.4) Active confirmed Problem Diverticular disease of colon (240860438) Diverticulosis of large intestine without perforation or abscess without bleeding (K57.30) Active confirmed Problem Gastroesophageal reflux disease (690980811) Gastroesophageal reflux disease (K21.9) Active confirmed Problem 46556782 Constipation, unspecified constipation type (K59.00) Active confirmed Problem 213429297 Gastroesophageal reflux disease, unspecified whether esophagitis present (K21.9) Active confirmed Plan Of Treatment Pending Test Test Name Order Date CELIAC PANEL #10 05/07/2023 Future Test Test Name Order Date UPPER GI ENDOSCOPY 05/07/2023 COLONOSCOPY 05/07/2023 Insurance Providers Payer Name Payer Address Payer Phone Subscriber Number Group Number Insured Name Patient Relationship to Insured Coverage Start Date Coverage End Date [facility] [address] [place], [place] [id number] SAMMIMARIA INESGEE NUÑEZ Self - patient is the insured Medical (General) History Medical History History ICD Code Bladder cancer for which she undergoes p eriodic cystoscopies Hypothyroidism Hyperlipidemia Denies [place],DM,CVA,Lung disease,renal dise ase She describes a negative col onoscopy at age 49 and another negative colonoscopy in 2015. Surgical History Surgery Date(Month/Year) Bladder cancer treated with cystoscopy Bunionectomy Appendectomy Left knee replacement 2016 Left wrist 2022
--- OUTSIDE RECORDS SUMMARY | 2024-12-19 13:14 | XMS_ITS ---
Author Organization [facility] Address [address] [place] [address] Care Team Providers Care Brim Cutter Name Role Phone Bebeto Wiley MD Primary Care Provider Ismael Nelson Unavailable [phone] REASON FOR VISIT constipation, change in bowels,gerd Problems Problem Type SNOMED Code ICD Code Onset Dates Problem Status W/U Status Risk Notes Problem Diverticular disease of colon (624694614) Diverticulosis of large intestine without perforation or abscess without bleeding (K57.30) Active confirmed Problem Gastroesophageal reflux disease (K21.9) Active confirmed Encounters Encounter Location Date Provider Diagnosis [facility] Outpatient [address] [place], [place] [phone] 08/06/2023 Ismael Wallace Colon polyps K63.5 ; [...] * GEE MICHAUD EDOB:1954 (69 yo F)Acc No.[id number]:08/06/2023 EGD and COL/MAC Patient:?GEE MICHAUD Provider:?Ismael Wallace MD :1955???Age:68 Y???Sex:Female D ate:08/06/2023 Address:[address] [place] [address] Pcp:Bebeto Wiley MD Subjective: * Chief Complaints: * ???1. Constipation, change i n bowels,gerd. * Medical History:? Objective: * Vitals:? 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 Plan: * Treatment: * Procedure Codes:?22171 LESIO N REMOVAL COLONOSCOPY, 0529F INTRVL 3+YRS PTS CLNSCP DOCD, Modifiers: 8P , 0528F RCMND FLW-UP 10 YRS DOCD, Modifiers: 1P , 03910 UPPER GI ENDOSCOPY, BIOPSY * * The named appointment provid er may or may not be the originator of this progress note, and it is not deemed complete until electronically signed by the appointment provider. Sign off status: Pending * Provider:?Ismael Wallace MD Date:? 023 Generated for Chetan huang/Janelle/eTransmitting on:?12/19/2024 01:14 PM EDT
--- OUTSIDE RECORDS SUMMARY | 2024-12-19 13:15 | XMS_ITS | Patient Health Record ---
[facility] Address [address] [place] [address] Care Team Providers Care Shareholder Name Role Phone Bebeto Wiley MD Primary Care Provider Adin Watson Unavailable [phone] Allergies Allergen (clinical drug ingredient) Drug/Non Drug [...] Status Risk Notes Problem Acquired hallux rigidus (6315730) Hallux rigidus, left foot (M20.22) Active confirmed Problem Acquired hammer toe of right foot (4538547223947 105) Other hammer toe(s) (acquired), right foot (M20.41) Active confirmed Problem Acquired hammer toe of left foot (8177469311275 103) Other hammer toe(s) (acquired), left foot (M20.42) Active confirmed Problem Acquired hallux rigidus (7313876) Hallux rigidus, right foot (M20.21) Active confirmed Plan Of Treatment Pending Test Test Name Order Date X ray : Foot, left 3V 01/01/2021 X ray : Foot, right 3V 01/01/2021 Insurance Providers Payer Name Payer Address Payer Phone Subscriber Number Group Number Insured Name Patient Relationship to Insured Coverage Start Date Coverage End Date [employer] [address] [place] [phone] [id number] Rico Self - patient is the insured [...]
--- OUTSIDE RECORDS SUMMARY | 2024-12-19 13:15 | XMS_ITS | Clinical Summary ---
Author Organization [facility] Address [address] [place] [address] Care Team Providers Care Mechanical Engineering Professor Name Role Phone Bebeto Wiley MD Primary Care Provider [phone] Allergies Active Allergy Reactions Criticality Noted Date [...] age to complete this topic Care Teams Mechanical Engineering Professor Relationship Specialty Start Date End Date Bebeto Wiley MD [address] [address] PCP - General Family Medicine 04/19/17
== END 2024-12-19 12:29 | disposition home or self-care (01) ==
LOC: HO.HOS 11:50
PROVIDERS: Visit Provider Orthopaedic Surgery
DX: M25.561 Pain in right knee (principal)
CPT/HCPCS: 99213; G2211

== ENCOUNTER → 2024-12-19 11:50 | Outpatient (BNVA) | payer MEDICARE, SELFPAY | PROVIDERS: Visit Provider Orthopaedic Surgery | DX: M25.561 Pain in right knee (principal) | CPT/HCPCS: 99212 ==

== ENCOUNTER 2024-12-27 10:26 | Outpatient (RCR) | payer MEDICARE, SELFPAY ==
[2024-10-09 12:51] VITALS: BP 128/80; PULSE 105; O2SAT 96
--- NOTE | 2024-10-09 16:00 | MHC.PT.EP ---
[facility] [place] Office [place] Office [place] Office [address] [phone] F: [phone] F: [phone] F: [phone] F: [phone] Physical Therapy Plan of Care Date of Evaluation: 10/09/24 Date of Surgery: 09/11/24 Diagnosis: S/P RIGHT TKR Assessment: 69 YO FEMALE REF TO PT S/P Rt TKA W DR PETERSON ON 09/11/24. SHE RESIDES ALONE AND HAD HOME PT UNTIL LAST WEEK- SHE PRESENTED W/O ASST DEVICES. SHE ENJOYS HIKING, BIKING, YOGA- AND IS MOTIVATED FOR HER POST-OP COURSE. OBJECTIVELY, THE Pt LACKS 5* OF Rt KNEE TERMINAL EXT, HYPOMOBILE SCAR TISSUE Rt ANT KNEE, ALTERED GAIT MECH, STRENGTH DEFICITS Rt LE, AND FUCTUATING DISCOMFORT IN HER Rt KNEE AND Lt HAMSTRING. OF NOTE, THE Pt HAS A H/O Lt TKA AND HER Lt KNEE AROM FLEX IS LESS VS RECENT Rt KNEE. SHE IS VERY MOTIVATED FOR HER POST-OP PT AND MAXIMIZING HER FUNCTIONAL INDEPENDENCE AND STRENGTH. Frequency and Duration: The patient will be seen 2 x WK x 4 WKS Short Term Goals: *Pt'S RIGHT KNEE PAIN WILL DECR TO 2-3/10 *Pt DEMON Rt KNEE AROM 0* TO 130* *INITIATE HEP PROGR *Pt DEMON EFFICIENT TECHN W STAIR NAVIGATION *IMPROVE Rt ANT KNEE SCAR MOBILITY Media Marketing Coordinator Goals: *Pt WILL DEMON EFFICIENT GAIT MECHANICS ON LEVEL GROUND AND STAIRS *Pt WILL IMPROVE LUMBOPELVIC/ Rt LE STRENGTH TO AT LEAST 5-/5 *Pt RESUME ADLs, HOBBIES EVIDENT W IMPROVED LEFI SCORE (AT EVAL 45/80 ) *Pt INDEP W PROGR HEP AND SELF-SX MGMT TECHN Treatment Plan: Modalities to reduce pain, spasms and effusion. Manual therapy to restore motion and function. Therapeutic exercise to improve strength and flexibility. Neuromuscular re-education for posture and balance. Therapeutic activities to return to functional activities of daily living. Electronically signed by: CHANTELLE BARRIOS,PT Please sign and return to therapist. Thank you for your referral.
--- NOTE | 2024-12-27 10:57 | MHC.PT.DC ---
[facility] [place] Office [place] Office [place] Office [address] Andres Oliveira [address] [phone] F: [phone] F: [phone] F: [phone] F: [phone] Physical Therapy Discharge Report Diagnosis: S/P RIGHT TKR Date of Surgery: 09/11/24 Date of Evaluation: 10/09/24 Date of Discharge: 12/27/24 Treatments to Date: 18 Cancellations to Date: 1 No Shows to Date: Discharge Status: Achieved Goals Improved Function Independent with HEP Discharge Summary: REY HAS PROGRESSED NICELY IN PT- PERF MORE DYNAMIC ACTIVITIES - SHE IS ADDRESSING SLS BALANC-> SHE HAS BEEN ABLE TO RESUME REG ADLs AND HIGHER LEVEL TASKS W/O PAIN LIMITING HER- SHE IS MOTIVATED FOR CONT W HEP FOR STRENGTHENING. HER LEFI AT EVAL WAS 45/80 AND TODAY AT D/C, 57/80. Electronically signed by: CHANTELLE BARRIOS,PT Please sign and return to therapist. Thank you for your referral.
== END 2024-12-27 10:57 | disposition home or self-care (01) ==
LOC: HO.PT 10:26
PROVIDERS: PCP Family Medicine; Visit Provider Physician Assistant
DX: Z47.1 Aftercare following joint replacement surgery (principal); Z96.651 Presence of right artificial knee joint
CPT/HCPCS: 97110; 97140; 97162; 97530

== ENCOUNTER 2025-03-20 09:32 | Outpatient (AMB) | payer MEDICARE, SELFPAY ==
--- NOTE | 2025-03-20 09:56 | A.OFFVIS_ITS ---
Vital Signs 03/20/25 10:00 Height 5 ft 2 in Weight 159 lb BMI 29.1 Intake Visit Reasons: Bilateral knee pain, Neck pain Intake Note: Adriel is a 69 year old female who presents with complaints of progressively worsening neck pain which radiates into her left arm. The patient describes her pain as sharp and severe in nature. Her symptoms have gotten worse over the la st 6 months in spite of continued non operative treatments. She went to physical therapy which seemed to make her pain worse. She has also tried Tylenol, anti-inflammatory medicines and a home exercise program which gave her minimal relief. At this point her neck pain is interfering with her activities of daily living and her ability to sleep well through the night. The patient also reports intermittent discomfort in both of her knees after undergoing bilateral total knee replacement surgeries. She denies any fevers or chills. Allergies hydrocodone (From Vicodin) Allergy (Severe, Verified 03/20/25 10:00) Nausea methocarbamol (From Robaxin) Allergy (Severe, Verified 03/20/25 10:00) Hives Medication List - Last Reconciled 03/20/25 by Milton Hammond MD acetaminophen 650 mg (2 x 325 mg) PO Q6H PRN 30 days amoxicillin 2,000 mg (4 x 500 mg) PO ONCE 1 day atorvastatin 20 mg PO DAILY cholecalciferol (vitamin D3) (Vitamin D3) 50 mcg PO DAILY levothyroxine 50 mcg PO DAILY@0600 Saccharomyces boulardii (Daily Probiotic (S. boulardii)) 250 mg PO DAILY walker Folding front wheeled walker [facility] Medical History (Updated 03/20/25 @ 10:31 by Milton Hammond MD) Hypothyroidism Hx of bladder cancer (~1986) Hx of syncope (11/30/23) Seasonal allergies Scalp psoriasis Lichen sclerosus Malignant neoplasm of urinary bladder Osteopenia Supraclavicular mass Migraine aura without headache Adrenal adenoma Multiple lung nodules Coronary artery calcification Acquired hallux rigidus Benign paroxysmal positional vertigo of left ear Anxiety Prediabetes Constipation GERD (gastroesophageal reflux disease) Osteoarthritis Back pain Hyperlipidemia Thyroid disease Hx of bladder cancer Surgical History History of esophagogastroduodenoscopy (EGD) (08/06/23) History of surgery on left wrist History of left knee replacement Hx of appendectomy History of bunionectomy Hx of cystoscopy H/O colonoscopy Social History Housing: House Are you a primary home health care social worker to a significant other at home: No Do you presently have visiting nurse or other home services: No Patient Tobacco Use Status: Former Tobacco user Tobacco use type: Cigarette Substance Use Type: Marijuana service: No Current occupational status: retired Current occupation: Right hand dominate Physical Exam Vital Signs: BMI result Body Mass Index 29.1 Const Other: Well-nourished well-developed very friendly female awake alert and oriented x3 in no acute distress Neck Other: Cervical spine examination shows left-sided paraspinal muscle tenderness, pain with range of motion, positive Spurling's test, 4/5 strength with testing of her left biceps and wrist extensors when compared to 5/5 strength on her right side Extrem Other: Bilateral lower extremity examination shows good capillary refill, no skin lesions noted, normal sensation light touch Bilateral knee examination shows that the surgical incisions are well healed, no erythema, full active extension and flexion to 120 degrees, her patellae track well Results Reviewed Results Reviewed: X-rays of the patient's bilateral knee show total knee arthroplasties in good position with no signs of loosening, no acute bony abnormalities Assessment & Plan Assessment & Plan (1) Neck pain on left side: Code(s): M54.2 - Cervicalgia Category: Medical (2) Left knee pain: Code(s): M25.562 - Pain in left knee Category: Medical (3) Right knee pain: Code(s): M25.561 - Pain in right knee Category: Medical (4) Pain in both knees: Code(s): M25.561 - Pain in right knee; M25.562 - Pain in left knee Plan Ms. Gallegos presents with progressively worsening neck pain which radiates into her left arm as well as associated left upper extremity weakness possibly due to cervical stenosis or a disc herniation. Thus, I will send the patient for an MRI of her cervical spine for further evaluation. I will see her back once the MRI is completed. She will contact me prior to that time should her symptoms worsen in any way. Feel free to call me at any time should questions regarding her orthopedic management arise. I spent 20 minutes in reviewing the patient's records and imaging studies, seeing the patient and documenting in the medical record. Orders: Orders XR knee RT 3V Today M25.561 - Pain in right knee XR knee LT 3V Today M25.562 - Pain in left knee MR cervical spine wo con 03/21/25 M54.2 - Cervicalgia Coding Level of Care Code Est Pt Level 3 (44328) Complex EM visit Add On G2211 Diagnoses Neck pain on left side M54.2 Left knee pain M25.562 Right knee pain M25.561 Pain in both knees M25.561; M25.562
[2025-03-20 10:00] VITALS: BMI 29.1
--- OUTSIDE RECORDS SUMMARY | 2025-03-20 10:13 | XMS_ITS | Clinical Summary ---
Author Organization [facility] Address [address] [place] [address] Care Team Providers Care Room Server Name Role Phone Bebeto Wiley MD Primary Care Provider [phone]- [phone] Allergies Active Allergy Reactions Criticality Noted Date [...] 86 03/11/2021 10:19 AM EDT Temperature 36.5 C (97.7 F) 03/11/2021 10:19 AM EDT Respiratory Rate - - Oxygen Saturation - [...] season) 2024 10/30/2020, 10/02/2020 Influenza Vaccine (#1) 2025 0, 05/03/2014, 05/09/2013 RSV Adult > 60+ Yrs or (1 - 1-dose 75+ series) 2029 Shingrix-Zoster Vaccine Completed 05/17/20 19, 01/11/2019 Hepatitis B Vaccines Aged Out No long er eligible based on patient's age to complete this topic RSV Ped < 20 months Aged Out No longe r eligible based on patient's age to complete this topic Care Teams Room Server Relationship Specialty Start Date End Date Bebeto Wiley MD [address] [address] PCP - General Family Medicine 04/19/17
--- OUTSIDE RECORDS SUMMARY | 2025-03-20 10:13 | XMS_ITS | Patient Health Record ---
Author Organization [facility] Address [address] [place] [address] Care Team Providers Care Legal Administrative Secretary Name Role Phone Inez COYNE, Bebeto Primary Care Provider Ismael Nelson Unavailable [phone] Allergies Allergen (clinical drug ingredient) Drug/Non Drug [...] Problem Status W/U Status Risk Notes Problem 618705547 Abdominal bloati ng (R14.0) Active confirmed Problem 74799884 Change in bowel habits (R19.4) Active confirmed Problem Diverticular disease of colon (020518256) Diverticulosis of large intestine without perforation or abscess without bleeding (K57.30) Active confirmed Problem Gastroesophageal reflux disease (187305262) Gastroesophageal reflux disease (K21.9) Active confirmed Problem 52448777 Constipation, unspecified constipation type (K59.00) Active confirmed Problem 201016979 Gastroesophageal reflux disease, unspecified whether esophagitis present (K21.9) Active confirmed Plan Of Treatment Pending Test Test Name Order Date CELIAC PANEL #10 05/07/2023 Future Test Test Name Order Date UPPER GI ENDOSCOPY 05/07/2023 COLONOSCOPY 05/07/2023 Insurance Providers Payer Name Payer Address Payer Phone Subscriber Number Group Number Insured Name Patient Relationship to Insured Coverage Start Date Coverage End Date [facility] [address] [place], [place] [id number] SAMMIMARIA INESGEE NUÑEZ Self - patient is the insured Medical (General) History Medical History History ICD Code Bladder cancer for which she undergoes p eriodic cystoscopies Hypothyroidism Hyperlipidemia Denies [place],DM,CVA,Lung disease,renal dise ase She describes a negative col onoscopy at age 49 and another negative colonoscopy in 2015. Surgical History Surgery Date(Month/Year) Bladder cancer treated with cystoscopy Bunionectomy Appendectomy Left knee replacement 2016 Left wrist 2022
--- OUTSIDE RECORDS SUMMARY | 2025-03-20 10:13 | XMS_ITS | Patient Health Record ---
[facility] Address [address] [place] [address] Care Team Providers Care Adult Day Care Worker Name Role Phone Bebeto Wiley MD Primary Care Provider Adin Watson Unavailable [phone] Allergies Allergen (clinical drug ingredient) Drug/Non Drug [...] 10 MG 1 tablet Orally Once a day; Duration: 30 day(s) Active Levothyroxine Sodium 50 MCG 1 tablet in the morning on an empty stomach Orally Once a day; Duration: 30 day(s) Active Amoxicillin 500 MG 1 capsule Orally every 8 hrs; Duration: 5 day(s) Before dental appointments Active Voltaren 1 % as directed Externally Active Clobex 0.05 % 1 application Externally Once a day; Duration: 10 day(s) Active Turmeric 1 daily Active Vitamin D3 25 MCG (1000 UT) 1 capsule Orally Once a day; Duration: 30 day(s) Active Immunizations Vaccine Route Administration [...] Status Risk Notes Problem Acquired hallux rigidus (3939763) Hallux rigidus, left foot (M20.22) Active confirmed Problem Acquired hammer toe of right foot (8491459618966 105) Other hammer toe(s) (acquired), right foot (M20.41) Active confirmed Problem Acquired hammer toe of left foot (7439797067108 103) Other hammer toe(s) (acquired), left foot (M20.42) Active confirmed Problem Acquired hallux rigidus (6102234) Hallux rigidus, right foot (M20.21) Active confirmed Plan Of Treatment Pending Test Test Name Order Date X ray : Foot, left 3V 01/01/2021 X ray : Foot, right 3V 01/01/2021 Insurance Providers Payer Name Payer Address Payer Phone Subscriber Number Group Number Insured Name Patient Relationship to Insured Coverage Start Date Coverage End Date [employer] [address] [place] [phone] [id number] Rico Self - patient is the insured [...]
--- OUTSIDE RECORDS SUMMARY | 2025-03-20 10:13 | XMS_ITS | Clinical Summary ---
Author Organization [facility] Address [address] [place] [address] Care Team Providers Care Marine Pipefitter Name Role Phone Bebeto Wiley MD Primary Care Provider [phone] Immunizations Name Administration Dates Next Due Moderna [...] Medical History Medical History Date Comments Cancer ([facility] V24, [facility] V28) DX:Cancer (HCC) Thyroid disorder DX:Thyroid diso rder [...] 2) 2004 Breast Cancer Screening 12/15/2020 12/15/2018 COVID-19 Vaccine (3 - 2023-2 5 season) 2024 10/30/2020, 10/02/2020 Depression Screening 08/09/2024 Influenza Vaccine (#1) 2025 RSV Immunization Adult Patients (1 - 1-dose 75+ series) 2029 HIB [...] age to complete this topic Meningococcal B Vaccine Aged Out No l onger eligible based on patient's age to complete this topic RSV Immunization Patients Under 20 months Aged Out No longer eligible b ased on patient's age to complete this topic Varicella Vaccines Aged Out No longer eligible based on patient's age to complete this topic Procedures Procedure Name Priority Date/Time Associated Diagnosis Comments [facility] SCREENING [facility]IGITAL Routine 12/15/2018 1:07 PM EDT Encounter for screening mammogram for malignant neoplasm of breast from Last 3 Months or Most Recently Relevant to Health Maintenance Results * [facility] SCREENING [facility]IGITAL (12/15/2018 1:07 PM EDT) Anatomical Region Laterality Modality Mammography 12/15/2018 10:5 2 AM EDT Narrative 12/15/2018 1:07 PM EDT [facility] Diagnostic Imaging Department [address] [place] [address] Patient: GEE GALLEGOS /Age/Sex: 1955 - 63 - F Unit#: [id number] Location/Status: SPDIMAM/REG CLI Mnemonic/Ordering Site: [facility] Ordering Physician: NAM SAHU MD [...] target due date for the next mammogram: CPT II 7025F [id number] [id number] Dictating Physician: NATA CHAO MD Electronically Signed by: NATA CHAO MD Dic Date/Time: 12/15/18 1305 Sign date/Time: 12/15/18 1307 Procedure Note Nata Chao MD - 07/28/2022 [facility] Diagnostic Imaging Department [address] [place] [address] Patient: GEE GALLEGOS /Age/Sex: 1955 - 63 - F Unit#: [id number] Location/Status: SPDIMAM/REG CLI Mnemonic/Ordering Site: [facility] Ordering Physician: NAM SAHU MD [...] for the next mammogram: CPT II 7025F [id number] [id number] Dictating Physician: NATA CHAO MD Electronically Signed by: NATA CHAO MD Dic Date/Time: 12/15/18 1305 Sign date/Time: 12/15/18 1307 Nam Sahu MD IMG BI PROCEDURES Final Result from Last 3 Months or Most Recently Relevant to Health Maintenance Care Teams Marine Pipefitter Relationship Specialty Start Date End Date Bebeto Wiley MD [address] [address] PCP - General 09/12/10
== END 2025-03-20 10:26 | disposition home or self-care (01) ==
LOC: HO.HOS 09:32
PROVIDERS: Visit Provider Orthopaedic Surgery
DX: M54.2 Cervicalgia (principal); M25.562 Pain in left knee; M25.561 Pain in right knee
CPT/HCPCS: 99213; G2211

== ENCOUNTER → 2025-03-20 09:35 | Outpatient (BNV) | payer MEDICARE, SELFPAY | PROVIDERS: Visit Provider Radiology Diagnostic Radiology | DX: T84.032A Mechanical loosening of internal right knee prosthetic joint, initial encounter (principal); T84.033A Mechanical loosening of internal left knee prosthetic joint, initial encounter | CPT/HCPCS: 73562 ==

== ENCOUNTER 2025-03-20 09:49 | Outpatient (REF) | payer MEDICARE, SELFPAY ==
--- NOTE | ~2025-03-20 | XR_ITS ---
EXAMINATION: XR KNEE, LEFT CLINICAL INFORMATION: M25.569 - Pain in unspecified knee COMPARISON: January 27, 2024. TECHNIQUE: AP lateral and sunrise views of the left knee. FINDINGS: There is a metallic prosthesis with a femoral and tibial plateau component well-seated in the osseous structures. There is loosening surrounding the femoral and tibial plateau. No acute cortical disruption. No gross malalignment. Vascular calcification. XR/XR knee LT 3V IMPRESSION: Total left knee arthroplasty prosthesis with subtle loosening. Electronically signed by: Prashant Luna MD 03/20/2025 10:01 AM EDT
--- NOTE | ~2025-03-20 | XR_ITS ---
EXAMINATION: XR KNEE, RIGHT CLINICAL INFORMATION: M25.561 - Pain in right knee COMPARISON: September 28, 2024. TECHNIQUE: AP lateral and sunrise views, of the right knee. FINDINGS: Metallic prosthesis well-seated in the femoral and tibial segments with loosening. No gross malalignment. No acute cortical disruption. XR/XR knee RT 3V IMPRESSION: Total right knee arthroplasty prosthesis with loosening both femoral and tibial plateau components. Electronically signed by: Prashant Luna MD 03/20/2025 10:00 AM EDT
== END 2025-03-20 09:50 | disposition home or self-care (01) ==
LOC: HO.HOSX 09:49
PROVIDERS: Visit Provider Orthopaedic Surgery
DX: M25.562 Pain in left knee (principal); M25.561 Pain in right knee; M54.2 Cervicalgia; Z79.899 Other long term (current) drug therapy; E03.9 Hypothyroidism, unspecified; E78.5 Hyperlipidemia, unspecified; Z96.652 Presence of left artificial knee joint
CPT/HCPCS: 73562; 99212

== ENCOUNTER 2025-03-29 18:26 | Outpatient (REF) | payer MEDICARE, SELFPAY ==
--- NOTE | ~2025-03-29 | MR_ITS ---
EXAMINATION: MR CERVICAL SPINE WITHOUT CONTRAST CLINICAL INFORMATION: Cervicalgia. M54.2. COMPARISON: None available. TECHNIQUE: MRI of the cervical spine was obtained using routine sequences without contrast. FINDINGS: Craniocervical junction is intact. Normal position of the cerebellar tonsils. Hyperintense T2 signal within the aurelio and likely of right cerebellar white matter. No gross bone marrow STIR signal abnormality. Multilevel disc desiccation, marginal osteophyte formation and endplate irregularity from C3 to C7. Grade 1 retrolisthesis C3-4 and C5-C6. Grade 1 anterolisthesis C4-5, C7-T1 and to a lesser extent C3. Bone marrow inhomogeneity. Bilateral hemicord T2 STIR signal abnormality at C6 level. Probable right hemicord T2 STIR cor signal abnormality at C3-4 level. Buckling deformity of the dorsal aspect of the thecal sac secondary to ligamentum flavum hypertrophy from C2-3 to C5-6 level. C2-3: Central disc osteophyte complex formation resulting in ventral spinal cord deformity and likely right hemicord signal abnormality. Bilateral neuroforamina stenosis on a degenerative basis. C3-4: Broad-based disc osteophyte complex formation resulting in CSF effacement ventral aspect of the thecal sac and flattening spinal cord. Bilateral facet joint hypertrophy. Bilateral neuroforamina stenosis. C4-5: Right-sided disc osteophyte compresses formation. Right facet joint hypertrophy as well as ligamentum flavum causing central spinal canal and bilateral) left neuroforamina stenosis. There is CSF effacement of the thecal sac and the right lateral aspect. C5-6: Broad-based disc osteophyte compresses formation. Facet joint and ligamentum flavum hypertrophy resulting in central spinal canal stenosis flattening the cord and CSF effacement of the thecal sac. There is right hemicord signal abnormality. Bilateral neuroforamina stenosis. C6-7: Broad-based disc osteophyte complex formation. Facet joint and ligamentum flavum hypertrophy. Central spinal canal stenosis flattening spinal cord and bilateral neuroforamina stenosis. There is cord signal abnormality. C7-T1: Broad-based disc osteophyte consummation. Facet joint and ligamentum flavum hypertrophy. Reduced AP diameter of the thecal sac. Left neuroforamina narrowing. No prevertebral compartment hematoma, mass or fluid collection. Flow-void signal within the main vessels is normal. Codominant vertebral arteries. 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 Central spinal canal stenosis on a degenerative basis and bilateral neuroforamina stenosis from C2-3 to C6-7 pronounced at C5-6 and C2-3. Probable old lacunar infarcts in the posterior cranial fossa contents. Electronically signed by: Prashant Luna MD 03/30/2025 07:15 AM EDT
== END 2025-03-29 18:27 | disposition home or self-care (01) ==
LOC: HO.MRI 18:26
PROVIDERS: PCP Family Medicine; Visit Provider Orthopaedic Surgery
DX: M54.2 Cervicalgia (principal)
CPT/HCPCS: 72141

== ENCOUNTER → 2025-03-29 18:32 | Outpatient (BNV) | payer MEDICARE, SELFPAY | PROVIDERS: PCP Family Medicine; Visit Provider Radiology Diagnostic Radiology | DX: M50.022 Cervical disc disorder at C5-C6 level with myelopathy (principal); M48.02 Spinal stenosis, cervical region | CPT/HCPCS: 72141 ==

== ENCOUNTER 2025-04-18 07:55 | Outpatient (AMB) | payer MEDICARE, SELFPAY ==
--- OUTSIDE RECORDS SUMMARY | 2012-12-08 | XMS_ITS | Encounter Summary ---
Author Organization [facility] Address [address] [facility] [address] [place] [address] Phone Care Team Providers Care Manager Drug Name Role Phone Unavailable Primary Care Provider Unavailabl e Encounter Details Date Type Department Care Team (Late st Contact Info) Description 12/08/2012 Hospital Encounter [facility],Outside Imaging 30 [place] [address] System, Provider Not In, PhD [facility] [address] [address] Social History Tobacco Use Types Packs/Day Years [...] 11:51 AM EDT Bunny Durham RN * [place] Suicide Severity Rating Scale (Screener/Recent Self-Report) Question [...] st Contact Info) Description 12/15/2024 Procedure Pass [address] [address] 07/09/2025 3:10 PM EST Appointment [address] [address] Bebeto Wiley MD [address] [place] [address], [address] [place] [address] 01/04/2026 1:00 PM EDT Office Visit [facility] Medicine [address] [place] [address] Bebeto Wiley MD [address] [place] [address], [address] [place] [address] [email or web address] documented as of this encounter Procedures Procedure [...] It is not the complete legal health record.[facility]
--- OUTSIDE RECORDS SUMMARY | 2023-04-17 12:25 | XMS_ITS | Encounter Summary ---
Author Organization [facility] Address [address] [facility] [address] [place] [address] Phone Care Team Providers Care Wax Specialist Name Role Phone Nancy Gaitan MD Unavailable Cayla Sahu MD Unavailable Bebeto Wiley MD Primary Care Provider [phone]- [phone] Encounter Details Date Type Department Care Team (Late st Contact Info) Description 04/17/2023 12:25 PM EDT Hospital Encounter [facility] Urgent Care [address] [place] [address] Lynne Nobles FNP [address] [place] [address] [email or web address] Social History Tobacco Use Types [...] 03/01/2024 11:51 AM Bunny Rowland, DUONG * [place] Suicide Severity Rating Scale (Screener/Recent Self-Report) Question [...] st Contact Info) Description 12/15/2024 Procedure Pass [address] [address] 07/09/2025 3:10 PM EST Appointment [address] [address] Bebeto Wiley MD [address] [place] [address], [address] [place] [address] [email or web address] 01/04/2026 1:00 PM EDT Office Visit [facility] Medicine [address] [place] [address] [place] [address] Bebeto Wiley MD [address] [facility], [address] [place] [address] [email or web address] documented as of this encounter Procedures Procedure [...] IMPRESSION: No fracture or dislocation. Lynne Nobles ETCHER HAND IMG XR LOWER EXTREMITY Haley l Result documented in this encounter Visit Diagnoses Not on filedocumented in this encounter Additional Health Concerns Assessment Noted Time PHQ-2 Depression Total Score: 2 12/30/19 23 1:03 PM EDT documented as of this encounter Care Teams Wax Specialist Relationship Specialty Start Date End Date Bebeto Wiley MD [address] [place] [address], [address] [place] [address] [email or web address] PCP - General Family Medicine 03/06/21 Nancy Gaitan MD [address] [place], [place] [address] [address] Orthopedic Surgery 12/14/18 Cayla Sahu MD [address] [place] [address], [address] [place] [address] [email or web address] Obstetrics and Gynecology 12/14/18 documented as of this encounter Additional Source Comments The information contained in this document represents components of the legal health record. It is not the complete legal health record.[facility]
--- NOTE | 2025-04-18 08:02 | MHC.OFFVIS ---
Vital Signs 04/18/25 08:05 Height 5 ft 2 in Weight 160 lb BMI 29.3 Intake Visit Reasons: OV-Cervical Spine MRI Review, 03/29/25. Intake Note: Adriel is a 69 year old female who presents with complaints of progressively worsening neck pain which radiates into her left arm. The patient describes her pain as sharp and severe in nature. Her symptoms have gotten worse over the last 6 months in spite of continued non operative treatments. She went to physical therapy which seemed to make her pain worse. She has also tried Tylenol, anti-inflammatory medicines and a home exercise program which gave her minimal relief. At this point her neck pain is interfering with her activities of daily living and her ability to sleep well through the night. Allergies hydrocodone (From Vicodin) Allergy (Severe, Verified 04/18/25 08:04) Nausea methocarbamol (From Robaxin) Allergy (Severe, Verified 04/18/25 08:04) Hives Medication List - Last Reconciled 04/18/25 by Milton Hammond MD acetaminophen 650 mg (2 x 325 mg) PO Q6H PRN 30 days amoxicillin 2,000 mg (4 x 500 mg) PO ONCE 1 day atorvastatin 20 mg PO DAILY cholecalciferol (vitamin D3) (Vitamin D3) 50 mcg PO DAILY levothyroxine 50 mcg PO DAILY@0600 multivitamin 1 tab PO DAILY omega 0-ucx-hii-fish oil 60-90-500 mg (Fish Oil) 1 cap PO DAILY Saccharomyces boulardii (Daily Probiotic (S. boulardii)) 250 mg PO DAILY walker Folding front wheeled walker [facility] Medical History (Updated 04/18/25 @ 08:15 by Milton Hammond MD) Hypothyroidism Hx of bladder cancer (~1986) Hx of syncope (11/30/23) Seasonal allergies Scalp psoriasis Lichen sclerosus Malignant neoplasm of urinary bladder Osteopenia Supraclavicular mass Migraine aura without headache Adrenal adenoma Multiple lung nodules Coronary artery calcification Acquired hallux rigidus Benign paroxysmal positional vertigo of left ear Anxiety Prediabetes Constipation GERD (gastroesophageal reflux disease) Osteoarthritis Back pain Hyperlipidemia Thyroid disease Hx of bladder cancer Surgical History History of esophagogastroduodenoscopy (EGD) (08/06/23) History of surgery on left wrist History of left knee replacement Hx of appendectomy History of bunionectomy Hx of cystoscopy H/O colonoscopy Social History Housing: House Are you a primary hospice spiritual care coordinator to a significant other at home: No Do you presently have visiting nurse or other home services: No Patient Tobacco Use Status: Former Tobacco user Tobacco use type: Cigarette Substance Use Type: Marijuana service: No Current occupational status: retired Current occupation: Right hand dominate Physical Exam Vital Signs: BMI result Body Mass Index 29.3 Neck Other: Cervical spine examination shows pain with range of motion, positive Spurling's test, bilateral paraspinal muscle tenderness Results Reviewed Results Reviewed: MRI of the patient's cervical spine shows evidence of cervical stenosis with possible cervical myelopathy Assessment & Plan Assessment & Plan (1) Neck pain on left side: Code(s): M54.2 - Cervicalgia Category: Medical (2) Cervical stenosis of spinal canal: Code(s): M48.02 - Spinal stenosis, cervical region Category: Medical Plan Ms. Gallegos presents with progressively worsening cervical spine pain which radiates into her left arm most likely due to cervical stenosis. Thus, I will refer her to the Neurosurgery Department here at [facility]. The patient will contact me prior to that appointment should her symptoms worsen in any way. Feel free to call me at any time should questions regarding her orthopedic management arise. I spent 21 minutes in reviewing the patient's records and imaging studies, seeing the patient and documenting in the medical record. Orders: Referrals Neuro Spine Referral M48.02 - Spinal stenosis, cervical region Coding Level of Care Code Est Pt Level 3 (36566) Complex EM visit Add On G2211 Diagnoses Neck pain on left side M54.2 Cervical stenosis of spinal canal M48.02
--- OUTSIDE RECORDS SUMMARY | 2025-04-18 08:02 | XMS_ITS | Encounter Summary ---
Author Organization Located Within [facility] Address [address] [facility] [address] [place] [address] Phone Care Team Providers Care Gin Inspector Name Role Phone Nancy Gaitan MD Unavailable [phone] Cayla Sahu MD Unavailable Bebeto Wiley MD Primary Care Provider [phone] Encounter Details Date Type Department Care Team (Late st Contact Info) Description 06/05/2024 Procedure Pass [facility] [address] [place] [address] Social History Tobacco Use Types Packs/Day Years Used Date Smoking Tobacco: Former Cigarettes 0.5 16.7 0 11/29/1969 - 08/09/1986 Smokeless Tobacco: Never Alcohol Use Standard Drinks/Week Comments Yes 6 (1 standard drink = 0.6 oz pur [...] as food, clothing, or medical care? No 03/01/2024 In the past 12 months have y ou been in a relationship with a person who hurts, threatens, or tries to control you? No 03/01/2024 Are you denied basic needs s uch as food, clothing, or medical care? No 03/01/2024 In the past 12 months have y ou been in a relationship with a person who hurts, threatens, or tries to control you? No 03/01/2024 Comments No Sex and Gender Information Value Date Recorded Sex Assigned at Female 11/26/2020 8:32 AM EDT Legal Sex Female 9:56 PM EDT Gender Identity Female 11/26/2020 8:32 AM EDT Sexual Orientation Straight 11/26/2020 8: 32 AM EDT documented as of this encounter Plan of Treatment Upcoming Encounters Date Type Department Care Team (Late st Contact Info) Description 12/15/2024 Procedure Pass [address] [address] 07/09/2025 3:10 PM EST Appointment [address] [address] Bebeto Wiley MD [address] [place] [address], [address] [address] [email or web address] 01/04/2026 1:00 PM EDT Office Visit [facility] [address] [place] [address] Bebeto Wiley MD [address] [place] [address], [address] [address] [email or web address] documented as of this encounter Visit Diagnoses Not on filedocumented in this encounter Additional Health Concerns Assessment Noted Time PHQ-2 Depression Total Score: 2 12/30/19 5:03 PM EDT documented as of this encounter Care Teams Gin Inspector Relationship Specialty Start Date End Date Bebeto Wiley MD [address] [place] [address], [address] [place] [address] [email or web address] PCP - General Family Medicine 03/06/21 Nancy Gaitan MD [address] [place], [place] [address] [place] [address] Orthopedic Surgery 12/14/18 Cayla Sahu MD [address] [place] [address] [address] [place] [address] [email or web address] Obstetrics and Gynecology 12/14/18 documented as of this encounter Additional Source Comments The information contained in this document represents components of the legal health record. It is not the complete legal health record.Loc[facility]
--- OUTSIDE RECORDS SUMMARY | 2025-04-18 08:02 | XMS_ITS | Encounter Summary ---
Author Organization [facility] Address [address] [facility] [address] [place] [address] Phone Care Team Providers Care Operational Communication Chief Name Role Phone Nancy Gaitan MD Unavailable [phone] Cayla Sahu MD Unavailable Bebeto Wiley MD Primary Care Provider [phone] Reason for Visit * Reason Comments Medication Refill Encounter Details Date Type Department Care Team (Late st Contact Info) Description 02/24/2025 Refill [facility] [address] [place] [address] Bebeto Wiley MD [address] [facility], [address] [place], [place] [id number] [email or web address] Medication Refill Social History Tobacco Use Types Packs/Day Years [...] AM EDT documented as of this encounter Progress Notes * Naila Cabrera MA - 02/26/2025 11:28 AM EDT Rx Care Gap Status - Instructions for Clinical Staff (prescriber discretion applies): > Mismatch review guide > N/a - No action needed Visit Info Last visit: 01/02/2025 Bebeto Wiley MD - Family Medicine [facility] > Requested f/u: Return in about 53 weeks (around 01/08/2026), or smawv. Upcoming visit: 01/04/2026 Bebeto Wiley MD - Family Medicine [facility] ACTIONS TAKEN BY Naila Cabrera MA - Criteria met. Thyroid Medication Rx Protocol - levothyroxine sodium Criteria met; renew for up to 12 months. Visit in the past 14 months: Yes Clinical criteria: - TSH within past year: Yes - Last TSH was normal: Yes Lab Results Component Value Date TSH 2.82 01/03/2025 FREE T4 1.2 01/04/2024 documented in this encounter Plan of Treatment Upcoming Encounters Date Type Department Care Team (Late st Contact Info) Description 12/15/2024 Procedure Pass [address] [address] 07/09/2025 3:10 PM EST Appointment [facility] [address] [place] [address] Bebeto Wiley MD [address] [place] [address], [address] [place] [address] 01/04/2026 1:00 PM EDT Office Visit [address] [address] Bebeto Wiley MD [address] [place] [address], [address] [address] documented as of this encounter Visit Diagnoses Not on filedocumented in this encounter Additional Health Concerns Assessment Noted Time PHQ-2 Depression Total Score: 0 01/02/20 25 10:06 PM EDT documented as of this encounter Care Teams Operational Communication Chief Relationship Specialty Start Date End Date Bebeto Wiley MD [address] [place] [address], [address] [place] [address] PCP - General Family Medicine 03/06/21 Nancy Gaitan MD [facility] [place] [address] Orthopedic Surgery 12/14/18 Cayla Sahu MD [address] [place] [address], [address] [place] [address] Obstetrics and Gynecology 12/14/18 documented as of this encounter Additional Source Comments The information contained in this document represents components of the legal health record. It is not the complete legal health record.[facility]
--- OUTSIDE RECORDS SUMMARY | 2025-04-18 08:02 | XMS_ITS | Patient Health Record ---
Author Organization [facility] Address [address] [place] [address] Care Team Providers Care Controls Engineer Name Role Phone Inez COYNE, Bebeto Primary Care Provider Ismael Nelson Unavailable [phone] Allergies Allergen (clinical drug ingredient) Drug/Non Drug [...] Problem Status W/U Status Risk Notes Problem 746445956 Abdominal bloati ng (R14.0) Active confirmed Problem 50912223 Change in bowel habits (R19.4) Active confirmed Problem Diverticular disease of colon (174857010) Diverticulosis of large intestine without perforation or abscess without bleeding (K57.30) Active confirmed Problem Gastroesophageal reflux disease (851542216) Gastroesophageal reflux disease (K21.9) Active confirmed Problem 38107063 Constipation, unspecified constipation type (K59.00) Active confirmed Problem 302829895 Gastroesophageal reflux disease, unspecified whether esophagitis present (K21.9) Active confirmed Plan Of Treatment Pending Test Test Name Order Date CELIAC PANEL #10 05/07/2023 Future Test Test Name Order Date UPPER GI ENDOSCOPY 05/07/2023 COLONOSCOPY 05/07/2023 Insurance Providers Payer Name Payer Address Payer Phone Subscriber Number Group Number Insured Name Patient Relationship to Insured Coverage Start Date Coverage End Date [facility] [address] [place], [place] [id number] SAMMIMARIA INESGEE NUÑEZ Self - patient is the insured Medical (General) History Medical History History ICD Code Bladder cancer for which she undergoes p eriodic cystoscopies Hypothyroidism Hyperlipidemia Denies [place],DM,CVA,Lung disease,renal dise ase She describes a negative col onoscopy at age 49 and another negative colonoscopy in 2015. Surgical History Surgery Date(Month/Year) Bladder cancer treated with cystoscopy Bunionectomy Appendectomy Left knee replacement 2016 Left wrist 2022
--- OUTSIDE RECORDS SUMMARY | 2025-04-18 08:02 | XMS_ITS | Encounter Summary ---
Author Organization [facility] Address [address] [facility] [address] [place] [address] Phone Care Team Providers Care Staff Nuclear Medicine Technologist Name Role Phone Nancy Gaitan MD Unavailable Cayla Sahu MD Unavailable Bebeto Wiley MD Primary Care Provider [phone] Encounter Details Date Type Department Care Team (Late st Contact Info) Description 03/11/2022 Procedure Pass OR Admitting Dept - Virtual Department [address] [place] [address] Social History Tobacco Use Types Packs/Day Years Used Date Smoking Tobacco: Former Cigarettes 0.5 16.7 0 11/29/1969 - 08/09/1986 Smokeless Tobacco: Never Alcohol Use Standard Drinks/Week Comments Yes 8 (1 standard drink = 0.6 oz pur e alcohol) Comments No Sex and Gender Information Value Date Recorded Sex Assigned at Female 11/26/2020 8:32 AM EDT Legal Sex Female 9:56 PM EDT Gender Identity Female 11/26/2020 8:32 AM EDT Sexual Orientation Straight 11/26/2020 8: 32 AM EDT documented as of this encounter Functional Status * Calculated C-SSRS Risk Score (Lifetime/Recent) Answer Date of Assessment Author No Risk Indicated 03/11/2022 4:33 AM EDT Melissa Russell RN * [place] Suicide Severity Rating Scale (Screener/Recent Self-Report) Question Answer Date of Assessment Author 1. Wish to be (Past 1 Month) No 03/11/2022 4:33 AM EDT Melissa Russell, DUONG 2. Non-Specific Active Suicidal Thoughts (Past 1 Month) No 03/11/2022 4:33 AM EDT Melissa Russell RN 6. Suicidal Behavior (Lifetime) No 03/11/2022 4:33 AM EDT Melissa Russell RN documented as of this encounter Plan of Treatment Upcoming Encounters Date Type Department Care Team (Late st Contact Info) Description 12/15/2024 Procedure Pass [address] [address] 07/09/2025 3:10 PM EST Appointment [address] [address] Bebeto Wiley MD [address] [place] [address], [address] [place] [address] [email or web address] 01/04/2026 1:00 PM EDT Office Visit [address] [address] Bebeto Wiley MD [address] [place] [address], [address] [place] [address] [email or web address] documented as of this encounter Visit Diagnoses Not on filedocumented in this encounter Additional Health Concerns Infection Onset Date Last Indicated Resolved Time CoV-Presumed 04/03/2022 04/03/2022 04/24/2022 1:22 AM EDT Assessment Noted Time PHQ-2 Depression Total Score: 1 11/27/19 21 8:47 AM EDT documented as of this encounter Care Teams Staff Nuclear Medicine Technologist Relationship Specialty Start Date End Date Bebeto Wiley MD [address] [place] [address], [address] [place] [address] [email or web address] PCP - General Family Medicine 03/06/21 Nancy Gaitan MD [address] [place], [place] [address] [place] [address] Orthopedic Surgery 12/14/18 Cayla Sahu MD [address] [place] [address], [facility] [address] [place] [address] [email or web address] Obstetrics and Gynecology 12/14/18 documented as of this encounter Additional Source Comments The information contained in this document represents components of the legal health record. It is not the complete legal health record.[facility]
--- OUTSIDE RECORDS SUMMARY | 2025-04-18 08:02 | XMS_ITS | Encounter Summary ---
Author Organization [facility] Address [address] [facility] [address] [place] [address] Phone Care Team Providers Care Cutter Brake Lining Name Role Phone Nancy Gaitan MD Unavailable Cayla Sahu MD Unavailable Bebeto Wiley MD Primary Care Provider [phone]- [phone] Encounter Details Date Type Department Care Team (Late st Contact Info) Description 03/11/2022 Procedure Pass [facility], Ct Scan - [address] [address] Social History Tobacco Use Types Packs/Day Years [...] 4:33 AM EDT Melissa Russell RN * [place] Suicide Severity Rating Scale (Screener/Recent Self-Report) Question [...] Contact Info) Description 12/15/2024 Procedure Pass [address] [address] 07/09/2025 3:10 PM EST Appointment [address] [address] Bebeto Wiley MD [address] [place] [address], [address] [place] [address] [email or web address] 01/04/2026 1:00 PM EDT Office Visit [facility] Medicine [address] [place] [address] Bebeto Wiley MD [address] [place] [address], [address] [place] [address] [email or web address] documented as of this encounter Visit Diagnoses Not on filedocumented in this encounter Additional Health Concerns Infection Onset Date Last Indicated Resolved Time CoV-Presumed 04/03/2022 04/03/2022 04/24/2022 1:22 AM EDT Assessment Noted Time PHQ-2 Depression Total Score: 1 11/27/19 21 8:47 AM EDT documented as of this encounter Care Teams Cutter Brake Lining Relationship Specialty Start Date End Date Bebeto Wiley MD [address] [place] [address], [address] [place] [address] [email or web address] PCP - General Family Medicine 03/06/21 Nancy Gaitan MD [address] [facility] [place] [address] Orthopedic Surgery 12/14/18 Cayla Sahu MD [address] [place] [address] [address] [place] [address] [email or web address] Obstetrics and Gynecology 12/14/18 documented as of this encounter Additional Source Comments The information contained in this document represents components of the legal health record. It is not the complete legal health record.[facility]
--- OUTSIDE RECORDS SUMMARY | 2025-04-18 08:03 | XMS_ITS | Encounter Summary ---
Author Organization [facility] Address [address] [place] [address] Phone Care Team Providers Care Senior Contract Specialist Name Role Phone Nancy Gaitan MD Unavailable Cayla Sahu MD Unavailable Bebeto Wiley MD Primary Care Provider [phone]- [phone] Encounter Details Date Type Department Care Team (Late st Contact Info) Description 09/15/2021 Procedure Pass [facility], Ct Scan - [address] [address] Social History Tobacco Use Types Packs/Day Years [...] Date of Assessment Author No Risk Indicated 09/15/2021 4:57 PM Kelsey Lopez RN * [place] Suicide Severity Rating Scale (Screener/Recent Self-Report) Question Answer Date of Assessment Author 1. Wish to be (Past 1 Month) No 09/15/2021 4:57 PM Kelsey Marie, DUONG 2. Non-Specific Active Suicidal Thoughts (Past 1 Month) No 09/15/2021 4:57 PM Kelsey Marie, DUONG 6. Suicidal Behavior (Lifetime) No 09/15/2021 4:57 PM Kelsey Marie, DUONG documented as of this encounter Plan of Treatment Upcoming Encounters Date Type Department Care Team (Late st Contact Info) Description 12/15/2024 Procedure Pass [address] [address] 07/09/2025 3:10 PM EST Appointment [address] [address] Bebeto Wiley MD [address] [place] [address], [address] [place] [address] [email or web address] 01/04/2026 1:00 PM EDT Office Visit [address] [address] Bebeto Wiley MD [address] [place] [address], [address] [place] [address] [email or web address] documented as of this encounter Visit Diagnoses Not on filedocumented in this encounter Additional Health Concerns Infection Onset Date Last Indicated Resolved Time CoV-Presumed 04/03/2022 04/03/2022 04/24/2022 1:22 AM EDT Assessment Noted Time PHQ-2 Depression Total Score: 1 11/27/19 21 8:47 AM EDT documented as of this encounter Care Teams Senior Contract Specialist Relationship Specialty Start Date End Date Bebeto Wiley MD [address] [place] [address], [address] [place] [address] [email or web address] PCP - General Family Medicine 03/06/21 Nancy Gaitan MD [address] [place], [place] [address] [place] [address] Orthopedic Surgery 12/14/18 Cayla Sahu MD [address] [place] [address], [facility] [address] [place] [address] [email or web address] Obstetrics and Gynecology 12/14/18 documented as of this encounter Additional Source Comments The information contained in this document represents components of the legal health record. It is not the complete legal health record.[facility]
--- OUTSIDE RECORDS SUMMARY | 2025-04-18 08:03 | XMS_ITS | Encounter Summary ---
Author Organization [facility] Address [address] [facility] [address] [place] [address] Phone Care Team Providers Care Tomato Paste Maker Name Role Phone Nancy Gaitan MD Unavailable Cayla Sahu MD Unavailable Bebeto Wiley MD Primary Care Provider +1- [phone] Encounter Details Date Type Department Care Team (Late st Contact Info) Description 09/15/2021 Procedure Pass [facility], Ct Scan - [address] [address] Social History Tobacco Use Types Packs/Day Years [...] 09/15/2021 4:57 PM Kelsey Lopez RN * Petty Suicide Severity Rating Scale (Screener/Recent Self-Report) Question [...] st Contact Info) Description 12/15/2024 Procedure Pass [address] [address] 07/09/2025 3:10 PM EST Appointment [address] [address] Bebeto Wiley MD [address] [place] [address], [address] [place] [address] [email or web address] 01/04/2026 1:00 PM EDT Office Visit [address] [address] Bebeto Wiley MD [address] [place] [address], [address] [place] [address] [email or web address] documented as of this encounter Visit Diagnoses Not on filedocumented in this encounter Additional Health Concerns Infection Onset Date Last Indicated Resolved Time CoV-Presumed 04/03/2022 04/03/2022 04/24/2022 1:22 AM EDT Assessment Noted Time PHQ-2 Depression Total Score: 1 11/27/19 21 8:47 AM EDT documented as of this encounter Care Teams Tomato Paste Maker Relationship Specialty Start Date End Date Bebeto Wiley MD [address] [place] [address], [address] [place] [address] [email or web address] PCP - General Family Medicine 03/06/21 Nancy Gaitan MD [address] [place], [place] [address] [address] Orthopedic Surgery 12/14/18 Cayla Sahu MD [address] [place] [address], [facility] [address] [place] [address] [email or web address] Obstetrics and Gynecology 12/14/18 documented as of this encounter Additional Source Comments The information contained in this document represents components of the legal health record. It is not the complete legal health record.[facility]
--- OUTSIDE RECORDS SUMMARY | 2025-04-18 08:03 | XMS_ITS | Encounter Summary ---
Author Organization [facility] Address [address] [facility] [address] [place] [address] Phone Care Team Providers Care Sole Tacker Name Role Phone Nancy Gaitan MD Unavailable Cayla Sahu MD Unavailable Bebeto Wiley MD Primary Care Provider +1- [phone] Encounter Details Date Type Department Care Team (Late st Contact Info) Description 11/10/2022 Procedure Pass OR Admitting Dept - [facility] Department [address] [place] [address] Social History Tobacco Use Types Packs/Day Years Used Date Smoking Tobacco: Former Cigarettes 0.5 16.7 0 11/29/1969 - 08/09/1986 Smokeless Tobacco: Never Alcohol Use Standard Drinks/Week Comments Yes 7 (1 standard drink = 0.6 oz pur [...] st Contact Info) Description 12/15/2024 Procedure Pass [facility], [facility] 30 [place] [address] 07/09/2025 3:10 PM EST Appointment [facility], [facility] [address] [place] [address] Bebeto Wiley MD [address] [facility], [address] [place] [address] 01/04/2026 1:00 PM EDT Office Visit [facility] 22 [place] [address] Bebeto Wiley MD [address] [facility], [address] [place] [address] documented as of this encounter Visit Diagnoses Not on filedocumented in this encounter Additional Health Concerns Assessment Noted Time PHQ-2 Depression Total Score: 1 11/27/19 21 8:47 AM EDT documented as of this encounter Care Teams Sole Tacker Relationship Specialty Start Date End Date Bebeto Wiley MD [address] [facility], [address] [place] [address] PCP - General Family Medicine 03/06/21 Nancy Gaitan MD [address] [place] [address] Orthopedic Surgery 12/14/18 Cayla Sahu MD [address] [place] [address], [address] [place] [address] Obstetrics and Gynecology 12/14/18 documented as of this encounter Additional Source Comments The information contained in this document represents components of the legal health record. It is not the complete legal health record.[facility]
--- OUTSIDE RECORDS SUMMARY | 2025-04-18 08:03 | XMS_ITS | Encounter Summary ---
Author Organization [facility] Address [address] [facility] [address] [place] [address] Phone Care Team Providers Care Chop Saw Operator Name Role Phone Nancy Gaitan MD Unavailable Cayla Sahu MD Unavailable Bebeto Wiley MD Primary Care Provider [phone]- [phone] Encounter Details Date Type Department Care Team (Late st Contact Info) Description 12/06/2023 Procedure Pass [facility], [address] [address] Social History Tobacco Use Types Packs/Day Years [...] with a working camera? Not on file Comments No Sex and Gender Information Value Date Recorded Sex Assigned at Female 11/26/2020 8:32 AM EDT Legal Sex Female 9:56 PM EDT Gender Identity Female 11/26/2020 8:32 AM EDT Sexual Orientation Straight 11/26/2020 8: 32 AM EDT documented as of this encounter Plan of Treatment Upcoming Encounters Date Type Department Care Team (Late st Contact Info) Description 12/15/2024 Procedure Pass [address] [address] 07/09/2025 3:10 PM EST Appointment [facility] 30 [place] [address] Bebeto Wiley MD [address] [place] [address], [address] [place] [address] [email or web address] 01/04/2026 1:00 PM EDT Office Visit [address] [address] Bebeto Wiley MD [address] [place] [address], [address] [place] [address] documented as of this encounter Visit Diagnoses Not on filedocumented in this encounter Additional Health Concerns Assessment Noted Time PHQ-2 Depression Total Score: 2 12/30/19 24 5:03 PM EDT documented as of this encounter Care Teams Chop Saw Operator Relationship Specialty Start Date End Date Bebeto Wiley MD [address] [place] [address], [address] [place] [address] PCP - General Family Medicine 03/06/21 Nancy Gaitan MD [facility] [place] [address] Orthopedic Surgery 12/14/18 Cayla Sahu MD [address] [place] [address], [address] [place] [address] [email or web address] Obstetrics and Gynecology 12/14/18 documented as of this encounter Additional Source Comments The information contained in this document represents components of the legal health record. It is not the complete legal health record.[facility]
--- OUTSIDE RECORDS SUMMARY | 2025-04-18 08:03 | XMS_ITS | Patient Health Record ---
Author [facility] Address [address] [place] [address] Care Team Providers Care Composition Instructor Name Role Phone Bebeto Wiley MD Primary Care Provider Adin Watson Unavailable [phone] Allergies Allergen (clinical drug ingredient) Drug/Non Drug [...] Status Risk Notes Problem Acquired hallux rigidus (6835554) Hallux rigidus, left foot (M20.22) Active confirmed Problem Acquired hammer toe of right foot (4774155705637 105) Other hammer toe(s) (acquired), right foot (M20.41) Active confirmed Problem Acquired hammer toe of left foot (7116868923769 103) Other hammer toe(s) (acquired), left foot (M20.42) Active confirmed Problem Acquired hallux rigidus (1310831) Hallux rigidus, right foot (M20.21) Active confirmed Plan Of Treatment Pending Test Test Name Order Date X ray : Foot, left 3V 01/01/2021 X ray : Foot, right 3V 01/01/2021 Insurance Providers Payer Name Payer Address Payer Phone Subscriber Number Group Number Insured Name Patient Relationship to Insured Coverage Start Date Coverage End Date [address] [place] [phone] [id number] Rico Self - patient is the insured [...]
--- OUTSIDE RECORDS SUMMARY | 2025-04-18 08:04 | XMS_ITS | Encounter Summary ---
Author Organization [facility] Address [address] [facility] [address] [place] [address] Phone Care Team Providers Care Final Installer Inspector Name Role Phone Nancy Gaitan MD Unavailable Cayla Sahu MD Unavailable Bebeto Wiley MD Primary Care Provider [phone]- [phone] Encounter Details Date Type Department Care Team (Late st Contact Info) Description 02/22/2024 Procedure Pass [place] Admitting Dept - Virtual Department 30 [place] [address] Social History Tobacco Use Types Packs/Day Years [...] st Contact Info) Description 12/15/2024 Procedure Pass [address] [address] 07/09/2025 3:10 PM EST Appointment [facility] 30 [place] [address] Bebeto Wiley MD [address] [place] [address], [address] [place] [address] [email or web address] 01/04/2026 1:00 PM EDT Office Visit [address] [address] Bebeto Wiley MD [address] [place] [address], [address] [place] [address] documented as of this encounter Visit Diagnoses Not on filedocumented in this encounter Additional Health Concerns Assessment Noted Time PHQ-2 Depression Total Score: 2 12/30/19 24 5:03 PM EDT documented as of this encounter Care Teams Final Installer Inspector Relationship Specialty Start Date End Date Bebeto Wiley MD [address] [place] [address], [address] [place] [address] PCP - General Family Medicine 03/06/21 Nancy Gatian MD [facility] [place] [address] Orthopedic Surgery 12/14/18 Cayla Sahu MD [address] [place] [address], [address] [place] [address] [email or web address] Obstetrics and Gynecology 12/14/18 documented as of this encounter Additional Source Comments The information contained in this document represents components of the legal health record. It is not the complete legal health record.[facility]
--- OUTSIDE RECORDS SUMMARY | 2025-04-18 08:04 | XMS_ITS | Encounter Summary ---
Author Organization [facility] Address [address] [facility] [address] [place] [address] Phone Care Team Providers Care Enrollment Consultant Name Role Phone Nancy Gaitan MD Unavailable [phone] Cayla Sahu MD Unavailable Bebeto Wiely MD Primary Care Provider [phone]- [phone] Encounter Details Date Type Department Care Team (Late st Contact Info) Description 09/20/2023 Procedure Pass [facility], [address] [address] Social History Tobacco Use Types Packs/Day Years [...] st Contact Info) Description 12/15/2024 Procedure Pass [address] [address] 07/09/2025 3:10 PM EST Appointment [facility] 30 [place] [address] Bebeto Wiley MD [address] [place] [address], [address] [place] [address] [email or web address] 01/04/2026 1:00 PM EDT Office Visit [address] [address] Bebeto Wiley MD [address] [place] [address], [address] [place] [address] documented as of this encounter Visit Diagnoses Not on filedocumented in this encounter Additional Health Concerns Assessment Noted Time PHQ-2 Depression Total Score: 2 12/30/19 23 1:03 PM EDT documented as of this encounter Care Teams Enrollment Consultant Relationship Specialty Start Date End Date Bebeto Wiley MD [address] [place] [address], [address] [place] [address] PCP - General Family Medicine 03/06/21 Nancy Gaitan MD [facility] [place] [address] Orthopedic Surgery 12/14/18 Cayla Sahu MD [address] [place] [address], [address] [place] [address] [email or web address] Obstetrics and Gynecology 12/14/18 documented as of this encounter Additional Source Comments The information contained in this document represents components of the legal health record. It is not the complete legal health record.[facility]
--- OUTSIDE RECORDS SUMMARY | 2025-04-18 08:04 | XMS_ITS | Encounter Summary ---
Author Organization [facility] Address [address] [facility] [address] [place] [address] Phone Care Team Providers Care Boy'S Adviser Name Role Phone Nancy Gaitan MD Unavailable Cayla Sahu MD Unavailable Bebeto Wiley MD Primary Care Provider [phone]- [phone] Encounter Details Date Type Department Care Team (Late st Contact Info) Description 11/19/2021 Procedure Pass [address] [address] Social History Tobacco Use Types Packs/Day Years [...] st Contact Info) Description 12/15/2024 Procedure Pass [facility], [address] [address] 07/09/2025 3:10 PM EST Appointment [facility], [facility] 30 [place] [address] Bebeto Wiley MD 22 [facility], [address] [place] [address] [email or web address] 01/04/2026 1:00 PM EDT Office Visit [facility] [address] [place] [address] Bebeto Wiley MD [address] [place] [address], [address] [place] [address] [email or web address] documented as of this encounter Visit Diagnoses Not on filedocumented in this encounter Additional Health Concerns Infection Onset Date Last Indicated Resolved Time CoV-Presumed 04/03/2022 04/03/2022 04/24/2022 1:22 AM EDT Assessment Noted Time PHQ-2 Depression Total Score: 1 11/27/19 21 8:47 AM EDT documented as of this encounter Care Teams Boy'S Adviser Relationship Specialty Start Date End Date Bebeto Wiley MD [address] [place] [address], [address] [place] [address] [email or web address] PCP - General Family Medicine 03/06/21 Nancy Gaitan MD [address] [place] [address] Orthopedic Surgery 12/14/18 Cayla Sahu MD [address] [place] [address], [address] [place] [address] [email or web address] Obstetrics and Gynecology 12/14/18 documented as of this encounter Additional Source Comments The information contained in this document represents components of the legal health record. It is not the complete legal health record.[facility]
--- OUTSIDE RECORDS SUMMARY | 2025-04-18 08:04 | XMS_ITS | Encounter Summary ---
Author Organization [facility] Address [address] [facility] [address] [place] [address] Phone Care Team Providers Care Newsroom Intern Name Role Phone Bebeto Wiley MD Primary Care Provider [phone]- [phone] Nancy Gaitan MD Unavailable [phone] Cayla Sahu MD Unavailable Bebeto Wiley MD Primary Care Provider +1- [phone] Encounter Details Date Type Department Care Team (Late st Contact Info) Description 07/25/2020 Ancillary Orders [facility],Outside Imaging 30 [place], [place] [address] System, Provider Not In, [facility] [address] [address] Social History Tobacco Use Types Packs/Day Years Used Date Smoking Tobacco: Former Cigarettes 0.5 14 1 973 - 1987 Smokeless Tobacco: Never Alcohol Use Standard Drinks/Week Comments Yes 5 (1 standard drink = 0.6 oz pur [...] st Contact Info) Description 12/15/2024 Procedure Pass [facility] 30 [place] [address] 07/09/2025 3:10 PM EST Appointment [facility] 30 [place] [address] Bebeto Wiley MD [address] [place] [address], [address] [place] [address] 01/04/2026 1:00 PM EDT Office Visit [address] [address] Bebeto Wiley MD [address] [place] [address], [address] [place] [address] documented as of this encounter Results * Mammogram Outside (No Interpretation) (12/15/2018 12:00 AM EDT) Narrative SYSTEMGENERATED, DOCUMENTATION - 07/25/2020 9:07 AM EST This study is for PACS [...] Noted Time PHQ-2 Depression Total Score: 0 05/22/20 20 8:49 AM EDT documented as of this encounter Care Teams Newsroom Intern Relationship Specialty Start Date End Date Bebeto Wiley MD [address] [place] [address], [address] [place] [address] PCP - General Family Medicine 07/15/17 03/05/21 Bebeto Wiley MD [address] [place] [address], [address] [place] [address] [email or web address] PCP - General Family Medicine 03/06/21 Nancy Gaitan MD [address] [place] [address] Orthopedic Surgery 12/14/18 Cayla Sahu MD 22 [facility], [address] [place] [address] [email or web address] Obstetrics and Gynecology 12/14/18 documented as of this encounter Additional Source Comments The information contained in this document represents components of the legal health record. It is not the complete legal health record.[facility]
--- OUTSIDE RECORDS SUMMARY | 2025-04-18 08:04 | XMS_ITS | Encounter Summary ---
Author Organization [facility] Address 399 [facility] [address] [place] [address] Phone Care Team Providers Care Tire Fabricator Name Role Phone Bebeto Wiley MD Primary Care Provider [phone]- [phone] Nancy Gaiatn MD Unavailable Cayla Sahu MD Unavailable Bebeto Wiley MD Primary Care Provider +1- [phone] Encounter Details Date Type Department Care Team (Late st Contact Info) Description 07/10/[address] [address] Social History Tobacco Use Types Packs/Day Years [...] documented as of this encounter Functional Status documented as of this encounter Plan of Treatment Upcoming Encounters Date Type Department Care Team (Late st Contact Info) Description 12/15/2024 Procedure [address] [place] [address] 07/09/2025 3:10 PM EST Appointment [facility], [address] [address] Bebeto Wiley MD [address] [place] [address], [address] [place] [address] 01/04/2026 1:00 PM EDT Office Visit [address] [address] Bebeto Wiley MD [address] [place] [address], [address] [place] [address] documented as of this encounter Visit Diagnoses Not on filedocumented in this encounter Additional Health Concerns Infection Onset Date Last Indicated Resolved Time CoV-Presumed 04/03/2022 04/03/2022 04/24/2022 1:22 AM EDT Assessment Noted Time PHQ-2 Depression Total Score: 0 05/22/20 20 8:49 AM EDT documented as of this encounter Care Teams Tire Fabricator Relationship Specialty Start Date End Date Bebeto Wiley MD [address] [place] [address], [address] [place] [address] PCP - General Family Medicine 07/15/17 03/05/21 Bebeto Wiley MD [address] [place] [address], [address] [place] [address] PCP - General Family Medicine 03/06/21 Nancy Gaitan MD [facility] [place] [address] Orthopedic Surgery 12/14/18 Cayla Sahu MD [address] [place] [address], [facility] [address] [place] [address] [email or web address] Obstetrics and Gynecology 12/14/18 documented as of this encounter Additional Source Comments The information contained in this document represents components of the legal health record. It is not the complete legal health record.[facility]
--- OUTSIDE RECORDS SUMMARY | 2025-04-18 08:04 | XMS_ITS | Encounter Summary ---
Author Organization [facility] Address 399 [facility] [address] [place] [address] Phone Care Team Providers Care Inspector Penetrant Name Role Phone Bebeto Wiley MD Primary Care Provider +1- [phone] Nancy Gaitan MD Unavailable Cayla Sahu MD Unavailable Bebeto Wiley MD Primary Care Provider +1- [phone] Encounter Details Date Type Department Care Team (Late st Contact Info) Description 07/25/2020 Ancillary Orders [facility],Outside Imaging [address] [place], [place] [address] System, Provider Not In, [facility] [address] [address] Social History Tobacco Use Types Packs/Day Years [...] st Contact Info) Description 12/15/2024 Procedure Pass [facility] 30 [place] [address] 07/09/2025 3:10 PM EST Appointment [facility] [address] [place] [address] Bebeto Wiley MD [address] [place] [address], [address] [place] [address] 01/04/2026 1:00 PM EDT Office Visit [address] [address] Bebeto Wiley MD [address] [place] [address], [address] [place] [address] documented as of this encounter Results * [...] documented as of this encounter Care Teams Inspector Penetrant Relationship Specialty Start Date End Date Bebeto Wiley MD [address] [place] [address], [address] [place] [address] PCP - General Family Medicine 07/15/17 03/05/21 Bebeto Wiley MD [address] [place] [address], [address] [place] [address] [email or web address] PCP - General Family Medicine 03/06/21 Nancy Gaitan MD [address] [place] [address] Orthopedic Surgery 12/14/18 Cayla Sahu MD 22 [facility], [address] [place] [address] [email or web address] Obstetrics and Gynecology 12/14/18 documented as of this encounter Additional Source Comments The information contained in this document represents components of the legal health record. It is not the complete legal health record.[facility]
--- OUTSIDE RECORDS SUMMARY | 2025-04-18 08:04 | XMS_ITS | Encounter Summary ---
Author Organization [facility] Address [address] [facility] [address] [place] [address] Phone Care Team Providers Care X Ray Examiner Of Aircraft Name Role Phone Nancy Gaitan MD Unavailable [phone] Cayla Sahu MD Unavailable Bebeto Wiley MD Primary Care Provider +1- [phone] Encounter Details Date Type Department Care Team (Late st Contact Info) Description 09/25/2022 Procedure Pass [place] Admitting Dept - [facility] Department [address] [place] [address] Social History Tobacco Use Types Packs/Day Years [...] st Contact Info) Description 12/15/2024 Procedure Pass [facility], [facility] 30 [place] [address] 07/09/2025 3:10 PM EST Appointment [facility], [facility] [address] [place] [address] Bebeto Wiley MD 22 [facility], [address] [place] [address] 01/04/2026 1:00 PM EDT Office Visit [facility] 22 [place] [address] Bebeto Wiley MD 22 [facility], [address] [place] [address] documented as of this encounter Visit Diagnoses Not on filedocumented in this encounter Additional Health Concerns Assessment Noted Time PHQ-2 Depression Total Score: 1 11/27/19 21 8:47 AM EDT documented as of this encounter Care Teams X Ray Examiner Of Aircraft Relationship Specialty Start Date End Date Bebeto Wiley MD 22 [facility], [address] [place] [address] PCP - General Family Medicine 03/06/21 Nancy Gaitan MD [address] [place] [address] Orthopedic Surgery 12/14/18 Cayla Sahu MD [address] [place] [address], [address] [place] [address] Obstetrics and Gynecology 12/14/18 documented as of this encounter Additional Source Comments The information contained in this document represents components of the legal health record. It is not the complete legal health record.[facility]
--- OUTSIDE RECORDS SUMMARY | 2025-04-18 08:04 | XMS_ITS | Encounter Summary ---
Author Organization [facility] Address [address] [facility] [address] [place] [address] Phone Care Team Providers Care Hvac Estimator Name Role Phone Bebeto Wiley MD Primary Care Provider [phone]- [phone] Nancy Gaitan MD Unavailable Cayla Sahu MD Unavailable Bebeto Wiley MD Primary Care Provider +1- [phone] Encounter Details Date Type Department Care Team (Late st Contact Info) Description 11/19/2020 Ancillary Orders [facility],Outside Imaging [address] [place], [place] [id number] System, Provider Not In, [facility] [address] [address] Social History Tobacco Use Types Packs/Day Years [...] Encounters Date Type Department Care Team (Late Contact Info) Description 12/15/2024 Procedure Pass [facility] 30 [place] [address] 07/09/2025 3:10 PM EST Appointment [facility] 30 [place] [address] Bebeto Wiley MD [address] [place] [address], [address] [place] [address] [email or web address] 01/04/2026 1:00 PM EDT Office Visit [address] [address] Bebeto Wiley MD [address] [place] [address], [address] [place] [address] documented as of this encounter Results * CT Chest Outside (No Interpretation) (11/10/2019 12:00 AM EDT) Narrative SYSTEMGENERATED, DOCUMENTATION - 11/19/2020 9:05 AM EDT This study is for PACS storage only [...] documented as of this encounter Care Teams Hvac Estimator Relationship Specialty Start Date End Date Bebeto Wiley MD [address] [place] [address], [address] [place] [address] PCP - General Family Medicine 07/15/17 03/05/21 Bebeto Wiley MD [address] [place] [address], [address] [place] [address] [email or web address] PCP - General Family Medicine 03/06/21 Nancy Gaitan MD [address] [place] [address] Orthopedic Surgery 12/14/18 Cayla Sahu MD [address] [place] [address], [address] [place] [address] [email or web address] Obstetrics and Gynecology 12/14/18 documented as of this encounter Additional Source Comments The information contained in this document represents components of the legal health record. It is not the complete legal health record.[facility]
--- OUTSIDE RECORDS SUMMARY | 2025-04-18 08:04 | XMS_ITS | Encounter Summary ---
Author Organization [facility] Address [address] [facility] [address] [place] [address] Phone Care Team Providers Care Primary School Principal Name Role Phone Nancy Gaitan MD Unavailable Cayla Sahu MD Unavailable Bebeto Wiley MD Primary Care Provider [phone]- [phone] Encounter Details Date Type Department Care Team (Late st Contact Info) Description 06/10/2022 Procedure Pass [facility] Admitting Dept Virtual Department [address] [place] [address] Social History Tobacco Use Types Packs/Day Years [...] st Contact Info) Description 12/15/2024 Procedure Pass [facility], [facility] 30 [place] [address] 07/09/2025 3:10 PM EST Appointment [facility], [facility] [address] [place] [address] Bebeto Wiley MD [address] [facility], [address] [place] [address] 01/04/2026 1:00 PM EDT Office Visit [facility] 22 [place] [address] Bebeto Wiley MD [address] [facility], [address] [place] [address] documented as of this encounter Visit Diagnoses Not on filedocumented in this encounter Additional Health Concerns Assessment Noted Time PHQ-2 Depression Total Score: 1 11/27/19 21 8:47 AM EDT documented as of this encounter Care Teams Primary School Principal Relationship Specialty Start Date End Date Bebeto Wiley MD [address] [facility], [address] [place] [address] PCP - General Family Medicine 03/06/21 Nancy Gaitan MD [address] [place] [address] Orthopedic Surgery 12/14/18 Cayla Sahu MD [address] [place] [address], [address] [place] [address] Obstetrics and Gynecology 12/14/18 documented as of this encounter Additional Source Comments The information contained in this document represents components of the legal health record. It is not the complete legal health record.[facility]
--- OUTSIDE RECORDS SUMMARY | 2025-04-18 08:04 | XMS_ITS | Encounter Summary ---
Author Organization [facility] Address [address] [facility] [address] [place] [address] Phone Care Team Providers Care Grain I Farmworker Name Role Phone Nancy Gaitan MD Unavailable Cayla Sahu MD Unavailable Bebeto Wiley MD Primary Care Provider [phone]- [phone] Encounter Details Date Type Department Care Team (Late st Contact Info) Description 02/01/2024 Procedure Pass [facility] 30 [place] [address] Social History Tobacco Use Types Packs/Day Years [...] st Contact Info) Description 12/15/2024 Procedure Pass [address] [address] 07/09/2025 3:10 PM EST Appointment [address] [address] Bebeto Wiley MD [address] [place] [address], [address] [place] [address] [email or web address] 01/04/2026 1:00 PM EDT Office Visit [address] [address] Bebeto Wiley MD [address] [place] [address], [address] [place] [address] documented as of this encounter Visit Diagnoses Not on filedocumented in this encounter Additional Health Concerns Assessment Noted Time PHQ-2 Depression Total Score: 2 12/30/19 24 5:03 PM EDT documented as of this encounter Care Teams Grain I Farmworker Relationship Specialty Start Date End Date Bebeto Wiley MD [address] [place] [address], [address] [place] [address] PCP - General Family Medicine 03/06/21 Nancy Gaitan MD [facility] [place] [address] Orthopedic Surgery 12/14/18 Cayla Sahu MD [address] [place] [address], [address] [place] [address] [email or web address] Obstetrics and Gynecology 12/14/18 documented as of this encounter Additional Source Comments The information contained in this document represents components of the legal health record. It is not the complete legal health record.[facility]
--- OUTSIDE RECORDS SUMMARY | 2025-04-18 08:04 | XMS_ITS | Encounter Summary ---
Author Organization [facility] Address [address] [facility] [address] [place] [address] Phone Care Team Providers Care Homeland Security Program Specialist Name Role Phone Bebeto Wiley MD Primary Care Provider [phone]- [phone] Nancy Gaitan MD Unavailable Cayla Sahu MD Unavailable Bebeto Wiley MD Primary Care Provider +1- [phone] Encounter Details Date Type Department Care Team (Late st Contact Info) Description 07/25/2020 Ancillary Orders [facility],Outside Imaging 30 [place], [place] [id number] System, Provider Not In, [facility] [address] [address] Social History Tobacco Use Types Packs/Day Years [...] st Contact Info) Description 12/15/2024 Procedure Pass [facility] 30 [place] [address] 07/09/2025 3:10 PM EST Appointment [facility] 30 [place] [address] Bebeto Wiley MD [address] [place] [address], [address] [place] [address] [email or web address] 01/04/2026 1:00 PM EDT Office Visit [address] [address] Bebeto Wiley MD [address] [place] [address], [address] [place] [address] documented as of this encounter Results * Mammogram Outside (No Interpretation) (07/22/2015 12:00 AM EST) Narrative SYSTEMGENERATED, DOCUMENTATION - 07/25/2020 9:10 AM EST This study is for PACS [...] documented as of this encounter Care Teams Homeland Security Program Specialist Relationship Specialty Start Date End Date Bebeto Wiley MD [address] [place] [address], [address] [place] [address] PCP - General Family Medicine 07/15/17 03/05/21 Bebeto Wiley MD [address] [place] [address], [address] [place] [address] [email or web address] PCP - General Family Medicine 03/06/21 Nancy Gaitan MD [address] [place] [address] Orthopedic Surgery 12/14/18 Cayla Sahu MD [address] [facility], [address] [place] [address] [email or web address] Obstetrics and Gynecology 12/14/18 documented as of this encounter Additional Source Comments The information contained in this document represents components of the legal health record. It is not the complete legal health record.[facility]
--- OUTSIDE RECORDS SUMMARY | 2025-04-18 08:04 | XMS_ITS | Encounter Summary ---
Author Organization [facility] Address [address] [facility] [address] [place] [address] Phone Care Team Providers Care Technology Education Teacher Name Role Phone Bebeto Wiley MD Primary Care Provider [phone]- [phone] Nancy Gaitan MD Unavailable [phone] Cayla Sahu MD Unavailable Bebeto Wiley MD Primary Care Provider +1- [phone] Encounter Details Date Type Department Care Team (Late st Contact Info) Description 07/25/2020 Ancillary Orders [facility],Outside Imaging 30 [place], [place] [id number] System, Provider Not In, [facility] [address] [address] Social History Tobacco Use Types Packs/Day Years [...] st Contact Info) Description 12/15/2024 Procedure Pass [facility] 30 [place] [address] 07/09/2025 3:10 PM EST Appointment [facility] 30 [place] [address] Bebeto Wiley MD [address] [place] [address], [address] [place] [address] 01/04/2026 1:00 PM EDT Office Visit [address] [address] Bebeto Wiley MD [address] [place] [address], [address] [place] [address] documented as of this encounter Results * Mammogram Outside (No Interpretation) (03/15/2014 12:00 AM EDT) Narrative SYSTEMGENERATED, DOCUMENTATION - 07/25/2020 9:12 AM EST This study is for PACS [...] documented as of this encounter Care Teams Technology Education Teacher Relationship Specialty Start Date End Date Bebeto Wiley MD [address] [place] [address], [address] [place] [address] PCP - General Family Medicine 07/15/17 03/05/21 Bebeto Wiley MD [address] [place] [address], [address] [place] [address] [email or web address] PCP - General Family Medicine 03/06/21 Nancy Gaitan MD [address] [place] [address] Orthopedic Surgery 12/14/18 Cayla Sahu MD [address] [facility], [address] [place] [address] [email or web address] Obstetrics and Gynecology 12/14/18 documented as of this encounter Additional Source Comments The information contained in this document represents components of the legal health record. It is not the complete legal health record.[facility]
--- OUTSIDE RECORDS SUMMARY | 2025-04-18 08:04 | XMS_ITS | Encounter Summary ---
Author Organization [facility] Address [address] [facility] [address] [place] [address] Phone Care Team Providers Care Tooth Cutter Pinion Name Role Phone Nancy Gaitan MD Unavailable [phone] Cayla Sahu MD Unavailable Bebeto Wiley MD Primary Care Provider [phone]- [phone] Encounter Details Date Type Department Care Team (Late st Contact Info) Description 12/23/2022 Procedure Pass , Ct Scan - [address] [address] Social History Tobacco Use Types Packs/Day Years [...] on file 12/04/2022 No 12/04/2022 No 12/04/2022 Comments No Sex and Gender Information Value Date Recorded Sex Assigned at Female 11/26/2020 8:32 AM EDT Legal Sex Female 9:56 PM EDT Gender Identity Female 11/26/2020 8:32 AM EDT Sexual Orientation Straight 11/26/2020 8: 32 AM EDT documented as of this encounter Plan of Treatment Upcoming Encounters Date Type Department Care Team (Late st Contact Info) Description 12/15/2024 Procedure Pass [address] [address] 07/09/2025 3:10 PM EST Appointment [facility] 30 [place] [address] Bebeto Wiley MD [address] [place] [address], [address] [place] [address] 01/04/2026 1:00 PM EDT Office Visit [address] [address] Bebeto Wiley MD [address] [place] [address], [address] [place] [address] documented as of this encounter Visit Diagnoses Not on filedocumented in this encounter Additional Health Concerns Assessment Noted Time PHQ-2 Depression Total Score: 2 12/30/19 23 1:03 PM EDT documented as of this encounter Care Teams Tooth Cutter Pinion Relationship Specialty Start Date End Date Bebeto Wiley MD [address] [place] [address], [address] [place] [address] PCP - General Family Medicine 03/06/21 Nancy Gaitan MD [address] [place] [address] Orthopedic Surgery 12/14/18 Cayla Sahu MD [address] [place] [address], [address] [place] [address] Obstetrics and Gynecology 12/14/18 documented as of this encounter Additional Source Comments The information contained in this document represents components of the legal health record. It is not the complete legal health record.[facility]
--- OUTSIDE RECORDS SUMMARY | 2025-04-18 08:04 | XMS_ITS | Encounter Summary ---
Author Organization [facility] Address [address] [facility] [address] [place] [address] Phone Care Team Providers Care Die Technician Name Role Phone Nancy Gaitan MD Unavailable [phone] Cayla Sahu MD Unavailable Bebeto Wiley MD Primary Care Provider [phone]- [phone] Encounter Details Date Type Department Care Team (Late st Contact Info) Description 02/01/2024 Procedure Pass [facility] [address] [place] [address] Social History Tobacco Use Types Packs/Day Years [...] st Contact Info) Description 12/15/2024 Procedure Pass [address] [address] 07/09/2025 3:10 PM EST Appointment [address] [address] Bebeto Wiley MD [address] [place] [address], [address] [place] [address] [email or web address] 01/04/2026 1:00 PM EDT Office Visit [address] [address] Bebeto Wiley MD [address] [place] [address], [address] [place] [address] documented as of this encounter Visit Diagnoses Not on filedocumented in this encounter Additional Health Concerns Assessment Noted Time PHQ-2 Depression Total Score: 2 12/30/19 24 5:03 PM EDT documented as of this encounter Care Teams Die Technician Relationship Specialty Start Date End Date Bebeto Wiley MD [address] [place] [address], [address] [place] [address] PCP - General Family Medicine 03/06/21 Nancy Gaitan MD [facility] [place] [address] Orthopedic Surgery 12/14/18 Cayla Sahu MD [address] [place] [address], [address] [place] [address] [email or web address] Obstetrics and Gynecology 12/14/18 documented as of this encounter Additional Source Comments The information contained in this document represents components of the legal health record. It is not the complete legal health record.[facility]
--- OUTSIDE RECORDS SUMMARY | 2025-04-18 08:04 | XMS_ITS | Encounter Summary ---
Author Organization [facility] Address [address] [facility] [address] [place] [address] Phone Care Team Providers Care Bleach Maker Name Role Phone Bebeto Wiley MD Primary Care Provider [phone]- [phone] Nancy Gaitan MD Unavailable Cayla Sahu MD Unavailable Bebeto Wiley MD Primary Care Provider +1- [phone] Encounter Details Date Type Department Care Team (Late st Contact Info) Description 07/25/2020 Ancillary Orders [facility],Outside Imaging [address] [place], [place] [address] System, Provider Not In, [facility] [address] [address] Social History Tobacco Use Types Packs/Day Years [...] st Contact Info) Description 12/15/2024 Procedure Pass [facility] 30 [place] [address] 07/09/2025 3:10 PM EST Appointment [facility] [address] [place] [address] Bebeto Wiley MD [address] [place] [address], [address] [place] [address] [email or web address] 01/04/2026 1:00 PM EDT Office Visit [address] [address] Bebeto Wiley MD [address] [place] [address], [address] [place] [address] documented as of this encounter Results * Mammogram Outside (No Interpretation) (07/15/2017 12:00 AM EST) Narrative SYSTEMGENERATED, DOCUMENTATION - 07/25/2020 9:09 AM EST This study is for PACS [...] documented as of this encounter Care Teams Bleach Maker Relationship Specialty Start Date End Date Bebeto Wiley MD [address] [place] [address], [address] [place] [address] PCP - General Family Medicine 07/15/17 03/05/21 Bebeto Wiley MD [address] [place] [address], [address] [place] [address] [email or web address] PCP - General Family Medicine 03/06/21 Nancy Gaitan MD [address] [place] [address] Orthopedic Surgery 12/14/18 Cayla Sahu MD [address] [facility], [address] [place] [address] [email or web address] Obstetrics and Gynecology 12/14/18 documented as of this encounter Additional Source Comments The information contained in this document represents components of the legal health record. It is not the complete legal health record.[facility]
--- OUTSIDE RECORDS SUMMARY | 2025-04-18 08:04 | XMS_ITS | Clinical Summary ---
Author Organization [facility] Address [address] [place] [address] Care Team Providers Care Jewelry Sales Coordinator Name Role Phone Bebeto Wiley MD Primary Care Provider [phone] Immunizations Name Administration Dates Next Due Moderna [...] Medical History Medical History Date Comments Cancer ([facility] V24, [facility] V28) DX:Cancer (HCC) Thyroid disorder DX:Thyroid diso [...] 2) 2004 Breast Cancer Screening 12/15/2020 12/15/2018 Depression Screening 08/09/2024 COVID-19 Vaccine (3 - 2024-2 6 season) 2025 10/30/2020, 10/02/2020 Influenza Vaccine (#1) 2025 RSV Immunization Adult [...] Procedure Name Priority Date/Time Associated Diagnosis Comments [facility] SCREENING DIGITAL Routine 12/15/2018 1:07 PM EDT Encounter for screening mammogram for malignant neoplasm of breast from Last 3 Months or Most Recently Relevant to Health Maintenance Results * [facility] SCREENING DIGITAL (12/15/2018 1:07 PM EDT) Anatomical Region Laterality Modality Mammography 12/15/2018 10:5 2 AM EDT Narrative 12/15/2018 1:07 PM EDT Diagnostic Imaging Department [address] [place] [address] Patient: GEE GALLEGOS /Age/Sex: 1955 - 63 - F Unit#: [id number] Location/Status: SPDIMAM/REG CLI Mnemonic/Ordering Site[facility] Ordering Physician: NAM SAHU MD [...] for the next mammogram: CPT II 7025F [id number] [id number] Dictating Physician: NATA CHAO MD Electronically Signed by: NATA CHAO MD Dic Date/Time: 12/15/18 1305 Sign date/Time: 12/15/18 1307 Procedure Note Nata Chao MD - 07/28/2022 Diagnostic Imaging Department [address] [place] [address] Patient: GEE GALLEGOS /Age/Sex: 1955 - 63 - F Unit#: [id number] Location/Status: SPDIMAM/REG CLI Mnemonic/Ordering Site: [facility] Ordering Physician: NAM SAHU MD [...] for the next mammogram: CPT II 7025F [id number] [id number] Dictating Physician: NATA CHAO MD Electronically Signed by: NATA CHAO MD Dic Date/Time: 12/15/18 1305 Sign date/Time: 12/15/18 1307 Nam Sahu MD IMG BI PROCEDURES Final Result from Last 3 Months or Most Recently Relevant to Health Maintenance Care Teams Jewelry Sales Coordinator Relationship Specialty Start Date End Date Bebeto Wiley MD [address] [address] PCP - General 09/12/10
[2025-04-18 08:05] VITALS: BMI 29.3
--- OUTSIDE RECORDS SUMMARY | 2025-04-18 08:05 | XMS_ITS | Clinical Summary ---
Author Organization [facility] Address [address] [place] [address] Phone Care Team Providers Care Crinkling Machine Operator Name Role Phone Nancy Gaitan MD Unavailable Cayla Sahu MD Unavailable Bebeto Wiley MD Primary Care Provider [phone] Allergies Active Allergy Reactions Criticality Noted Date Comments Methocarbamol Hives 09/16/2016 Hydrocodone-Acetaminophen Nausea and/or Vomiting 09/16/2016 Medications cholecalciferol (VITAMIN D3) 1,000 unit tablet Take 1,000 Units by mouth daily. Active amoxicillin (AMOXIL) 500 MG tablet Take 4 tabs 1 hour prior to dental appointment 1 Active LORazepam (ATIVAN) 0.5 MG tablet Take 1 tablet (0.5 mg total) by mouth daily as needed for anxiety. 4 08/07/20 25 Active clobetasol (TEMOVATE) 0.05 % ointment Apply 1 Application topically daily as needed. 4 Active clobetasol (CLOBEX) 0.05 % shampoo Apply 1 Application topically daily as needed. 4 Active atorvastatin (LIPITOR) 20 MG tablet Take 1 tablet (20 mg total) by mouth daily. 90 tablet 3 5 01/03/20 26 Active levothyroxine (SYNTHROID, LEVOTHROID) 50 MCG tablet TAKE 1 TABLET BY MOUTH EVERY DAY IN THE MORNING 90 tablet 3 5 Active Active Problems Problem Noted Date Diagnosed Date Diverticular disease of colon 08/16/2024 Vasovagal syncope 07/24/2024 Change in bowel habits 10/13/2023 Abdominal bloating 10/13/2023 Constipation 10/13/2023 Gastroesophageal reflux disease 10/13/2023 Primary osteoarthritis of right knee 09/20/2023 Acute right-sided low back pain with sciatica Assessment & Plan (01/28/2023 2:35 PM EDT): Pain likely muscular in nature given history and exam. Advised to walk as much as tolerated. Rest in a supine position on a firm surface such as a firm mattress or rug with knees and hips bent at approximately 45 degrees. Avoid heavy lifting or repetitive bending. Advised use of ibuprofen 600 mg every 8 hours as needed for pain. Advised use of heat/ice alternating. [place] balm/icy hot as needed for comfort. Will trial low dose, short course muscle relaxant for bedtime use. Pt advised of possible side effects advised to monitor for sedation. Pain should gradually improve over the course of the next few weeks. If the pain worsens or patient develops any other unusual symptoms such as significantly worsening pain, fever, or weakness, contact the office immediately. If the pain has not resolved in the next few weeks, the advised to call for a referral to physical therapy. Prediabetes 12/29/2022 Assessment & Plan (01/02/2025 2:16 PM EDT): Orders: Hemoglobin A1c; Future Comprehensive metabolic panel; Future Benign paroxysmal positional vertigo of left ear 09/14/2022 Assessment & Plan (09/14/2022 3:58 PM EST): + [place] Hallpike in office today. Discussed BPPV with patient and advised her on how to complete Neva maneuver at home. Advised if symptoms persist or fail to improve with Neva would recommend PT for vestibular rehab. Pt verbalized understanding agreeable to plan. Acquired hallux rigidus 05/08/2022 COVID-19 04/04/2022 History of laparoscopic appendectomy 03/12/2022 12/29/2022 S/P total knee arthroplasty, left 02/27/2021 Coronary artery calcification 12/09/2020 Adrenal adenoma, left 12/05/2020 Overview (12/05/2020): Ct scan Stable 11/2019 [address] lung nodules on CT 11/29/2020 Migraine with aura and witho ut status migrainosus, not intractable 11/29/2020 Malignant neoplasm of urinary bladder 10/06/2019 Supraclavicular mass 10/06/2019 Osteopenia 12/14/2018 Overview (04/24/2023): 2019 - fem neck -1.9 2022-fem neck -2.1 History of bladder cancer 11/23/2017 Other hyperlipidemia 11/23/2017 Assessment & Plan (01/02/2025 2:16 PM EDT): Restart atorvastatin. Not sure how this fell off the med list last year. She does have some coronary calcifications. Orders: Lipid panel; Future Comprehensive metabolic panel; Future Acquired hypothyroidism 11/23/2017 Assessment & Plan (01/02/2025 2:16 PM EDT): Orders: TSH with reflex; Future Lichen sclerosus 11/23/2017 Scalp psoriasis 11/23/2017 Assessment & Plan (01/02/2025 2:16 PM EDT): Uterine leiomyoma 09/27/2017 Assessment & Plan (09/27/2017 9:19 AM EST): Compared exam to report of u/s from 2013; likely these small ones are same as noted on that report; discussed, will repeat u/s to be sure there is no growth; may want at [facility] due to out of pocket cost concerns (works there in [facility]) Anxiety Encounters Date Type Department Care Team Description 03/30/2025 Orders Only [place] [address] [place] [address] Provider, MD Elías 02/24/2025 Refill [facility] [address] [place] [address] Bebeto Wiley MD Medication Refill 02/02/2025 Telephone [facility] [address] [place] [address] Dana Cowart, RN Results from Last 3 Months Immunizations Immunization Administration Dates Next Due COVID-19 (Pre-05/31) Moderna Vaccine, mRNA, PF 10/30/2020,10/02/2020 INFLUENZA, SPLIT VIRUS, TRIV ALENT W/ PRESERVATIVE IM 05/03/2014,05/09/2013 Influenza Quadrivalent Adjuv anted Preservative Free IM 05/25/2023,06/22/2022,05/02/2021,05/06 Influenza Trivalent Adjuvant ed Preservative free IM 05/02/2024 Pneumococcal conjugate PCV20 05/25/2023 Pneumococcal polysaccharide PPSV23 07/08/2022, RSV Vaccine (monovalent, adjuvanted) 06/18/2023 Td, unspecified formulation 04/04/1999 Tdap 05/23/2013 Zoster live 04/23/2015 Zoster recombinant 05/17/2019,01/11/2019 Family History Medical History Relation Comments Heart attack Brother Alcohol abuse Father CV disease Father Heart attack Father Heart disease Father [place] Cancer Mother lung Breast cancer Sister Relation Status Comments Brother Father Mother Sister Social History Tobacco Use Types Packs/Day Years Used Date Smoking Tobacco: Former Cigarettes 0.5 16.7 0 11/29/1969 - 08/09/1986 Smokeless Tobacco: Never Tobacco Cessation:Counseling Given: Not Answered Alcohol Use Standard Drinks/Week Comments Yes 3 [...] Orientation Straight 11/26/2020 8: 32 AM EDT Last Filed Vital Signs Vital Sign Reading Time Taken Comments Blood Pressure 120/66 01/02/2025 1:07 PM EDT Pulse 86 01/02/2025 1:07 PM EDT Temperature 36.3 C (97.3 F) 01/02/2025 1:07 PM EDT Respiratory Rate 17 03/01/2024 5:16 PM EDT Oxygen Saturation 98% 01/02/2025 1:07 PM EDT Inhaled Oxygen Concentration - - Weight 72.2 kg (159 lb 3.2 oz) 01/02/2025 1:07 P M EDT Height 157.5 cm (5' 2.01 ) 01/02/2025 1:07 PM ED T Body Mass Index 29.11 01/02/2025 1:07 PM EDT Plan of Treatment Upcoming Encounters Date Type Department Care Team (Late st Contact Info) Description 12/15/2024 Procedure Pass [address] [address] 07/09/2025 3:10 PM EST Appointment [address] [address] Bebeto Wiley MD [address] [place] [address], [address] [place] [address] 01/04/2026 1:00 PM EDT Office Visit [facility] [address] [place] [address] Bebeto Wiley MD [address] [facility], [address] [place] [address] [email or web address] Health Maintenance Due Date Last Done Comments COLOGUARD 1999 FIT TEST 1999 FOBT 1999 SIGMOIDOSCOPY 1999 VIRTUAL COLONOSCOPY 1999 Adult Td,Tdap Booster 05/23/2023 05/23/2013, 999 INFLUENZA VACCINE (#1) 2025 , 05/25/2023, 06/22/2022, Additional history exists COVID-19 VACCINE ( season) 2025 05/29/2024, 05/25/2023, 08/11/2022, Additional history exists DEPRESSION SCREENING 01/01/2026 01/01/2025 LIPID PANEL 01/03/2026 01/03/2025, 12/08, 12/23/2022, Additional history exists TSH LEVEL 01/03/2026 01/03/2025, 12/08, 10/18/2023, Additional history exists MAMMOGRAM 03/13/2026 03/13/2024, 04/09, 08/30/2020, Additional history exists COLONOSCOPY 08/06/2028 08/06/2023, 10/23/2015 COLORECTAL CANCER SCREENING 08/06/2028 HEPATITIS C SCREENING Completed 04/24/2019, 019 ZOSTER VACCINES Completed 05/17/2019, 12/2018, 04/23/2015 OSTEOPOROSIS SCREENING INITIAL (ONE-TIME) Completed 04/13/2023, 10/21/2018 PNEUMOCOCCAL VACCINES (50+ years) Completed 05/25/2023, 07/08/2022, 05/22/2020 RSV VACCINE Completed 06/18/2023 SMOKING STATUS SCREENING (Once After 26 Yrs) Completed 01/02/2025 HEPATITIS A VACCINES Aged Out No long er eligible based on patient's age to complete this topic HIB VACCINES Aged Out No longer eligi ble based on patient's age to complete this topic MENINGOCOCCAL VACCINES (ACWY) Aged Out No longer eligible based on patient's age to complete this topic MENINGOCOCCAL VACCINES (B) Aged Out N o longer eligible based on patient's age to complete this topic Medical Devices Implanted Type Area Shared Services And Outsourcing Manager Device Identifier Shelf Expiration Date Model / Serial / Lot Prosthetic Joint Prosthetic Joint Left: Knee System Suspension Fiberlock - Trial Item - [id number] Implanted:Qty: 1 on 11/10/2022 by Moe Hernandez MD at [facility] Left: Thumb [employer] 10/07/2027 [id number] / / [id number] Procedures Procedure Name Priority Date/Time Associated Diagnosis Comments OUTSIDE IMAGING Routine 03/29/2025 12:52 PM EDT LIPID PANEL Routine 01/03/2025 7:14 AM EDT Other hyperlipidemia TSH WITH REFLEX Routine 01/03/2025 7:14 AM EDT Acquired hypothyroidism BI MAMMOGRAM SCREENING WITH TOMOSYNTHESIS WITH CAD (BILATERAL) Routine 03/13/2024 10:22 AM EDT Breast screening HM COLONOSCOPY FOR RESULT ENTRY ONLY Routine 08/06/2023 11:11 AM EST BD DXA AXIAL (SPINE) WITH HIP Routine 04/13/2023 10:37 AM EDT Osteopenia, unspecified location HEPATITIS C ANTIBODY, QUALITATIVE Routine 04/24/2019 from Last 3 Months or Most Recently Relevant to Health Maintenance Results * Outside Imaging Report Only (03/29/2025 12:52 PM EDT) us Historical Provider IMGeovanny XR CHEST Final Res ult * TSH with reflex (01/03/2025 7:14 AM EDT) TSH 2.82 0.27 - 4.20 uIU/mL [facility] Blood 01/03/2025 7:14 AM EDT 01/03/2025 7:18 AM EDT Bebeto Wiley MD LAB BLOOD ORDERABLES Final Result Performing Organization Address [facility] Co de Phone Number [address] [address] * (ABNORMAL) Lipid panel (01/03/2025 7:14 AM EDT) HDL 63 mg/dL [facility] Comment: Interpretation <40 mg/dL: Low HDL cholesterol (major risk factor for CHD) Greater than or equal to 60 mg/dL: High HDL cholesterol ( negative risk factor for CHD) HDL - cholesterol is affected by a number of factors, e.g. smoking, excerise, hormones, sex and age. CHOLESTEROL 259(H) 0 - 240 mg/dL [facility] TRIGLYCERIDES 136 30 - 160 mg/dL [facility] LDL 169(H) 50 - 129 mg/dL [facility] Comment: LDL levels in terms of risk for coronary heart disease: <100 mg/dL: Optimal 100-129 mg/dL: Near or above optimal 130-159 mg/dL: Borderline high 160-189 mg/dL: High >190 mg/dL: Very High CARDIAC RISK RATIO 4.1 3.3 - 4.4 C [facility] Blood 01/03/2025 7:14 AM EDT 01/03/2025 7:18 AM EDT Bebeto Wiley MD LAB BLOOD ORDERABLES Final Result Performing Organization Address City/[facility] Co de Phone Number [address] [address] * BI MAMMOGRAM SCREENING WITH TOMOSYNTHESIS WITH CAD (BILATERAL) (03/13/2024 10:22 AM EDT) Anatomical Region Laterality Modality Breast Left, Breast Right, Breast Bilateral Bila teral Mammography 03/15/2024 7:48 AM EDT Impressions 03/15/2024 7:54 AM EDT No mammographic evidence of malignancy in either breast. Annual screening mammography is recommended. BI-RADS 1 NEGATIVE The patient will be notified of the results and recommendations. Narrative 03/15/2024 7:54 AM EDT BI MAMMOGRAM SCREENING WITH TOMOSYNTHESIS WITH CAD (BILATERAL) Additional patient information: Screening. COMPARISON: Comparison is made with relevant prior imaging. Breast composition: There are scattered areas of fibroglandular density. FINDINGS: No abnormal masses, suspicious calcifications, or other significant findings are identified mammographically in either breast. Procedure Note Carla Whiteside MD - 03/15/2024 BI MAMMOGRAM SCREENING WITH TOMOSYNTHESIS WITH CAD (BILATERAL) Additional patient information: Screening. COMPARISON: Comparison is made with relevant prior imaging. Breast composition: There are scattered areas of fibroglandular density. FINDINGS: No abnormal masses, suspicious calcifications, or other significantfindings are identified mammographically in either breast. IMPRESSION: No mammographic evidence of malignancy in either breast. Annual screening mammography is recommended. BI-RADS 1 NEGATIVE The patient will be notified of the results and recommendations. Bebeto Wiley MD IMG MG EXAMS Final Resu lt * HM COLONOSCOPY FOR RESULT ENTRY ONLY (08/06/2023 11:11 AM EST) Historical Provider HEALTH MAINTENANCE Final Result * BD DXA AXIAL (SPINE) WITH HIP (04/13/2023 10:37 AM EDT) Anatomical Region Laterality Modality Bone Density Bone Density 04/22/2023 5:17 PM EDT Impressions 04/23/2023 10:06 AM EDT Bone mineral density within the right femoral neck falls within the osteopenia range. Narrative 04/23/2023 10:06 AM EDT This is a 67-year-old female presenting for screening exam. No prior studies available for adequate comparison. Evaluation of the right hip and both hips is obtained and appears technically adequate. The lumbar spine from L1 through L4 discloses a total bone mineral density of 1.164 g/cm2 with a T-score of 1.1. This is in the normal range. The right hip (total) has a total bone mineral density of 0.831 g/cm2 with a T-score of -0.9. This is in the normal range. The right hip (neck) has a total bone mineral density of 0.616 g/cm2 with a T- score of -2.1. Z score -0.4 Procedure Note Mitch Posey MD - 04/23/2023 This is a 67-year-old female presenting for screening exam. No prior studies available for adequate comparison. Evaluation of the right hip and both hips is obtained and appearstechnically adequate. The lumbar spine from L1 through L4 discloses a total bone mineral densityof 1.164 g/cm2 with a T-score of 1.1. This is in the normal range. The right hip (total) has a total bone mineral density of 0.831 g/go9ockr a T- score of -0.9. This is in the normal range. The right hip (neck) has a total bone mineral density of 0.616 g/cm2 witha T- score of -2.1. Z score -0.4 IMPRESSION: Bone mineral density within the right femoral neck falls within theosteopenia range. Moe Hernandez MD IMG BD BONE DENSITY DEX A Final Result * Hepatitis C antibody, qualitative (04/24/2019) us Bebeto Wiley MD LAB BLOOD ORDERABLES Edite d Result - Final from Last 3 Months or Most Recently Relevant to Health Maintenance Insurance MEDICARE PART A & B [employer] MEDEX SUPPLEMENT MEDICARE PART A & B [employer] MEDEX SUPPLEMENT MEDICARE PART A & B [employer]) MEDEX SUPPLEMENT MEDICARE PART A & B [employer] MEDEX SUPPLEMENT MEDICARE PART A & B [employer] MEDEX SUPPLEMENT MEDICARE PART A & B [employer] MEDEX SUPPLEMENT Advance Directives For more information, please contact: [phone] (9AM - 5PM [facility], Wednesday-Wednesday) * Full Code (Latest Code Status on File) Date Activated Date Inactivated Comments 11/10/2022 7:34 AM Question Answer Comments Code Status Confirmed With: Patient * Full Code Date Activated Date Inactivated Comments 03/12/2022 7:02 AM 11/10/2022 7:34 AM Question Answer Comments Code Status Confirmed With: Patient Care Teams Crinkling Machine Operator Relationship Specialty Start Date End Date Bebeto Wiley MD [address] [place] [address], [address] [place] [address] PCP - General Family Medicine 03/06/21 Nancy Gaitan MD [address] [place], [place] [address]am[place] [address] Orthopedic Surgery 12/14/18 Cayla Sahu MD [address] [place] [address], [address] [address] [email or web address] Obstetrics and Gynecology 12/14/18 Additional Source Comments The information contained in this document represents components of the legal health record. It is not the complete legal health record.[facility]
--- OUTSIDE RECORDS SUMMARY | 2025-04-18 08:05 | XMS_ITS | Encounter Summary ---
Author Organization [facility] Address [address] [facility] [address] [place] [address] Phone Care Team Providers Care Grain Ii Farmworker Name Role Phone Nancy Gaitan MD Unavailable [phone] Cayla Sahu MD Unavailable Bebeto Wiley MD Primary Care Provider [phone] Encounter Details Date Type Department Care Team (Late st Contact Info) Description 03/30/2025 Orders Only [facility] Medical [address] [place] [address] Provider, MD Elías [address] [place] [address] Social History Tobacco Use Types Packs/Day Years [...] st Contact Info) Description 12/15/2024 Procedure Pass [address] [address] 07/09/2025 3:10 PM EST Appointment [address] [address] Bebeto Wiley MD [address] [place] [address], [address] [address] 01/04/2026 1:00 PM EDT Office Visit [facility] Family [facility] [address] [place] [address] Bebeto Wiley MD [address] [place] [address], [address] [address] [email or web address] documented as of this encounter Procedures Procedure Name Priority Date/Time Associated Diagnosis Comments OUTSIDE IMAGING Routine 03/29/2025 12:52 PM EDT documented in this encounter Results * Outside Imaging Report Only (03/29/2025 12:52 PM EDT) us Historical Provider MD MALIN XR CHEST Final Res ult documented in this encounter Visit Diagnoses Not on filedocumented in this encounter Additional Health Concerns Assessment Noted Time PHQ-2 Depression Total Score: 0 01/02/20 25 10:06 PM EDT documented as of this encounter Care Teams Grain Ii Farmworker Relationship Specialty Start Date End Date Bebeto Wiley MD [address] [place] [address], [address] [place] [address] [email or web address] PCP - General Family Medicine 03/06/21 Nancy Gaitan MD [address] [place] [address] Orthopedic Surgery 12/14/18 Cayla Sahu MD [address] [place] [address], [address] [place] [address] Obstetrics and Gynecology 12/14/18 documented as of this encounter Additional Source Comments The information contained in this document represents components of the legal health record. It is not the complete legal health record.[facility]
--- OUTSIDE RECORDS SUMMARY | 2025-04-18 08:05 | XMS_ITS | Encounter Summary ---
Author Organization [facility] Address [address] [place] [address] [place] [address] Phone Care Team Providers Care Network Design Architect Name Role Phone Nancy Gaitan MD Unavailable [phone] Cayla Sahu MD Unavailable Bebeto Wiley MD Primary Care Provider [phone] Encounter Details Date Type Department Care Team (Late st Contact Info) Description 04/01/2022 Procedure Pass [address] [address] Social History Tobacco Use Types Packs/Day Years [...] (Late st Contact Info) Description 12/15/[address] [address] 07/09/2025 3:10 PM EST Appointment [facility] [address] [place] [address] Bebeto Wiley MD [address] [place] [address], [address] [place] [address] [email or web address] 01/04/2026 1:00 PM EDT Office Visit [facility] Family Medicine [address] [place] [address] Bebeto Wiley MD [address] [place] [address], [address] [place], [place] [id number] [email or web address] documented as of this encounter Visit Diagnoses Not on filedocumented in this encounter Additional Health Concerns Infection Onset Date Last Indicated Resolved Time CoV-Presumed 04/03/2022 04/03/2022 04/24/2022 1:22 AM EDT Assessment Noted Time PHQ-2 Depression Total Score: 1 11/27/19 21 8:47 AM EDT documented as of this encounter Care Teams Network Design Architect Relationship Specialty Start Date End Date Bebeto Wiley MD [address] [place] [address], [address] [place] [address] [email or web address] PCP - General Family Medicine 03/06/21 Nancy Gaitan MD [address] [place] [address] Orthopedic Surgery 12/14/18 Cayla Sahu MD [address] [place] [address], [address] [place] [address] [email or web address] Obstetrics and Gynecology 12/14/18 documented as of this encounter Additional Source Comments The information contained in this document represents components of the legal health record. It is not the complete legal health record.[facility]
--- OUTSIDE RECORDS SUMMARY | 2025-04-18 08:05 | XMS_ITS ---
Author Organization [facility] Address [address] [facility] [address] [place] [address] Phone Care Team Providers Care Beater Boss Name Role Phone Nancy Gaitan MD Unavailable Cayla Sahu MD Unavailable Bebeto Wiley MD Primary Care Provider [phone] Active Problems Problem Noted Date Diagnosed Date [...] for pain. Advised use of heat/ice alternating. [place] balm/icy hot as needed for comfort. Will [...] & Plan (09/14/2022 3:58 PM EST): + [place] Hallpike in office today. Discussed BPPV with [...] of pocket cost concerns (works there in [employer]) Anxiety Current Treatment and Therapy Plans No current plan information found. Past Treatment and Therapy Plans
--- OUTSIDE RECORDS SUMMARY | 2025-04-18 08:05 | XMS_ITS | Encounter Summary ---
Author Organization [facility] Address [address] [facility] [address] [place] [address] Phone Care Team Providers Care Web Knitter Name Role Phone Bebeto Wiley MD Primary Care Provider [phone] Nancy Gaitan MD Unavailable Cayla Sahu MD Unavailable Bebeto Wiley MD Primary Care Provider [phone] Encounter Details Date Type Department Care Team (Late st Contact Info) Description 11/18/2020 Procedure [facility] [address] [address] Social History Tobacco Use Types Packs/Day Years [...] st Contact Info) Description 12/15/2024 Procedure Pass [address] [address] 07/09/2025 3:10 PM EST Appointment [address] [address] Bebeto Wiley MD [address] [place] [address], [address] [place] [address] 01/04/2026 1:00 PM EDT Office Visit [address] [address] Bebeto Wiley MD [address] [place] [address], [address] [place] [address] documented as of this encounter Visit Diagnoses Not on filedocumented in this encounter Additional Health Concerns Infection Onset Date Last Indicated Resolved Time CoV-Presumed 04/03/2022 04/03/2022 04/24/2022 1:22 AM EDT Assessment Noted Time PHQ-2 Depression Total Score: 1 11/27/19 21 8:47 AM EDT documented as of this encounter Care Teams Web Knitter Relationship Specialty Start Date End Date Bebeto Wiley MD [address] [place] [address], [address] [place] [address] PCP - General Family Medicine 07/15/17 03/05/21 Bebeto Wiley MD [address] [place] [address], [address] [place] [address] PCP - General Family Medicine 03/06/21 Nancy Gaitan MD [address] [place] [address] Orthopedic Surgery 12/14/18 Cayla Sahu MD [address] [place] [address], [facility] [address] [place] [address] [email or web address] Obstetrics and Gynecology 12/14/18 documented as of this encounter Additional Source Comments The information contained in this document represents components of the legal health record. It is not the complete legal health record.[facility]
--- OUTSIDE RECORDS SUMMARY | 2025-04-18 08:05 | XMS_ITS | Encounter Summary ---
Author Organization [facility] Address [address] [place] [address] Phone Care Team Providers Care Traffic Recorder Name Role Phone Nancy Gaitan MD Unavailable Cayla Sahu MD Unavailable Bebeto Wiley MD Primary Care Provider +1- [phone] Reason for Referral * MRI/CAT Scan - Closed Specialty Diagnoses / Procedures Referred By Contac t Referred To Contact Radiology Diagnoses Pre-operative cardiovascular examination, high risk surgery Procedures NC Stress Result for Nuclear Stress Test Bebeto Wiley MD Phone: tel: fax: [email or web address] Referral ID Status Reason Start Date Expiration Date Visits Re quested Visits Authorized [id number] Closed 02/22/2024 02/21/2025 1 1 Encounter Details Date Type Department Care Team (Latest Contact Info) Description 02/22/2024 Ancillary Orders [address] [place] [address] Bebeto Wiley MD [address] [facility], [address] [place], [place] [id number] [email or web address] Pre-operative cardiovascular examination, high risk surgery (Primary Dx) Social History Tobacco Use Types Packs/Day Years [...] Contact Info) Description 12/15/2024 Procedure Pass [address] [address] 07/09/2025 3:10 PM EST Appointment [address] [address] Bebeto Wiley MD [address] [place] [address], [address] [address] [email or web address] 01/04/2026 1:00 PM EDT [facility] Family Medicine [address] [place] [address] Bebeto Wiley MD [address] [place] [address], [address] [address] documented as of this encounter Results * NC Stress Result for Nuclear Stress Test (02/22/2024 11:50 AM EDT) Max Predicted Heart Rate 151 bpm [facility] Max BP Systolic 180 mmHg [facility] Max BP Diastolic 90 mmHg [facility] Max HR 148 BPM [facility] Resting HR 90 BPM [facility] Resting BP Systolic 132 mmHg [facility] Resting BP Diastolic 70 mmHg [facility] Peak METS 1.6 METS [facility] Peak HR 104 BPM [facility] Anatomical Region Laterality Modality Heart Other 02/22/2024 10:5 7 AM EDT 02/22/2024 11:49 AM EDT Narrative 02/23/2024 7:31 AM EDT Impression: No ECG changes suggestive of ischemia on the study, await nuclear images. Stress Findings The resting heart rate was 90 BPM. The resting BP was 132/70 mmHg. A peak heart rate of 104 BPM was achieved. ECG REPORT- Test was performed as a walking Regadenoson due to knee pain. 0.4 mg Regadenoson (lexiscan) given IV push over 10 seconds as per protocol immediately followed by injection of Tc99m Sestamibi by [facility] physicist nuclear. 1. EKG - Baseline EKG showed sinus rhythm. After the injection of Lexiscan there were no ischemic EKG changes.. 2. SYMPTOMS - No chest pain 3. PHYSIOLOGY - Resting HR was 90 bpm . After Lexiscan injection, HR 148 bpm 4. ARRHYTHMIAS - None Conclusion - There were no EKG changes suggestive for ischemia. There were no reported symptoms concerning for angina. Nuclear images pending and will be reported separately. Gillian Jackson NP with Dr. Kelsey Response to Stress The patient exercised for minutes and seconds, achieving 1.6 METS at peak exercise. Baseline blood pressure was 132/70 mmHg, and baseline heart rate was 90 bpm. The patient achieved a peak heart rate of 104 bpm, which is% of their maximum predicted heart rate. us Bebeto Wiley MD CV NM CARDIAC Final Resu lt documented in this encounter Visit Diagnoses Diagnosis Pre-operative cardiovascular examination, high risk surgery- Primary Pre-operative cardiovascular examination Pre-operative cardiovascular examination, high risk surgery Pre-operative cardiovascular examination Visit for screening mammogram documented in this encounter Additional Health Concerns Assessment Noted Time PHQ-2 Depression Total Score: 2 12/30/19 24 5:03 PM EDT documented as of this encounter Care Teams Traffic Recorder Relationship Specialty Start Date End Date Bebeto Wiley MD [address] [place] [address], [address] [place] [address] [email or web address] PCP - General Family Medicine 03/06/21 Nancy Gaitan MD [address] [place] [address] Orthopedic Surgery 12/14/18 Cayla Sahu MD [address] [place] [address], [address] [place] [address] Obstetrics and Gynecology 12/14/18 documented as of this encounter Additional Source Comments The information contained in this document represents components of the legal health record. It is not the complete legal health record.[facility]
--- OUTSIDE RECORDS SUMMARY | 2025-04-18 08:05 | XMS_ITS | Encounter Summary ---
Author Organization [facility] Address [address] [place] [address] Phone Care Team Providers Care Woodworking Machine Offbearer Name Role Phone Nancy Gaitan MD Unavailable Cayla Sahu MD Unavailable Bebeto Wiley MD Primary Care Provider +1- [phone] Encounter Details Date Type Department Care Team (Late st Contact Info) Description 02/04/2023 Telephone [facility] [address] [place] [address] Zuleyma Miller, DUONG Social History Tobacco Use Types Packs/Day Years [...] st Contact Info) Description 12/15/2024 Procedure Pass [address] [address] 07/09/2025 3:10 PM EST Appointment [address] [address] Bebeto Wiley MD [address] [place] [address], [address] [place] [address] 01/04/2026 1:00 PM EDT Office Visit [address] [address] Bebeto Wiley MD [address] [place] [address], [address] [place] [address] documented as of this encounter Visit Diagnoses Not on filedocumented in this encounter Additional Health Concerns Assessment Noted Time PHQ-2 Depression Total Score: 2 12/30/19 23 1:03 PM EDT documented as of this encounter Care Teams Woodworking Machine Offbearer Relationship Specialty Start Date End Date Bebeto Wiley MD [address] [place] [address], [address] [place] [address] PCP - General Family Medicine 03/06/21 Nancy Gaitan MD [address] [place] [address] Orthopedic Surgery 12/14/18 Cayla Sahu MD [address] [facility], [address] [address] [email or web address] Obstetrics and Gynecology 12/14/18 documented as of this encounter Additional Source Comments The information contained in this document represents components of the legal health record. It is not the complete legal health record.[facility]
--- OUTSIDE RECORDS SUMMARY | 2025-04-18 08:06 | XMS_ITS | Clinical Summary ---
Author Organization [facility] Address [address] [place] [address] Care Team Providers Care Forging Press Lever Tender Name Role Phone Bebeto Wiley MD Primary Care Provider +1- [phone] Allergies Active Allergy Reactions Criticality Noted Date [...] 05/23/2023 05/23/2013, 04/04/1999 COVID-19 Vaccine (3 - 2024-2 6 season) 2025 10/30/2020, 10/02/2020 Influenza Vaccine (#1) 2025 0, [...] age to complete this topic Care Teams Forging Press Lever Tender Relationship Specialty Start Date End Date Bebeto Wiley MD [address] [address] PCP - General Family Medicine 04/19/17
== END 2025-04-18 08:13 | disposition home or self-care (01) ==
LOC: HO.HOS 07:55
PROVIDERS: PCP Family Medicine; Visit Provider Orthopaedic Surgery
DX: M54.2 Cervicalgia (principal); M48.02 Spinal stenosis, cervical region
CPT/HCPCS: 99213; G2211

== ENCOUNTER → 2025-04-18 07:55 | Outpatient (BNVA) | payer MEDICARE, SELFPAY | PROVIDERS: PCP Family Medicine; Visit Provider Orthopaedic Surgery | DX: Z71.2 Person consulting for explanation of examination or test findings (principal); M54.2 Cervicalgia; M48.02 Spinal stenosis, cervical region | CPT/HCPCS: 99212 ==

== ENCOUNTER 2025-04-26 12:57 | Outpatient (AMB) | payer MEDICARE, SELFPAY ==
--- OUTSIDE RECORDS SUMMARY | 2012-12-08 | XMS_ITS | Encounter Summary ---
Author Organization [facility] Address [address] [facility] [address] [place] [address] Phone Care Team Providers Care User Experience Developer Name Role Phone Unavailable Primary Care Provider Unavailabl e Encounter Details Date Type Department Care Team (Late st Contact Info) Description 12/08/2012 Hospital Encounter [facility],Outside Imaging 30 [place] [address] System, Provider Not In, [facility] [address] [address] Social History Tobacco Use Types Packs/Day Years [...] 11:51 AM EDT Bunny Durham RN * [place] Suicide Severity Rating Scale (Screener/Recent Self-Report) Question [...] st Contact Info) Description 12/15/2024 Procedure Pass [address] [address] 07/09/2025 3:10 PM EST Appointment [address] [address] Bebeto Wiley MD [address] [place] [address], [address] [place] [address] 01/04/2026 1:00 PM EDT Office Visit [facility] Medicine [address] [place] [address] Bebeto Wiley MD [address] [place] [address], [address] [place] [address] [email or web address] documented as of this encounter Procedures Procedure [...] It is not the complete legal health record.[facility]
--- OUTSIDE RECORDS SUMMARY | 2023-04-17 12:25 | XMS_ITS | Encounter Summary ---
Author Organization [facility] Address [address] [facility] [address] [place] [address] Phone Care Team Providers Care Residential Construction Instructor Name Role Phone Nancy Gaitan MD Unavailable Cayla Sahu MD Unavailable Bebeto Wiley MD Primary Care Provider [phone] Encounter Details Date Type Department Care Team (Late st Contact Info) Description 04/17/2023 12:25 PM EDT Hospital Encounter [facility] Ur[facility] Care [address] [place] [address] Lynne Nobles FNP [address] [place] [address] [email or web address] Social History Tobacco Use Types Packs/Day [...] 03/01/2024 11:51 AM Bunny Rowland, DUONG * [place] Suicide Severity Rating Scale (Screener/Recent Self-Report) Question [...] st Contact Info) Description 12/15/2024 Procedure Pass [address] [address] 07/09/2025 3:10 PM EST Appointment [address] [address] Bebeto Wiley MD [address] [place] [address], [address] [place] [address] [email or web address] 01/04/2026 1:00 PM EDT Office Visit [facility] Medicine [address] [place] [address] [place] [address] Bebeto Wiley MD [address] [facility], [address] [place] [address] [email or web address] documented as of this encounter Procedures Procedure [...] IMPRESSION: No fracture or dislocation. Lynne Nobles COGNOS REPORT DEVELOPER IMG XR LOWER EXTREMITY Haley l Result documented in this encounter Visit Diagnoses Not on filedocumented in this encounter Additional Health Concerns Assessment Noted Time PHQ-2 Depression Total Score: 2 12/30/19 23 1:03 PM EDT documented as of this encounter Care Teams Residential Construction Instructor Relationship Specialty Start Date End Date Bebeto Wiley MD [address] [place] [address], [address] [place] [address] [email or web address] PCP - General Family Medicine 03/06/21 Nancy Gaitan MD [address] [place], [place] [address] [address] Orthopedic Surgery 12/14/18 Cayla Sahu MD [address] [place] [address], [address] [place] [address] [email or web address] Obstetrics and Gynecology 12/14/18 documented as of this encounter Additional Source Comments The information contained in this document represents components of the legal health record. It is not the complete legal health record.[facility]
[2025-04-26 13:10] VITALS: BMI 29.3
--- NOTE | 2025-04-26 13:10 | HO.SPINEOV ---
Vital Signs 04/26/25 13:10 Height 5 ft 2 in Weight 160 lb BMI 29.3 Intake Visit Reasons: severe cervical stenosis Intake Note: Ms. Gallegos is here today c/o severe neck pain that radiates down to the left arm. Computer Peripheral Equipment Operator Required: No Allergies hydrocodone (From Vicodin) Allergy (Severe, Verified 04/26/25 13:11) Nausea methocarbamol (From Robaxin) Allergy (Severe, Verified 04/26/25 13:11) Hives Physical Exam Vital Signs: BMI result Body Mass Index 29.3 Assessment & Plan Assessment & Plan (1) Cervical stenosis of spinal canal: Code(s): M48.02 - Spinal stenosis, cervical region Category: Medical Plan Dear Dr Hammond, Thank you for referring Mrs Gallegos to our office today. She is a very nice 69-year-old woman who presents to the office today for evaluation of neck pain amongst other symptoms including numbness of her right hand, weakness of her left arm as well as intermittent pain radiating down from her trapezius into her shoulder. The patient reports she also has issues with her balance, especially on the left side and feeling some degree of urinary symptoms as well. She underwent a cervical MRI for workup and it showed advanced degenerative disc disease in her cervical spine amongst other things including severe stenosis at C5-6 with cord signal change. PMH: History of hypothyroidism, high cholesterol, scalp psoriasis, bilateral knee replacement, appendectomy, orthopedic surgery on her left thumb, several bladder tumors removed between 1986 and 2014. It was thought these were secondary to her smoking. She has had bilateral carpal tunnel release. No cardiopulmonary disease, liver or kidney problems, bleeding disorders or blood clots. No problems with infections. Social hx: Occasional alcohol, occasional marijuana, she does not smoke cigarettes Medications: Lipitor levothyroxine, multivitamin, [place] threes and vitamin-D Allergies: Vicodin Robaxin Physical exam: Awake alert oriented no acute distress, she is able stand up out of a chair independently, walk down the hallways with normal gait, but with tandem gait testing she is unstable having to hold onto the wall. Motor examination reveals some mild left hand weakness and mild left iliopsoas weakness which I would rate as 4-5 both. Rest of her motor examination is normal. Diffusely hyperreflexic with Davalos's sign and clonus in both ankles Imaging review: Cervical MRI done at [facility], cervical x-ray done in the office today. Cervical MRI shows diffuse degenerative disc disease of the cervical spine with moderate stenosis at C2-3. The radiologist suggests there may be cord signal change behind the body of C3. C5-6 shows severe stenosis with cord signal change behind the body of C6. There was also moderate stenosis at C4-5 and severe degenerative disc disease as well. Flexion-extension x-rays showed no instability. Impression: 69-year-old female presents for evaluation of neck pain in the setting of diffuse degenerative disc disease in the cervical spine, who also has overlapping myelopathic symptoms and physical exam findings as outlined above. We sat down with the patient, discuss her MRI and reviewed the images with her together. Because of the cord signal change in the hyperreflexia in the setting of symptoms including numbness of her right hand, gait imbalance and feelings of weakness on the left arm, Dr. Sutton believes the safest thing to do here is to treat the cervical stenosis with anterior cervical diskectomy and fusion. We considered the C2-3 area, but we disagree with the radiology read, there is not cord signal change and there is enough room around the spinal cord for the CSF that he does not think this needs to be addressed. 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 She understands this is being done for decompression of the spinal cord which is more related to her other neurological symptoms. We have tentatively booked her for May 31. She will stop her fish oil now so it clears out of her system. The patient was given risk and benefits of surgery including but not limited to infection, hematoma, nerve injury, durotomy, weakness, persistent pain. We discussed that if undergoing anterior cervical fusion there may be trachea or esophageal injury, hoarseness, or difficulty swallowing. There is a risk of pseudoarthrosis or instrumentation failure if undergoing cervical fusion. We also reviewed the option to continue with conservative treatment and patient wishes to proceed with surgery. They are aware they should stop NSAIDs 7 days prior to surgery. All questions were answered to the best of our ability. If there is anything about this patient's medical history that we have overlooked or concerns you have about us proceeding with surgery we would appreciate any input you can offer Thank you for allowing us to care for your patient. The total time spent with this visit with this patient was 45 minutes reviewing history, physical exam, cervical imaging review, and implementation of treatment plan or further diagnostic testing Moe Sutton MD,PhD [facility] Orders: Orders XR cervical spine 4V Today M48.02 - Spinal stenosis, cervical region Coding Level of Care Code New Pt Level 4 (67407) Diagnoses Cervical stenosis of spinal canal M48.02
--- OUTSIDE RECORDS SUMMARY | 2025-04-26 14:59 | XMS_ITS | Encounter Summary ---
Author Organization [facility] Address [address] [facility] [address] [place] [address] Phone Care Team Providers Care Global Compensation Director Name Role Phone Nancy Gaitan MD Unavailable Cayla Sahu MD Unavailable Bebeto Wiley MD Primary Care Provider [phone]- [phone] Encounter Details Date Type Department Care Team (Late st Contact Info) Description 03/11/2022 Procedure Pass OR Admitting Dept - Virtual Department [address] [place] [address] Social History Tobacco Use Types Packs/Day Years [...] 4:33 AM EDT Melissa Russell RN * [place] Suicide Severity Rating Scale (Screener/Recent Self-Report) Question Answer Date of Assessment Author 1. Wish to be (Past 1 Month) No 03/11/2022 4:33 AM EDT Melissa Russell, DUONG 2. Non-Specific Active Suicidal Thoughts (Past 1 Month) No 03/11/2022 4:33 AM EDT Meilssa Russell RN 6. Suicidal Behavior (Lifetime) No 03/11/2022 4:33 AM EDT Melissa Russell RN documented as of this encounter Plan of Treatment Upcoming Encounters Date Type Department Care Team (Late st Contact Info) Description 12/15/2024 Procedure Pass [address] [address] 07/09/2025 3:10 PM EST Appointment [address] [address] Bebeto Wiley MD [address] [place] [address], [address] [place] [address] [email or web address] 01/04/2026 1:00 PM EDT Office Visit [address] [address] Bebeto Wiley MD [address] [place] [address], [address] [place] [address] [email or web address] documented as of this encounter Visit Diagnoses Not on filedocumented in this encounter Additional Health Concerns Infection Onset Date Last Indicated Resolved Time CoV-Presumed 04/03/2022 04/03/2022 04/24/2022 1:22 AM EDT Assessment Noted Time PHQ-2 Depression Total Score: 1 11/27/19 21 8:47 AM EDT documented as of this encounter Care Teams Global Compensation Director Relationship Specialty Start Date End Date Bebeto Wiley MD [address] [place] [address], [address] [place] [address] [email or web address] PCP - General Family Medicine 03/06/21 Nancy Gaitan MD [address] [place], [place] [address] [address] Orthopedic Surgery 12/14/18 Cayla Sahu MD [address] [place] [address], [address] [place] [address] [email or web address] Obstetrics and Gynecology 12/14/18 documented as of this encounter Additional Source Comments The information contained in this document represents components of the legal health record. It is not the complete legal health record.[facility]
--- OUTSIDE RECORDS SUMMARY | 2025-04-26 14:59 | XMS_ITS | Clinical Summary ---
Author Organization [facility] Address [address] [place] [address] Care Team Providers Care Solder Making Laborer Name Role Phone Bebeto Wiley MD Primary Care Provider [phone] Immunizations Name Administration Dates Next Due Moderna [...] Medical History Medical History Date Comments Cancer ([facility] V24, [facility] V28) DX:Cancer (HCC) Thyroid disorder DX:Thyroid diso [...] Procedure Name Priority Date/Time Associated Diagnosis Comments [facility] SCREENING DIGITAL Routine 12/15/2018 1:07 PM EDT Encounter for screening mammogram for malignant neoplasm of breast from Last 3 Months or Most Recently Relevant to Health Maintenance Results * [facility] SCREENING DIGITAL (12/15/2018 1:07 PM EDT) Anatomical Region Laterality Modality Mammography 12/15/2018 10:5 2 AM EDT Narrative 12/15/2018 1:07 PM EDT [facility] Diagnostic Imaging Department [address] [place] [address] Patient: GEE GALLEGOS /Age/Sex: 1955 - 63 - F Unit#: [id number] Location/Status: SPDIMAM/REG CLI Mnemonic/Ordering Site: [facility] Ordering Physician: NAM SAHU MD [...] for the next mammogram: CPT II 7025F [id number] Dictating Physician: NATA CHAO MD Electronically Signed by: NATA CHAO MD Dic Date/Time: 12/15/18 1305 Sign date/Time: 12/15/18 1307 Procedure Note Nata Chao MD - 07/28/2022 [facility] Diagnostic Imaging Department [address] [place] [address] Patient: GEE GALLEGOS /Age/Sex: 1955 - 63 - F Unit#: [id number] Location/Status: SPDIMAM/REG CLI Mnemonic/Ordering Site: [facility] Ordering Physician: NAM SAHU MD [...] for the next mammogram: CPT II 7025F [id number] Dictating Physician: NATA CHAO MD Electronically Signed by: NATA CHAO MD Dic Date/Time: 12/15/18 1305 Sign date/Time: 12/15/18 1307 Nam Sahu MD IMG BI PROCEDURES Final Result from Last 3 Months or Most Recently Relevant to Health Maintenance Care Teams Solder Making Laborer Relationship Specialty Start Date End Date Bebeto Wiley MD [address] [address] PCP - General 09/12/10
--- OUTSIDE RECORDS SUMMARY | 2025-04-26 14:59 | XMS_ITS | Encounter Summary ---
Author Organization [facility] Address [address] [facility] [address] [place] [address] Phone Care Team Providers Care Butter Melter Name Role Phone Nancy Gaitan MD Unavailable Cayla Sahu MD Unavailable Bebeto Wiley MD Primary Care Provider [phone]- [phone] Encounter Details Date Type Department Care Team (Late st Contact Info) Description 09/15/2021 Procedure Pass [facility], Ct Scan - [address] [address] Social History Tobacco Use Types Packs/Day Years [...] 09/15/2021 4:57 PM Kelsey Lopez RN * [place] Suicide Severity Rating Scale (Screener/Recent Self-Report) Question [...] st Contact Info) Description 12/15/2024 Procedure Pass [address] [address] 07/09/2025 3:10 PM EST Appointment [address] [address] Bebeto Wiley MD [address] [place] [address], [address] [place] [address] [email or web address] 01/04/2026 1:00 PM EDT Office Visit [address] [address] Bebeto Wiley MD [address] [place] [address], [address] [place] [address] [email or web address] documented as of this encounter Visit Diagnoses Not on filedocumented in this encounter Additional Health Concerns Infection Onset Date Last Indicated Resolved Time CoV-Presumed 04/03/2022 04/03/2022 04/24/2022 1:22 AM EDT Assessment Noted Time PHQ-2 Depression Total Score: 1 11/27/19 21 8:47 AM EDT documented as of this encounter Care Teams Butter Melter Relationship Specialty Start Date End Date Bebeto Wiley MD [address] [place] [address], [address] [place] [address] [email or web address] PCP - General Family Medicine 03/06/21 Nancy Gaitan MD [address] [place], [place] [address]am[address] [place] [address] Orthopedic Surgery 12/14/18 Cayla Sahu MD [address] [place] [address], [facility] [address] [place] [address] [email or web address] Obstetrics and Gynecology 12/14/18 documented as of this encounter Additional Source Comments The information contained in this document represents components of the legal health record. It is not the complete legal health record.[facility]
--- OUTSIDE RECORDS SUMMARY | 2025-04-26 14:59 | XMS_ITS | Encounter Summary ---
Author Organization [facility] Address [address] [facility] [address] [place] [address] Phone Care Team Providers Care Source Inspector Name Role Phone Nancy Gaitan MD Unavailable [phone] Cayla Sahu MD Unavailable Bebeto Wiley MD Primary Care Provider [phone]- [phone] Encounter Details Date Type Department Care Team (Late st Contact Info) Description 11/10/2022 Procedure Pass OR Admitting Dept - [facility] Department [address] [place] [address] Social History Tobacco Use Types Packs/Day Years [...] Info) Description 12/15/2024 Procedure Pass [facility], [facility] [address] [place] [address] 07/09/2025 3:10 PM EST Appointment [facility], [facility] [address] [place] [address] Bebeto Wiley MD [address] [facility], [address] [place] [address] 01/04/2026 1:00 PM EDT Office Visit [facility] [address] [place] [address] Bebeto Wiley MD [address] [facility], [address] [place] [address] documented as of this encounter Visit Diagnoses Not on filedocumented in this encounter Additional Health Concerns Assessment Noted Time PHQ-2 Depression Total Score: 1 11/27/19 21 8:47 AM EDT documented as of this encounter Care Teams Source Inspector Relationship Specialty Start Date End Date Bebeto Wiley MD [address] [facility], [address] [place] [address] PCP - General Family Medicine 03/06/21 Nancy Gaitan MD [address] [place] [address] Orthopedic Surgery 12/14/18 Cayla Sahu MD [address] [place] [address], [address] [place] [address] Obstetrics and Gynecology 12/14/18 documented as of this encounter Additional Source Comments The information contained in this document represents components of the legal health record. It is not the complete legal health record.[facility]
--- OUTSIDE RECORDS SUMMARY | 2025-04-26 14:59 | XMS_ITS | Encounter Summary ---
Author Organization [facility] Address [address] [facility] [address] [place] [address] Phone Care Team Providers Care Second Cook And Baker Name Role Phone Nancy Gaitan MD Unavailable Cayla Sahu MD Unavailable Bebeto Wiley MD Primary Care Provider +1- [phone] Encounter Details Date Type Department Care Team (Late st Contact Info) Description 12/06/2023 Procedure Pass [facility], [address] [address] Social History Tobacco Use Types Packs/Day Years [...] st Contact Info) Description 12/15/2024 Procedure Pass [address] [address] 07/09/2025 3:10 PM EST Appointment [facility] [address] [place] [address] Bebeto Wiley MD [address] [place] [address], [address] [place] [address] [email or web address] 01/04/2026 1:00 PM EDT Office Visit [address] [address] Bebeto Wiley MD [address] [place] [address], [address] [place] [address] documented as of this encounter Visit Diagnoses Not on filedocumented in this encounter Additional Health Concerns Assessment Noted Time PHQ-2 Depression Total Score: 2 12/30/19 24 5:03 PM EDT documented as of this encounter Care Teams Second Cook And Baker Relationship Specialty Start Date End Date Bebeto Wiley MD [address] [place] [address], [address] [place] [address] PCP - General Family Medicine 03/06/21 Nancy Gaitan MD [facility] [place] [address] Orthopedic Surgery 12/14/18 Cayla Sahu MD [address] [place] [address], [address] [place] [address] [email or web address] Obstetrics and Gynecology 12/14/18 documented as of this encounter Additional Source Comments The information contained in this document represents components of the legal health record. It is not the complete legal health record.[facility]
--- OUTSIDE RECORDS SUMMARY | 2025-04-26 14:59 | XMS_ITS | Encounter Summary ---
Author Organization [facility] Address [address] [facility] [address] [place] [address] Phone Care Team Providers Care Belly Dump Driver Name Role Phone Nancy Gaitan MD Unavailable Cayla Sahu MD Unavailable Bebeto Wiley MD Primary Care Provider +1- [phone] Reason for Visit * Reason Comments Medication Refill Encounter Details Date Type Department Care Team (Late st Contact Info) Description 02/24/2025 Refill [facility] [address] [place] [address] Bebeto Wiley MD [address] [facility], [address] [place], [place] [id number] [email or web address] Medication Refill Social History Tobacco Use Types [...] 01/02/2025 Bebeto Wiley MD - Family Medicine [facility] > Requested f/u: Return in about 53 weeks (around 01/08/2026), or smawv. Upcoming visit: 01/04/2026 Bebeto Wiley MD - Family Medicine [facility] ACTIONS TAKEN BY Naila Cabrera MA - [...] Contact Info) Description 12/15/2024 Procedure Pass [address] [address] 07/09/2025 3:10 PM EST Appointment [facility] 30 [place] [address] Bebeto Wiley MD [address] [place] [address], [address] [place] [address] 01/04/2026 1:00 PM EDT Office Visit [address] [address] Bebeto Wiley MD [address] [place] [address], [address] [address] documented as of this encounter Visit Diagnoses Not on filedocumented in this encounter Additional Health Concerns Assessment Noted Time PHQ-2 Depression Total Score: 0 01/02/20 25 10:06 PM EDT documented as of this encounter Care Teams Belly Dump Driver Relationship Specialty Start Date End Date Bebeto Wiley MD [address] [place] [address], [address] [place] [address] PCP - General Family Medicine 03/06/21 Nancy Gaitan MD [facility] [place] [address] Orthopedic Surgery 12/14/18 Cayla Sahu MD [address] [place] [address], [address] [place] [address] Obstetrics and Gynecology 12/14/18 documented as of this encounter Additional Source Comments The information contained in this document represents components of the legal health record. It is not the complete legal health record.[facility]
--- OUTSIDE RECORDS SUMMARY | 2025-04-26 14:59 | XMS_ITS | Encounter Summary ---
Author Organization [facility] Address [address] [facility] [address] [place] [address] Phone Care Team Providers Care Filenet Architect Name Role Phone Nancy Gaitan MD Unavailable Cayla Sahu MD Unavailable Bebeto Wiley MD Primary Care Provider +1- [phone] Encounter Details Date Type Department Care Team (Late st Contact Info) Description 06/05/2024 Procedure Pass [facility] [address] [place] [address] Social History Tobacco Use Types Packs/Day Years [...] st Contact Info) Description 12/15/2024 Procedure Pass [address] [address] 07/09/2025 3:10 PM EST Appointment [address] [address] Bebeto Wiley MD [address] [place] [address], [address] [address] [email or web address] 01/04/2026 1:00 PM EDT Office Visit [facility] Family Medicine [address] [place] [address] Bebeto Wiley MD [address] [place] [address], [address] [address] [email or web address] documented as of this encounter Visit Diagnoses Not on filedocumented in this encounter Additional Health Concerns Assessment Noted Time PHQ-2 Depression Total Score: 2 12/30/19 5:03 PM EDT documented as of this encounter Care Teams Filenet Architect Relationship Specialty Start Date End Date Bebeto Wiley MD [address] [place] [address], [address] [place] [address] [email or web address] PCP - General Family Medicine 03/06/21 Nancy Gaitan MD [address] [place], [place] [address]am[address] [place] [address] Orthopedic Surgery 12/14/18 Cayla Sahu MD [address] [place] [address] [address] [place] [address] [email or web address] Obstetrics and Gynecology 12/14/18 documented as of this encounter Additional Source Comments The information contained in this document represents components of the legal health record. It is not the complete legal health record.[facility]
--- OUTSIDE RECORDS SUMMARY | 2025-04-26 14:59 | XMS_ITS | Encounter Summary ---
Author Organization [facility] Address [address] [facility] [address] [place] [address] Phone Care Team Providers Care Product Management Manager Name Role Phone Nancy Gaitan MD Unavailable Cayla Sahu MD Unavailable Bebeto Wiley MD Primary Care Provider +1- [phone] Encounter Details Date Type Department Care Team (Late st Contact Info) Description 03/11/2022 Procedure Pass [facility], Ct Scan - [address] [address] Social History Tobacco Use Types Packs/Day Years [...] 4:33 AM EDT Melissa Russell RN * [place] Suicide Severity Rating Scale (Screener/Recent Self-Report) Question [...] Contact Info) Description 12/15/2024 Procedure Pass [address] [address] 07/09/2025 3:10 PM EST Appointment [address] [address] Bebeto Wiley MD [address] [place] [address], [address] [place] [address] [email or web address] 01/04/2026 1:00 PM EDT Office Visit [facility] Medicine [address] [place] [address] Bebeto Wiley MD [address] [place] [address], [address] [place] [address] [email or web address] documented as of this encounter Visit Diagnoses Not on filedocumented in this encounter Additional Health Concerns Infection Onset Date Last Indicated Resolved Time CoV-Presumed 04/03/2022 04/03/2022 04/24/2022 1:22 AM EDT Assessment Noted Time PHQ-2 Depression Total Score: 1 11/27/19 21 8:47 AM EDT documented as of this encounter Care Teams Product Management Manager Relationship Specialty Start Date End Date Bebeto Wiley MD [address] [place] [address], [address] [place] [address] [email or web address] PCP - General Family Medicine 03/06/21 Nancy Gaitan MD [address] [facility] [place] [address] Orthopedic Surgery 12/14/18 Cayla Sahu MD [address] [place] [address] 102 [place] [address] [email or web address] Obstetrics and Gynecology 12/14/18 documented as of this encounter Additional Source Comments The information contained in this document represents components of the legal health record. It is not the complete legal health record.[facility]
--- OUTSIDE RECORDS SUMMARY | 2025-04-26 14:59 | XMS_ITS | Encounter Summary ---
Author Organization [facility] Address [address] [facility] [address] [place] [address] Phone Care Team Providers Care Leasing Assistant Name Role Phone Nancy Gaitan MD Unavailable Cayla Sahu MD Unavailable Bebeto Wiley MD Primary Care Provider +1- [phone] Encounter Details Date Type Department Care Team (Late st Contact Info) Description 11/19/2021 Procedure Pass [address] [address] Social History Tobacco Use Types Packs/Day Years [...] st Contact Info) Description 12/15/2024 Procedure Pass [facility], [address] [address] 07/09/2025 3:10 PM EST Appointment [facility], [facility] 30 [place] [address] Bebeto Wiley MD [address] [facility], [address] [place] [address] [email or web address] 01/04/2026 1:00 PM EDT Office Visit [facility] Family Medicine [address] [place] [address] Bebeto Wiley MD [address] [place] [address], [address] [place] [address] [email or web address] documented as of this encounter Visit Diagnoses Not on filedocumented in this encounter Additional Health Concerns Infection Onset Date Last Indicated Resolved Time CoV-Presumed 04/03/2022 04/03/2022 04/24/2022 1:22 AM EDT Assessment Noted Time PHQ-2 Depression Total Score: 1 11/27/19 21 8:47 AM EDT documented as of this encounter Care Teams Leasing Assistant Relationship Specialty Start Date End Date Bebeto Wiley MD [address] [place] [address], [address] [place] [address] [email or web address] PCP - General Family Medicine 03/06/21 Nancy Gaitan MD [address] [place] [address] Orthopedic Surgery 12/14/18 Cayla Sahu MD [address] [place] [address], [address] [place] [address] [email or web address] Obstetrics and Gynecology 12/14/18 documented as of this encounter Additional Source Comments The information contained in this document represents components of the legal health record. It is not the complete legal health record.[facility]
--- OUTSIDE RECORDS SUMMARY | 2025-04-26 14:59 | XMS_ITS | Encounter Summary ---
Author Organization [facility] Address [address] [facility] [address] [place] [address] Phone Care Team Providers Care Project Manager Finance Name Role Phone Nancy Gaitan MD Unavailable Cayla Sahu MD Unavailable Bebeto Wiley MD Primary Care Provider +1- [phone] Encounter Details Date Type Department Care Team (Late st Contact Info) Description 09/15/2021 Procedure Pass [facility], Ct Scan - [address] [address] Social History Tobacco Use Types Packs/Day Years [...] 09/15/2021 4:57 PM Kelsey Lopez RN * [place] Suicide Severity Rating Scale (Screener/Recent Self-Report) Question [...] st Contact Info) Description 12/15/2024 Procedure Pass [address] [address] 07/09/2025 3:10 PM EST Appointment [address] [address] Bebeto Wiley MD [address] [place] [address], [address] [place] [address] [email or web address] 01/04/2026 1:00 PM EDT Office Visit [address] [address] Bebeto Wiley MD [address] [place] [address], [address] [place] [address] [email or web address] documented as of this encounter Visit Diagnoses Not on filedocumented in this encounter Additional Health Concerns Infection Onset Date Last Indicated Resolved Time CoV-Presumed 04/03/2022 04/03/2022 04/24/2022 1:22 AM EDT Assessment Noted Time PHQ-2 Depression Total Score: 1 11/27/19 21 8:47 AM EDT documented as of this encounter Care Teams Project Manager Finance Relationship Specialty Start Date End Date Bebeto Wiley MD [address] [place] [address], [address] [place] [address] [email or web address] PCP - General Family Medicine 03/06/21 Nancy Gaitan MD [address] [place], [place] [address]am[address] [place] [address] Orthopedic Surgery 12/14/18 Cayla Sahu MD [address] [place] [address], [facility] 102 [place] [address] [email or web address] Obstetrics and Gynecology 12/14/18 documented as of this encounter Additional Source Comments The information contained in this document represents components of the legal health record. It is not the complete legal health record.[facility]
--- OUTSIDE RECORDS SUMMARY | 2025-04-26 14:59 | XMS_ITS | Encounter Summary ---
Author Organization [facility] Address [address] [facility] [address] [place] [address] Phone Care Team Providers Care Indian Trader Name Role Phone Nancy Gaitan MD Unavailable Cayla Sahu MD Unavailable Bebeto Wiley MD Primary Care Provider +1- [phone] Encounter Details Date Type Department Care Team (Late st Contact Info) Description 12/23/2022 Procedure Pass [facility], Ct Scan - [address] [address] Social History Tobacco Use Types Packs/Day Years [...] st Contact Info) Description 12/15/2024 Procedure Pass [address] [address] 07/09/2025 3:10 PM EST Appointment [facility] 30 [place] [address] Bebeto Wiley MD [address] [place] [address], [address] [place] [address] 01/04/2026 1:00 PM EDT Office Visit [address] [address] Bebeto Wiley MD [address] [place] [address], [address] [place] [address] documented as of this encounter Visit Diagnoses Not on filedocumented in this encounter Additional Health Concerns Assessment Noted Time PHQ-2 Depression Total Score: 2 12/30/19 23 1:03 PM EDT documented as of this encounter Care Teams Indian Trader Relationship Specialty Start Date End Date Bebeto Wiley MD [address] [place] [address], [address] [place] [address] PCP - General Family Medicine 03/06/21 Nancy Gaitan MD [address] [place] [address] Orthopedic Surgery 12/14/18 Cayla Sahu MD [address] [place] [address], [address] [place] [address] Obstetrics and Gynecology 12/14/18 documented as of this encounter Additional Source Comments The information contained in this document represents components of the legal health record. It is not the complete legal health record.[facility]
--- OUTSIDE RECORDS SUMMARY | 2025-04-26 15:00 | XMS_ITS | Encounter Summary ---
Author Organization [facility] Address [address] [facility] [address] [place] [address] Phone Care Team Providers Care Hand Ii Thermal Cutter Name Role Phone Bebeto Wiley MD Primary Care Provider +1- [phone] Nancy Gaitan MD Unavailable Cayla Sahu MD Unavailable Bebeto Wiley MD Primary Care Provider +1- [phone] Encounter Details Date Type Department Care Team (Late st Contact Info) Description 07/25/2020 Ancillary Orders [facility],Outside Imaging 30 [place], [place] [address]60 System, Provider Not In, [facility] [address] [address] Social History Tobacco Use Types Packs/Day Years [...] st Contact Info) Description 12/15/2024 Procedure Pass [facility] 30 [place] [address] 07/09/2025 3:10 PM EST Appointment [facility] 30 [place] [address] Bebeto Wiley MD [address] [place] [address], [address] [place] [address] [email or web address] 01/04/2026 1:00 PM EDT Office Visit [address] [address] Bebeto Wiley MD [address] [place] [address], [address] [place] [address] documented as of this encounter Results * [...] documented as of this encounter Care Teams Hand Ii Thermal Cutter Relationship Specialty Start Date End Date Bebeto Wiley MD [address] [place] [address], [address] [place] [address] PCP - General Family Medicine 07/15/17 03/05/21 Bebeto Wiley MD [address] [place] [address], [address] [place] [address] [email or web address] PCP - General Family Medicine 03/06/21 Nancy Gaitan MD [address] [place] [address] Orthopedic Surgery 12/14/18 Cayla Sahu MD [address] [facility], [address] [place] [address] [email or web address] Obstetrics and Gynecology 12/14/18 documented as of this encounter Additional Source Comments The information contained in this document represents components of the legal health record. It is not the complete legal health record.[facility]
--- OUTSIDE RECORDS SUMMARY | 2025-04-26 15:00 | XMS_ITS | Encounter Summary ---
Author Organization [facility] Address [address] [facility] [address] [place] [address] Phone Care Team Providers Care Software Controls Engineer Name Role Phone Nancy Gaitan MD Unavailable Cayla Sahu MD Unavailable Bebeto Wiley MD Primary Care Provider +1- [phone] Encounter Details Date Type Department Care Team (Late st Contact Info) Description 02/04/2023 Telephone [facility] [address] [place] [address] Zuleyma Miller, DUONG Social History Tobacco [...] st Contact Info) Description 12/15/2024 Procedure Pass [address] [address] 07/09/2025 3:10 PM EST Appointment [address] [address] Bebeto Wiley MD [address] [place] [address], [address] [place] [address] 01/04/2026 1:00 PM EDT Office Visit [address] [address] Bebeto Wiley MD [address] [place] [address], [address] [place] [address] documented as of this encounter Visit Diagnoses Not on filedocumented in this encounter Additional Health Concerns Assessment Noted Time PHQ-2 Depression Total Score: 2 12/30/19 23 1:03 PM EDT documented as of this encounter Care Teams Software Controls Engineer Relationship Specialty Start Date End Date Bebeto Wiley MD [address] [place] [address], [address] [place] [address] PCP - General Family Medicine 03/06/21 Nancy Gaitan MD [address] [place] [address] Orthopedic Surgery 12/14/18 Cayla Sahu MD 22 [facility], [address] [address] [email or web address] Obstetrics and Gynecology 12/14/18 documented as of this encounter Additional Source Comments The information contained in this document represents components of the legal health record. It is not the complete legal health record.[facility]
--- OUTSIDE RECORDS SUMMARY | 2025-04-26 15:00 | XMS_ITS | Encounter Summary ---
Author Organization [facility] Address [address] [facility] [address] [place] [address] Phone Care Team Providers Care Defence Intelligence Analyst Name Role Phone Nancy Gaitan MD Unavailable Cayla Sahu MD Unavailable Bebeto Wiley MD Primary Care Provider +1- [phone] Encounter Details Date Type Department Care Team (Late st Contact Info) Description 02/01/2024 Procedure Pass [facility] 30 [place] [address] Social History Tobacco Use Types Packs/Day Years [...] st Contact Info) Description 12/15/2024 Procedure Pass [address] [address] 07/09/2025 3:10 PM EST Appointment [address] [address] Bebeto Wiley MD [address] [place] [address], [address] [place] [address] 01/04/2026 1:00 PM EDT Office Visit [address] [address] Bebeto Wiley MD [address] [place] [address], [address] [place] [address] documented as of this encounter Visit Diagnoses Not on filedocumented in this encounter Additional Health Concerns Assessment Noted Time PHQ-2 Depression Total Score: 2 12/30/19 24 5:03 PM EDT documented as of this encounter Care Teams Defence Intelligence Analyst Relationship Specialty Start Date End Date Bebeto Wiley MD [address] [place] [address], [address] [place] [address] PCP - General Family Medicine 03/06/21 Nancy Gaitan MD [facility] [place] [address] Orthopedic Surgery 12/14/18 Cayla Sahu MD [address] [place] [address], [address] [place] [address] [email or web address] Obstetrics and Gynecology 12/14/18 documented as of this encounter Additional Source Comments The information contained in this document represents components of the legal health record. It is not the complete legal health record.[facility]
--- OUTSIDE RECORDS SUMMARY | 2025-04-26 15:00 | XMS_ITS | Encounter Summary ---
Author Organization [facility] Address [address] [place] [address] [place] [address] Phone Care Team Providers Care Truck Chauffeur Name Role Phone Nancy Gaitan MD Unavailable [phone] Cayla Sahu MD Unavailable Bebeto Wiley MD Primary Care Provider +1- [phone] Encounter Details Date Type Department Care Team (Late st Contact Info) Description 09/25/2022 Procedure Pass [place] Admitting Dept - [facility] Department [address] [place] [address] Social History Tobacco Use Types Packs/Day Years [...] st Contact Info) Description 12/15/2024 Procedure Pass [facility], [facility] 30 [place] [address] 07/09/2025 3:10 PM EST Appointment [facility], [facility] [address] [place] [address] Bebeto Wiley MD [address] [facility], [address] [place] [address] 01/04/2026 1:00 PM EDT Office Visit [facility] 22 [place] [address] Bebeto Wiley MD [address] [facility], [address] [place] [address] documented as of this encounter Visit Diagnoses Not on filedocumented in this encounter Additional Health Concerns Assessment Noted Time PHQ-2 Depression Total Score: 1 11/27/19 21 8:47 AM EDT documented as of this encounter Care Teams Truck Chauffeur Relationship Specialty Start Date End Date Bebeto Wiley MD [address] [facility], [address] [place] [address] PCP - General Family Medicine 03/06/21 Nancy Gaitan MD 300 [place] [address] Orthopedic Surgery 12/14/18 Cayla Sahu MD [address] [place] [address], [address] [place] [address] Obstetrics and Gynecology 12/14/18 documented as of this encounter Additional Source Comments The information contained in this document represents components of the legal health record. It is not the complete legal health record.[facility]
--- OUTSIDE RECORDS SUMMARY | 2025-04-26 15:00 | XMS_ITS | Encounter Summary ---
Author Organization [facility] Address [address] [facility] [address] [place] [address] Phone Care Team Providers Care Tub Wash Operator Name Role Phone Bebeto Wiley MD Primary Care Provider +1- [phone] Nancy Gaitan MD Unavailable Cayla Sahu MD Unavailable Bebeto Wiley MD Primary Care Provider +1- [phone] Encounter Details Date Type Department Care Team (Late st Contact Info) Description 07/25/2020 Ancillary Orders [facility],Outside Imaging 30 [place], [place] [id number] System, Provider Not In, [facility] [address] [address] Social History Tobacco Use Types Packs/Day Years [...] st Contact Info) Description 12/15/2024 Procedure Pass [facility] 30 [place] [address] 07/09/2025 3:10 PM EST Appointment [facility] 30 [place] [address] Bebeto Wiley MD [address] [place] [address], [address] [place] [address] [email or web address] 01/04/2026 1:00 PM EDT Office Visit [address] [address] Bebeto Wiley MD [address] [place] [address], [address] [place] [address] documented as of this encounter Results * [...] documented as of this encounter Care Teams Tub Wash Operator Relationship Specialty Start Date End Date Bebeto Wiley MD [address] [place] [address], [address] [place] [address] PCP - General Family Medicine 07/15/17 03/05/21 Bebeto Wiley MD [address] [place] [address], [address] [place] [address] [email or web address] PCP - General Family Medicine 03/06/21 Nancy Gaitan MD [address] [place] [address] Orthopedic Surgery 12/14/18 Cayla Sahu MD 22 [facility], [address] [place] [address] [email or web address] Obstetrics and Gynecology 12/14/18 documented as of this encounter Additional Source Comments The information contained in this document represents components of the legal health record. It is not the complete legal health record.[facility]
--- OUTSIDE RECORDS SUMMARY | 2025-04-26 15:00 | XMS_ITS | Encounter Summary ---
Author Organization [facility] Address [address] [facility] [address] [place] [address] Phone Care Team Providers Care Ground Source Heat Pump Technician Name Role Phone Nancy Gaitan MD Unavailable Cayla Sahu MD Unavailable Bebeto Wiley MD Primary Care Provider +1- [phone] Reason for Referral * MRI/CAT Scan - Closed Specialty Diagnoses / Procedures Referred By Contac t Referred To Contact Radiology Diagnoses Pre-operative cardiovascular examination, high risk surgery Procedures NC Stress Result for Nuclear Stress Test Bebeto Wiley MD Phone: tel: fax: [email or web address] Referral ID Status Reason Start Date Expiration Date Visits Re quested Visits Authorized [id number] Closed 02/22/2024 02/21/2025 1 1 Encounter Details Date Type Department Care Team (Latest Contact Info) Description 02/22/2024 Ancillary Orders [address] [place] [address] Bebeto Wiley MD 22 [facility], [address] [place], [place] [id number] [email or web address] Pre-operative cardiovascular examination, high risk [...] st Contact Info) Description 12/15/2024 Procedure Pass [address] [address] 07/09/2025 3:10 PM EST Appointment [address] [address] Bebeto Wiley MD [address] [place] [address], [address] [address] [email or web address] 01/04/2026 1:00 PM EDT Office Visit [facility] Medical [facility] Family Medicine [address] [place] [address] Bebeto Wiley MD [address] [place] [address], [address] [address] documented as of this encounter Results * NC Stress Result for Nuclear Stress Test (02/22/2024 11:50 AM EDT) Max Predicted Heart Rate 151 bpm [facility] Max BP Systolic 180 mmHg [facility] Max BP Diastolic 90 mmHg [facility] Max HR 148 BPM [facility] Resting HR 90 BPM [facility] Resting BP Systolic 132 mmHg [facility] Resting BP Diastolic 70 mmHg [facility] Peak METS 1.6 METS [facility] Peak HR 104 BPM [facility] Anatomical Region Laterality Modality Heart Other 02/22/2024 [...] followed by injection of Tc99m Sestamibi by [facility] nuclear supervising operator. 1. EKG - Baseline EKG showed sinus [...] documented as of this encounter Care Teams Ground Source Heat Pump Technician Relationship Specialty Start Date End Date Bebeto Wiley MD [address] [place] [address], [address] [place] [address] [email or web address] PCP - General Family Medicine 03/06/21 Nancy Gaitan MD [address] [place] [address] Orthopedic Surgery 12/14/18 Cayla Sahu MD [address] [place] [address], [address] [place] [address] Obstetrics and Gynecology 12/14/18 documented as of this encounter Additional Source Comments The information contained in this document represents components of the legal health record. It is not the complete legal health record.[facility]
--- OUTSIDE RECORDS SUMMARY | 2025-04-26 15:00 | XMS_ITS | Clinical Summary ---
Author Organization [facility] Address [address] [place] [address] Phone Care Team Providers Care Press Washer Name Role Phone Nancy Gaitan MD Unavailable [phone] Cayla Sahu MD Unavailable Bebeto Wiley MD Primary Care Provider +1- [phone] Allergies Active Allergy Reactions Criticality Noted Date [...] for pain. Advised use of heat/ice alternating. [place] balm/icy hot as needed for comfort. Will [...] & Plan (09/14/2022 3:58 PM EST): + [place] [facility] in office today. Discussed BPPV with [...] Department Care Team Description 03/30/2025 Orders Only [place] [address] [place] [address] Provider, MD Elías 02/24/2025 Refill [facility] [address] [place] [address] Bebeto Wiley MD Medication Refill 02/02/2025 Telephone [facility] [address] [place] [address] Dana Cowart, RN Results from Last 3 [...] Father Heart attack Father Heart disease Father [place] Cancer Mother lung Breast cancer Sister Relation [...] st Contact Info) Description 12/15/2024 Procedure Pass [address] [address] 07/09/2025 3:10 PM EST Appointment [address] [address] Bebeto Wiley MD [address] [place] [address], [address] [place] [address] 01/04/2026 1:00 PM EDT Office Visit [facility] [address] [place] [address] Bebeto Wiley MD 22 [facility], [address] [place] [address] [email or web address] Health Maintenance Due Date Last Done Comments [...] this topic Medical Devices Implanted Type Area Side Seam Tender Device Identifier Shelf Expiration Date Model / Serial / Lot Prosthetic Joint Prosthetic Joint Left: Knee System Suspension Fiberlock - Trial Item - [id number] Implanted:Qty: 1 on 11/10/2022 by Moe Hernandez MD at [facility] Left: Thumb [employer] 10/07/2027 [id number] / / [id number] Procedures Procedure Name Priority Date/Time Associated Diagnosis [...] EDT) TSH 2.82 0.27 - 4.20 uIU/mL [facility] Blood 01/03/2025 7:14 AM EDT 01/03/2025 7:18 AM EDT Bebeto Wiley MD LAB BLOOD ORDERABLES Final Result Performing Organization Address [facility] Co de Phone Number [address] [address] * (ABNORMAL) Lipid panel (01/03/2025 7:14 AM EDT) HDL 63 mg/dL [facility] Comment: Interpretation <40 mg/dL: Low HDL cholesterol (major risk factor for CHD) Greater than or equal to 60 mg/dL: High HDL cholesterol ( negative risk factor for CHD) HDL - cholesterol is affected by a number of factors, e.g. smoking, excerise, hormones, sex and age. CHOLESTEROL 259(H) 0 - 240 mg/dL [facility] TRIGLYCERIDES 136 30 - 160 mg/dL [facility] LDL 169(H) 50 - 129 mg/dL [facility] Comment: LDL levels in terms of risk for coronary heart disease: <100 mg/dL: Optimal 100-129 mg/dL: Near or above optimal 130-159 mg/dL: Borderline high 160-189 mg/dL: High >190 mg/dL: Very High CARDIAC RISK RATIO 4.1 3.3 - 4.4 [facility] Blood 01/03/2025 7:14 AM EDT 01/03/2025 7:18 AM EDT Bebeto Wiley MD LAB BLOOD ORDERABLES Final Result Performing Organization Address City/[facility] Co de Phone Number [address] [address] * BI MAMMOGRAM SCREENING WITH TOMOSYNTHESIS WITH [...] a total bone mineral density of 0.831 g/yt0xisx a T- score of -0.9. This is [...] Maintenance Insurance MEDICARE PART A & B [employer] CR[employer] MEDEX SUPPLEMENT MEDICARE PART A & B [employer] MEDEX SUPPLEMENT MEDICARE PART A & B [employer] MEDEX SUPPLEMENT MEDICARE PART A & B [employer] MEDEX SUPPLEMENT MEDICARE PART A & B [employer] MEDEX SUPPLEMENT MEDICARE PART A & B BL[employer]OSS MEDEX SUPPLEMENT Advance Directives For more information, please contact: [phone] (9AM - 5PM [facility], Wednesday-Wednesday) * Full Code (Latest Code Status on File) Date Activated Date Inactivated Comments 11/10/2022 7:34 AM Question Answer Comments Code Status Confirmed With: Patient * Full Code Date Activated Date Inactivated Comments 03/12/2022 7:02 AM 11/10/2022 7:34 AM Question Answer Comments Code Status Confirmed With: Patient Care Teams Press Washer Relationship Specialty Start Date End Date Bebeto Wiley MD [address] [place] [address], [address] [place] [address] PCP - General Family Medicine 03/06/21 Nancy Gaitan MD [address] [place], [place] [address]am[place] [address] Orthopedic Surgery 12/14/18 Cayla Sahu MD [address] [place] [address], [address] [address] [email or web address] Obstetrics and Gynecology 12/14/18 Additional Source Comments The information contained in this document represents components of the legal health record. It is not the complete legal health record.[facility]
--- OUTSIDE RECORDS SUMMARY | 2025-04-26 15:00 | XMS_ITS | Encounter Summary ---
Author Organization [facility] Address [address] [facility] [address] [place] [address] Phone Care Team Providers Care Kennel Technician Name Role Phone Nancy Gaitan MD Unavailable Cayla Sahu MD Unavailable Bebeto Wiley MD Primary Care Provider [phone]- [phone] Encounter Details Date Type Department Care Team (Late st Contact Info) Description 06/10/2022 Procedure Pass [facility] Admitting Dept Virtual Department [address] [place] [address] Social History Tobacco Use Types Packs/Day Years [...] 12/15/2024 Procedure Pass [facility], [facility] 30 [place] [address] 07/09/2025 3:10 PM EST Appointment [facility], [facility] [address] [place] [address] Bebeto Wiley MD 22 [facility], [address] [place] [address] 01/04/2026 1:00 PM EDT Office Visit [facility] 22 [place] [address] Bebeto Wiley MD 22 [facility], [address] [place] [address] documented as of this encounter Visit Diagnoses Not on filedocumented in this encounter Additional Health Concerns Assessment Noted Time PHQ-2 Depression Total Score: 1 11/27/19 21 8:47 AM EDT documented as of this encounter Care Teams Kennel Technician Relationship Specialty Start Date End Date Bebeto Wiley MD 22 [facility], [address] [place] [address] PCP - General Family Medicine 03/06/21 Nancy Gaitan MD 300 [place] [address] Orthopedic Surgery 12/14/18 Cayla Sahu MD [address] [place] [address], [address] [place] [address] Obstetrics and Gynecology 12/14/18 documented as of this encounter Additional Source Comments The information contained in this document represents components of the legal health record. It is not the complete legal health record.[facility]
--- OUTSIDE RECORDS SUMMARY | 2025-04-26 15:00 | XMS_ITS | Encounter Summary ---
Author Organization [facility] Address [address] [facility] [address] [place] [address] Phone Care Team Providers Care Tire Service Technician Name Role Phone Nancy Gaitan MD Unavailable Cayla Sahu MD Unavailable Bebeto Wiley MD Primary Care Provider +1- [phone] Encounter Details Date Type Department Care Team (Late st Contact Info) Description 03/30/2025 Orders Only [facility] [address] [place] [address] Provider, MD Elías [address] [place] [address] Social History Tobacco Use Types Packs/Day [...] st Contact Info) Description 12/15/2024 Procedure Pass [address] [address] 07/09/2025 3:10 PM EST Appointment [address] [address] Bebeto Wiley MD [address] [place] [address], [address] [address] 01/04/2026 1:00 PM EDT Office Visit [facility] Family Medicine [address] [place] [address] Bebeto Wiley MD [address] [place] [address], [address] [address] [email or web address] documented as of this encounter Procedures Procedure [...] as of this encounter Care Teams Tire Service Technician Relationship Specialty Start Date End Date Bebeto Wiley MD [address] [place] [address], [address] [place] [address] [email or web address] PCP - General Family Medicine 03/06/21 Nancy Gaitan MD [address] [place] [address] Orthopedic Surgery 12/14/18 Cayla Sahu MD [address] [place] [address], [address] [place] [address] Obstetrics and Gynecology 12/14/18 documented as of this encounter Additional Source Comments The information contained in this document represents components of the legal health record. It is not the complete legal health record.[facility]
--- OUTSIDE RECORDS SUMMARY | 2025-04-26 15:00 | XMS_ITS | Encounter Summary ---
Author Organization [facility] Address [address] [facility] [address] [place] [address] Phone Care Team Providers Care Latex Foam Worker Name Role Phone Bebeto Wiley MD Primary Care Provider +1- [phone] Nancy Gaitan MD Unavailable Cayla Sahu MD Unavailable Bebeto Wiley MD Primary Care Provider +1- [phone] Encounter Details Date Type Department Care Team (Late st Contact Info) Description 07/25/2020 Ancillary Orders [facility],Outside Imaging 30 [place], [place] [id number] System, Provider Not In, PhD Partners [address] [address] Social History Tobacco Use Types Packs/Day Years [...] st Contact Info) Description 12/15/2024 Procedure Pass [facility] 30 [place] [address] 07/09/2025 3:10 PM EST Appointment [facility] 30 [place] [address] Bebeto Wiley MD [address] [place] [address], [address] [place] [address] [email or web address] 01/04/2026 1:00 PM EDT Office Visit [address] [address] Bebeto Wiley MD [address] [place] [address], [address] [place] [address] documented as of this encounter Results * [...] documented as of this encounter Care Teams Latex Foam Worker Relationship Specialty Start Date End Date Bebeto Wiley MD [address] [place] [address], [address] [place] [address] PCP - General Family Medicine 07/15/17 03/05/21 Bebeto Wiley MD [address] [place] [address], [address] [place] [address] [email or web address] PCP - General Family Medicine 03/06/21 Nancy Gaitan MD [address] [place] [address] Orthopedic Surgery 12/14/18 Cayla Sahu MD 22 [facility], [address] [place] [address] [email or web address] Obstetrics and Gynecology 12/14/18 documented as of this encounter Additional Source Comments The information contained in this document represents components of the legal health record. It is not the complete legal health record.[facility]
--- OUTSIDE RECORDS SUMMARY | 2025-04-26 15:00 | XMS_ITS ---
Author Organization [facility] Address [address] [facility] [address] [place] [address] Phone Care Team Providers Care Wet Press Tender Name Role Phone Nancy Gaitan MD Unavailable Cayla Sahu MD Unavailable Bebeto Wiley MD Primary Care Provider +1- [phone] Active Problems Problem Noted Date Diagnosed Date [...] for pain. Advised use of heat/ice alternating. [place] balm/icy hot as needed for comfort. Will [...] & Plan (09/14/2022 3:58 PM EST): + [place] Hall[facility] in office today. Discussed BPPV with [...] of pocket cost concerns (works there in [place]) Anxiety Current Treatment and Therapy Plans No current plan information found. Past Treatment and Therapy Plans
--- OUTSIDE RECORDS SUMMARY | 2025-04-26 15:00 | XMS_ITS | Encounter Summary ---
Author Organization [facility] Address [address] [facility] [address] [place] [address] Phone Care Team Providers Care Route Inspector Name Role Phone Nancy Gaitan MD Unavailable Cayla Sahu MD Unavailable Bebeto Wiley MD Primary Care Provider +1- [phone] Encounter Details Date Type Department Care Team (Late st Contact Info) Description 02/22/2024 Procedure Pass [place] Admitting Dept - Virtual Department 30 [place] [address] Social History Tobacco Use Types Packs/Day Years [...] st Contact Info) Description 12/15/2024 Procedure Pass [address] [address] 07/09/2025 3:10 PM EST Appointment [facility] 30 [place] [address] Bebeto Wiley MD [address] [place] [address], [address] [place] [address] [email or web address] 01/04/2026 1:00 PM EDT Office Visit [address] [address] Bebeto Wiley MD [address] [place] [address], [address] [place] [address] documented as of this encounter Visit Diagnoses Not on filedocumented in this encounter Additional Health Concerns Assessment Noted Time PHQ-2 Depression Total Score: 2 12/30/19 24 5:03 PM EDT documented as of this encounter Care Teams Route Inspector Relationship Specialty Start Date End Date Bebeto Wiley MD [address] [place] [address], [address] [place] [address] PCP - General Family Medicine 03/06/21 Nancy Gaitan MD [facility] [place] [address] Orthopedic Surgery 12/14/18 Cayla Sahu MD [address] [place] [address], [address] [place] [address] [email or web address] Obstetrics and Gynecology 12/14/18 documented as of this encounter Additional Source Comments The information contained in this document represents components of the legal health record. It is not the complete legal health record.[facility]
--- OUTSIDE RECORDS SUMMARY | 2025-04-26 15:00 | XMS_ITS | Clinical Summary ---
Author Organization [facility] Address [address] [place] [address] Care Team Providers Care Elementary School Tutor Name Role Phone Bebeto Wiley MD Primary Care Provider +1- [phone] Allergies Active Allergy Reactions Criticality Noted Date [...] age to complete this topic Care Teams Elementary School Tutor Relationship Specialty Start Date End Date Bebeto Wiley MD [address] [address] PCP - General Family Medicine 04/19/17
--- OUTSIDE RECORDS SUMMARY | 2025-04-26 15:00 | XMS_ITS | Encounter Summary ---
Author Organization [facility] Address [address] [facility] [address] [place] [address] Phone Care Team Providers Care Professional Driver Name Role Phone Bebeto Wiley MD Primary Care Provider +1- [phone] Nancy Gaitan MD Unavailable Cayla Sahu MD Unavailable Bebeto Wiley MD Primary Care Provider +1- [phone] Encounter Details Date Type Department Care Team (Late st Contact Info) Description 07/25/2020 Ancillary Orders [facility],Outside Imaging [address] [place], [place] [id number] System, Provider Not In, [facility] [address] [address] Social History Tobacco Use Types Packs/Day Years [...] st Contact Info) Description 12/15/2024 Procedure Pass [facility] 30 [place] [address] 07/09/2025 3:10 PM EST Appointment [facility] 30 [place] [address] Bebeto Wiley MD [address] [place] [address], [address] [place] [address] [email or web address] 01/04/2026 1:00 PM EDT Office Visit [address] [address] Bebeto Wilye MD [address] [place] [address], [address] [place] [address] documented as of this encounter Results * [...] documented as of this encounter Care Teams Professional Driver Relationship Specialty Start Date End Date Bebeto Wiley MD [address] [place] [address], [address] [place] [address] PCP - General Family Medicine 07/15/17 03/05/21 Bebeto Wiley MD [address] [place] [address], [address] [place] [address] [email or web address] PCP - General Family Medicine 03/06/21 Nancy Gaitan MD [address] [place] [address] Orthopedic Surgery 12/14/18 Cayla Sahu MD 22 [facility], [address] [place] [address] [email or web address] Obstetrics and Gynecology 12/14/18 documented as of this encounter Additional Source Comments The information contained in this document represents components of the legal health record. It is not the complete legal health record.[facility]
--- OUTSIDE RECORDS SUMMARY | 2025-04-26 15:00 | XMS_ITS | Encounter Summary ---
Author Organization [facility] Address [address] [place] [address] [place] [address] Phone Care Team Providers Care Molded Frames Assembler Name Role Phone Nancy Gaitan MD Unavailable Cayla Sahu MD Unavailable Bebeto Wiley MD Primary Care Provider +1- [phone] Encounter Details Date Type Department Care Team (Late st Contact Info) Description 04/01/2022 Procedure Pass [address] [address] Social History Tobacco Use Types Packs/Day Years [...] (Late st Contact Info) Description 12/15/[address] [address] 07/09/2025 3:10 PM EST Appointment [facility], [facility] 30 [place] [address] Bebeto Wiley MD [address] [place] [address], [address] [place] [address] [email or web address] 01/04/2026 1:00 PM EDT Office Visit [facility] 22 [place] [address] Bebeto Wiley MD [address] [place] [address], [address] [place], [place] [address] [email or web address] documented as of this encounter Visit Diagnoses Not on filedocumented in this encounter Additional Health Concerns Infection Onset Date Last Indicated Resolved Time CoV-Presumed 04/03/2022 04/03/2022 04/24/2022 1:22 AM EDT Assessment Noted Time PHQ-2 Depression Total Score: 1 11/27/19 21 8:47 AM EDT documented as of this encounter Care Teams Molded Frames Assembler Relationship Specialty Start Date End Date Bebeto Wiley MD [address] [place] [address], [address] [place] [address] [email or web address] PCP - General Family Medicine 03/06/21 Nancy Gaitan MD [address] [place] [address] Orthopedic Surgery 12/14/18 Cayla Sahu MD [address] [place] [address], [address] [place] [address] [email or web address] Obstetrics and Gynecology 12/14/18 documented as of this encounter Additional Source Comments The information contained in this document represents components of the legal health record. It is not the complete legal health record.[facility]
--- OUTSIDE RECORDS SUMMARY | 2025-04-26 15:00 | XMS_ITS | Encounter Summary ---
Author Organization [facility] Address [address] [facility] [address] [place] [address] Phone Care Team Providers Care Director Validation Name Role Phone Bebeto Wiley MD Primary Care Provider +1- [phone] Nancy Gaitan MD Unavailable Cayla Sahu MD Unavailable Bebeto Wiley MD Primary Care Provider +1- [phone] Encounter Details Date Type Department Care Team (Late st Contact Info) Description 07/10/[address] [address] Social History Tobacco Use Types Packs/Day Years [...] (Late st Contact Info) Description 12/15/2024 Procedure [address] [place] [address] 07/09/2025 3:10 PM EST Appointment [facility], [address] [address] Bebeto Wiley MD [address] [place] [address], [address] [place] [address] 01/04/2026 1:00 PM EDT Office Visit [address] [address] Bebeto Wiley MD [address] [place] [address], [address] [place] [address] documented as of this encounter Visit Diagnoses Not on filedocumented in this encounter Additional Health Concerns Infection Onset Date Last Indicated Resolved Time CoV-Presumed 04/03/2022 04/03/2022 04/24/2022 1:22 AM EDT Assessment Noted Time PHQ-2 Depression Total Score: 0 05/22/20 20 8:49 AM EDT documented as of this encounter Care Teams Director Validation Relationship Specialty Start Date End Date Bebeto Wiley MD [address] [place] [address], [address] [place] [address] PCP - General Family Medicine 07/15/17 03/05/21 Bebeto Wiley MD [address] [place] [address], [address] [place] [address] PCP - General Family Medicine 03/06/21 Nancy Gaitan MD [facility] [address] Orthopedic Surgery 12/14/18 Cayla Sahu MD [address] [place] [address], [facility] [address] [place] [address] [email or web address] Obstetrics and Gynecology 12/14/18 documented as of this encounter Additional Source Comments The information contained in this document represents components of the legal health record. It is not the complete legal health record.[facility]
--- OUTSIDE RECORDS SUMMARY | 2025-04-26 15:00 | XMS_ITS | Encounter Summary ---
Author Organization [facility] Address [address] [facility] [address] [place] [address] Phone Care Team Providers Care Rug Setter Axminster Name Role Phone Nancy Gaitan MD Unavailable Cayla Sahu MD Unavailable Bebeto Wiley MD Primary Care Provider +1- [phone] Encounter Details Date Type Department Care Team (Late st Contact Info) Description 09/20/2023 Procedure Pass [facility], [address] [address] Social History Tobacco Use Types Packs/Day Years [...] st Contact Info) Description 12/15/2024 Procedure Pass [address] [address] 07/09/2025 3:10 PM EST Appointment [facility] 30 [place] [address] Bebeto Wiley MD [address] [place] [address], [address] [place] [address] [email or web address] 01/04/2026 1:00 PM EDT Office Visit [address] [address] Bebeto Wiley MD [address] [place] [address], [address] [place] [address] documented as of this encounter Visit Diagnoses Not on filedocumented in this encounter Additional Health Concerns Assessment Noted Time PHQ-2 Depression Total Score: 2 12/30/19 23 1:03 PM EDT documented as of this encounter Care Teams Rug Setter Axminster Relationship Specialty Start Date End Date Bebeto Wiley MD [address] [place] [address], [address] [place] [address] PCP - General Family Medicine 03/06/21 Nancy Gaitan MD [facility] [place] [address] Orthopedic Surgery 12/14/18 Cayla Sahu MD [address] [place] [address], [address] [place] [address] [email or web address] Obstetrics and Gynecology 12/14/18 documented as of this encounter Additional Source Comments The information contained in this document represents components of the legal health record. It is not the complete legal health record.[facility]
--- OUTSIDE RECORDS SUMMARY | 2025-04-26 15:00 | XMS_ITS | Encounter Summary ---
Author Organization [facility] Address [address] [facility] [address] [place] [address] Phone Care Team Providers Care Buffing Line Set Up Worker Name Role Phone Bebeto Wiley MD Primary Care Provider +1- [phone] Nancy Gaitan MD Unavailable Cayla Sahu MD Unavailable Bebeto Wiley MD Primary Care Provider +1- [phone] Encounter Details Date Type Department Care Team (Late st Contact Info) Description 11/18/2020 Procedure [facility] [place] Scan [address] [address] Social History Tobacco Use Types Packs/Day Years [...] st Contact Info) Description 12/15/2024 Procedure Pass [address] [address] 07/09/2025 3:10 PM EST Appointment [address] [address] Bebeto Wiley MD [address] [place] [address], [address] [place] [address] 01/04/2026 1:00 PM EDT Office Visit [address] [address] Bebeto Wiley MD [address] [place] [address], [address] [place] [address] documented as of this encounter Visit Diagnoses Not on filedocumented in this encounter Additional Health Concerns Infection Onset Date Last Indicated Resolved Time CoV-Presumed 04/03/2022 04/03/2022 04/24/2022 1:22 AM EDT Assessment Noted Time PHQ-2 Depression Total Score: 1 11/27/19 21 8:47 AM EDT documented as of this encounter Care Teams Buffing Line Set Up Worker Relationship Specialty Start Date End Date Bebteo Wiley MD [address] [place] [address], [address] [place] [address] PCP - General Family Medicine 07/15/17 03/05/21 Bebeto Wiley MD [address] [place] [address], [address] [place] [address] PCP - General Family Medicine 03/06/21 Nancy Gaitan MD [address] [place] [address] Orthopedic Surgery 12/14/18 Cayla Sahu MD [address] [place] [address], [facility] [address] [place] [address] [email or web address] Obstetrics and Gynecology 12/14/18 documented as of this encounter Additional Source Comments The information contained in this document represents components of the legal health record. It is not the complete legal health record.[facility]
--- OUTSIDE RECORDS SUMMARY | 2025-04-26 15:00 | XMS_ITS | Encounter Summary ---
Author Organization [facility] Address 399 [facility] [address] [place] [address] Phone Care Team Providers Care Database Admin Name Role Phone Bebeto Wiley MD Primary Care Provider +1- [phone] Nancy Gaitan MD Unavailable Cayla Sahu MD Unavailable Bebeto Wiley MD Primary Care Provider +1- [phone] Encounter Details Date Type Department Care Team (Late st Contact Info) Description 11/19/2020 Ancillary Orders [facility],Outside Imaging [address] [place], [place] [id number] System, Provider Not In, [facility] [address] [address] Social History Tobacco Use Types Packs/Day Years [...] (Late Contact Info) Description 12/15/2024 Procedure Pass [facility] 30 [place] [address] 07/09/2025 3:10 PM EST Appointment [facility] 30 [place] [address] Bebeto Wiley MD [address] [place] [address], [address] [place] [address] 01/04/2026 1:00 PM EDT Office Visit [address] [address] Bebeto Wiley MD [address] [place] [address], [address] [place] [address] documented as of this encounter Results * [...] documented as of this encounter Care Teams Database Admin Relationship Specialty Start Date End Date Bebeto Wiley MD [address] [place] [address], [address] [place] [address] PCP - General Family Medicine 07/15/17 03/05/21 Bebeto Wiley MD [address] [place] [address], [address] [place] [address] [email or web address] PCP - General Family Medicine 03/06/21 Nancy Gaitan MD [address] [place] [address] Orthopedic Surgery 12/14/18 Cayla Sahu MD [address] [place] [address], [address] [place] [address] [email or web address] Obstetrics and Gynecology 12/14/18 documented as of this encounter Additional Source Comments The information contained in this document represents components of the legal health record. It is not the complete legal health record.[facility]
--- OUTSIDE RECORDS SUMMARY | 2025-04-26 15:00 | XMS_ITS | Encounter Summary ---
Author Organization [facility] Address 399 [facility] [address] [place] [address] Phone Care Team Providers Care Supervisor Game Farm Name Role Phone Nancy Gaitan MD Unavailable Cayla Sahu MD Unavailable Bebeto Wiley MD Primary Care Provider +1- [phone] Encounter Details Date Type Department Care Team (Late st Contact Info) Description 02/01/2024 Procedure Pass [facility] 30 [place] [address] Social History Tobacco Use Types Packs/Day Years [...] st Contact Info) Description 12/15/2024 Procedure Pass [address] [address] 07/09/2025 3:10 PM EST Appointment [address] [address] Bebeto Wiley MD [address] [place] [address], [address] [place] [address] 01/04/2026 1:00 PM EDT Office Visit [address] [address] Bebeto Wiley MD [address] [place] [address], [address] [place] [address] documented as of this encounter Visit Diagnoses Not on filedocumented in this encounter Additional Health Concerns Assessment Noted Time PHQ-2 Depression Total Score: 2 12/30/19 24 5:03 PM EDT documented as of this encounter Care Teams Supervisor Game Farm Relationship Specialty Start Date End Date Bebeto Wiley MD [address] [place] [address], [address] [place] [address] PCP - General Family Medicine 03/06/21 Nancy Gaitan MD [facility] [place] [address] Orthopedic Surgery 12/14/18 Cayla Sahu MD [address] [place] [address], [address] [place] [address] [email or web address] Obstetrics and Gynecology 12/14/18 documented as of this encounter Additional Source Comments The information contained in this document represents components of the legal health record. It is not the complete legal health record.[facility]
--- OUTSIDE RECORDS SUMMARY | 2025-04-26 15:00 | XMS_ITS | Encounter Summary ---
Author Organization [facility] Address 399 [facility] [address] [place] [address] Phone Care Team Providers Care Fighter Pilot Name Role Phone Bebeto Wiley MD Primary Care Provider +1- [phone] Nancy Gaitan MD Unavailable Cayla Sahu MD Unavailable Bebeto Wiley MD Primary Care Provider +1- [phone] Encounter Details Date Type Department Care Team (Late st Contact Info) Description 07/25/2020 Ancillary Orders [facility],Outside Imaging [address] [place], [place] [address]60 System, Provider Not In, [facility] [address] [address] Social History Tobacco Use Types Packs/Day Years [...] st Contact Info) Description 12/15/2024 Procedure Pass [facility] [address] [place] [address] 07/09/2025 3:10 PM EST Appointment [facility] [address] [place] [address] Bebeto Wiley MD [address] [place] [address], [address] [place] [address] [email or web address] 01/04/2026 1:00 PM EDT Office Visit [address] [address] Bebeto Wiley MD [address] [place] [address], [address] [place] [address] documented as of this encounter Results * [...] documented as of this encounter Care Teams Fighter Pilot Relationship Specialty Start Date End Date Bebeto Wiley MD [address] [place] [address], [address] [place] [address] PCP - General Family Medicine 07/15/17 03/05/21 Bebeto Wiley MD [address] [place] [address], [address] [place] [address] [email or web address] PCP - General Family Medicine 03/06/21 Nancy Gaitan MD [address] [place] [address] Orthopedic Surgery 12/14/18 Cayla Sahu MD [address] [facility], [address] [place] [address] [email or web address] Obstetrics and Gynecology 12/14/18 documented as of this encounter Additional Source Comments The information contained in this document represents components of the legal health record. It is not the complete legal health record.[facility]
== END 2025-04-26 14:54 | disposition home or self-care (01) ==
LOC: HO.HNS 12:58
PROVIDERS: PCP Family Medicine; Referring Provider Orthopaedic Surgery; Visit Provider Physician Assistant
DX: M48.02 Spinal stenosis, cervical region (principal)
CPT/HCPCS: 99204

== ENCOUNTER 2025-04-26 12:57 | Outpatient (REF) | payer MEDICARE, SELFPAY ==
--- NOTE | ~2025-04-26 | XR_ITS ---
CLINICAL HISTORY: M48.02 - Spinal stenosis, cervical region --- Additional Notes or Special Instructions: a p, lateral with flex ext views 4 views cervical spine Comparison: MR - MR CERVICAL SPINE WO CON - 03/29/25 18:58 EDT Findings: Trace anterolisthesis of C2 on C3 and trace retrolisthesis of C3 on C4 without significant change on flexion and extension. There is straightening of lordosis. No acute fractures or dislocation. Severe multilevel degenerative disc disease. Moderate multilevel facet osteoarthritis. Prevertebral soft tissues within normal limits. IMPRESSION: 1. There is straightening of lordosis suggesting possible muscle spasm. 2. There are severe degenerative changes. 3. There is no evidence of cervical spine instability. This document has been electronically signed by: Mindy Calles MD on 04/27/2025 15:16:31
== END 2025-04-26 12:58 | disposition home or self-care (01) ==
LOC: HO.HOSX 12:57
PROVIDERS: PCP Family Medicine; Referring Provider Orthopaedic Surgery; Visit Provider Physician Assistant
DX: M48.02 Spinal stenosis, cervical region (principal)
CPT/HCPCS: 72050; 99202

== ENCOUNTER → 2025-04-26 13:38 | Outpatient (BNV) | payer MEDICARE, SELFPAY | PROVIDERS: PCP Family Medicine; Referring Provider Orthopaedic Surgery; Visit Provider Radiology Diagnostic Radiology | DX: M48.02 Spinal stenosis, cervical region (principal); M50.30 Other cervical disc degeneration, unspecified cervical region | CPT/HCPCS: 72050 ==

== ENCOUNTER 2025-05-31 05:53 | Day surgery (SDC) | payer MEDICARE, SELFPAY ==
--- OUTSIDE RECORDS SUMMARY | 2012-12-08 | XMS_ITS | Encounter Summary ---
Author Organization [facility] Address [address] [facility] [address] [place] [address] Phone Care Team Providers Care Irrigation Flume Layer Name Role Phone Unavailable Primary Care Provider Unavailabl e Encounter Details Date Type Department Care Team (Late st Contact Info) Description 12/08/2012 Hospital Encounter [facility],Outside Imaging 30 [place] [address] System, Provider Not In, PhD [facility] [address] [address] Social History Tobacco Use Types Packs/Day Years [...] 11:51 AM EDT Bunny Durham RN * [place] Suicide Severity Rating Scale (Screener/Recent Self-Report) Question [...] st Contact Info) Description 12/15/2024 Procedure Pass [address] [address] 07/09/2025 3:10 PM EST Appointment [address] [address] Bebeto Wiley MD [address] [place] [address], [address] [place] [address] 01/04/2026 1:00 PM EDT Office Visit [facility] Medicine [address] [place] [address] Bebeto Wiley MD [address] [place] [address], [address] [place] [address] [email or web address] documented as of this [...] It is not the complete legal health record.[facility]
--- OUTSIDE RECORDS SUMMARY | 2023-04-17 12:25 | XMS_ITS | Encounter Summary ---
Author Organization [facility] Address [address] [facility] [address] [place] [address] Phone Care Team Providers Care Counter Roller Name Role Phone Nancy Gaitan MD Unavailable Cayla Sahu MD Unavailable Bebeto Wiley MD Primary Care Provider +1- [phone] Encounter Details Date Type Department Care Team (Late st Contact Info) Description 04/17/2023 12:25 PM EDT Hospital Encounter [facility] Ur[facility] Care [address] [place] [address] Lynne Nobles FNP [address] [place] [address] [email or web address] Social History Tobacco Use Types Packs/Day [...] 03/01/2024 11:51 AM Bunny Rowland, DUONG * [place] Suicide Severity Rating Scale (Screener/Recent Self-Report) Question Answer Date of Assessment Author 1. Wish to be (Past 1 Month) No 024 11:51 AM uBnny Rowland, DUONG 2. Non-Specific Active Suici ngoc Thoughts (Past 1 Month) No 03/01/2024 11:51 AM Bunny Rowland , RN 6. Suicidal Behavior (Lifetime) No 11:51 AM Bunny Rowland, RN documented as of this encounter Plan of Treatment Upcoming Encounters Date Type Department Care Team (Late st Contact Info) Description 12/15/2024 Procedure Pass [address] [address] 07/09/2025 3:10 PM EST Appointment [address] [address] Bebeto Wiley MD [address] [place] [address], [address] [place] [address] [email or web address] 01/04/2026 1:00 PM EDT Office Visit [facility] Medicine [address] [place] [address] [place] [address] Bebeto Wiley MD [address] [facility], [address] [place] [address] [email or web address] documented as of this encounter Procedures Procedure [...] IMPRESSION: No fracture or dislocation. Lynne Nobles MANAGER INTEGRITY IMG XR LOWER EXTREMITY Haley l Result documented in this encounter Visit Diagnoses Not on filedocumented in this encounter Additional Health Concerns Assessment Noted Time PHQ-2 Depression Total Score: 2 12/30/19 23 1:03 PM EDT documented as of this encounter Care Teams Counter Roller Relationship Specialty Start Date End Date Bebeto Wiley MD [address] [place] [address], [address] [place] [address] [email or web address] PCP - General Family Medicine 03/06/21 Nancy Gaitan MD [address] [place], [place] [address] [address] Orthopedic Surgery 12/14/18 Cayla Sahu MD [address] [place] [address], [address] [place] [address] [email or web address] Obstetrics and Gynecology 12/14/18 documented as of this encounter Additional Source Comments The information contained in this document represents components of the legal health record. It is not the complete legal health record.[facility]
--- OUTSIDE RECORDS SUMMARY | 2025-05-02 17:27 | XMS_ITS | Encounter Summary ---
Author Organization [facility] Address 399 [facility] [address] [place] [address] Phone Care Team Providers Care Senior Field Service Engineer Name Role Phone Nancy Gaitan MD Unavailable Cayla Sahu MD Unavailable Bebeto Wiley MD Primary Care Provider +1- [phone] Encounter Details Date Type Department Care Team (Late st Contact Info) Description 03/11/2022 Procedure Pass [place] Admitting Dept - Virtual Department 30 [place] [address] Social History Tobacco Use Types Packs/Day Years [...] 4:33 AM EDT Melissa Russell RN * [place] Suicide Severity Rating Scale (Screener/Recent Self-Report) Question [...] st Contact Info) Description 12/15/2024 Procedure Pass [address] [address] 07/09/2025 3:10 PM EST Appointment [address] [address] Bebeto Wiley MD [address] [place] [address], [address] [place] [address] [email or web address] 01/04/2026 1:00 PM EDT Office Visit [address] [address] Bebeto Wiley MD [address] [place] [address], [address] [place] [address] [email or web address] documented as of this encounter Visit Diagnoses Not on filedocumented in this encounter Additional Health Concerns Infection Onset Date Last Indicated Resolved Time CoV-Presumed 04/03/2022 04/03/2022 04/24/2022 1:22 AM EDT Assessment Noted Time PHQ-2 Depression Total Score: 1 11/27/19 21 8:47 AM EDT documented as of this encounter Care Teams Senior Field Service Engineer Relationship Specialty Start Date End Date Bebeto Wiley MD [address] [place] [address], [address] [place] [address] [email or web address] PCP - General Family Medicine 03/06/21 Nancy Gaitan MD [address] [place], [place] [address] [place] [address] Orthopedic Surgery 12/14/18 Cayla Sahu MD [address] [place] [address], [facility] [address] [place] [address] [email or web address] Obstetrics and Gynecology 12/14/18 documented as of this encounter Additional Source Comments The information contained in this document represents components of the legal health record. It is not the complete legal health record.[facility]
--- OUTSIDE RECORDS SUMMARY | 2025-05-02 17:27 | XMS_ITS | Encounter Summary ---
Author Organization [facility] Address 399 [facility] [address] [place] [address] Phone Care Team Providers Care Cone Picker Name Role Phone Nancy Gaitan MD Unavailable Cayla Sahu MD Unavailable Bebeto Wiley MD Primary Care Provider +1- [phone] Encounter Details Date Type Department Care Team (Late st Contact Info) Description 06/05/2024 Procedure Pass [facility] 30 [place] [address] Social History Tobacco Use Types Packs/Day Years [...] st Contact Info) Description 12/15/2024 Procedure Pass [address] [address] 07/09/2025 3:10 PM EST Appointment [address] [address] Bebeto Wiley MD [address] [place] [address], [address] [address] [email or web address] 01/04/2026 1:00 PM EDT Office Visit [facility] [address] [place] [address] Bebeto Wiley MD [address] [place] [address], [address] [address] [email or web address] documented as of this encounter Visit Diagnoses Not on filedocumented in this encounter Additional Health Concerns Assessment Noted Time PHQ-2 Depression Total Score: 2 12/30/19 5:03 PM EDT documented as of this encounter Care Teams Cone Picker Relationship Specialty Start Date End Date Bebeto Wiley MD [address] [place] [address], [address] [place] [address] [email or web address] PCP - General Family Medicine 03/06/21 Nancy Gaitan MD [address] [place], [place] [address]am[address] [place] [address] Orthopedic Surgery 12/14/18 Cayla Sahu MD [address] [place] [address] [address] [place] [address] [email or web address] Obstetrics and Gynecology 12/14/18 documented as of this encounter Additional Source Comments The information contained in this document represents components of the legal health record. It is not the complete legal health record.[facility]
--- OUTSIDE RECORDS SUMMARY | 2025-05-02 17:27 | XMS_ITS | Encounter Summary ---
Author Organization [facility] Address [address] [facility] [address] [place] [address] Phone Care Team Providers Care Protection Mgr Name Role Phone Nancy Gaitan MD Unavailable Cayla Sahu MD Unavailable Bebeto Wiley MD Primary Care Provider +1- [phone] Encounter Details Date Type Department Care Team (Late st Contact Info) Description 03/11/2022 Procedure Pass [facility], Ct Scan - [address] [address] Social History Tobacco Use Types Packs/Day Years [...] 4:33 AM EDT Melissa Russell RN * [place] Suicide Severity Rating Scale (Screener/Recent Self-Report) Question [...] st Contact Info) Description 12/15/2024 Procedure Pass [address] [address] 07/09/2025 3:10 PM EST Appointment [address] [address] Bebeto Wiley MD [address] [place] [address], [address] [place] [address] [email or web address] 01/04/2026 1:00 PM EDT Office Visit [facility] [address] [place] [address] Bebeto Wiley MD [address] [place] [address], [address] [place] [address] [email or web address] documented as of this encounter Visit Diagnoses Not on filedocumented in this encounter Additional Health Concerns Infection Onset Date Last Indicated Resolved Time CoV-Presumed 04/03/2022 04/03/2022 04/24/2022 1:22 AM EDT Assessment Noted Time PHQ-2 Depression Total Score: 1 11/27/19 21 8:47 AM EDT documented as of this encounter Care Teams Protection Mgr Relationship Specialty Start Date End Date Bebeto Wiley MD [address] [place] [address], [address] [place] [address] [email or web address] PCP - General Family Medicine 03/06/21 Nancy Gaitan MD [address] [place] [address] Orthopedic Surgery 12/14/18 Cayla Sahu MD [address] [place] [address] [address] [place] [address] [email or web address] Obstetrics and Gynecology 12/14/18 documented as of this encounter Additional Source Comments The information contained in this document represents components of the legal health record. It is not the complete legal health record.[facility]
--- OUTSIDE RECORDS SUMMARY | 2025-05-02 17:27 | XMS_ITS | Patient Health Record ---
Author Organization [facility] Address [address] [place] [address] Care Team Providers Care Cartography Teacher Name Role Phone Inez COYNE, Bebeto Primary Care Provider Ismael Nelson Unavailable [phone] Allergies Allergen (clinical drug ingredient) Drug/Non Drug [...] Problem Status W/U Status Risk Notes Problem 574069980 Abdominal bloati ng (R14.0) Active confirmed Problem 53957445 Change in bowel habits (R19.4) Active confirmed Problem Diverticular disease of colon (245654776) Diverticulosis of large intestine without perforation or abscess without bleeding (K57.30) Active confirmed Problem Gastroesophageal reflux disease (156317895) Gastroesophageal reflux disease (K21.9) Active confirmed Problem 28334946 Constipation, unspecified constipation type (K59.00) Active confirmed Problem 461482231 Gastroesophageal reflux disease, unspecified whether esophagitis present [...] Date [facility] [address] [place], [place] [id number] SAMMIMARIA INESGEE NUÑEZ Self - patient is the insured Medical (General) History Medical History History ICD Code Bladder cancer for which she undergoes p eriodic cystoscopies Hypothyroidism Hyperlipidemia Denies [place],DM,CVA,Lung disease,renal dise ase She describes a negative col onoscopy at age 49 and another negative colonoscopy in 2015. Surgical History Surgery Date(Month/Year) Bladder cancer treated with cystoscopy Bunionectomy Appendectomy Left knee replacement 2016 Left wrist 2022
--- OUTSIDE RECORDS SUMMARY | 2025-05-02 17:29 | XMS_ITS | Encounter Summary ---
Author Organization [facility] Address 399 [facility] [address] [place] [address] Phone Care Team Providers Care Raw Stock Dyeing Machine Tender Name Role Phone Bebeto Wiley MD Primary Care Provider +1- [phone] Nancy Gaitan MD Unavailable Cayla Sahu MD Unavailable Bebeto Wiley MD Primary Care Provider +1- [phone] Encounter Details Date Type Department Care Team (Late st Contact Info) Description 07/10/[address] [address] Social History Tobacco Use Types Packs/Day Years [...] (Late st Contact Info) Description 12/15/2024 Procedure [address] [place] [address] 07/09/2025 3:10 PM EST Appointment [facility], [address] [address] Bebeto Wiley MD [address] [place] [address], [address] [place] [address] 01/04/2026 1:00 PM EDT Office Visit [address] [address] Bebeto Wiley MD [address] [place] [address], [address] [place] [address] documented as of this encounter Visit Diagnoses Not on filedocumented in this encounter Additional Health Concerns Infection Onset Date Last Indicated Resolved Time CoV-Presumed 04/03/2022 04/03/2022 04/24/2022 1:22 AM EDT Assessment Noted Time PHQ-2 Depression Total Score: 0 05/22/20 20 8:49 AM EDT documented as of this encounter Care Teams Raw Stock Dyeing Machine Tender Relationship Specialty Start Date End Date Bebeto Wiley MD [address] [place] [address], [address] [place] [address] PCP - General Family Medicine 07/15/17 03/05/21 Bebeto Wiley MD [address] [place] [address], [address] [place] [address] PCP - General Family Medicine 03/06/21 Nancy Gaitan MD [facility] [place] [address] Orthopedic Surgery 12/14/18 Cayla Sahu MD [address] [place] [address], [facility] [address] [place] [address] [email or web address] Obstetrics and Gynecology 12/14/18 documented as of this encounter Additional Source Comments The information contained in this document represents components of the legal health record. It is not the complete legal health record.[facility]
--- OUTSIDE RECORDS SUMMARY | 2025-05-02 17:29 | XMS_ITS | Encounter Summary ---
Author Organization [facility] Address [address] [facility] [address] [place] [address] Phone Care Team Providers Care Public Works Inspector Name Role Phone Bebeto Wiley MD Primary Care Provider +1- [phone] Nancy Gaitan MD Unavailable Cayla Sahu MD Unavailable Bebeto Wiley MD Primary Care Provider +1- [phone] Encounter Details Date Type Department Care Team (Late st Contact Info) Description 07/25/2020 Ancillary Orders [facility],Outside Imaging [address] [place], [place] [id number] System, Provider Not In, [facility] [address] [address] Social History Tobacco Use Types Packs/Day Years [...] st Contact Info) Description 12/15/2024 Procedure Pass [facility] [address] [place] [address] 07/09/2025 3:10 PM EST Appointment [facility] [address] [place] [address] Bebeto Wiley MD [address] [place] [address], [address] [place] [address] [email or web address] 01/04/2026 1:00 PM EDT Office Visit [address] [address] Bebeto Wiley MD [address] [place] [address], [address] [place] [address] documented as of this encounter Results * [...] documented as of this encounter Care Teams Public Works Inspector Relationship Specialty Start Date End Date Bebeto Wiley MD [address] [place] [address], [address] [place] [address] PCP - General Family Medicine 07/15/17 03/05/21 Bebeto Wiley MD [address] [place] [address], [address] [place] [address] PCP - General Family Medicine 03/06/21 Nancy Gaitan MD [address] [place] [address] Orthopedic Surgery 12/14/18 Cayla Sahu MD [address] [facility], [address] [place] [address] Obstetrics and Gynecology 12/14/18 documented as of this encounter Additional Source Comments The information contained in this document represents components of the legal health record. It is not the complete legal health record.[facility]
--- OUTSIDE RECORDS SUMMARY | 2025-05-02 17:29 | XMS_ITS | Patient Health Record ---
Author Organization [facility] Address [address] [place] [address] Care Team Providers Care Exhibition Specialist Name Role Phone Bebeto Wiley MD Primary Care Provider Adin Watson Unavailable [phone] Allergies Allergen (clinical drug ingredient) Drug/Non Drug [...] Status Risk Notes Problem Acquired hallux rigidus (7834826) Hallux rigidus, left foot (M20.22) Active confirmed Problem Acquired hammer toe of right foot (9599312197450 105) Other hammer toe(s) (acquired), right foot (M20.41) Active confirmed Problem Acquired hammer toe of left foot (7603284745879 103) Other hammer toe(s) (acquired), left foot (M20.42) Active confirmed Problem Acquired hallux rigidus (8376874) Hallux rigidus, right foot (M20.21) Active confirmed Plan Of Treatment Pending Test Test Name Order Date X ray : Foot, left 3V 01/01/2021 X ray : Foot, right 3V 01/01/2021 Insurance Providers Payer Name Payer Address Payer Phone Subscriber Number Group Number Insured Name Patient Relationship to Insured Coverage Start Date Coverage End Date [address] [place] [address] [phone] [id number] Rico Self - patient is the insured [...]
--- OUTSIDE RECORDS SUMMARY | 2025-05-02 17:29 | XMS_ITS | Encounter Summary ---
Author Organization [facility] Address [address] [facility] [address] [place] [address] Phone Care Team Providers Care Delinquency Prevention Social Worker Name Role Phone Nancy Gaitan MD Unavailable Cayla Sahu MD Unavailable Bebeto Wiley MD Primary Care Provider +1- [phone] Encounter Details Date Type Department Care Team (Late st Contact Info) Description 12/23/2022 Procedure Pass [facility], Ct Scan - [address] [address] Social History Tobacco Use Types Packs/Day Years [...] Contact Info) Description 12/15/2024 Procedure Pass [address] [address] 07/09/2025 3:10 PM EST Appointment [facility] 30 [place] [address] Bebeto Wiley MD [address] [place] [address], [address] [place] [address] 01/04/2026 1:00 PM EDT Office Visit [address] [address] Bebeto Wiley MD [address] [place] [address], [address] [place] [address] documented as of this encounter Visit Diagnoses Not on filedocumented in this encounter Additional Health Concerns Assessment Noted Time PHQ-2 Depression Total Score: 2 12/30/19 23 1:03 PM EDT documented as of this encounter Care Teams Delinquency Prevention Social Worker Relationship Specialty Start Date End Date Bebeto Wiley MD [address] [place] [address], [address] [place] [address] PCP - General Family Medicine 03/06/21 Nancy Gaitan MD [address] [place] [address] Orthopedic Surgery 12/14/18 Cayla Sahu MD [address] [place] [address], [address] [place] [address] Obstetrics and Gynecology 12/14/18 documented as of this encounter Additional Source Comments The information contained in this document represents components of the legal health record. It is not the complete legal health record.[facility]
--- OUTSIDE RECORDS SUMMARY | 2025-05-02 17:29 | XMS_ITS | Encounter Summary ---
Author Organization [facility] Address [address] [facility] [address] [place] [address] Phone Care Team Providers Care Senior Oracle Soa Developer Name Role Phone Bebeto Wiley MD Primary Care Provider +1- [phone] Nancy Gaitan MD Unavailable Cayla Sahu MD Unavailable Bebeto Wiley MD Primary Care Provider +1- [phone] Encounter Details Date Type Department Care Team (Late st Contact Info) Description 07/25/2020 Ancillary Orders [facility],Outside Imaging [address] [place], [place] [id number] System, Provider Not In, PhD [employer] [address] [address] Social History Tobacco Use Types Packs/Day Years [...] st Contact Info) Description 12/15/2024 Procedure Pass [facility] 30 [place] [address] 07/09/2025 3:10 PM EST Appointment [facility] 30 [place] [address] Bebeto Wiley MD [address] [place] [address], [address] [place] [address] 01/04/2026 1:00 PM EDT Office Visit [address] [address] Bebeto Wiley MD [address] [place] [address], [address] [place] [address] documented as of this encounter Results * [...] as of this encounter Care Teams Senior Oracle Soa Developer Relationship Specialty Start Date End Date Bebeto Wiley MD [address] [place] [address], [address] [place] [address] PCP - General Family Medicine 07/15/17 03/05/21 Bebeto Wiley MD [address] [place] [address], [address] [place] [address] [email or web address] PCP - General Family Medicine 03/06/21 Nancy Gaitan MD [address] [place] [address] Orthopedic Surgery 12/14/18 Cayla Sahu MD 22 [facility], [address] [place] [address] [email or web address] Obstetrics and Gynecology 12/14/18 documented as of this encounter Additional Source Comments The information contained in this document represents components of the legal health record. It is not the complete legal health record.[facility]
--- OUTSIDE RECORDS SUMMARY | 2025-05-02 17:29 | XMS_ITS | Encounter Summary ---
Author Organization [facility] Address [address] [facility] [address] [place] [address] Phone Care Team Providers Care Screen Stretcher Name Role Phone Bebeto Wiley MD Primary Care Provider +1- [phone] Nancy Gaitan MD Unavailable Cayla Sahu MD Unavailable Bebeto Wiley MD Primary Care Provider +1- [phone] Encounter Details Date Type Department Care Team (Late st Contact Info) Description 07/25/2020 Ancillary Orders [facility],Outside Imaging 30 [place], [place] [id number] System, Provider Not In, PhD [employer] [address] [address] Social History Tobacco Use Types Packs/Day Years [...] st Contact Info) Description 12/15/2024 Procedure Pass [facility] 30 [place] [address] 07/09/2025 3:10 PM EST Appointment [facility] 30 [place] [address] Bebeto Wiley MD [address] [place] [address], [address] [place] [address] 01/04/2026 1:00 PM EDT Office Visit [address] [address] Bebeto Wiley MD [address] [place] [address], [address] [place] [address] documented as of this encounter Results * [...] documented as of this encounter Care Teams Screen Stretcher Relationship Specialty Start Date End Date Bebeto Wiley MD [address] [place] [address], [address] [place] [address] PCP - General Family Medicine 07/15/17 03/05/21 Bebeto Wiley MD [address] [place] [address], [address] [place] [address] [email or web address] PCP - General Family Medicine 03/06/21 Nancy Gaitan MD [address] [place] [address] Orthopedic Surgery 12/14/18 Cayla Sahu MD [address] [facility], [address] [place] [address] [email or web address] Obstetrics and Gynecology 12/14/18 documented as of this encounter Additional Source Comments The information contained in this document represents components of the legal health record. It is not the complete legal health record.[facility]
--- OUTSIDE RECORDS SUMMARY | 2025-05-02 17:29 | XMS_ITS | Encounter Summary ---
Author Organization [facility] Address [address] [facility] [address] [place] [address] Phone Care Team Providers Care Fish Housekeeper Name Role Phone Nancy Gaitan MD Unavailable Cayla Sahu MD Unavailable Bebeto Wiley MD Primary Care Provider +1- [phone] Encounter Details Date Type Department Care Team (Late st Contact Info) Description 09/20/2023 Procedure Pass [facility], [address] [address] Social History Tobacco Use Types Packs/Day Years [...] Contact Info) Description 12/15/2024 Procedure Pass [address] [address] 07/09/2025 3:10 PM EST Appointment [facility] 30 [place] [address] Bebeto Wiley MD [address] [place] [address], [address] [place] [address] [email or web address] 01/04/2026 1:00 PM EDT Office Visit [address] [address] Bebeto Wiley MD [address] [place] [address], [address] [place] [address] documented as of this encounter Visit Diagnoses Not on filedocumented in this encounter Additional Health Concerns Assessment Noted Time PHQ-2 Depression Total Score: 2 12/30/19 23 1:03 PM EDT documented as of this encounter Care Teams Fish Housekeeper Relationship Specialty Start Date End Date Bebeto Wiley MD [address] [place] [address], [address] [place] [address] PCP - General Family Medicine 03/06/21 Nancy Gaitan MD [facility] [place] [address] Orthopedic Surgery 12/14/18 Cayla Sahu MD [address] [place] [address], [address] [place] [address] [email or web address] Obstetrics and Gynecology 12/14/18 documented as of this encounter Additional Source Comments The information contained in this document represents components of the legal health record. It is not the complete legal health record.[facility]
--- OUTSIDE RECORDS SUMMARY | 2025-05-02 17:29 | XMS_ITS | Clinical Summary ---
Author Organization [facility] Address [address] [place] [address] Care Team Providers Care Conference Manager Name Role Phone Bebeto Wiley MD Primary Care Provider [phone] Immunizations Name Administration Dates Next Due Moderna [...] Medical History Medical History Date Comments Cancer ([facility] V24, [facility] V28) DX:Cancer (HCC) Thyroid disorder [...] Name Priority Date/Time Associated Diagnosis Comments [facility] SCREENING DIGITAL Routine 12/15/2018 1:07 PM EDT Encounter for screening mammogram for malignant neoplasm of breast from Last 3 Months or Most Recently Relevant to Health Maintenance Results * [facility] SCREENING DIGITAL (12/15/2018 1:07 PM EDT) Anatomical Region Laterality Modality Mammography 12/15/2018 10:5 2 AM EDT Narrative 12/15/2018 1:07 PM EDT [facility] Diagnostic Imaging Department [address] [place] [address] Patient: GEE GALLEGOS /Age/Sex: 1955 - 63 - F Unit#: [id number] Location/Status: SPDIMAM/REG CLI Mnemonic/Ordering Site: [facility] Ordering Physician: NAM SAHU MD Elissa [...] for the next mammogram: CPT II 7025F [id number] Dictating Physician: NATA CHAO MD Electronically Signed by: NATA CHAO MD Dic Date/Time: 12/15/18 1305 Sign date/Time: 12/15/18 1307 Procedure Note Nata hCao MD - 07/28/2022 [facility] Diagnostic Imaging Department [address] [place] [address] Patient: GEE GALLEGOS /Age/Sex: 1955 - 63 - F Unit#: [id number] Location/Status: SPDIMAM/REG CLI Mnemonic/Ordering Site: [facility] Ordering Physician: NAM SAHU MD Elissa [...] for the next mammogram: CPT II 7025F [id number] Dictating Physician: NATA CHAO MD Electronically Signed by: NATA CHAO MD Dic Date/Time: 12/15/18 1305 Sign date/Time: 12/15/18 1307 Nam Sahu MD IMG BI PROCEDURES Final Result from Last 3 Months or Most Recently Relevant to Health Maintenance Care Teams Conference Manager Relationship Specialty Start Date End Date Bebeto Wiley MD [address] [address] PCP - General 09/12/10
--- OUTSIDE RECORDS SUMMARY | 2025-05-02 17:29 | XMS_ITS | Encounter Summary ---
Author Organization [facility] Address [address] [facility] [address] [place] [address] Phone Care Team Providers Care Chemical Processing Technician Name Role Phone Bebeto Wiley MD Primary Care Provider [phone]- [phone] Nancy Gaitan MD Unavailable Cayla Sahu MD Unavailable Bebeto Wiley MD Primary Care Provider +1- [phone] Encounter Details Date Type Department Care Team (Late st Contact Info) Description 07/25/2020 Ancillary Orders [facility],Outside Imaging [address] [place], [place] [id number] System, Provider Not In, PhD [facility] [address] [address] Social History Tobacco Use Types Packs/Day Years [...] st Contact Info) Description 12/15/2024 Procedure Pass [facility] 30 [place] [address] 07/09/2025 3:10 PM EST Appointment [facility] 30 [place] [address] Bebeto Wiley MD [address] [place] [address], [address] [place] [address] [email or web address] 01/04/2026 1:00 PM EDT Office Visit [address] [address] Bebeto Wiley MD [address] [place] [address], [address] [place] [address] documented as of this encounter Results * [...] documented as of this encounter Care Teams Chemical Processing Technician Relationship Specialty Start Date End Date Bebeto Wiley MD [address] [place] [address], [address] [place] [address] PCP - General Family Medicine 07/15/17 03/05/21 Bebeto Wiley MD [address] [place] [address], [address] [place] [address] [email or web address] PCP - General Family Medicine 03/06/21 Nancy Gaitan MD [address] [place] [address] Orthopedic Surgery 12/14/18 Cayla Sahu MD 22 [facility], [address] [place] [address] [email or web address] Obstetrics and Gynecology 12/14/18 documented as of this encounter Additional Source Comments The information contained in this document represents components of the legal health record. It is not the complete legal health record.[facility]
--- OUTSIDE RECORDS SUMMARY | 2025-05-02 17:29 | XMS_ITS | Encounter Summary ---
Author Organization [facility] Address [address] [facility] [address] [place] [address] Phone Care Team Providers Care Research Programmer Name Role Phone Nancy Gaitan MD Unavailable Cayla Sahu MD Unavailable Bebeto Wiley MD Primary Care Provider +1- [phone] Encounter Details Date Type Department Care Team (Late st Contact Info) Description 11/10/2022 Procedure Pass [place] Admitting Dept - [facility] Department [address] [place] [address] Social History Tobacco Use Types Packs/Day Years [...] st Contact Info) Description 12/15/2024 Procedure Pass [facility] 30 [place] [address] 07/09/2025 3:10 PM EST Appointment [facility], [facility] [address] [place] [address] Bebeto Wiley MD 22 [facility], [address] [place] [address] 01/04/2026 1:00 PM EDT Office Visit [facility] [address] [place] [address] Bebeto Wiley MD 22 [facility], [address] [place] [address] documented as of this encounter Visit Diagnoses Not on filedocumented in this encounter Additional Health Concerns Assessment Noted Time PHQ-2 Depression Total Score: 1 11/27/19 21 8:47 AM EDT documented as of this encounter Care Teams Research Programmer Relationship Specialty Start Date End Date Bebeto Wiley MD 22 [facility], [address] [place] [address] PCP - General Family Medicine 03/06/21 Nancy Gaitan MD [address] [place] [address] Orthopedic Surgery 12/14/18 Cayla Sahu MD [address] [place] [address], [address] [place] [address] Obstetrics and Gynecology 12/14/18 documented as of this encounter Additional Source Comments The information contained in this document represents components of the legal health record. It is not the complete legal health record.[facility]
--- OUTSIDE RECORDS SUMMARY | 2025-05-02 17:29 | XMS_ITS | Encounter Summary ---
Author Organization [facility] Address [address] [facility] [address] [place] [address] Phone Care Team Providers Care Hair Specialist Name Role Phone Bebeto Wiley MD Primary Care Provider +1- [phone] Nancy Gaitan MD Unavailable [phone] Cayla Sahu MD Unavailable Bebeto Wiley MD Primary Care Provider +1- [phone] Encounter Details Date Type Department Care Team (Late st Contact Info) Description 11/19/2020 Ancillary Orders [facility],Outside Imaging [address] [place], [place] [id number] System, Provider Not In, PhD Partners [address] [address] Social History Tobacco Use Types Packs/Day Years [...] (Late Contact Info) Description 12/15/2024 Procedure Pass [facility] 30 [place] [address] 07/09/2025 3:10 PM EST Appointment [facility] [address] [place] [address] Bebeto Wiley MD [address] [place] [address], [address] [place] [address] 01/04/2026 1:00 PM EDT Office Visit [address] [address] Bebeto Wiley MD [address] [place] [address], [address] [place] [address] documented as of this encounter Results * [...] documented as of this encounter Care Teams Hair Specialist Relationship Specialty Start Date End Date Bebeto Wiley MD [address] [place] [address], [address] [place] [address] PCP - General Family Medicine 07/15/17 03/05/21 Bebeto Wiley MD [address] [place] [address], [address] [place] [address] [email or web address] PCP - General Family Medicine 03/06/21 Nancy Gaitan MD [address] [place] [address] Orthopedic Surgery 12/14/18 Cayla Shau MD [address] [place] [address], [address] [place] [address] [email or web address] Obstetrics and Gynecology 12/14/18 documented as of this encounter Additional Source Comments The information contained in this document represents components of the legal health record. It is not the complete legal health record.[facility]
--- OUTSIDE RECORDS SUMMARY | 2025-05-02 17:29 | XMS_ITS | Encounter Summary ---
Author Organization [facility] Address [address] [facility] [address] [place] [address] Phone Care Team Providers Care Armature Coil Winder Name Role Phone Nancy Gaitan MD Unavailable Cayla Sahu MD Unavailable Bebeto Wiley MD Primary Care Provider +1- [phone] Encounter Details Date Type Department Care Team (Late st Contact Info) Description 12/06/2023 Procedure Pass [facility], [address] [address] Social History Tobacco Use Types Packs/Day Years [...] Contact Info) Description 12/15/2024 Procedure Pass [address] [address] 07/09/2025 3:10 PM EST Appointment [facility] 30 [place] [address] Bebeto Wiley MD [address] [place] [address], [address] [place] [address] [email or web address] 01/04/2026 1:00 PM EDT Office Visit [address] [address] Bebeto Wiley MD [address] [place] [address], [address] [place] [address] documented as of this encounter Visit Diagnoses Not on filedocumented in this encounter Additional Health Concerns Assessment Noted Time PHQ-2 Depression Total Score: 2 12/30/19 24 5:03 PM EDT documented as of this encounter Care Teams Armature Coil Winder Relationship Specialty Start Date End Date Bebeto Wiley MD [address] [place] [address], [address] [place] [address] PCP - General Family Medicine 03/06/21 Nancy Gaitan MD [facility] [place] [address] Orthopedic Surgery 12/14/18 Cayla Sahu MD [address] [place] [address], [address] [place] [address] [email or web address] Obstetrics and Gynecology 12/14/18 documented as of this encounter Additional Source Comments The information contained in this document represents components of the legal health record. It is not the complete legal health record.[facility]
--- OUTSIDE RECORDS SUMMARY | 2025-05-02 17:29 | XMS_ITS | Encounter Summary ---
Author Organization [facility] Address [address] [place] [address] Phone Care Team Providers Care Automotive Tire Worker Name Role Phone Nancy Gaitan MD Unavailable Cayla Sahu MD Unavailable Bebeto Wiley MD Primary Care Provider [phone]- [phone] Reason for Visit * Reason Comments Medication Refill Encounter Details Date Type Department Care Team (Late st Contact Info) Description 02/24/2025 Refill [facility] [place] [facility] [address] [place] [address] Bebeto Wiley MD [address] [facility], [address] [place], [place] [address] [email or web address] Medication Refill Social History Tobacco Use Types [...] 01/02/2025 Bebeto Wiley MD - Family Medicine [facility] > Requested f/u: Return in about 53 weeks (around 01/08/2026), or smawv. Upcoming visit: 01/04/2026 Bebeto Wiley MD - Family Medicine [facility] ACTIONS TAKEN BY Naila Cabrera MA [...] Contact Info) Description 12/15/2024 Procedure Pass [address] [address] 07/09/2025 3:10 PM EST Appointment [facility] [address] [place] [address] Bebeto Wiley MD [address] [place] [address], [address] [place] [address] 01/04/2026 1:00 PM EDT Office Visit [address] [address] Bebeto Wiley MD [address] [place] [address], [address] [address] documented as of this encounter Visit Diagnoses Not on filedocumented in this encounter Additional Health Concerns Assessment Noted Time PHQ-2 Depression Total Score: 0 01/02/20 25 10:06 PM EDT documented as of this encounter Care Teams Automotive Tire Worker Relationship Specialty Start Date End Date Bebeto Wiley MD [address] [place] [address], [address] [place] [address] PCP - General Family Medicine 03/06/21 Nancy Gaitan MD [facility] [place] [address] Orthopedic Surgery 12/14/18 Cayla Sahu MD [address] [place] [address], [address] [place] [address] Obstetrics and Gynecology 12/14/18 documented as of this encounter Additional Source Comments The information contained in this document represents components of the legal health record. It is not the complete legal health record.[facility]
--- OUTSIDE RECORDS SUMMARY | 2025-05-02 17:29 | XMS_ITS | Encounter Summary ---
Author Organization [facility] Address [address] [facility] [address] [place] [address] Phone Care Team Providers Care Hose Stripper Name Role Phone Nancy Gaitan MD Unavailable [phone] Cayla Sahu MD Unavailable Bebeto Wiley MD Primary Care Provider [phone]- [phone] Encounter Details Date Type Department Care Team (Late st Contact Info) Description 11/19/2021 Procedure Pass [address] [address] Social History Tobacco Use Types Packs/Day Years [...] st Contact Info) Description 12/15/2024 Procedure Pass [facility], [address] [address] 07/09/2025 3:10 PM EST Appointment [facility], [facility] [address] [place] [address] Bebeto Wiley MD [address] [facility], [address] [place] [address] [email or web address] 01/04/2026 1:00 PM EDT Office Visit [facility] Family Medicine [address] [place] [address] Bebeto Wiley MD [address] [place] [address], [address] [place] [address] [email or web address] documented as of this encounter Visit Diagnoses Not on filedocumented in this encounter Additional Health Concerns Infection Onset Date Last Indicated Resolved Time CoV-Presumed 04/03/2022 04/03/2022 04/24/2022 1:22 AM EDT Assessment Noted Time PHQ-2 Depression Total Score: 1 11/27/19 21 8:47 AM EDT documented as of this encounter Care Teams Hose Stripper Relationship Specialty Start Date End Date Bebeto Wiley MD [address] [place] [address], [address] [place] [address] [email or web address] PCP - General Family Medicine 03/06/21 Nancy Gaitan MD [address] [place] [address] Orthopedic Surgery 12/14/18 Cayla Sahu MD [address] [place] [address], [address] [place] [address] [email or web address] Obstetrics and Gynecology 12/14/18 documented as of this encounter Additional Source Comments The information contained in this document represents components of the legal health record. It is not the complete legal health record.[facility]
--- OUTSIDE RECORDS SUMMARY | 2025-05-02 17:29 | XMS_ITS | Encounter Summary ---
Author Organization [facility] Address [address] [facility] [address] [place] [address] Phone Care Team Providers Care Front Office Clerk Name Role Phone Nancy Gaitan MD Unavailable [phone] Cayla Sahu MD Unavailable Bebeto Wiley MD Primary Care Provider [phone]- [phone] Encounter Details Date Type Department Care Team (Late st Contact Info) Description 05/02/2025 Orders Only [facility] Medicine [address] [place] [address] Provider, MD Elías [address] [place] [address] Social History Tobacco Use Types Packs/Day [...] Contact Info) Description 12/15/2024 Procedure Pass [address] [address] 07/09/2025 3:10 PM EST Appointment [address] [address] Bebeto Wiley MD [address] [place] [address], [address] [address] 01/04/2026 1:00 PM EDT Office Visit [facility] [place] [facility] [address] [place] [address] Bebeto Wiley MD [address] [place] [address], [address] [address] [email or web address] documented as of this encounter Procedures Procedure Name Priority Date/Time Associated Diagnosis Comments OUTSIDE IMAGING Routine 04/26/2025 9:48 AM EDT documented in this encounter Results * Outside Imaging Report Only (04/26/2025 9:48 AM EDT) us Historical Provider MD MALIN XR CHEST Edited Re sult - Final documented in this encounter Visit Diagnoses Not on filedocumented in this encounter Additional Health Concerns Assessment Noted Time PHQ-2 Depression Total Score: 0 01/02/20 25 10:06 PM EDT documented as of this encounter Care Teams Front Office Clerk Relationship Specialty Start Date End Date Bebeto Wiley MD [address] [place] [address], [address] [place] [address] [email or web address] PCP - General Family Medicine 03/06/21 Nancy Gaitan MD [address] [place] [address] Orthopedic Surgery 12/14/18 Cayla Sahu MD [address] [place] [address], [address] [place] [address] [email or web address] Obstetrics and Gynecology 12/14/18 documented as of this encounter Additional Source Comments The information contained in this document represents components of the legal health record. It is not the complete legal health record.[facility]
--- OUTSIDE RECORDS SUMMARY | 2025-05-02 17:29 | XMS_ITS | Encounter Summary ---
Author Organization [facility] Address [address] [facility] [address] [place] [address] Phone Care Team Providers Care Hops Farmworker Name Role Phone Nancy Gaitan MD Unavailable Cayla Sahu MD Unavailable Bebeto Wiley MD Primary Care Provider [phone]- [phone] Encounter Details Date Type Department Care Team (Late st Contact Info) Description 09/15/2021 Procedure Pass [facility], Ct Scan - [address] [address] Social History Tobacco Use Types Packs/Day Years [...] 09/15/2021 4:57 PM Kelsey Lopez RN * [place] Suicide Severity Rating Scale (Screener/Recent Self-Report) Question [...] st Contact Info) Description 12/15/2024 Procedure Pass [address] [address] 07/09/2025 3:10 PM EST Appointment [address] [address] Bebeto Wiley MD [address] [place] [address], [address] [place] [address] [email or web address] 01/04/2026 1:00 PM EDT Office Visit [address] [address] Bebeto Wiley MD [address] [place] [address], [address] [place] [address] [email or web address] documented as of this encounter Visit Diagnoses Not on filedocumented in this encounter Additional Health Concerns Infection Onset Date Last Indicated Resolved Time CoV-Presumed 04/03/2022 04/03/2022 04/24/2022 1:22 AM EDT Assessment Noted Time PHQ-2 Depression Total Score: 1 11/27/19 21 8:47 AM EDT documented as of this encounter Care Teams Hops Farmworker Relationship Specialty Start Date End Date Bebeto Wiley MD [address] [place] [address], [address] [place] [address] [email or web address] PCP - General Family Medicine 03/06/21 Nancy Gaitan MD [address] [place], [place] [address] [place] [address] Orthopedic Surgery 12/14/18 Cayla Sahu MD [address] [place] [address], [address] [place] [address] [email or web address] Obstetrics and Gynecology 12/14/18 documented as of this encounter Additional Source Comments The information contained in this document represents components of the legal health record. It is not the complete legal health record.[facility]
--- OUTSIDE RECORDS SUMMARY | 2025-05-02 17:29 | XMS_ITS | Encounter Summary ---
Author Organization [facility] Address [address] [facility] [address] [place] [address] Phone Care Team Providers Care Sugar Mixer Name Role Phone Nancy Gaitan MD Unavailable Cayla Sahu MD Unavailable Bebeto Wiley MD Primary Care Provider [phone]- [phone] Encounter Details Date Type Department Care Team (Late st Contact Info) Description 06/10/2022 Procedure Pass [facility] Admitting Dept Virtual Department [address] [place] [address] Social History Tobacco Use Types Packs/Day Years [...] st Contact Info) Description 12/15/2024 Procedure Pass [facility], [facility] 30 [place] [address] 07/09/2025 3:10 PM EST Appointment [facility], [facility] [address] [place] [address] Bebeto Wiley MD [address] [facility], [address] [place] [address] 01/04/2026 1:00 PM EDT Office Visit [facility] 22 [place] [address] Bebeto Wiley MD 22 [facility], [address] [place] [address] documented as of this encounter Visit Diagnoses Not on filedocumented in this encounter Additional Health Concerns Assessment Noted Time PHQ-2 Depression Total Score: 1 11/27/19 21 8:47 AM EDT documented as of this encounter Care Teams Sugar Mixer Relationship Specialty Start Date End Date Bebeto Wiley MD 22 [facility], [address] [place] [address] PCP - General Family Medicine 03/06/21 Nancy Gaitan MD [address] [place] [address] Orthopedic Surgery 12/14/18 Cayla Sahu MD [address] [place] [address], [address] [place] [address] Obstetrics and Gynecology 12/14/18 documented as of this encounter Additional Source Comments The information contained in this document represents components of the legal health record. It is not the complete legal health record.[facility]
--- OUTSIDE RECORDS SUMMARY | 2025-05-02 17:29 | XMS_ITS | Encounter Summary ---
Author Organization [facility] Address [address] [facility] [address] [place] [address] Phone Care Team Providers Care Commutator Tester Name Role Phone Bebeto Wiley MD Primary Care Provider [phone]- [phone] Nancy Gaitan MD Unavailable [phone] Cayla Sahu MD Unavailable Bebeto Wiley MD Primary Care Provider [phone]- [phone] Encounter Details Date Type Department Care Team (Late st Contact Info) Description 07/25/2020 Ancillary Orders [facility],Outside Imaging [address] [place], [place] [id number] System, Provider Not In, [facility] [address] [address] Social History Tobacco Use Types Packs/Day Years [...] st Contact Info) Description 12/15/2024 Procedure Pass [facility] 30 [place] [address] 07/09/2025 3:10 PM EST Appointment [facility] 30 [place] [address] Bebeto Wiley MD [address] [place] [address], [address] [place] [address] [email or web address] 01/04/2026 1:00 PM EDT Office Visit [address] [address] Bebeto Wiley MD [address] [place] [address], [address] [place] [address] documented as of this encounter Results * [...] documented as of this encounter Care Teams Commutator Tester Relationship Specialty Start Date End Date Bebeto Wiley MD [address] [place] [address], [address] [place] [address] PCP - General Family Medicine 07/15/17 03/05/21 Bebeto Wiley MD [address] [place] [address], [address] [place] [address] [email or web address] PCP - General Family Medicine 03/06/21 Nancy Gaitan MD [address] [place] [address] Orthopedic Surgery 12/14/18 Cayla Sahu MD [address] [facility], [address] [place] [address] [email or web address] Obstetrics and Gynecology 12/14/18 documented as of this encounter Additional Source Comments The information contained in this document represents components of the legal health record. It is not the complete legal health record.[facility]
--- OUTSIDE RECORDS SUMMARY | 2025-05-02 17:29 | XMS_ITS | Encounter Summary ---
Author Organization [facility] Address [address] [facility] [address] [place] [address] Phone Care Team Providers Care Supervisor Instrument Maintenance Name Role Phone Nancy Gaitan MD Unavailable [phone] Cayla Sahu MD Unavailable Bebeto Wiley MD Primary Care Provider [phone]- [phone] Encounter Details Date Type Department Care Team (Late st Contact Info) Description 09/15/2021 Procedure Pass [facility], Ct Scan - [address] [address] Social History Tobacco Use Types Packs/Day Years [...] 09/15/2021 4:57 PM Kelsey Lopez RN * [place] Suicide Severity Rating Scale (Screener/Recent Self-Report) Question [...] st Contact Info) Description 12/15/2024 Procedure Pass [address] [address] 07/09/2025 3:10 PM EST Appointment [address] [address] Bebeto Wiley MD [address] [place] [address], [address] [place] [address] [email or web address] 01/04/2026 1:00 PM EDT Office Visit [address] [address] Bebeto Wiley MD [address] [place] [address], [address] [place] [address] [email or web address] documented as of this encounter Visit Diagnoses Not on filedocumented in this encounter Additional Health Concerns Infection Onset Date Last Indicated Resolved Time CoV-Presumed 04/03/2022 04/03/2022 04/24/2022 1:22 AM EDT Assessment Noted Time PHQ-2 Depression Total Score: 1 11/27/19 21 8:47 AM EDT documented as of this encounter Care Teams Supervisor Instrument Maintenance Relationship Specialty Start Date End Date Bebeto Wiley MD [address] [place] [address], [address] [place] [address] [email or web address] PCP - General Family Medicine 03/06/21 Nancy Gaitan MD [address] [place], [place] [address] [place] [address] Orthopedic Surgery 12/14/18 Cayla Sahu MD [address] [place] [address], [facility] [address] [place] [address] [email or web address] Obstetrics and Gynecology 12/14/18 documented as of this encounter Additional Source Comments The information contained in this document represents components of the legal health record. It is not the complete legal health record.[facility]
--- OUTSIDE RECORDS SUMMARY | 2025-05-02 17:30 | XMS_ITS | Encounter Summary ---
Author Organization [facility] Address [address] [facility] [address] [place] [address] Phone Care Team Providers Care Business Process Specialist Name Role Phone Nancy Gaitan MD Unavailable [phone] Cayla Sahu MD Unavailable Bebeto Wiley MD Primary Care Provider [phone]- [phone] Encounter Details Date Type Department Care Team (Late st Contact Info) Description 02/22/2024 Procedure Pass [place] Admitting Dept - Virtual Department 30 [place] [address] Social History Tobacco Use Types Packs/Day Years [...] Contact Info) Description 12/15/2024 Procedure Pass [address] [address] 07/09/2025 3:10 PM EST Appointment [facility] 30 [place] [address] Bebeto Wiley MD [address] [place] [address], [address] [place] [address] [email or web address] 01/04/2026 1:00 PM EDT Office Visit [address] [address] Bebeto Wiley MD [address] [place] [address], [address] [place] [address] documented as of this encounter Visit Diagnoses Not on filedocumented in this encounter Additional Health Concerns Assessment Noted Time PHQ-2 Depression Total Score: 2 12/30/19 24 5:03 PM EDT documented as of this encounter Care Teams Business Process Specialist Relationship Specialty Start Date End Date Bebeto Wiley MD [address] [place] [address], [address] [place] [address] PCP - General Family Medicine 03/06/21 Nancy Gaitna MD [facility] [place] [address] Orthopedic Surgery 12/14/18 Cayla Sahu MD [address] [place] [address], [address] [place] [address] [email or web address] Obstetrics and Gynecology 12/14/18 documented as of this encounter Additional Source Comments The information contained in this document represents components of the legal health record. It is not the complete legal health record.[facility]
--- OUTSIDE RECORDS SUMMARY | 2025-05-02 17:30 | XMS_ITS | Encounter Summary ---
Author Organization [facility] Address [address] [facility] [address] [place] [address] Phone Care Team Providers Care Csw Name Role Phone Nancy Gaitan MD Unavailable Cayla Sahu MD Unavailable Bebeto Wiley MD Primary Care Provider [phone]- [phone] Encounter Details Date Type Department Care Team (Late st Contact Info) Description 02/04/2023 Telephone [facility] [address] [place] [address] Zuleyma Miller, DUONG Social History Tobacco [...] Contact Info) Description 12/15/2024 Procedure Pass [address] [address] 07/09/2025 3:10 PM EST Appointment [address] [address] Bebeto Wiley MD [address] [place] [address], [address] [place] [address] 01/04/2026 1:00 PM EDT Office Visit [address] [address] Bebeto Wiley MD [address] [place] [address], [address] [place] [address] documented as of this encounter Visit Diagnoses Not on filedocumented in this encounter Additional Health Concerns Assessment Noted Time PHQ-2 Depression Total Score: 2 12/30/19 23 1:03 PM EDT documented as of this encounter Care Teams Csw Relationship Specialty Start Date End Date Bebeto Wiley MD [address] [place] [address], [address] [place] [address] PCP - General Family Medicine 03/06/21 Nancy Gaitan MD [address] [place] [address] Orthopedic Surgery 12/14/18 Cayla Sahu MD 22 [facility], [address] [address] [email or web address] Obstetrics and Gynecology 12/14/18 documented as of this encounter Additional Source Comments The information contained in this document represents components of the legal health record. It is not the complete legal health record.[facility]
--- OUTSIDE RECORDS SUMMARY | 2025-05-02 17:30 | XMS_ITS | Encounter Summary ---
Author Organization [facility] Address [address] [facility] [address] [place] [address] Phone Care Team Providers Care Rubber Insulator Name Role Phone Nancy Gaitan MD Unavailable Cayla Sahu MD Unavailable Bebeto Wiley MD Primary Care Provider [phone]- [phone] Encounter Details Date Type Department Care Team (Late st Contact Info) Description 02/01/2024 Procedure Pass [facility] 30 [place] [address] Social History Tobacco Use Types Packs/Day Years [...] Contact Info) Description 12/15/2024 Procedure Pass [address] [address] 07/09/2025 3:10 PM EST Appointment [address] [address] Bebeto Wiley MD [address] [place] [address], [address] [place] [address] [email or web address] 01/04/2026 1:00 PM EDT Office Visit [address] [address] Bebeto Wiley MD [address] [place] [address], [address] [place] [address] documented as of this encounter Visit Diagnoses Not on filedocumented in this encounter Additional Health Concerns Assessment Noted Time PHQ-2 Depression Total Score: 2 12/30/19 24 5:03 PM EDT documented as of this encounter Care Teams Rubber Insulator Relationship Specialty Start Date End Date Bebeto Wiley MD [address] [place] [address], [address] [place] [address] PCP - General Family Medicine 03/06/21 Nancy Gaitan MD [facility] [place] [address] Orthopedic Surgery 12/14/18 Cayla Sahu MD [address] [place] [address], [address] [place] [address] [email or web address] Obstetrics and Gynecology 12/14/18 documented as of this encounter Additional Source Comments The information contained in this document represents components of the legal health record. It is not the complete legal health record.[facility]
--- OUTSIDE RECORDS SUMMARY | 2025-05-02 17:30 | XMS_ITS | Encounter Summary ---
Author Organization [facility] Address [address] [facility] [address] [place] [address] Phone Care Team Providers Care Business Line Controller Name Role Phone Nancy Gaitan MD Unavailable [phone] Cayla Sahu MD Unavailable Bebeto Wiley MD Primary Care Provider +1- [phone] Encounter Details Date Type Department Care Team (Late st Contact Info) Description 03/30/2025 Orders Only [facility] [address] [place] [address] Provider, MD Elías [address] [place] [address] Social History Tobacco Use Types Packs/Day [...] st Contact Info) Description 12/15/2024 Procedure Pass [address] [address] 07/09/2025 3:10 PM EST Appointment [address] [address] Bebeto Wiley MD [address] [place] [address], [address] [address] 01/04/2026 1:00 PM EDT Office Visit [facility] [address] [place] [address] Bebeto Wiley MD [address] [place] [address], [address] [address] [email or web address] documented as of this encounter Procedures Procedure [...] as of this encounter Care Teams Business Line Controller Relationship Specialty Start Date End Date Bebeto Wiley MD [address] [place] [address], [address] [place] [address] [email or web address] PCP - General Family Medicine 03/06/21 Nancy Gaitan MD [address] [place] [address] Orthopedic Surgery 12/14/18 Cayla Sahu MD [address] [place] [address], [address] [place] [address] Obstetrics and Gynecology 12/14/18 documented as of this encounter Additional Source Comments The information contained in this document represents components of the legal health record. It is not the complete legal health record.[facility]
--- OUTSIDE RECORDS SUMMARY | 2025-05-02 17:30 | XMS_ITS | Encounter Summary ---
Author Organization [facility] Address [address] [facility] [address] [place] [address] Phone Care Team Providers Care Crib Attendant Name Role Phone Bebeto Wiley MD Primary Care Provider [phone]- [phone] Nancy Gaitan MD Unavailable [phone] Cayla Sahu MD Unavailable Bebeto Wiley MD Primary Care Provider [phone]- [phone] Encounter Details Date Type Department Care Team (Late st Contact Info) Description 11/18/2020 Procedure [facility] Scan [address] [address] Social History Tobacco Use Types Packs/Day Years [...] st Contact Info) Description 12/15/2024 Procedure Pass [address] [address] 07/09/2025 3:10 PM EST Appointment [address] [address] Bebeto Wiley MD [address] [place] [address], [address] [place] [address] 01/04/2026 1:00 PM EDT Office Visit [address] [address] Bebeto Wiley MD [address] [place] [address], [address] [place] [address] documented as of this encounter Visit Diagnoses Not on filedocumented in this encounter Additional Health Concerns Infection Onset Date Last Indicated Resolved Time CoV-Presumed 04/03/2022 04/03/2022 04/24/2022 1:22 AM EDT Assessment Noted Time PHQ-2 Depression Total Score: 1 11/27/19 21 8:47 AM EDT documented as of this encounter Care Teams Crib Attendant Relationship Specialty Start Date End Date Bebeto Wiley MD [address] [place] [address], [address] [place] [address] PCP - General Family Medicine 07/15/17 03/05/21 Bebeto Wiley MD [address] [place] [address], [address] [place] [address] PCP - General Family Medicine 03/06/21 Nancy Gaitan MD [address] [place] [address] Orthopedic Surgery 12/14/18 Cayla Sahu MD [address] [place] [address], [facility] [email or web address] [address] [place] [address] [email or web address] Obstetrics and Gynecology 12/14/18 documented as of this encounter Additional Source Comments The information contained in this document represents components of the legal health record. It is not the complete legal health record.[facility]
--- OUTSIDE RECORDS SUMMARY | 2025-05-02 17:30 | XMS_ITS | Encounter Summary ---
Author Organization [facility] Address [address] [facility] [address] [place] [address] Phone Care Team Providers Care Ui Engineer Name Role Phone Nancy Gaitan MD Unavailable Cayla Sahu MD Unavailable Bebeto Wiley MD Primary Care Provider [phone]- [phone] Encounter Details Date Type Department Care Team (Late st Contact Info) Description 09/25/2022 Procedure Pass OR Admitting Dept - [facility] Department [address] [place] [address] Social History Tobacco Use Types Packs/Day Years [...] st Contact Info) Description 12/15/2024 Procedure Pass [facility], [facility] 30 [place] [address] 07/09/2025 3:10 PM EST Appointment [facility], [facility] [address] [place] [address] Bebeto Wiley MD [address] [facility], [address] [place] [address] 01/04/2026 1:00 PM EDT Office Visit [facility] [address] [place] [address] Bebeto Wiley MD [address] [facility], [address] [place] [address] documented as of this encounter Visit Diagnoses Not on filedocumented in this encounter Additional Health Concerns Assessment Noted Time PHQ-2 Depression Total Score: 1 11/27/19 21 8:47 AM EDT documented as of this encounter Care Teams Ui Engineer Relationship Specialty Start Date End Date Bebeto Wiley MD [address] [facility], [address] [place] [address] PCP - General Family Medicine 03/06/21 Nancy Gaitan MD [address] [place] [address] Orthopedic Surgery 12/14/18 Cayla Sahu MD [address] [place] [address], [address] [place] [address] Obstetrics and Gynecology 12/14/18 documented as of this encounter Additional Source Comments The information contained in this document represents components of the legal health record. It is not the complete legal health record.[facility]
--- OUTSIDE RECORDS SUMMARY | 2025-05-02 17:30 | XMS_ITS | Encounter Summary ---
Author Organization [facility] Address [address] [facility] [address] [place] [address] Phone Care Team Providers Care Fitter Tacker Name Role Phone Nancy Gaitan MD Unavailable Cayla Sahu MD Unavailable Bebeto Wiley MD Primary Care Provider [phone]- [phone] Encounter Details Date Type Department Care Team (Late st Contact Info) Description 02/01/2024 Procedure Pass [facility]-In[facility] Cardiology 30 [place] [address] Social History Tobacco Use Types Packs/Day Years [...] st Contact Info) Description 12/15/2024 Procedure Pass [address] [address] 07/09/2025 3:10 PM EST Appointment [address] [address] Bebeto Wiley MD [address] [place] [address], [address] [place] [address] [email or web address] 01/04/2026 1:00 PM EDT Office Visit [address] [address] Bebeto Wiley MD [address] [place] [address], [address] [place] [address] documented as of this encounter Visit Diagnoses Not on filedocumented in this encounter Additional Health Concerns Assessment Noted Time PHQ-2 Depression Total Score: 2 12/30/19 24 5:03 PM EDT documented as of this encounter Care Teams Fitter Tacker Relationship Specialty Start Date End Date Bebeto Wiley MD [address] [place] [address], [address] [place] [address] PCP - General Family Medicine 03/06/21 Nancy Gaitan MD [facility] [place] [address] Orthopedic Surgery 12/14/18 Cayla Sahu MD [address] [place] [address], [address] [place] [address] [email or web address] Obstetrics and Gynecology 12/14/18 documented as of this encounter Additional Source Comments The information contained in this document represents components of the legal health record. It is not the complete legal health record.[facility]
--- OUTSIDE RECORDS SUMMARY | 2025-05-02 17:31 | XMS_ITS | Clinical Summary ---
Author Organization [facility] Address [address] [place] [address] Phone Care Team Providers Care Patient Service Coordinator Name Role Phone Nancy Gaitan MD Unavailable Cayla Sahu MD Unavailable Bebeto Wiley MD Primary Care Provider [phone]- [phone] Allergies Active Allergy Reactions Criticality Noted Date [...] for pain. Advised use of heat/ice alternating. [place] balm/icy hot as needed for comfort. Will [...] & Plan (09/14/2022 3:58 PM EST): + [place] Hallpike in office today. Discussed BPPV with [...] Encounters Date Type Department Care Team Description 05/02/2025 Orders Only [facility] [address] [facility] [place] [address] Provider, MD Elías 03/30/2025 Orders Only [address] [place] [address] ProviderElías MD 02/24/[address] [place] [address] Bebeto Wiley MD Medication Refill 02/02/[address] [place] [address] Dana Cowart, DUONG Results from Last 3 Months Immunizations Immunization [...] Father Heart attack Father Heart disease Father [place] Cancer Mother lung Breast cancer Sister Relation [...] Contact Info) Description 12/15/2024 Procedure Pass [address] [address] 07/09/2025 3:10 PM EST Appointment [address] [address] Bebeto Wiley MD [address] [place], [place] [address] [place] [address] [email or web address] 01/04/2026 1:00 PM EDT Office Visit [facility] [address] [place] [address] [place] [address] Bebeto Wiley MD [address] [facility], [address] [place] [address] [email or web address] Health Maintenance Due Date Last Done Comments [...] Completed 04/24/2019, 019 ZOSTER VACCINES Completed 05/17/2019, 06/0 12/2018, 04/23/2015 OSTEOPOROSIS SCREENING INITIAL (ONE-TIME) Completed [...] this topic Medical Devices Implanted Type Area News Editor Device Identifier Shelf Expiration Date Model / Serial / Lot Prosthetic Joint Prosthetic Joint Left: Knee System Suspension Fiberlock - Trial Item - [id number] Implanted:Qty: 1 on 11/10/2022 by Moe Hernandez MD at [facility] Left: Thumb [employer] 10/07/2027 [id number] / / [id number] Procedures Procedure Name Priority Date/Time Associated Diagnosis Comments OUTSIDE IMAGING Routine 04/26/2025 9:48 AM EDT OUTSIDE IMAGING Routine 03/29/2025 12:52 PM EDT [...] Maintenance Results * Outside Imaging Report Only (04/26/2025 9:48 AM EDT) us Historical Provider MD MALIN XR CHEST Edited Re sult - Final * Outside Imaging Report Only (03/29/2025 12:52 PM EDT) us Historical Provider IMG XR CHEST Final Res ult * TSH with reflex (01/03/2025 7:14 AM EDT) TSH 2.82 0.27 - 4.20 uIU/mL [facility] Blood 01/03/2025 7:14 AM EDT 01/03/2025 7:18 AM EDT us Bebeto Wiley MD LAB BLOOD ORDERABLES Final Result Performing Organization Address City/[facility]/ZIP Co de Phone Number [address] [address] * (ABNORMAL) Lipid panel (01/03/2025 7:14 AM EDT) HDL 63 mg/dL [facility] Comment: Interpretation <40 mg/dL: Low HDL cholesterol (major risk factor for CHD) Greater than or equal to 60 mg/dL: High HDL cholesterol ( negative risk factor for CHD) HDL - cholesterol is affected by a number of factors, e.g. smoking, excerise, hormones, sex and age. CHOLESTEROL 259(H) 0 - 240 mg/dL [facility] TRIGLYCERIDES 136 30 - 160 mg/dL [facility] LDL 169(H) 50 - 129 mg/dL [facility] Comment: LDL levels in terms of risk for coronary heart disease: <100 mg/dL: Optimal 100-129 mg/dL: Near or above optimal 130-159 mg/dL: Borderline high 160-189 mg/dL: High >190 mg/dL: Very High CARDIAC RISK RATIO 4.1 3.3 - 4.4 C [facility] Blood 01/03/2025 7:14 AM EDT 01/03/2025 7:18 AM EDT us Bebeto Wiley MD LAB BLOOD ORDERABLES Final Result Performing Organization Address City/[facility]/ZIP Co de Phone Number [address] [address] * BI MAMMOGRAM SCREENING WITH TOMOSYNTHESIS WITH [...] a total bone mineral density of 0.831 g/ar0ybty a T- score of -0.9. This is in the normal range. The right hip (neck) has a total bone mineral density of 0.616 g/cm2 witha T- score of -2.1. Z score -0.4 IMPRESSION: Bone mineral density within the right femoral neck falls within theosteopenia range. Moe Hernandez MD IMG BD BONE DENSITY DEX A Final Result * Hepatitis C antibody, qualitative (04/24/2019) Bebeto Wiley MD LAB BLOOD ORDERABLES Edite d Result - Final from Last 3 Months or Most Recently Relevant to Health Maintenance Insurance MEDICARE PART A & B [employer] SUPPLEMENT MEDICARE PART A & B [employer] MEDEX SUPPLEMENT MEDICARE PART A & B Member Subscriber Plan / Payer ( fective 2020-) Name:Adriel Gallegos Member ID:[id number] Relation to Subscriber:Self Name:Adriel Gallegos Subscriber ID:[id number] Payer ID:[id number] Group ID:Not on file Type:Medicare Address: [employer] [facility] [address] [address] [facility] MEDEX SUPPLEMENT Member Subscriber Plan / Payer ([facility]Present) Name:Adriel Gallegos Relation to Subscriber:Self Name:Adriel Gallegos Payer ID:[id number] (NAIC) Type:Indemnity Address: [place] [address] MEDICARE PART A & B [employer] MEDEX SUPPLEMENT MEDICARE PART A & B [employer] MEDEX SUPPLEMENT MEDICARE PART A & B [facility] MEDEX SUPPLEMENT Advance Directives For more information, please contact: [phone] (9AM - 5PM [facility], Wednesday-Wednesday) * Full Code (Latest Code Status on File) Date Activated Date Inactivated Comments 11/10/2022 7:34 AM Question Answer Comments Code Status Confirmed With: Patient * Full Code Date Activated Date Inactivated Comments 03/12/2022 7:02 AM 11/10/2022 7:34 AM Question Answer Comments Code Status Confirmed With: Patient Care Teams Patient Service Coordinator Relationship Specialty Start Date End Date Bebeto Wiley MD [address] [place] [address], [address] [place] [id number] [email or web address] PCP - General Family Medicine 03/06/21 Nancy Gaitan MD [address] [place], [place] [address] [address] Orthopedic Surgery 12/14/18 Cayla Sahu MD [address] [place] [address] [address] [place] [address] [email or web address] Obstetrics and Gynecology 12/14/18 Additional Source Comments The information contained in this document represents components of the legal health record. It is not the complete legal health record.[facility]
--- OUTSIDE RECORDS SUMMARY | 2025-05-02 17:31 | XMS_ITS | Clinical Summary ---
Author Organization [facility] Address [address] [place] [address] Care Team Providers Care Family Resource Specialist Name Role Phone Bebeto Wiley MD Primary Care Provider +1- [phone] Allergies Active Allergy Reactions Criticality Noted Date [...] age to complete this topic Care Teams Family Resource Specialist Relationship Specialty Start Date End Date Bebeto Wiley MD [address] [address] PCP - General Family Medicine 04/19/17
--- OUTSIDE RECORDS SUMMARY | 2025-05-02 17:31 | XMS_ITS ---
Author Organization [facility] Address [address] [facility] [address] [place] [address] Phone Care Team Providers Care Peeler Operator Name Role Phone Nancy Gaitan MD Unavailable Cayla Sahu MD Unavailable Bebeto Wiley MD Primary Care Provider +1- [phone] Active Problems Problem Noted Date Diagnosed Date [...] for pain. Advised use of heat/ice alternating. [place] balm/icy hot as needed for comfort. Will [...] & Plan (09/14/2022 3:58 PM EST): + [place] Hallpike in office today. Discussed BPPV with [...] of pocket cost concerns (works there in [place]) Anxiety Current Treatment and Therapy Plans No current plan information found. Past Treatment and Therapy Plans
--- OUTSIDE RECORDS SUMMARY | 2025-05-02 17:31 | XMS_ITS | Encounter Summary ---
Author Organization [facility] Address [address] [place] [address] [place] [address] Phone Care Team Providers Care Carton Stenciler Name Role Phone Nancy Gaitan MD Unavailable Cayla Sahu MD Unavailable Bebeto Wiley MD Primary Care Provider +1- [phone] Encounter Details Date Type Department Care Team (Late st Contact Info) Description 04/01/2022 Procedure Pass [address] [address] Social History Tobacco Use Types Packs/Day Years [...] (Late st Contact Info) Description 12/15/[address] [address] 07/09/2025 3:10 PM EST Appointment [facility] [address] [place] [address] Bebeto Wiley MD [address] [place] [address], [address] [place] [address] [email or web address] 01/04/2026 1:00 PM EDT Office Visit [facility] [address] [place] [address] Bebeto Wiley MD [address] [place] [address], [address] [place], [place] [id number] [email or web address] documented as of this encounter Visit Diagnoses Not on filedocumented in this encounter Additional Health Concerns Infection Onset Date Last Indicated Resolved Time CoV-Presumed 04/03/2022 04/03/2022 04/24/2022 1:22 AM EDT Assessment Noted Time PHQ-2 Depression Total Score: 1 11/27/19 21 8:47 AM EDT documented as of this encounter Care Teams Carton Stenciler Relationship Specialty Start Date End Date Bebeto Wiley MD [address] [place] [address], [address] [place] [address] [email or web address] PCP - General Family Medicine 03/06/21 Nancy Gaitan MD [address] [place] [address] Orthopedic Surgery 12/14/18 Cayla Sahu MD [address] [place] [address], [address] [place] [address] [email or web address] Obstetrics and Gynecology 12/14/18 documented as of this encounter Additional Source Comments The information contained in this document represents components of the legal health record. It is not the complete legal health record.[facility]
[2025-05-24 10:27] VITALS: BP 145/83; PULSE 66; RESP 17; O2SAT 97
--- NOTE | 2025-05-24 10:37 | HO.ANESPROP2 ---
Documented by User: Megan David NP 05/24/25 14:49 HPI - Anesthesia Eval Consult details Narrative: 69yo F for C2-3 Ant Cerv Discectomy w/ fusion, 05/31/25 s/p TKA 09/2024 with spinal/block - no anesthesia issues (Cardiac w/u and optimized with [facility] d/t syncopal episode night before TKA planned 01/2024 - no further syncope since) No recent illness No CP/SOB with walking/hiking 2-3 x weekly PreDM: No rx GERD: prn tx only Supraclavicular mass/subcentimeter pulmo nodules: Followed by PCP with Chest CTs. Last 2022 without new or enlarging or suspicious nodules/masses (report on chart). [facility] Active Problems Active Problems: All Active Problems Cervical stenosis of spinal canal (Acute) Neck pain on left side (Acute) Right knee pain (Acute) Status post total right knee replacement (Acute) Left knee pain (Acute) Arthritis of right knee (Acute) Past Medical History Medical History Arthritis Numbness COVID-19 Uterine leiomyoma Hypothyroidism Hx of bladder cancer (~1986) Hx of syncope (11/30/23) Seasonal allergies Scalp psoriasis Lichen sclerosus Malignant neoplasm of urinary bladder Osteopenia Supraclavicular mass Migraine aura without headache Adrenal adenoma Multiple lung nodules Coronary artery calcification Acquired hallux rigidus Benign paroxysmal positional vertigo of left ear Anxiety Prediabetes Constipation GERD (gastroesophageal reflux disease) Osteoarthritis Back pain Hyperlipidemia Thyroid disease Family History Family history of problems with anesthesia: No Surgical History Surgical History History of carpal tunnel release of both wrists History of total right knee replacement (~09/2024) History of esophagogastroduodenoscopy (EGD) (08/06/23) History of surgery on left wrist History of left knee replacement Hx of appendectomy History of bunionectomy Hx of cystoscopy H/O colonoscopy History of Problems with Anesthesia: No Social History Social History Housing: House Are you a primary primary care provider to a significant other at home: No Do you presently have visiting nurse or other home services: No Patient Tobacco Use Status: Former Tobacco user Tobacco use type: Cigarette Use of substances other than those prescribed or required for medical reasons: Yes Substance Use Type: Marijuana Substance Use Frequency: Occasionally Have you been hit, kicked, punched, or otherwise hurt by someone within the past year? If so, by whom?: No Are you DNR?: No Advance Directives: No Advance Directives Information Provided: Yes Advance Directives on File: No Patient : No : No Poor oral hygiene: Yes service: No Current occupational status: retired Current occupation: Right hand dominate Meds Allergies Allergy/AdvReac Type Severity Reaction Status Date / Time hydrocodone (From Vicodin) Allergy Severe Nausea Verified 04/26/25 13:11 methocarbamol (From Robaxin) Allergy Severe Hives Verified 04/26/25 13:11 Home Medications ?Medication ?Instructions ?Recorded ?Confirmed ?Last Taken ?Type cholecalciferol (vitamin D3) 50 50 mcg PO QNOON 08/04/23 05/24/25 08/29/24 History mcg (2,000 unit) capsule (Vitamin D3) levothyroxine 50 mcg tablet 50 mcg PO DAILY@0600 08/04/23 05/31/25 05/31/25 05:00 History atorvastatin 20 mg tablet 20 mg PO BEDTIME 03/20/25 05/24/25 Unknown History multivitamin 1 tab PO QNOON 04/18/25 05/24/25 Unknown History Exam Height,Weight and Vital Signs: Height 5 ft 2 in Weight 74.389 kg Last Vital Signs Pulse 66 05/24/25 10:27 Resp 17 05/24/25 10:27 BP 145/83 H 05/24/25 10:27 Pulse Ox 97 05/24/25 10:27 O2 Del Method Room Air 05/24/25 10:27 Pertinent Lab Results Pertinent Lab Results: Laboratory Tests 09/12/24 05:55 WBC 12.4 H Hgb 12.8 Hct 37.5 Plt Count 197 Sodium 142 Potassium 4.2 Chloride 109 H Carbon Dioxide 26 BUN 13 Creatinine 0.69 Narrative Narrative: EKG 08/2024 Vent. Rate : 061 BPM Atrial Rate : 061 BPM P-R Int : 130 ms QRS Dur : 086 ms QT Int : 396 ms P-R-T Axes : 071 053 030 degrees QTc Int : 398 ms Normal sinus rhythm with sinus arrhythmia cannot exclude old Septal infarct , age undetermined - could be related to body habitus and lead placement. Abnormal ECG No previous ECGs available No change from PCP office EKG ECHO 02/2024 Nml LV size and function, EF 60% Trace mitral regurg Nml RV size and function Nml diastolic function Airway Mallampati Class: I TM Dist: >3cm Neck ROM: Limited Partial: Upper Loose/Missing/Broken Teeth: Yes (~#6 pulled 07/2024) Heart: RRR Lungs: CTAB Assessment and Plan Assessment Anesthesia Assessment: Anesthesia Plan Discussed and PAT Visit Final Anesthetic Review Family History of Problems with Anesthesia: No History of Problems with Anesthesia: No Documented by User: Ct Ray MD 05/31/25 07:28 [facility] Past Medical History Medical History Arthritis Numbness COVID-19 Uterine leiomyoma Hypothyroidism Hx of bladder cancer (~1986) Hx of syncope (11/30/23) Seasonal allergies Scalp psoriasis Lichen sclerosus Malignant neoplasm of urinary bladder Osteopenia Supraclavicular mass Migraine aura without headache Adrenal adenoma Multiple lung nodules Coronary artery calcification Acquired hallux rigidus Benign paroxysmal positional vertigo of left ear Anxiety Prediabetes Constipation GERD (gastroesophageal reflux disease) Osteoarthritis Back pain Hyperlipidemia Thyroid disease Surgical History Surgical History History of carpal tunnel release of both wrists History of total right knee replacement (~09/2024) History of esophagogastroduodenoscopy (EGD) (08/06/23) History of surgery on left wrist History of left knee replacement Hx of appendectomy History of bunionectomy Hx of cystoscopy H/O colonoscopy Social History Social History Housing: House Are you a primary primary care provider to a significant other at home: No Do you presently have visiting nurse or other home services: No Patient Tobacco Use Status: Former Tobacco user Tobacco use type: Cigarette Use of substances other than those prescribed or required for medical reasons: Yes Substance Use Type: Marijuana Substance Use Frequency: Occasionally Have you been hit, kicked, punched, or otherwise hurt by someone within the past year? If so, by whom?: No Are you DNR?: No Advance Directives: No Advance Directives Information Provided: Yes Advance Directives on File: No Patient : No : No Poor oral hygiene: Yes service: No Current occupational status: retired Current occupation: Right hand dominate Meds Allergies Allergy/AdvReac Type Severity Reaction Status Date / Time hydrocodone (From Vicodin) Allergy Severe Nausea Verified 04/26/25 13:11 methocarbamol (From Robaxin) Allergy Severe Hives Verified 04/26/25 13:11 Home Medications ?Medication ?Instructions ?Recorded ?Confirmed ?Last Taken ?Type cholecalciferol (vitamin D3) 50 50 mcg PO QNOON 08/04/23 05/24/25 08/29/24 History mcg (2,000 unit) capsule (Vitamin D3) levothyroxine 50 mcg tablet 50 mcg PO DAILY@0600 08/04/23 05/31/25 05/31/25 05:00 History atorvastatin 20 mg tablet 20 mg PO BEDTIME 03/20/25 05/24/25 Unknown History multivitamin 1 tab PO QNOON 04/18/25 05/24/25 Unknown History Assessment and Plan Assessment Anesthesia Assessment: Chart Reviewed Final Anesthetic Review NPO: Yes ASA Class: II Final Preanesthetic Review: No Changes in Pt Med Stat, Meds/Allgs Chart Reviewed, Consent Obtained/Reviewed and Anes Risks/Benef Reviewed Patient Risk: Low Procedure Risk: Intermediate Anesthetic Plan Anesthetic Plan: GA and Agree w/ Assess. and Plan Disposition: Standard PACU
--- NOTE | 2025-05-28 16:06 | PM.DS ---
DS: Providers Provider Date of Service: 05/31/25 Date of discharge: 05/31/25 Primary care physician: Bebeto Wiley MD Admitting clinician: Shoaib Sutton DS: Diagnosis Discharge Diagnosis (1) Cervical stenosis of spinal canal: Status: Acute DS: Summary Time Attestation Discharge Coordination Time (in mins): 4 Quality: Safe Use of Opioids Does Pt have an Active Cancer Diagnosis on the Problem List?: No Quality: Stroke Does the patient have a stroke diagnosis?: No Physical Exam Vital Signs: Vital Signs: Last Vital Signs Pulse 66 05/24/25 10:27 Resp 17 05/24/25 10:27 BP 145/83 H 05/24/25 10:27 Pulse Ox 97 05/24/25 10:27 O2 Del Method Room Air 05/24/25 10:27 BMI result Body Mass Index 30.0 Discharge Plan Discharge Patient Disposition: Home, Self-Care Referrals: Bebeto Wiley MD [Primary Care Provider, Internal Medicine] - 1 Week Discharge Medications: New oxycodone 5 mg tablet 5 mg PO Q4H PRN (Reason: pain) Qty: 20 0RF Rx Instructions: Partial Fill upon patient request. docusate sodium [Colace] 100 mg capsule 100 mg PO BID Qty: 20 0RF Continued (DME) walker Misc See Rx Instructions .ROUTE .MEDSUPPLY Qty: 1 0RF Rx Instructions: Folding front wheeled walker acetaminophen 325 mg tablet 650 mg PO Q6H PRN (Reason: Pain, Mild 1-3,Fever,Headache) 30 Days Qty: 240 0RF levothyroxine 50 mcg tablet 50 mcg PO DAILY@0600 cholecalciferol (vitamin D3) [Vitamin D3] 50 mcg (2,000 unit) Capsule 50 mcg PO QNOON amoxicillin 500 mg tablet 2,000 mg PO ONCE 1 Days Qty: 4 0RF atorvastatin 20 mg tablet 20 mg PO BEDTIME multivitamin Tablet 1 tab PO QNOON Discharge Orders: Discharge Order (Routine); Ordered 05/31/25 Ordered By: Moe Garcia Diet: Advance to usual diet Activity on Discharge: As tolerated Activity Restrictions/Additional Instructions: After your spinal surgery we ask you to observe the following restrictions/guidelines: Activity: It is normal to feel some discomfort as you increase your activity, but that will improve with time. We ask you avoid heavy lifting or acitivities that cause pain. As a general rule, 8lbs is a safe limit for lifting right after surgery. Walk as much as you feel comfortable but not to exhaustion. You will feel extra tired the first few days after surgery. Stay well hydrated. It is OK to walk up and down stairs You may return to driving when you are off narcotics (such as vicodin, oxycodone, dilaudid, etc), and you are back to normal functional capacity. If you have any concerns please check with office before driving. Return to work is specific to each patient and each surgery, so please speak with your doctor/PA at first follow up. Please bring paperwork such as FMLA at that time if you need it filled out. Medications: For optimum pain control, it is best to start with a combination of 500 mg of Tylenol every 4 hours with 600 mg of Motrin every 8 hours, and use narcotics as needed in between for breakthrough pain. We will give you a short supply of narcotics after surgery (usually one weeks worth). If you need more please call the office but do not use more than prescribed. You will need to give our office 48 hours notice if you need narcotics refilled and we do not fill narcotics on weekends or evenings. If you are on a narcotic, it is a good idea to take a stool softener such as colace or senna to avoid constipation If you take blood thinner such as aspirin, Plavix, Coumadin, Effient, Eliquis etc for conditions such as Afib, DVT, Pulmonary embolus, coronary disease, stents etc please speak with your surgeon about specific details as to when you can resume these medications. Follow up: Please call the office, , after surgery to arrange a 3 week follow up for wound check. Wound Care: You may remove your dressing on the first day after surgery. ?You may ?leave open to air. Please do not remove the steri strips underneath. they will fall off on their own in one week. IT IS NORMAL FOR THE WOUND TO OOZE OR BE BLOODY FOR A FEW DAYS AFTER SURGERY. ?IF THIS HAPPENS JUST PLACE NEW DRESSING OVER IT TO AVOID STAINING CLOTHES. You may shower on post op day # 1 We ask that you do not let the water soak the wound. If it does get wet, just towel dry lightly. Please do not scrub your incision or place any type of chemical/ointment on the wound. No tub baths, pools or jacuzzis for one month. If you have any leaking or redness from your wound, or fevers, please call office Print Language: Citizen Of [place]
[2025-05-31] VITALS (12 sets, daily range): BP systolic 135–167; BP diastolic 63–90; PULSE 51–75; RESP 12–16; TEMP 36.2; O2SAT 92–99; BMI 29.8
--- NOTE | ~2025-05-31 | FL_ITS ---
EXAMINATION: FL GUIDANCE ONLY HISTORY: C5-6 ACDF COMPARISON: Correlation is made with plain films of the cervical spine dated 04/26/2025. TECHNIQUE: Fluoroscopy time: 2.4 seconds. Cumulative Dose: 0.2215 mGy. DAP: 0.0963 Gycm2 Images: 2. FINDINGS: Fluoroscopic spot films of the cervical spine demonstrate anterior cervical disc fusion at C5-6. FL/FL guidance in OR IMPRESSION: Fluoroscopy during procedure. Please see procedure report for additional information. Electronically signed by: Ismael Melo MD 05/31/2025 09:10 AM EDT
[2025-05-31] MEDS: Lactated Ringers 1,000 ML 100 ML IVCONT (06:27)
--- NOTE | 2025-05-31 07:06 | P.HPSUR_ITS ---
Pre-Procedural Eval Section A - 24 Hr Update-Section A only Date of Service: 05/31/25 The patient is an INPATIENT: No Changes since office visit: No Cold of Flu in the past 2 weeks, No New Medical Problems, No Changes in Medication and No Patient answered all questions The patient has been examined within 24 hours of the surgical procedure. The History & Physical has been completed within 30 days and I have reviewed it.: No Section B - Complete if H&P > 30 days Chief Complaint: Spinal stenosis, cervical region Allergies: Allergies Allergy/AdvReac Type Severity Reaction Status Date / Time hydrocodone (From Vicodin) Allergy Severe Nausea Verified 04/26/25 13:11 methocarbamol (From Robaxin) Allergy Severe Hives Verified 04/26/25 13:11 Review of Systems Sugical H&P ROS: Negative: Constitution, Cardiovascular, Respiratory, Neurological, Psychiatric, Hem-Onc, Allergic/Immunologic, Gastrointestinal, G enitourinary, Musculoskeletal, Integumentary, Endocrine and Eyes/Ears/Nose/Throat Exam Surgical H&P Exam: Normal: HEENT, Normal: Heart, Normal: Lungs, Normal: Extremities, Normal: Abdomen, Normal: Skin and Normal: Neurological (awake, alert,oriented x 3 ) Plan Diagnosis/Plan: Unchanged C5-6 Anterior Cervical Diskectomy and fusion Time Spent With Patient Time: Total time managing care of this patient today __5__ minutes.
--- NOTE | 2025-05-31 08:49 | W.PM.OPN ---
Operative Note Operative Note Date of Service: 05/31/25 Narrative: Preoperative Diagnosis: Cervical myelopathy due to spinal cord compression at C5-6 Procedure: C5-C6 Anterior discectomy, arthrodesis and implantation cage ; C5-C6 anterior instrumentation ; local autograft; microscope Informed Consent was obtained for this operation. I have explained the nature, purpose and benefits of the operation. I have discussed the risks and benefit of the operation including possible complications or adverse events with patient/family. Alternative(s) were discussed with the patient with their relative benefits and risks as well as the consequences of not accepting the operation were included in obtaining consent. Surgeon: JERMAIN BROWN MD, PHD Procedure Assisted By: sterling Nicole Description of Procedure: This patient is suffering from progressive cervical myelopathy due to severe spinal cord compression at C5-6 with myelomalacia. She was offered an anterior diskectomy and fusion of the level. The procedure complications were explained. The patient was consented. The patient was brought to the operating room and endotracheally intubated. The patient was put in supine position with slight extension of the neck. Prep and drape was done followed by timeout. A mid cervical incision was made followed by opening of the platysma. The prevertebral fascia was reached following the natural planes while the physician behavioral modification assistant provided manual retraction. The prevertebral fascia was opened to expose the disc space. A spinal needle was placed in the disk space to confirm the correct level with xray. The longus colli muscles were released bilaterally and a self retaining retractor was inserted. Two Grapevine pins were placed in the C5-6 vertebral bodies and distraction was give over the interspace. The discectomy was completed toward the posterior annulus of the disc. The microscope was brought in. The remainder of the discectomy was completed. The posterior ligament was opened and resected to expose the underlying dura. The hypertrophied ligament exercised significant compression of the spinal cord. The ligament and Osteophytes were resected from the body of C5 and C6 to decompress the underlying spinal cord. The bone chips were saved for autograft. Bilateral foraminotomies were done. The endplates were prepared after which a 6 mm cage filled with autograft was inserted into the disc space. A separate attached plate was locked down with 2 x 14 mm screws as anterior instrumentation. Final x-rays in AP and lateral projection showed a satisfactory position of the implant. The physician behavioral modification assistant took over. The Grapevine pin was removed. Hemostasis was done. He closed the incision in 2 layers with a 3-0 Vicryl. Steri-Strips used to approximate incision. An OpSite with Tegaderm was used to cover the incision. All sponge and needle counts were correct. Patient was extubated and transported in stable is to recovery room. Anesthesia: General Estimated Blood Loss (ml): 10 Duration of Surgery: 45 minutes Postoperative Plan: Discharge home Complications: None
[2025-05-31] MEDS: oxyCODONE HCl Immed Release 5 MG TABLET PO (10:01)
== END 2025-05-31 11:39 | disposition home or self-care (01) ==
LOC: HO.SSS 05:53
PROVIDERS: PCP Family Medicine; Visit Provider Neurological Surgery
PROC: (CPT 22551; principal; 2025-05-31 07:30)
DX: M50.022 Cervical disc disorder at C5-C6 level with myelopathy (principal); M48.02 Spinal stenosis, cervical region; M50.30 Other cervical disc degeneration, unspecified cervical region; R20.0 Anesthesia of skin; E03.9 Hypothyroidism, unspecified; E78.00 Pure hypercholesterolemia, unspecified; Z79.899 Other long term (current) drug therapy; Z88.8 Allergy status to other drugs, medicaments and biological substances; Z88.5 Allergy status to narcotic agent; Z96.653 Presence of artificial knee joint, bilateral; Z98.890 Other specified postprocedural states
CPT/HCPCS: 22551; 22853; 22845; 20936; C1713; C1889; J0131; J0690; J1100; J1885; J2003; J2371; J2405; J2704; J3010

== ENCOUNTER → 2025-05-31 05:53 | Outpatient (BNV) | payer MEDICARE, SELFPAY | PROVIDERS: PCP Family Medicine; Visit Provider Neurological Surgery | DX: M48.02 Spinal stenosis, cervical region (principal) | CPT/HCPCS: 20936; 22551; 22845; 22853; 99499 ==

== ENCOUNTER 2025-06-21 11:21 | Outpatient (AMB) | payer MEDICARE, SELFPAY ==
--- OUTSIDE RECORDS SUMMARY | 2012-12-07 23:00 | XMS_ITS | Encounter Summary ---
Author Organization [facility] Address [address] [facility] [address] [place] [address] Phone Care Team Providers Care Wind Development Director Name Role Phone Unavailable Primary Care Provider Unavailabl e Encounter Details Date Type Department Care Team (Late st Contact Info) Description 12/08/2012 Hospital Encounter [facility],Outside Imaging [address] [place] [address] System, Provider Not In, [facility] Partners [address] [address] Social History Tobacco Use Types Packs/Day Years Used Date Smoking Tobacco: Former Cigarettes 0.5 16.7 0 11/29/1969 - 08/09/1986 Smokeless Tobacco: Never Alcohol Use Standard Drinks/Week Comments Yes 3 (1 standard drink = 0.6 oz pur e alcohol) Education Answer Date Recorded Are you interested in more education? Not on jany e 12/04/2022 Are you concerned about learning? Not on file 12/04/2022 No 12/04/2022 No 12/04/2022 Digital Access Answer Date Recorded No 12/29/2022 No 12/29/2022 Reliable internet access at home? Not on file 12/29/2022 Device with a working camera? Not on file Intimate Partner Violence Answer Date R ecorded Are you denied basic needs s uch as food, clothing, or medical care? No 01/01/2025 In the past 12 months have y ou been in a relationship with a person who hurts, threatens, or tries to control you? No 01/01/2025 Are you denied basic needs s uch as food, clothing, or medical care? No 01/01/2025 In the past 12 months have y ou been in a relationship with a person who hurts, threatens, or tries to control you? No 01/01/2025 Comments No Sex and Gender Information Value Date Recorded Sex Assigned at Female 11/26/2020 8:32 AM EDT Legal Sex Female 9:56 PM EDT Gender Identity Female 11/26/2020 8:32 AM EDT Sexual Orientation Straight 11/26/2020 8: 32 AM EDT documented as of this encounter Functional Status * Calculated C-SSRS Risk Score (Lifetime/Recent) Answer Date of Assessment Author No Risk Indicated 03/01/2024 11:51 AM EDT Bunny Durham RN * [place] Suicide Severity Rating Scale (Screener/Recent Self-Report) Question Answer Date of Assessment Author 1. Wish to be (Past 1 Month) No 024 11:51 AM VESNAT Bunny Durham, DUONG 2. Non-Specific Active Suici ngoc Thoughts (Past 1 Month) No 03/01/2024 11:51 AM EDT Bunny Durham , DUONG 6. Suicidal Behavior (Lifetime) No 11:51 AM VESNAT Bunny Durham RN documented as of this encounter Plan of Treatment Upcoming Encounters Date Type Department Care Team (Late st Contact Info) Description 12/15/2024 Procedure Pass [address] [address] 07/27/2025 1:00 PM EST Appointment [address] [address] Bebteo Wiley MD [address] [place] [address], [address] [place] [address] 01/04/2026 1:00 PM EDT Office Visit [facility] Medical [facility] Family Medicine [address] [place] [address] Bebeto Wiley MD [address] [place] [address], [address] [place] [address] [email or web address] documented as of this encounter Procedures Procedure Name Priority Date/Time Associated Diagnosis Comments BI MAMMOGRAM OUTSIDE (NO INTERPRETATION) Routine 12/08/2012 12:00 AM EDT documented in this encounter Results * Mammogram Outside (No Interpretation) (12/08/2012 12:00 AM EDT) Narrative SYSTEMGENERATED, DOCUMENTATION - 07/25/2020 9:11 AM EST This study is for PACS storage only and not for interpretation. us Provider Not In System PhD IMG OUTSIDE IMAGING W /OUT INTERPRETATION Final Result documented in this encounter Visit Diagnoses Not on filedocumented in this encounter Additional Health Concerns Infection Onset Date Last Indicated Resolved Time CoV-Presumed 04/03/2022 04/03/2022 04/24/2022 1:22 AM EDT documented as of this encounter Additional Source Comments The information contained in this document represents components of the legal health record. It is not the complete legal health record.[facility]
--- OUTSIDE RECORDS SUMMARY | 2023-04-17 11:25 | XMS_ITS | Encounter Summary ---
Author Organization [facility] Address [address] [facility] [address] [place] [address] Phone Care Team Providers Care Edi Analyst Name Role Phone Nancy Gaitan MD Unavailable [phone] Cayla Sahu MD Unavailable Bebeto Wiley MD Primary Care Provider [phone]- [phone] Encounter Details Date Type Department Care Team (Late st Contact Info) Description 04/17/2023 12:25 PM EDT Hospital Encounter [facility] Urgent Care [address] [place] [address] Lynne Nobles FNP [address] [place] [address] [email or web address] Social History Tobacco Use Types Packs/Day [...] Author No Risk Indicated 03/01/2024 11:51 AM Bunny Rowland, DUONG * [place] Suicide Severity Rating Scale (Screener/Recent Self-Report) Question Answer Date of Assessment Author 1. Wish to be (Past 1 Month) No 024 11:51 AM Bunny Rowland, DUONG 2. Non-Specific Active Suici ngoc Thoughts (Past 1 Month) No 03/01/2024 11:51 AM Bunny Rowland , RN 6. Suicidal Behavior (Lifetime) No 11:51 AM Bunny Rowland, RN documented as of this encounter Plan of Treatment Upcoming Encounters Date Type Department Care Team (Late st Contact Info) Description 12/15/2024 Procedure Pass [address] [address] 07/27/2025 1:00 PM EST Appointment [address] [address] Bebeto Wiley MD [address] [place] [address], [address] [place] [address] [email or web address] 01/04/2026 1:00 PM EDT Office Visit [facility] Medicine [address] [place] [address] [place] [address] Bebeto Wiley MD [address] [facility], [address] [place] [address] [email or web address] documented as of this encounter Procedures Procedure [...] IMPRESSION: No fracture or dislocation. Lynne Nobles CLINICAL ADMINISTRATIVE COORDINATOR IMG XR LOWER EXTREMITY Haley l Result documented in this encounter Visit Diagnoses Not on filedocumented in this encounter Additional Health Concerns Assessment Noted Time PHQ-2 Depression Total Score: 2 12/30/19 23 1:03 PM EDT documented as of this encounter Care Teams Edi Analyst Relationship Specialty Start Date End Date Bebeto Wiley MD [address] [place] [address], [address] [place] [address] [email or web address] PCP - General Family Medicine 03/06/21 Nancy Gaitan MD [address] [place], [place] [address] [place] [address] Orthopedic Surgery 12/14/18 Cayla Sahu MD [address] [place] [address], [address] [place] [address] [email or web address] Obstetrics and Gynecology 12/14/18 documented as of this encounter Additional Source Comments The information contained in this document represents components of the legal health record. It is not the complete legal health record.[facility]
--- NOTE | 2025-06-21 11:32 | A.SPINEOV_ITS ---
Intake Visit Reasons: 1st post op Intake Note: Ms. Gallegos is here today for her 1st post op. Steward/Stewardess Smoke Room Required: No Allergies hydrocodone (From Vicodin) Allergy (Severe, Verified 04/26/25 13:11) Nausea methocarbamol (From Robaxin) Allergy (Severe, Verified 04/26/25 13:11) Hives Assessment & Plan Assessment & Plan (1) S/P cervical spinal fusion: Code(s): Z98.1 - Arthrodesis status Category: Surgical Plan Procedure: C5-6 ACDF Adriel is a pleasant 69-year-old female comes in today for her 1st postoperative visit after verbal C5-[address] Sutton for severe spinal cord compression with cervical myelopathy. She reports that her pain has largely persisted despite surgery. We did extensively discuss the goals of surgery in the case of severe spinal cord compression and myelopathy. The patient brought a list of questions has wearing her postoperative healing course. I answered all of his questions to the best of my ability. I do believe she is on track in terms of her healing progress, however she is likely still dealing with some of the acute inflammation related pain from her surgery. No new neurological deficits. The patient ambulates well and rises from seated position without difficulty. Her anterior incision site is closed and well healed. I would like to follow up with the patient again in 6 weeks with a set of x- rays. Hai Sutton MD,PhD [facility] Coding Level of Care Code Global (46061) Diagnoses S/P cervical spinal fusion Z98.1
--- OUTSIDE RECORDS SUMMARY | 2025-06-21 14:29 | XMS_ITS | Encounter Summary ---
Author Organization [facility] Address [address] [facility] [address] [place] [address] Phone Care Team Providers Care Agriculture Laboratory Technician Name Role Phone Nancy Gaitan MD Unavailable Cayla Sahu MD Unavailable Bebeto Wiley MD Primary Care Provider [phone]- [phone] Encounter Details Date Type Department Care Team (Late st Contact Info) Description 12/06/2023 Procedure Pass [facility], [address] [address] Social History Tobacco Use Types Packs/Day Years [...] st Contact Info) Description 12/15/2024 Procedure Pass [address] [address] 07/27/2025 1:00 PM EST Appointment [facility] [address] [place] [address] Bebeto Wiley MD [address] [place] [address], [address] [place] [address] 01/04/2026 1:00 PM EDT Office Visit [address] [address] Bebeto Wiley MD [address] [place] [address], [address] [place] [address] documented as of this encounter Visit Diagnoses Not on filedocumented in this encounter Additional Health Concerns Assessment Noted Time PHQ-2 Depression Total Score: 2 12/30/19 24 5:03 PM EDT documented as of this encounter Care Teams Agriculture Laboratory Technician Relationship Specialty Start Date End Date Bebeto Wiley MD [address] [place] [address], [address] [place] [address] PCP - General Family Medicine 03/06/21 Nancy Gaitan MD [facility] [place] [address] Orthopedic Surgery 12/14/18 Cayla Sahu MD [address] [place] [address], [address] [place] [address] [email or web address] Obstetrics and Gynecology 12/14/18 documented as of this encounter Additional Source Comments The information contained in this document represents components of the legal health record. It is not the complete legal health record.[facility]
--- OUTSIDE RECORDS SUMMARY | 2025-06-21 14:29 | XMS_ITS | Patient Health Record ---
Author Organization [facility] Address [address] [place] [address] Care Team Providers Care Lumber Checker Name Role Phone Bebeto Wiley MD Primary Care Provider Ismael Nelson Unavailable [phone] Allergies Allergen (clinical drug ingredient) Drug/Non Drug Allergy documented on EMR Reaction Allergy Type Onset Date Status Vicodin Unknown Drug Allergy Active methocarbamol Robaxin Unknown Drug Allergy Act scar Reason For Referral No Information Medications Medication SIG (Take, Route, Frequency, Duration) Notes Start Date End Date Status Vitamin D 50 MCG (1999) 1 tablet Orally Once a day; Duration: 30 day(s) 05/07/2023 Active Clobetasol Emul Foam w/MoistCr 0.05 % as directed Externally 05/07/2023 Active Levothyroxine Sodium 50 MCG TAKE 1 TABLET BY MOUTH EVERY DAY IN THE MORNING Oral; Duration: 90 Active Naproxen 500 MG Oral; Duration: 10 PRN for knee-started 04/2023 Active Amoxicillin 500 MG TAKE 4 TABLETS BY MOUTH 1 HOUR PRIOR TO DENTAL APPOINTMENT Oral; Duration: 5 Active Atorvastatin Calcium 20 MG TAKE 1 TABLET BY MOUTH EVERY DAY Oral; Duration: 90 Active Immunizations Vaccine Route Administration Date [...] Problem Status W/U Status Risk Notes Problem Abdominal bloating (379787294) Abdominal bloating (R14.0) Active confirmed Problem Change in bowel habit (92638531) Change in bowel habits (R19.4) Active confirmed Problem Diverticular disease of colon (134992000) Diverticulosis of large intestine without perforation or abscess without bleeding (K57.30) Active confirmed Problem Gastroesophageal reflux disease (704095361) Gastroesophageal reflux disease (K21.9) Active confirmed Problem Constipation (05495381) Constipation, unspecified constipation type (K59.00) Active confirmed Problem Gastroesophageal reflux disease (160281020) Gastroesophageal reflux disease, unspecified whether esophagitis present (K21.9) Active confirmed Plan Of Treatment Pending Test Test Name Order Date CELIAC PANEL #10 05/07/2023 Future Test Test Name Order Date UPPER GI ENDOSCOPY 05/07/2023 COLONOSCOPY 05/07/2023 Insurance Providers Payer Name Payer Address Payer Phone Subscriber Number Group Number Insured Name Patient Relationship to Insured Coverage Start Date Coverage End Date [facility] [address] [place], [place] [id number] JASWANT GEE Self - patient is the insured Medical (General) History Medical History History ICD Code Bladder cancer for which she undergoes p eriodic cystoscopies Hypothyroidism Hyperlipidemia Denies [place],DM,CVA,Lung disease,renal dise ase She describes a negative col onoscopy at age 49 and another negative colonoscopy in 2015. Surgical History Surgery Date(Month/Year) Bladder cancer treated with cystoscopy Bunionectomy Appendectomy Left knee replacement 2016 Left wrist 2022
--- OUTSIDE RECORDS SUMMARY | 2025-06-21 14:29 | XMS_ITS | Encounter Summary ---
Author Organization [facility] Address [address] [facility] [address] [place] [address] Phone Care Team Providers Care Tree Feller Name Role Phone Nancy Gaitan MD Unavailable Cayla Sahu MD Unavailable Bebeto Wiley MD Primary Care Provider [phone]- [phone] Encounter Details Date Type Department Care Team (Late st Contact Info) Description 03/11/2022 Procedure Pass [facility], Ct Scan - [address] [address] Social History Tobacco Use Types Packs/Day Years [...] 4:33 AM EDT Melissa Russell RN * [place] Suicide Severity Rating Scale (Screener/Recent Self-Report) Question [...] Contact Info) Description 12/15/2024 Procedure Pass [address] [address] 07/27/2025 1:00 PM EST Appointment [address] [address] Bebeto Wiley MD [address] [place] [address], [address] [place] [address] ITM [email or web address] 01/04/2026 1:00 PM EDT Office Visit [facility] Medicine [address] [place] [address] Bebeto Wiley MD [address] [place] [address], [address] [place] [address] documented as of this encounter Visit Diagnoses Not on filedocumented in this encounter Additional Health Concerns Infection Onset Date Last Indicated Resolved Time CoV-Presumed 04/03/2022 04/03/2022 04/24/2022 1:22 AM EDT Assessment Noted Time PHQ-2 Depression Total Score: 1 11/27/19 21 8:47 AM EDT documented as of this encounter Care Teams Tree Feller Relationship Specialty Start Date End Date Bebeto Wiley MD [address] [place] [address], [address] [place] [address] [email or web address] PCP - General Family Medicine 03/06/21 Nancy Gaitan MD [address] [facility] [place] [address] Orthopedic Surgery 12/14/18 Cayla Sahu MD [address] [place] [address] [address] [place] [address] [email or web address] Obstetrics and Gynecology 12/14/18 documented as of this encounter Additional Source Comments The information contained in this document represents components of the legal health record. It is not the complete legal health record.[facility]
--- OUTSIDE RECORDS SUMMARY | 2025-06-21 14:29 | XMS_ITS | Encounter Summary ---
Author Organization [facility] Address [address] [facility] [address] [place] [address] Phone Care Team Providers Care Administrative Project Coordinator Name Role Phone Nancy Gaitan MD Unavailable Cayla Sahu MD Unavailable Bebeto Wiley MD Primary Care Provider +1- [phone] Encounter Details Date Type Department Care Team (Late st Contact Info) Description 09/15/2021 Procedure Pass [facility], Ct Scan - [address] [address] Social History Tobacco Use Types Packs/Day Years [...] 09/15/2021 4:57 PM Kelsey Lopez RN * [place] Suicide Severity Rating Scale (Screener/Recent Self-Report) Question [...] Contact Info) Description 12/15/2024 Procedure Pass [address] [address] 07/27/2025 1:00 PM EST Appointment [address] [address] Bebeto Wiley MD [address] [place] [address], [address] [place] [address] [email or web address] 01/04/2026 1:00 PM EDT Office Visit [address] [address] Bebeto Wiley MD [address] [place] [address], [address] [place] [address] [email or web address] documented as of this encounter Visit Diagnoses Not on filedocumented in this encounter Additional Health Concerns Infection Onset Date Last Indicated Resolved Time CoV-Presumed 04/03/2022 04/03/2022 04/24/2022 1:22 AM EDT Assessment Noted Time PHQ-2 Depression Total Score: 1 11/27/19 21 8:47 AM EDT documented as of this encounter Care Teams Administrative Project Coordinator Relationship Specialty Start Date End Date Bebeto Wiley MD [address] [place] [address], [address] [place] [address] [email or web address] PCP - General Family Medicine 03/06/21 Nancy Gaitan MD [address] [place], [place] [address] [place] [address] Orthopedic Surgery 12/14/18 Cayla Sahu MD [address] [place] [address], [facility] [address] [place] [address] [email or web address] Obstetrics and Gynecology 12/14/18 documented as of this encounter Additional Source Comments The information contained in this document represents components of the legal health record. It is not the complete legal health record.[facility]
--- OUTSIDE RECORDS SUMMARY | 2025-06-21 14:29 | XMS_ITS | Encounter Summary ---
Author Organization [facility] Address [address] [place] [address] [place] [address] Phone Care Team Providers Care Embedded Software Programmer Name Role Phone Nancy Gaitan MD Unavailable Cayla Sahu MD Unavailable Bebeto Wiley MD Primary Care Provider +1- [phone] Encounter Details Date Type Department Care Team (Late st Contact Info) Description 11/10/2022 Procedure Pass [place] Admitting Dept - [facility] Department [address] [place] [address] Social History Tobacco Use Types Packs/Day Years [...] st Contact Info) Description 12/15/2024 Procedure Pass [facility], [facility] [address] [place] [address] 07/27/2025 1:00 PM EST Appointment [facility], [facility] [address] [place] [address] Bebeto Wiley MD [address] [facility], [address] [place] [address] 01/04/2026 1:00 PM EDT Office Visit [facility] [address] [place] [address] Bebeto Wiley MD [address] [facility], [address] [place] [address] documented as of this encounter Visit Diagnoses Not on filedocumented in this encounter Additional Health Concerns Assessment Noted Time PHQ-2 Depression Total Score: 1 11/27/19 21 8:47 AM EDT documented as of this encounter Care Teams Embedded Software Programmer Relationship Specialty Start Date End Date Bebeto Wiley MD [address] [facility], [address] [place] [address] PCP - General Family Medicine 03/06/21 Nancy Gaitan MD [address] [place] [address] Orthopedic Surgery 12/14/18 Cayla Sahu MD [address] [place] [address], [address] [place] [address] Obstetrics and Gynecology 12/14/18 documented as of this encounter Additional Source Comments The information contained in this document represents components of the legal health record. It is not the complete legal health record.[facility]
--- OUTSIDE RECORDS SUMMARY | 2025-06-21 14:29 | XMS_ITS | Encounter Summary ---
Author Organization [facility] Address [address] [facility] [address] [place] [address] Phone Care Team Providers Care Head Of Drama Name Role Phone Nancy Gaitan MD Unavailable Cayla Sahu MD Unavailable Bebeto Wiley MD Primary Care Provider [phone]- [phone] Encounter Details Date Type Department Care Team (Late st Contact Info) Description 09/15/2021 Procedure Pass [facility], Ct Scan - [address] [address] Social History Tobacco Use Types Packs/Day Years [...] 09/15/2021 4:57 PM Kelsey Lopez RN * [place] Suicide Severity Rating Scale (Screener/Recent Self-Report) Question [...] st Contact Info) Description 12/15/2024 Procedure Pass [address] [address] 07/27/2025 1:00 PM EST Appointment [address] [address] Bebeto Wiley MD [address] [place] [address], [address] [place] [address] [email or web address] 01/04/2026 1:00 PM EDT Office Visit [address] [address] Bebeto Wiley MD [address] [place] [address], [address] [place] [address] [email or web address] documented as of this encounter Visit Diagnoses Not on filedocumented in this encounter Additional Health Concerns Infection Onset Date Last Indicated Resolved Time CoV-Presumed 04/03/2022 04/03/2022 04/24/2022 1:22 AM EDT Assessment Noted Time PHQ-2 Depression Total Score: 1 11/27/19 21 8:47 AM EDT documented as of this encounter Care Teams Head Of Drama Relationship Specialty Start Date End Date Bebeto Wiley MD [address] [place] [address], [address] [place] [address] [email or web address] PCP - General Family Medicine 03/06/21 Nancy Gaitan MD [address] [place], [place] [address]am[address] [place] [address] Orthopedic Surgery 12/14/18 Cayla Sahu MD [address] [place] [address], [facility] [address] [place] [address] [email or web address] Obstetrics and Gynecology 12/14/18 documented as of this encounter Additional Source Comments The information contained in this document represents components of the legal health record. It is not the complete legal health record.[facility]
--- OUTSIDE RECORDS SUMMARY | 2025-06-21 14:29 | XMS_ITS | Encounter Summary ---
Author Organization [facility] Address [address] [facility] [address] [place] [address] Phone Care Team Providers Care Hub Borer Name Role Phone Nancy Gaitan MD Unavailable Cayla Sahu MD Unavailable Bebeto Wiley MD Primary Care Provider [phone]- [phone] Encounter Details Date Type Department Care Team (Late st Contact Info) Description 06/05/2024 Procedure Pass [facility] 30 [place] [address] Social History Tobacco Use Types Packs/Day Years [...] st Contact Info) Description 12/15/2024 Procedure Pass [address] [address] 07/27/2025 1:00 PM EST Appointment [address] [address] Bebeto Wiley MD [address] [place] [address], [address] [address] [email or web address] 01/04/2026 1:00 PM EDT Office Visit [facility] Family Medicine [address] [place] [address] Bebeto Wiley MD [address] [place] [address], [address] [address] [email or web address] documented as of this encounter Visit Diagnoses Not on filedocumented in this encounter Additional Health Concerns Assessment Noted Time PHQ-2 Depression Total Score: 2 12/30/19 5:03 PM EDT documented as of this encounter Care Teams Hub Borer Relationship Specialty Start Date End Date Bebeto Wiley MD [address] [place] [address], [address] [place] [address] [email or web address] PCP - General Family Medicine 03/06/21 Nancy Gaitan MD [address] [place], [place] [address]am[address] [place] [address] Orthopedic Surgery 12/14/18 Cayla Sahu MD [address] [place] [address] [address] [place] [address] [email or web address] Obstetrics and Gynecology 12/14/18 documented as of this encounter Additional Source Comments The information contained in this document represents components of the legal health record. It is not the complete legal health record.[facility]
--- OUTSIDE RECORDS SUMMARY | 2025-06-21 14:29 | XMS_ITS | Encounter Summary ---
Author Organization [facility] Address [address] [facility] [address] [place] [address] Phone Care Team Providers Care In Classroom Tutor Name Role Phone Nancy Gaitan MD Unavailable [phone] Cayla Sahu MD Unavailable Bebeto Wiley MD Primary Care Provider [phone]- [phone] Encounter Details Date Type Department Care Team (Late st Contact Info) Description 03/11/2022 Procedure Pass [place] Admitting Dept - Virtual Department 30 [place] [address] Social History Tobacco Use Types Packs/Day Years [...] 4:33 AM EDT Melissa Russell RN * [place] Suicide Severity Rating Scale (Screener/Recent Self-Report) Question [...] st Contact Info) Description 12/15/2024 Procedure Pass [address] [address] 07/27/2025 1:00 PM EST Appointment [address] [address] Bebeto Wiley MD [address] [place] [address], [address] [place] [address] [email or web address] 01/04/2026 1:00 PM EDT Office Visit [address] [address] Bebeto Wiley MD [address] [place] [address], [address] [place] [address] [email or web address] documented as of this encounter Visit Diagnoses Not on filedocumented in this encounter Additional Health Concerns Infection Onset Date Last Indicated Resolved Time CoV-Presumed 04/03/2022 04/03/2022 04/24/2022 1:22 AM EDT Assessment Noted Time PHQ-2 Depression Total Score: 1 11/27/19 21 8:47 AM EDT documented as of this encounter Care Teams In Classroom Tutor Relationship Specialty Start Date End Date Bebeto Wiley MD [address] [place] [address], [address] [place] [address] [email or web address] PCP - General Family Medicine 03/06/21 Nancy Gaitan MD [address] [place], [place] [address]mike [place] [address] Orthopedic Surgery 12/14/18 Cayla Sahu MD [address] [place] [address], [facility] [address] [place] [address] [email or web address] Obstetrics and Gynecology 12/14/18 documented as of this encounter Additional Source Comments The information contained in this document represents components of the legal health record. It is not the complete legal health record.[facility]
--- OUTSIDE RECORDS SUMMARY | 2025-06-21 14:30 | XMS_ITS | Encounter Summary ---
Author Organization [facility] Address [address] [facility] [address] [place] [address] Phone Care Team Providers Care Radio Tester Name Role Phone Nancy Gaitan MD Unavailable Cayla Sahu MD Unavailable Bebeto Wiley MD Primary Care Provider [phone]- [phone] Encounter Details Date Type Department Care Team (Late st Contact Info) Description 12/23/2022 Procedure Pass [facility], Ct Scan - [address] [address] Social History Tobacco Use Types Packs/Day Years [...] Contact Info) Description 12/15/2024 Procedure Pass [address] [address] 07/27/2025 1:00 PM EST Appointment [facility] 30 [place] [address] Bebeto Wiley MD [address] [place] [address], [address] [place] [address] 01/04/2026 1:00 PM EDT Office Visit [address] [address] Bebeto Wiley MD [address] [place] [address], [address] [place] [address] documented as of this encounter Visit Diagnoses Not on filedocumented in this encounter Additional Health Concerns Assessment Noted Time PHQ-2 Depression Total Score: 2 12/30/19 23 1:03 PM EDT documented as of this encounter Care Teams Radio Tester Relationship Specialty Start Date End Date Bebeto Wiley MD [address] [place] [address], [address] [place] [address] PCP - General Family Medicine 03/06/21 Nancy Gaitan MD [address] [place] [address] Orthopedic Surgery 12/14/18 Cayla Sahu MD [address] [place] [address], [address] [place] [address] Obstetrics and Gynecology 12/14/18 documented as of this encounter Additional Source Comments The information contained in this document represents components of the legal health record. It is not the complete legal health record.[facility]
--- OUTSIDE RECORDS SUMMARY | 2025-06-21 14:30 | XMS_ITS | Encounter Summary ---
Author Organization [facility] Address [address] [facility] [address] [place] [address] Phone Care Team Providers Care Lunchroom Monitor Name Role Phone Nancy Gaitan MD Unavailable Cayla Sahu MD Unavailable Bebeto Wiley MD Primary Care Provider [phone]- [phone] Encounter Details Date Type Department Care Team (Late st Contact Info) Description 11/19/2021 Procedure Pass [address] [address] Social History Tobacco Use Types Packs/Day Years [...] Contact Info) Description 12/15/2024 Procedure Pass [facility], [address] [address] 07/27/2025 1:00 PM EST Appointment [facility], [facility] 30 [place] [address] Bebeto Wiley MD [address] [facility], [address] [place] [address] [email or web address] 01/04/2026 1:00 PM EDT Office Visit [facility] Family Medicine [address] [place] [address] Bebeto Wiley MD [address] [place] [address], [address] [place] [address] [email or web address] documented as of this encounter Visit Diagnoses Not on filedocumented in this encounter Additional Health Concerns Infection Onset Date Last Indicated Resolved Time CoV-Presumed 04/03/2022 04/03/2022 04/24/2022 1:22 AM EDT Assessment Noted Time PHQ-2 Depression Total Score: 1 11/27/19 21 8:47 AM EDT documented as of this encounter Care Teams Lunchroom Monitor Relationship Specialty Start Date End Date Bebeto Wiley MD [address] [place] [address], [address] [place] [address] [email or web address] PCP - General Family Medicine 03/06/21 Nancy Gaitan MD [address] [place] [address] Orthopedic Surgery 12/14/18 Cayla Sahu MD [address] [place] [address], [address] [place] [address] [email or web address] Obstetrics and Gynecology 12/14/18 documented as of this encounter Additional Source Comments The information contained in this document represents components of the legal health record. It is not the complete legal health record.[facility]
--- OUTSIDE RECORDS SUMMARY | 2025-06-21 14:30 | XMS_ITS | Patient Health Record ---
Author Organization [facility] Address [address] [place] [address] Care Team Providers Care Field Marketing Team Leader Name Role Phone Bebeto Wiley MD Primary Care Provider Adin Espinal [phone] Allergies Allergen (clinical drug ingredient) Drug/Non Drug [...] Status Risk Notes Problem Acquired hallux rigidus (6093450) Hallux rigidus, left foot (M20.22) Active confirmed Problem Acquired hammer toe of right foot (6819734115609 105) Other hammer toe(s) (acquired), right foot (M20.41) Active confirmed Problem Acquired hammer toe of left foot (3499221141832 103) Other hammer toe(s) (acquired), left foot (M20.42) Active confirmed Problem Acquired hallux rigidus (5201891) Hallux rigidus, right foot (M20.21) Active confirmed Plan Of Treatment Pending Test Test Name Order Date X ray : Foot, left 3V 01/01/2021 X ray : Foot, right 3V 01/01/2021 Insurance Providers Payer Name Payer Address Payer Phone Subscriber Number Group Number Insured Name Patient Relationship to Insured Coverage Start Date Coverage End Date [employer] [address] [place] [phone] [id number] Rico Self - patient is the insured [...]
--- OUTSIDE RECORDS SUMMARY | 2025-06-21 14:31 | XMS_ITS | Encounter Summary ---
Author Organization [facility] Address [address] [facility] [address] [place] [address] Phone Care Team Providers Care Vet Tech Name Role Phone Bebeto Wiley MD Primary Care Provider [phone]- [phone] Nancy Gaitan MD Unavailable Cayla Sahu MD Unavailable Bebeto Wiley MD Primary Care Provider +1- [phone] Encounter Details Date Type Department Care Team (Late st Contact Info) Description 07/25/2020 Ancillary Orders [facility],Outside Imaging 30 [place], [place] [id number] System, Provider Not In, [facility] [address] [address] Social History Tobacco Use Types Packs/Day Years [...] Description 12/15/2024 Procedure Pass [facility] 30 [place] [address] 07/27/2025 1:00 PM EST Appointment [facility] 30 [place] [address] Bebeto Wiley MD [address] [place] [address], [address] [place] [address] [email or web address] 01/04/2026 1:00 PM EDT Office Visit [address] [address] Bebeto Wiley MD [address] [place] [address], [address] [place] [address] documented as of this encounter Results * [...] documented as of this encounter Care Teams Vet Tech Relationship Specialty Start Date End Date Bebeto Wiley MD [address] [place] [address], [address] [place] [address] PCP - General Family Medicine 07/15/17 03/05/21 Bebeto Wiley MD [address] [place] [address], [address] [place] [address] [email or web address] PCP - General Family Medicine 03/06/21 Nancy Gaitan MD [address] [place] [address] Orthopedic Surgery 12/14/18 Cayla Sahu MD [address] [facility], [address] [place] [address] [email or web address] Obstetrics and Gynecology 12/14/18 documented as of this encounter Additional Source Comments The information contained in this document represents components of the legal health record. It is not the complete legal health record.[facility]
--- OUTSIDE RECORDS SUMMARY | 2025-06-21 14:31 | XMS_ITS | Encounter Summary ---
Author Organization [facility] Address [address] [facility] [address] [place] [address] Phone Care Team Providers Care High School Biology Teacher Name Role Phone Bebeto Wiley MD Primary Care Provider [phone]- [phone] Nancy Gaitan MD Unavailable Cayla Sahu MD Unavailable Bebeto Wiley MD Primary Care Provider +1- [phone] Encounter Details Date Type Department Care Team (Late st Contact Info) Description 07/10/[address] [address] Social History Tobacco Use Types Packs/Day Years [...] (Late st Contact Info) Description 12/15/2024 Procedure [address] [place] [address] 07/27/2025 1:00 PM EST Appointment [facility], [address] [address] Bebeto Wiley MD [address] [place] [address], [address] [place] [address] 01/04/2026 1:00 PM EDT Office Visit [address] [address] Bebeto Wiley MD [address] [place] [address], [address] [place] [address] documented as of this encounter Visit Diagnoses Not on filedocumented in this encounter Additional Health Concerns Infection Onset Date Last Indicated Resolved Time CoV-Presumed 04/03/2022 04/03/2022 04/24/2022 1:22 AM EDT Assessment Noted Time PHQ-2 Depression Total Score: 0 05/22/20 20 8:49 AM EDT documented as of this encounter Care Teams High School Biology Teacher Relationship Specialty Start Date End Date Bebeto Wiley MD [address] [place] [address], [address] [place] [address] PCP - General Family Medicine 07/15/17 03/05/21 Bebeto Wiley MD [address] [place] [address], [address] [place] [address] PCP - General Family Medicine 03/06/21 Nancy Gaitan MD [facility] [place] [address] Orthopedic Surgery 12/14/18 Cayla Sahu MD [address] [place] [address], [facility] [address] [place] [address] [email or web address] Obstetrics and Gynecology 12/14/18 documented as of this encounter Additional Source Comments The information contained in this document represents components of the legal health record. It is not the complete legal health record.[facility]
--- OUTSIDE RECORDS SUMMARY | 2025-06-21 14:31 | XMS_ITS | Encounter Summary ---
Author Organization [facility] Address [address] [facility] [address] [place] [address] Phone Care Team Providers Care Family Development Specialist Name Role Phone Nancy Gaitan MD Unavailable [phone] Cayla Sahu MD Unavailable Bebeto Wiley MD Primary Care Provider +1- [phone] Encounter Details Date Type Department Care Team (Late st Contact Info) Description 02/01/2024 Procedure Pass [facility] 30 [place] [address] Social History Tobacco Use Types Packs/Day Years [...] st Contact Info) Description 12/15/2024 Procedure Pass [address] [address] 07/27/2025 1:00 PM EST Appointment [facility] 30 [place] [address] Bebeto Wiley MD [address] [place] [address], [address] [place] [address] 01/04/2026 1:00 PM EDT Office Visit [address] [address] Bebeto Wiley MD [address] [place] [address], [address] [place] [address] documented as of this encounter Visit Diagnoses Not on filedocumented in this encounter Additional Health Concerns Assessment Noted Time PHQ-2 Depression Total Score: 2 12/30/19 24 5:03 PM EDT documented as of this encounter Care Teams Family Development Specialist Relationship Specialty Start Date End Date Bebeto Wiley MD [address] [place] [address], [address] [place] [address] PCP - General Family Medicine 03/06/21 Nancy Gaitan MD [facility] [place] [address] Orthopedic Surgery 12/14/18 Cayla Sahu MD [address] [place] [address], [address] [place] [address] [email or web address] Obstetrics and Gynecology 12/14/18 documented as of this encounter Additional Source Comments The information contained in this document represents components of the legal health record. It is not the complete legal health record.[facility]
--- OUTSIDE RECORDS SUMMARY | 2025-06-21 14:31 | XMS_ITS | Encounter Summary ---
Author Organization [facility] Address [address] [facility] [address] [place] [address] Phone Care Team Providers Care Banquet Attendant Name Role Phone Nancy Gaitan MD Unavailable Cayla Sahu MD Unavailable Bebeto Wiley MD Primary Care Provider [phone]- [phone] Encounter Details Date Type Department Care Team (Late st Contact Info) Description 06/10/2022 Procedure Pass [facility] Endoscopy Admitting Dept Virtual Department [address] [place] [address] Social History Tobacco Use Types Packs/Day Years [...] st Contact Info) Description 12/15/2024 Procedure Pass [facility], [facility] 30 [place] [address] 07/27/2025 1:00 PM EST Appointment [facility], [facility] [address] [place] [address] Bebeto Wiley MD [address] [facility], [address] [place] [address] 01/04/2026 1:00 PM EDT Office Visit [facility] 22 [place] [address] Bebeto Wiley MD [address] [facility], [address] [place] [address] documented as of this encounter Visit Diagnoses Not on filedocumented in this encounter Additional Health Concerns Assessment Noted Time PHQ-2 Depression Total Score: 1 11/27/19 21 8:47 AM EDT documented as of this encounter Care Teams Banquet Attendant Relationship Specialty Start Date End Date Bebeto Wiley MD [address] [facility], [address] [place] [address] PCP - General Family Medicine 03/06/21 Nancy Gaitan MD [address] [place] [address] Orthopedic Surgery 12/14/18 Cayla Sahu MD [address] [place] [address], [address] [place] [address] Obstetrics and Gynecology 12/14/18 documented as of this encounter Additional Source Comments The information contained in this document represents components of the legal health record. It is not the complete legal health record.[facility]
--- OUTSIDE RECORDS SUMMARY | 2025-06-21 14:31 | XMS_ITS | Clinical Summary ---
Author Organization [facility] Address [address] [place] [address] Care Team Providers Care Vehicle Controls Engineer Name Role Phone Bebeto Wiley MD Primary Care Provider [phone] Immunizations Immunization Administration Dates Next Due Moderna SARS-CoV-2 COVID-19, [...] Medical History Medical History Date Comments Cancer ([facility] V24, [facility] V28) DX:Cancer (HCC) Thyroid disorder DX:Thyroid diso [...] Date Last Done Comments DTaP,Tdap,and Td Vaccines (3 - Td or Tdap) 05/23/2023 05/23/2013, 04/04/1999 Depression Screening 08/09/2024 COVID-19 Vaccine (3 - 2024- season) 2025 10/30/2020, 10/02/2020 Influenza Vaccine (#1) 2025 , 05/25/2023, 06/22/2022, Additional history exists Breast Cancer Screening 03/13/2026 03/13/2024, 12/15 Zoster Vaccines Completed 05/17/2019, 12/2018, 04/23/2015 Pneumococcal Vaccine: 50+ Years Completed 05/25/2023, 07/08/2022, 05/22/2020 RSV Immunization Adult Patients Completed 06/18/2023 HIB Vaccines Aged Out No longer eligi [...] 20 months Aged Out No longer eligible based on patient's age to complete this topic Varicella Vaccines Aged Out No longer eligible based on patient's age to complete this topic Procedures Procedure Name Priority Date/Time Associated Diagnosis Comments [facility] Routine 12/15/2018 1:07 PM EDT Encounter for screening mammogram for malignant neoplasm of breast from Last 3 Months or Most Recently Relevant to Health Maintenance Results * ELISSA SCREENING DIGITAL (12/15/2018 1:07 PM EDT) Anatomical Region Laterality Modality Mammography 12/15/2018 10:5 2 AM EDT Narrative 12/15/2018 1:07 PM EDT [facility] Diagnostic Imaging Department [address] [place] [address] Patient: EGE MICHAUD /Age/Sex: 1955 - 63 - F Unit#: [id number] Location/Status: SPDIMAM/REG CLI Mnemonic/Ordering Site: [facility] Ordering Physician: NAM SAHU MD Elissa [...] for the next mammogram: CPT II 7025F [id number] Dictating Physician: NATA CHAO MD Electronically Signed by: NATA CHAO MD Dic Date/Time: 12/15/18 1305 Sign date/Time: 12/15/18 1307 Procedure Note Nata Chao MD - 07/28/2022 [facility] Diagnostic Imaging Department [address] [place] [address] Patient: GEE MICHAUD /Age/Sex: 1955 63 - F Unit#: [id number] Location/Status: [facility] CLI Mnemonic/Ordering Site: [facility] Ordering Physician: NAM SAHU MD Elissa [...] for the next mammogram: CPT II 7025F [id number] Dictating Physician: NATA CHAO MD Electronically Signed by: NATA CHAO MD Dic Date/Time: 12/15/18 1305 Sign date/Time: 12/15/18 1307 Nam Sahu MD IMG BI PROCEDURES Final Result from Last 3 Months or Most Recently Relevant to Health Maintenance Care Teams Vehicle Controls Engineer Relationship Specialty Start Date End Date Bebeto Wiley MD [address] [address] PCP - General 09/12/10
--- OUTSIDE RECORDS SUMMARY | 2025-06-21 14:31 | XMS_ITS | Encounter Summary ---
Author Organization [facility] Address [address] [facility] [address] [place] [address] Phone Care Team Providers Care Ob/Gyn Physician Name Role Phone Bebeto Wiley MD Primary Care Provider +1- [phone] Nancy Gaitan MD Unavailable Cayla Sahu MD Unavailable Bebeto Wiley MD Primary Care Provider +1- [phone] Encounter Details Date Type Department Care Team (Late st Contact Info) Description 07/25/2020 Ancillary Orders [facility],Outside Imaging 30 [place], [place] [id number] System, Provider Not In, [facility] [employer] [address] [address] Social History Tobacco Use Types Packs/Day Years [...] st Contact Info) Description 12/15/2024 Procedure Pass [facility] 30 [place] [address] 07/27/2025 1:00 PM EST Appointment [facility] 30 [place] [address] Bebeto Wiley MD [address] [place] [address], [address] [place] [address] [email or web address] 01/04/2026 1:00 PM EDT Office Visit [address] [address] Bebeto Wiley MD [address] [place] [address], [address] [place] [address] documented as of this encounter Results * [...] documented as of this encounter Care Teams Ob/Gyn Physician Relationship Specialty Start Date End Date Bebeto Wiley MD [address] [place] [address], [address] [place] [address] PCP - General Family Medicine 07/15/17 03/05/21 Bebeto Wiley MD [address] [place] [address], [address] [place] [address] [email or web address] PCP - General Family Medicine 03/06/21 Nancy Gaitan MD [address] [place] [address] Orthopedic Surgery 12/14/18 Cayla Sahu MD 22 [facility], [address] [place] [address] [email or web address] Obstetrics and Gynecology 12/14/18 documented as of this encounter Additional Source Comments The information contained in this document represents components of the legal health record. It is not the complete legal health record.[facility]
--- OUTSIDE RECORDS SUMMARY | 2025-06-21 14:31 | XMS_ITS | Encounter Summary ---
Author Organization [facility] Address 399 [facility] [address] [place] [address] Phone Care Team Providers Care Delivery Professional Name Role Phone Bebeto Wiley MD Primary Care Provider +1- [phone] Nancy Gaitan MD Unavailable Cayla Sahu MD Unavailable Bebeto Wiley MD Primary Care Provider +1- [phone] Encounter Details Date Type Department Care Team (Late st Contact Info) Description 07/25/2020 Ancillary Orders [facility],Outside Imaging 30 [place], [place] [phone] System, Provider Not In, [employer] [address] [address] Social History Tobacco Use Types Packs/Day Years [...] st Contact Info) Description 12/15/2024 Procedure Pass [facility] 30 [place] [address] 07/27/2025 1:00 PM EST Appointment [facility] 30 [place] [address] Bebeto Wiley MD [address] [place] [address], [address] [place] [address] 01/04/2026 1:00 PM EDT Office Visit [address] [address] Bebeto Wiley MD [address] [place] [address], [address] [place] [address] documented as of this encounter Results * [...] documented as of this encounter Care Teams Delivery Professional Relationship Specialty Start Date End Date Bebeto Wiley MD [address] [place] [address], [address] [place] [address] PCP - General Family Medicine 07/15/17 03/05/21 Bebeto Wiley MD [address] [place] [address], [address] [place] [address] [email or web address] PCP - General Family Medicine 03/06/21 Nancy Gaitan MD [address] [place] [address] Orthopedic Surgery 12/14/18 Cayla Sahu MD 22 [facility], [address] [place] [address] [email or web address] Obstetrics and Gynecology 12/14/18 documented as of this encounter Additional Source Comments The information contained in this document represents components of the legal health record. It is not the complete legal health record.[facility]
--- OUTSIDE RECORDS SUMMARY | 2025-06-21 14:31 | XMS_ITS | Encounter Summary ---
Author Organization [facility] Address 399 [facility] [address] [place] [address] Phone Care Team Providers Care Rn Coronary Care Unit Name Role Phone Nancy Gaitan MD Unavailable Cayla Sahu MD Unavailable Bebeto Wiley MD Primary Care Provider +1- [phone] Encounter Details Date Type Department Care Team (Late st Contact Info) Description 09/20/2023 Procedure Pass [facility], [address] [address] Social History Tobacco Use Types Packs/Day Years [...] Contact Info) Description 12/15/2024 Procedure Pass [address] [address] 07/27/2025 1:00 PM EST Appointment [facility] 30 [place] [address] Bebeto Wiley MD [address] [place] [address], [address] [place] [address] 01/04/2026 1:00 PM EDT Office Visit [address] [address] Bebeto Wiley MD [address] [place] [address], [address] [place] [address] documented as of this encounter Visit Diagnoses Not on filedocumented in this encounter Additional Health Concerns Assessment Noted Time PHQ-2 Depression Total Score: 2 12/30/19 23 1:03 PM EDT documented as of this encounter Care Teams Rn Coronary Care Unit Relationship Specialty Start Date End Date Bebeto Wiley MD [address] [place] [address], [address] [place] [address] PCP - General Family Medicine 03/06/21 Nancy Gaitan MD [facility] [place] [address] Orthopedic Surgery 12/14/18 Cayla Sahu MD [address] [place] [address], [address] [place] [address] [email or web address] Obstetrics and Gynecology 12/14/18 documented as of this encounter Additional Source Comments The information contained in this document represents components of the legal health record. It is not the complete legal health record.[facility]
--- OUTSIDE RECORDS SUMMARY | 2025-06-21 14:31 | XMS_ITS | Encounter Summary ---
Author Organization [facility] Address [address] [place] [address] Phone Care Team Providers Care Morning Show Host Name Role Phone Nancy Gaitan MD Unavailable Cayla Sahu MD Unavailable Bebeto Wiley MD Primary Care Provider +1- [phone] Encounter Details Date Type Department Care Team (Late st Contact Info) Description 09/25/2022 Procedure Pass [place] Admitting Dept - [facility] Department [address] [place] [address] Social History Tobacco Use Types Packs/Day Years [...] st Contact Info) Description 12/15/2024 Procedure Pass [facility], [facility] 30 [place] [address] 07/27/2025 1:00 PM EST Appointment [facility], [facility] [address] [place] [address] Bebeto Wiley MD 22 [facility], [address] [place] [address] 01/04/2026 1:00 PM EDT Office Visit [facility] 22 [place] [address] Bebeto Wiley MD 22 [facility], [address] [place] [address] documented as of this encounter Visit Diagnoses Not on filedocumented in this encounter Additional Health Concerns Assessment Noted Time PHQ-2 Depression Total Score: 1 11/27/19 21 8:47 AM EDT documented as of this encounter Care Teams Morning Show Host Relationship Specialty Start Date End Date Bebeto Wiley MD 22 [facility], [address] [place] [address] PCP - General Family Medicine 03/06/21 Nancy Gaitan MD 300 [place] [address] Orthopedic Surgery 12/14/18 Cayla Sahu MD [address] [place] [address], [address] [place] [address] Obstetrics and Gynecology 12/14/18 documented as of this encounter Additional Source Comments The information contained in this document represents components of the legal health record. It is not the complete legal health record.[facility]
--- OUTSIDE RECORDS SUMMARY | 2025-06-21 14:31 | XMS_ITS | Encounter Summary ---
Author Organization [facility] Address [address] [facility] [address] [place] [address] Phone Care Team Providers Care Repair Technician Name Role Phone Nancy Gaitan MD Unavailable Cayla Sahu MD Unavailable Bebeto Wiley MD Primary Care Provider +1- [phone] Encounter Details Date Type Department Care Team (Late st Contact Info) Description 02/22/2024 Procedure Pass [place] Admitting Dept - Virtual Department 30 [place] [address] Social History Tobacco Use Types Packs/Day Years [...] Contact Info) Description 12/15/2024 Procedure Pass [address] [address] 07/27/2025 1:00 PM EST Appointment [facility] 30 [place] [address] Bebeto Wiley MD [address] [place] [address], [address] [place] [address] 01/04/2026 1:00 PM EDT Office Visit [address] [address] Bebeto Wiley MD [address] [place] [address], [address] [place] [address] documented as of this encounter Visit Diagnoses Not on filedocumented in this encounter Additional Health Concerns Assessment Noted Time PHQ-2 Depression Total Score: 2 12/30/19 24 5:03 PM EDT documented as of this encounter Care Teams Repair Technician Relationship Specialty Start Date End Date Bebeto Wiley MD [address] [place] [address], [address] [place] [address] PCP - General Family Medicine 03/06/21 Nancy Gaitan MD [facility] [place] [address] Orthopedic Surgery 12/14/18 Cayla Sahu MD [address] [place] [address], [address] [place] [address] [email or web address] Obstetrics and Gynecology 12/14/18 documented as of this encounter Additional Source Comments The information contained in this document represents components of the legal health record. It is not the complete legal health record.[facility]
--- OUTSIDE RECORDS SUMMARY | 2025-06-21 14:31 | XMS_ITS | Encounter Summary ---
Author Organization [facility] Address 399 [facility] [address] [place] [address] Phone Care Team Providers Care Hydroelectric Machinery Mechanic Name Role Phone Bebeto Wiley MD Primary Care Provider +1- [phone] Nancy Gaitan MD Unavailable Cayla Sahu MD Unavailable Bebeto Wiley MD Primary Care Provider +1- [phone] Encounter Details Date Type Department Care Team (Late st Contact Info) Description 11/18/2020 Procedure [facility] [place] [address] [address] Social History Tobacco Use Types Packs/Day Years [...] st Contact Info) Description 12/15/2024 Procedure Pass [address] [address] 07/27/2025 1:00 PM EST Appointment [address] [address] Bebeto Wiley MD [address] [place] [address], [address] [place] [address] 01/04/2026 1:00 PM EDT Office Visit [address] [address] Bebeto Wiley MD [address] [place] [address], [address] [place] [address] documented as of this encounter Visit Diagnoses Not on filedocumented in this encounter Additional Health Concerns Infection Onset Date Last Indicated Resolved Time CoV-Presumed 04/03/2022 04/03/2022 04/24/2022 1:22 AM EDT Assessment Noted Time PHQ-2 Depression Total Score: 1 11/27/19 21 8:47 AM EDT documented as of this encounter Care Teams Hydroelectric Machinery Mechanic Relationship Specialty Start Date End Date Bebeto Wiley MD [address] [place] [address], [address] [place] [address] PCP - General Family Medicine 07/15/17 03/05/21 Bebeto Wiley MD [address] [place] [address], [address] [place] [address] PCP - General Family Medicine 03/06/21 Nancy Gaitan MD [address] [place] [address] Orthopedic Surgery 12/14/18 Cayla Sahu MD [address] [place] [address], [facility] 102 [place] [address] [email or web address] Obstetrics and Gynecology 12/14/18 documented as of this encounter Additional Source Comments The information contained in this document represents components of the legal health record. It is not the complete legal health record.[facility]
--- OUTSIDE RECORDS SUMMARY | 2025-06-21 14:31 | XMS_ITS | Encounter Summary ---
Author Organization [facility] Address 399 [facility] [address] [place] [address] Phone Care Team Providers Care Equipment Processer Storage Name Role Phone Bebeto Wiley MD Primary Care Provider +1- [phone] Nancy Gaitan MD Unavailable [phone] Cayla Sahu MD Unavailable Bebeto Wiley MD Primary Care Provider +1- [phone] Encounter Details Date Type Department Care Team (Late st Contact Info) Description 07/25/2020 Ancillary Orders [facility],Outside Imaging 30 [place], [place] [id number] System, Provider Not In, PhD [employer] [address] [address] Social History Tobacco Use Types Packs/Day Years [...] st Contact Info) Description 12/15/2024 Procedure Pass [facility] 30 [place] [address] 07/27/2025 1:00 PM EST Appointment [facility] 30 [place] [address] Bebeto Wiley MD [address] [place] [address], [address] [place] [address] 01/04/2026 1:00 PM EDT Office Visit [address] [address] Bebeto Wiley MD [address] [place] [address], [address] [place] [address] documented as of this encounter Results * [...] documented as of this encounter Care Teams Equipment Processer Storage Relationship Specialty Start Date End Date Bebeto Wiley MD [address] [place] [address], [address] [place] [address] PCP - General Family Medicine 07/15/17 03/05/21 Bebeto Wiley MD [address] [place] [address], [address] [place] [address] [email or web address] PCP - General Family Medicine 03/06/21 Nancy Gaitan MD [address] [place] [address] Orthopedic Surgery 12/14/18 Cayla Sahu MD 22 [facility], [address] [place] [address] [email or web address] Obstetrics and Gynecology 12/14/18 documented as of this encounter Additional Source Comments The information contained in this document represents components of the legal health record. It is not the complete legal health record.[facility]
--- OUTSIDE RECORDS SUMMARY | 2025-06-21 14:31 | XMS_ITS | Encounter Summary ---
Author Organization [facility] Address 399 [facility] [address] [place] [address] Phone Care Team Providers Care Financial Institution President Name Role Phone Bebeto Wiley MD Primary Care Provider +1- [phone] Nancy Gaitan MD Unavailable Cayla Sahu MD Unavailable Bebeto Wiley MD Primary Care Provider +1- [phone] Encounter Details Date Type Department Care Team (Late st Contact Info) Description 11/19/2020 Ancillary Orders [facility],Outside Imaging 30 [place], [place] [id number] System, Provider Not In, PhD Partners [address] [address] Social History Tobacco Use Types Packs/Day Years [...] (Late Contact Info) Description 12/15/2024 Procedure Pass [facility] 30 [place] [address] 07/27/2025 1:00 PM EST Appointment [facility] 30 [place] [address] Bebeto Wiley MD [address] [place] [address], [address] [place] [address] 01/04/2026 1:00 PM EDT Office Visit [address] [address] Bebeto Wiley MD [address] [place] [address], [address] [place] [address] documented as of this encounter Results * [...] documented as of this encounter Care Teams Financial Institution President Relationship Specialty Start Date End Date Bebeto Wiley MD [address] [place] [address], [address] [place] [address] PCP - General Family Medicine 07/15/17 03/05/21 Bebeto Wiley MD [address] [place] [address], [address] [place] [address] [email or web address] PCP - General Family Medicine 03/06/21 Nancy Gaitan MD [address] [place] [address] Orthopedic Surgery 12/14/18 Cayla Sahu MD [address] [place] [address], [address] [place] [address] [email or web address] Obstetrics and Gynecology 12/14/18 documented as of this encounter Additional Source Comments The information contained in this document represents components of the legal health record. It is not the complete legal health record.[facility]
--- OUTSIDE RECORDS SUMMARY | 2025-06-21 14:31 | XMS_ITS | Encounter Summary ---
Author Organization [facility] Address 399 [facility] [address] [place] [address] Phone Care Team Providers Care Kettle Operator Name Role Phone Nancy Gaitan MD Unavailable Cayla Sahu MD Unavailable Bebeto Wiley MD Primary Care Provider +1- [phone] Reason for Referral * MRI/CAT Scan - Closed Specialty Diagnoses / Procedures Referred By Contac t Referred To Contact Radiology Diagnoses Pre-operative cardiovascular examination, high risk surgery Procedures NC Stress Result for Nuclear Stress Test Bebeto Wiley MD Phone: tel: fax: [email or web address] Referral ID Status Reason Start Date Expiration Date Visits Re quested Visits Authorized [id number] Closed 02/22/2024 02/21/2025 1 1 Encounter Details Date Type Department Care Team (Latest Contact Info) Description 02/22/2024 Ancillary Orders [address] [place] [address] Bebeto Wiley MD 22 [facility], [address] [place], [place] [id number] [email or web address] Pre-operative cardiovascular examination, high risk [...] st Contact Info) Description 12/15/2024 Procedure Pass [address] [address] 07/27/2025 1:00 PM EST Appointment [address] [address] Bebeto Wiley MD [address] [place] [address], [address] [address] 01/04/2026 1:00 PM EDT Office Visit [facility] Family Medicine [address] [place] [address] Bebeto Wiley MD [address] [place] [address], [address] [address] documented as of this encounter Results * NC Stress Result for Nuclear Stress Test (02/22/2024 11:50 AM EDT) Max Predicted Heart Rate 151 bpm [facility] Max BP Systolic 180 mmHg [facility] Max BP Diastolic 90 mmHg [facility] Max HR 148 BPM [facility] Resting HR 90 BPM [facility] Resting BP Systolic 132 mmHg [facility] Resting BP Diastolic 70 mmHg [facility] Peak METS 1.6 METS [facility] Peak HR 104 BPM [facility] Anatomical Region Laterality Modality Heart Other [...] followed by injection of Tc99m Sestamibi by [facility] registered vascular technologist (rvt). 1. EKG - Baseline EKG showed sinus [...] examination, high risk surgery Pre-operative cardiovascular examination documented in this encounter Additional Health Concerns Assessment Noted Time PHQ-2 Depression Total Score: 2 12/30/19 24 5:03 PM EDT documented as of this encounter Care Teams Kettle Operator Relationship Specialty Start Date End Date Bebeto Wiley MD [address] [place] [address], [address] [place] [address] [email or web address] PCP - General Family Medicine 03/06/21 Nancy Gaitan MD [address] [place] [address] Orthopedic Surgery 12/14/18 Cayla Sahu MD [address] [place] [address], [address] [place] [address] Obstetrics and Gynecology 12/14/18 documented as of this encounter Additional Source Comments The information contained in this document represents components of the legal health record. It is not the complete legal health record.[facility]
--- OUTSIDE RECORDS SUMMARY | 2025-06-21 14:31 | XMS_ITS | Encounter Summary ---
Author Organization [facility] Address 399 [facility] [address] [place] [address] Phone Care Team Providers Care Count Room Clerk Name Role Phone Bebeto Wiley MD Primary Care Provider +1- [phone] Nancy Gaitan MD Unavailable Cayla Sahu MD Unavailable Bebeto Wiley MD Primary Care Provider +1- [phone] Encounter Details Date Type Department Care Team (Late st Contact Info) Description 07/25/2020 Ancillary Orders [facility],Outside Imaging 30 [place], [place] [id number] System, Provider Not In, PhD Partners [address] [address] Social History Tobacco Use Types Packs/Day Years [...] st Contact Info) Description 12/15/2024 Procedure Pass [facility] 30 [place] [address] 07/27/2025 1:00 PM EST Appointment [facility] 30 [place] [address] Bebeto Wiley MD [address] [place] [address], [address] [place] [address] 01/04/2026 1:00 PM EDT Office Visit [address] [address] Bebeto Wiley MD [address] [place] [address], [address] [place] [address] documented as of this encounter Results * [...] documented as of this encounter Care Teams Count Room Clerk Relationship Specialty Start Date End Date Bebeto Wiley MD [address] [place] [address], [address] [place] [address] PCP - General Family Medicine 07/15/17 03/05/21 Bebeto Wiley MD [address] [place] [address], [address] [place] [address] [email or web address] PCP - General Family Medicine 03/06/21 Nancy Gaitan MD [address] [place] [address] Orthopedic Surgery 12/14/18 Cayla Sahu MD 22 [facility], [address] [place] [address] [email or web address] Obstetrics and Gynecology 12/14/18 documented as of this encounter Additional Source Comments The information contained in this document represents components of the legal health record. It is not the complete legal health record.[facility]
--- OUTSIDE RECORDS SUMMARY | 2025-06-21 14:31 | XMS_ITS | Encounter Summary ---
Author Organization [facility] Address 399 [facility] [address] [place] [address] Phone Care Team Providers Care Dragsaw Operator Name Role Phone Nancy Gaitan MD Unavailable [phone] Cayla Sahu MD Unavailable Bebeto Wiley MD Primary Care Provider +1- [phone] Encounter Details Date Type Department Care Team (Late st Contact Info) Description 02/01/2024 Procedure Pass Non-Invasive Cardiology 30 [place] [address] Social History Tobacco Use Types Packs/Day Years [...] st Contact Info) Description 12/15/2024 Procedure Pass [address] [address] 07/27/2025 1:00 PM EST Appointment [address] [address] Bebeto Wiley MD [address] [place] [address], [address] [place] [address] 01/04/2026 1:00 PM EDT Office Visit [address] [address] Bebeto Wiley MD [address] [place] [address], [address] [place] [address] documented as of this encounter Visit Diagnoses Not on filedocumented in this encounter Additional Health Concerns Assessment Noted Time PHQ-2 Depression Total Score: 2 12/30/19 24 5:03 PM EDT documented as of this encounter Care Teams Dragsaw Operator Relationship Specialty Start Date End Date Bebeto Wiley MD [address] [place] [address], [address] [place] [address] PCP - General Family Medicine 03/06/[address] [facility] [place] [address] Orthopedic Surgery 12/14/18 Cayla Sahu MD [address] [place] [address], [address] [place] [address] [email or web address] Obstetrics and Gynecology 12/14/18 documented as of this encounter Additional Source Comments The information contained in this document represents components of the legal health record. It is not the complete legal health record.[facility]
--- OUTSIDE RECORDS SUMMARY | 2025-06-21 14:32 | XMS_ITS | Clinical Summary ---
Author Organization [facility] Address [address] [place] [address] Care Team Providers Care Placement Officer Name Role Phone Bebeto Wiley MD Primary Care Provider +1- [phone] Allergies Active Allergy Reactions Criticality Noted Date [...] age to complete this topic Care Teams Placement Officer Relationship Specialty Start Date End Date Bebeto Wiley MD [address] [address] PCP - General Family Medicine 04/19/17
--- OUTSIDE RECORDS SUMMARY | 2025-06-21 14:32 | XMS_ITS | Encounter Summary ---
Author Organization [facility] Address [address] [place] [address] [place] [address] Phone Care Team Providers Care Playback Operator Name Role Phone Nancy Gaitan MD Unavailable Cayla Sahu MD Unavailable Bebeto Wiley MD Primary Care Provider +1- [phone] Encounter Details Date Type Department Care Team (Late st Contact Info) Description 04/01/2022 Procedure Pass [address] [address] Social History Tobacco Use Types Packs/Day Years [...] (Late st Contact Info) Description 12/15/[address] [address] 07/27/2025 1:00 PM EST Appointment [facility], [facility] [address] [place] [address] Bebeto Wiley MD [address] [place] [address], [address] [place] [address] 01/04/2026 1:00 PM EDT Office Visit [facility] Medicine [address] [place] [address] Bebeto Wiley MD [address] [place] [address], [address] [place], [place] [id number] [email or web address] documented as of this encounter Visit Diagnoses Not on filedocumented in this encounter Additional Health Concerns Infection Onset Date Last Indicated Resolved Time CoV-Presumed 04/03/2022 04/03/2022 04/24/2022 1:22 AM EDT Assessment Noted Time PHQ-2 Depression Total Score: 1 11/27/19 21 8:47 AM EDT documented as of this encounter Care Teams Playback Operator Relationship Specialty Start Date End Date Bebeto Wiley MD [address] [place] [address], [address] [place] [address] [email or web address] PCP - General Family Medicine 03/06/21 Nancy Gaitan MD [address] [place] [address] Orthopedic Surgery 12/14/18 Cayla Sahu MD [address] [place] [address], [address] [place] [address] [email or web address] Obstetrics and Gynecology 12/14/18 documented as of this encounter Additional Source Comments The information contained in this document represents components of the legal health record. It is not the complete legal health record.[facility]
--- OUTSIDE RECORDS SUMMARY | 2025-06-21 14:32 | XMS_ITS | Encounter Summary ---
Author Organization [facility] Address [address] [facility] [address] [place] [address] Phone Care Team Providers Care Warehouse Order Picker Name Role Phone Nancy Gaitan MD Unavailable Cayla Sahu MD Unavailable Bebeto Wiley MD Primary Care Provider +1- [phone] Encounter Details Date Type Department Care Team (Late st Contact Info) Description 02/04/[address] [facility] [address] [place] [address] Zuleyma Miller, DUONG Social History Tobacco [...] Contact Info) Description 12/15/2024 Procedure Pass [address] [address] 07/27/2025 1:00 PM EST Appointment [address] [address] Bebeto Wiley MD [address] [place] [address], [address] [place] [address] 01/04/2026 1:00 PM EDT Office Visit [address] [address] Bebeto Wiley MD [address] [place] [address], [address] [place] [address] documented as of this encounter Visit Diagnoses Not on filedocumented in this encounter Additional Health Concerns Assessment Noted Time PHQ-2 Depression Total Score: 2 12/30/19 23 1:03 PM EDT documented as of this encounter Care Teams Warehouse Order Picker Relationship Specialty Start Date End Date Bebeto Wiley MD [address] [place] [address], [address] [place] [address] PCP - General Family Medicine 03/06/21 Nancy Gaitan MD [address] [place] [address] Orthopedic Surgery 12/14/18 Cayla Sahu MD [facility], [address] [address] [email or web address] Obstetrics and Gynecology 12/14/18 documented as of this encounter Additional Source Comments The information contained in this document represents components of the legal health record. It is not the complete legal health record.[facility]
--- OUTSIDE RECORDS SUMMARY | 2025-06-21 14:32 | XMS_ITS ---
Author Organization [facility] Address [address] [facility] [address] [place] [address] Phone Care Team Providers Care Contracts Director Name Role Phone Nancy Gaitan MD Unavailable Cayla Sahu MD Unavailable Bebeto Wiley MD Primary Care Provider +1- [phone] Active Problems Problem Noted Date Diagnosed Date [...] for pain. Advised use of heat/ice alternating. [place] balm/icy hot as needed for comfort. Will [...] of pocket cost concerns (works there in [employer]) Anxiety Current Treatment and Therapy Plans No current plan information found. Past Treatment and Therapy Plans
--- OUTSIDE RECORDS SUMMARY | 2025-06-21 14:32 | XMS_ITS | Clinical Summary ---
Author Organization [facility] Address [address] [place] [address] Phone Care Team Providers Care Computer Software Engineer Name Role Phone Nancy Gaitan MD Unavailable Cayla Sahu MD Unavailable Bebeto Wiley MD Primary Care Provider +1- [phone] Allergies Active Allergy Reactions Criticality Noted Date [...] for pain. Advised use of heat/ice alternating. [place] balm/icy hot as needed for comfort. Will [...] & Plan (09/14/2022 3:58 PM EST): + [facility] in office today. Discussed BPPV with [...] Encounters Date Type Department Care Team Description 05/23/2025 Telephone [employer] [facility] [address] [place] [address] Bebeto Wiley MD Forms & Paperwork (Recent OV and albs); [facility] 05/02/2025 Orders Only [facility] [address] [place] [address] ProviderElías MD 03/30/2025 Orders Only [facility] [address] [place] [address] ProviderElías MD from Last 3 Months Immunizations Immunization Administration [...] Father Heart attack Father Heart disease Father [place] Cancer Mother lung Breast cancer Sister Relation [...] st Contact Info) Description 12/15/2024 Procedure Pass [address] [address] 07/27/2025 1:00 PM EST Appointment [address] [address] Bebeto Wiley MD [address] [place] [address], [address] [place] [address] 01/04/2026 1:00 PM EDT Office Visit [facility] [address] [place] [address] Bebeto Wiley MD [address] [facility], [address] [place] [address] [email or web address] Health Maintenance Due Date Last Done Comments COLOGUARD 1999 FIT TEST 1999 FOBT 1999 SIGMOIDOSCOPY 1999 VIRTUAL COLONOSCOPY 1999 Adult Td,Tdap Booster 05/23/2023 05/23/2013, 999 INFLUENZA VACCINE (#1) 2025 , 05/25/2023, 06/22/2022, Additional history exists COVID-19 VACCINE ( season) 2025 05/29/2024, 05/25/2023, 08/11/2022, Additional history exists DEPRESSION SCREENING 01/01/2026 01/01/2025 TSH LEVEL 01/03/2026 01/03/2025, 12/08, 10/18/2023, Additional history exists MAMMOGRAM 03/13/2026 03/13/2024, 04/09, 08/30/2020, Additional history exists LIPID PANEL 06/12/2026 06/12/2025, 12/08, 01/04/2024, Additional history exists COLONOSCOPY 08/06/2028 08/06/2023, 10/23/2015 COLORECTAL CANCER SCREENING 08/06/2028 HEPATITIS C SCREENING Completed 04/24/2019, 019 ZOSTER VACCINES Completed 05/17/2019, 06/12/2018, 04/23/2015 OSTEOPOROSIS SCREENING INITIAL (ONE-TIME) Completed 04/13/2023, [...] this topic Medical Devices Implanted Type Area Rehabilitation Services Counselor Device Identifier Shelf Expiration Date Model / Serial / Lot Prosthetic Joint Prosthetic Joint Left: Knee System Suspension Fiberlock - Trial Item - [id number] Implanted:Qty: 1 on 11/10/2022 by Moe Hernandez MD at [facility] Left: Thumb [employer] 10/07/2027 [id number] / / [id number] Procedures Procedure Name Priority Date/Time Associated Diagnosis Comments LIPID PANEL Routine 06/12/2025 9:23 AM EST Other hyperlipidemia OUTSIDE IMAGING Routine 04/26/2025 9:48 AM EDT OUTSIDE IMAGING Routine 03/29/2025 12:52 PM EDT TSH WITH REFLEX Routine 01/03/2025 7:14 AM [...] Recently Relevant to Health Maintenance Results * Lipid Panel (06/12/2025 9:23 AM EST) Cholesterol 164 <200 mg/dL 06/12/2025 11:25 AM EST [facility] HDL 62 >=40 mg/dL 06/12/2025 11:25 AM EST [facility] Calculated LDL 87 <130 mg/dL 06/12/2025 11:25 AM EST [facility] Comment:LDL is calculated us ing the Weaver-NIH equation (CARMELO Cardiol. 2019December 07;5(5):540-548). Non-HDL Cholesterol 102 mg/dL 06/12/2025 11:25 AM EST [facility] Comment:Guidelines suggest a non-HDL cholesterol goal 30 mg/dL higher than the patient-specific LDL cholesterol goal. Cardiac Risk Ratio 2.6 0.0 - 5.0 2024 11:25 AM EST [facility] Triglycerides 79 <=150 mg/dL 06/12/2025 11:25 AM EST [facility] Blood Venipuncture / Unknown 06/12/2025 9:23 AM EST 06/12/2025 9:32 AM EST Bebeto Wiley MD LAB BLOOD BKR ORDERABLES F inal Result Performing Organization Address [facility] [place] de Phone Number [address] [address] * Outside Imaging Report Only (04/26/2025 9:48 AM EDT) Historical Provider IMG XR CHEST Edited Re sult - Final * Outside Imaging Report Only (03/29/2025 12:52 PM EDT) Historical Provider IMGeovanny XR CHEST Final Res ult * TSH with reflex (01/03/2025 7:14 AM EDT) TSH 2.82 0.27 - 4.20 uIU/mL [facility] Blood 01/03/2025 7:14 AM EDT 01/03/2025 7:18 AM EDT Bebeto Wiley MD LAB BLOOD BKR ORDERABLES F inal Result Performing Organization Address [facility] Co de Phone Number [address] [address] * BI MAMMOGRAM SCREENING WITH TOMOSYNTHESIS WITH [...] a total bone mineral density of 0.831 g/be9zcec a T- score of -0.9. This is [...] qualitative (04/24/2019) Bebeto Wiley MD LAB BLOOD BKR ORDERABLES E dited Result - Final from Last 3 Months or Most Recently Relevant to Health Maintenance Insurance MEDICARE PART A & B [employer] MEDEX SUPPLEMENT MEDICARE PART A & B [employer] MEDEX SUPPLEMENT MEDICARE PART A & B Member Subscriber Plan / Payer (Ef fective 2020-Present) Name:Adriel Gallegos Member ID:[id number] Relation to Subscriber:Self Name:Adriel Gallegos Subscriber ID:[id number] Payer ID:[id number] Group ID:Not on file Type:Medicare Address: [employer] [facility].[address] [address] [facility] MEDEX SUPPLEMENT MEDICARE PART A & B [employer] MEDEX SUPPLEMENT MEDICARE PART A & B [employer] MEDEX SUPPLEMENT MEDICARE PART A & B [employer]UE CROSS MEDEX SUPPLEMENT Advance Directives For more information, please contact: [phone] (9AM - 5PM [facility], Wednesday-Wednesday) * Full Code (Latest Code Status on File) Date Activated Date Inactivated Comments 11/10/2022 7:34 AM Question Answer Comments Code Status Confirmed With: Patient * Full Code Date Activated Date Inactivated Comments 03/12/2022 7:02 AM 11/10/2022 7:34 AM Question Answer Comments Code Status Confirmed With: Patient Care Teams Computer Software Engineer Relationship Specialty Start Date End Date Bebeto Wiley MD [address] [place] [address], [address] [place] [id number] [email or web address] PCP - General Family Medicine 03/06/21 Nancy Gaitan MD [address] [place] [address] Orthopedic Surgery 12/14/18 Cayla Sahu MD [address] [place] [address], [facility] [address] [place] [address] [email or web address] Obstetrics and Gynecology 12/14/18 Additional Source Comments The information contained in this document represents components of the legal health record. It is not the complete legal health record.[facility]
== END 2025-06-21 13:52 | disposition home or self-care (01) ==
LOC: HO.HNS 11:22
PROVIDERS: PCP Family Medicine; Visit Provider Physician Assistant
DX: Z98.1 Arthrodesis status (principal)
CPT/HCPCS: 99024

== ENCOUNTER → 2025-06-21 11:21 | Outpatient (BNVA) | payer MEDICARE, SELFPAY | PROVIDERS: PCP Family Medicine; Visit Provider Physician Assistant | DX: M54.2 Cervicalgia (principal); Z98.1 Arthrodesis status; Z98.890 Other specified postprocedural states | CPT/HCPCS: 99212 ==

== ENCOUNTER 2025-08-01 09:56 | Outpatient (REF) | payer MEDICARE, SELFPAY ==
--- OUTSIDE RECORDS SUMMARY | 2012-12-07 23:00 | XMS_ITS | Encounter Summary ---
Author Organization [facility] Address [address] [facility] [address] [place] [address] Phone Care Team Providers Care Home Appraiser Name Role Phone Unavailable Primary Care Provider Unavailabl e Encounter Details Date Type Department Care Team (Late st Contact Info) Description 12/08/2012 Hospital Encounter [facility],Outside Imaging [address] [place] [address] System, Provider Not In, PhD Partners [address] [address] Social History Tobacco Use Types Packs/Day Years [...] AM EDT documented as of this encounter Plan of Treatment Upcoming Encounters Date Type Department Care Team (Late st Contact Info) Description 07/27/2025 Procedure Pass [address] [address] 08/22/2025 2:30 PM EST Appointment [address] [address] Bebeto Wiley MD [address] [place] [address], [address] [address] 01/04/2026 1:00 PM EDT Office Visit [facility] [address] [place] [address] Bebeto Wiley MD [address] [place] [address], [address] [address] documented as of this encounter Procedures Procedure [...] It is not the complete legal health record.[facility]
--- OUTSIDE RECORDS SUMMARY | 2023-04-17 11:25 | XMS_ITS | Encounter Summary ---
Author Organization [facility] Address [address] [facility] [address] [place] [address] Phone Care Team Providers Care Powertrain Design Engineer Name Role Phone Nancy Gaitan MD Unavailable Cayla Sahu MD Unavailable Bebeto Wiley MD Primary Care Provider [phone] Encounter Details Date Type Department Care Team (Late st Contact Info) Description 04/17/2023 12:25 PM EDT Hospital Encounter [facility] Urgent Care [address] [place] [address] Lynne Nobles FNP [address] [place] [address] [email or web address] Social History Tobacco Use Types Packs/Day Years [...] st Contact Info) Description 07/27/2025 Procedure Pass [address] [address] 08/22/2025 2:30 PM EST Appointment [address] [address] Bebeto Wiley MD [address] [place] [address], [address] [address] 01/04/2026 1:00 PM EDT Office Visit [facility] [address] [place] [address] [place] [address] Bebeto Wiley MD [address] [place] [address], [address] [address] documented as of this encounter Procedures Procedure Name Priority Date/Time Associated Diagnosis Comments XR KNEE 4 OR MORE VIEWS (RIGHT) Urgent/patient waiting 04/17/2023 12:44 PM EDT Fall, initial encounter documented in this encounter Results * XR KNEE 4 OR MORE VIEWS (RIGHT) (04/17/2023 12:44 PM EDT) Anatomical Region Laterality Modality Knee Right Computed Radiogr aphy 04/17/2023 12:5 2 PM EDT Impressions 04/17/2023 12:55 PM EDT No fracture or dislocation. Narrative 04/17/2023 12:55 PM EDT XR KNEE 4 OR MORE VIEWS (RIGHT) COMPARISON: None FINDINGS: Right Knee: No fracture. Normal alignment. Normal joint spaces. Small suprapatellar effusion. Procedure Note Debbi Sauer MD - 04/17/2023 XR KNEE 4 OR MORE VIEWS (RIGHT) COMPARISON: None FINDINGS: Right Knee: No fracture. Normal alignment. Normal joint spaces. Smallsuprapatellar effusion. IMPRESSION: No fracture or dislocation. Lynne Nobles FOOD INSPECTOR IMG XR LOWER EXTREMITY Haley l Result documented in this encounter Visit Diagnoses Not on filedocumented in this encounter Additional Health Concerns Assessment Noted Time PHQ-2 Depression Total Score: 2 12/30/19 23 1:03 PM EDT documented as of this encounter Care Teams Powertrain Design Engineer Relationship Specialty Start Date End Date Bebeto Wiley MD [address] [place] [address], [address] [place] [address] PCP - General Family Medicine 03/06/21 Nancy Gaitan MD [address] [place], [place] [address] [place] [address] Orthopedic Surgery 12/14/18 Cayla Sahu MD [address] [place] [address], [address] [place] [address] [email or web address] Obstetrics and Gynecology 12/14/18 documented as of this encounter Additional Source Comments The information contained in this document represents components of the legal health record. It is not the complete legal health record.[facility]
--- NOTE | ~2025-08-01 | XR_ITS ---
EXAMINATION: XR CERVICAL SPINE CLINICAL INFORMATION: Z98.1 - Arthrodesis status COMPARISON: X-ray 04/26/2025 TECHNIQUE: 4 views, including flexion-extension views. FINDINGS: Straightening of the cervical curvature. Trace anterolisthesis C2 on C3, and trace retrolisthesis of C3 on C4, unchanged ACDF hardware at C5-6. Intact hardware. No evidence of acute compression fracture. Multilevel disc degeneration, more prominent findings of severe C3-4 disc degeneration. No gross subluxation on the flexion or extension views. No prevertebral soft tissue swelling. Lung apices are clear. XR/XR cervical spine 4V IMPRESSION: Status post C5-6 ACDF. Hardware is intact. No evidence of acute osseous findings. Cervical spondylosis as above. Electronically signed by: Haider Faria MD 08/03/2025 09:10 AM [facility]
--- OUTSIDE RECORDS SUMMARY | 2025-08-01 10:08 | XMS_ITS | Encounter Summary ---
Author Organization [facility] Address [address] [facility] [address] [place] [address] Phone Care Team Providers Care Undertaker Helper Name Role Phone Nancy Gaitan MD Unavailable Cayla Sahu MD Unavailable Bebeto Wiley MD Primary Care Provider [phone]- [phone] Encounter Details Date Type Department Care Team (Late st Contact Info) Description 12/23/2022 Procedure Pass [facility], Ct Scan - [address] [address] Social History Tobacco Use Types Packs/Day Years [...] st Contact Info) Description 07/27/2025 Procedure Pass [address] [address] 08/22/2025 2:30 PM EST Appointment [facility] [address] [place] [address] Bebeto Wiley MD [address] [place] [address], [address] [place] [address] 01/04/2026 1:00 PM EDT Office Visit [facility] [address] [place] [address] Bebeto Wiley MD [address] [place] [address], [address] [place] [address] documented as of this encounter Visit Diagnoses Not on filedocumented in this encounter Additional Health Concerns Assessment Noted Time PHQ-2 Depression Total Score: 2 12/30/19 23 1:03 PM EDT documented as of this encounter Care Teams Undertaker Helper Relationship Specialty Start Date End Date Bebeto Wiley MD [address] [place] [address], [address] [place] [address] PCP - General Family Medicine 03/06/21 Nancy Gaitan MD [address] [place] [address] Orthopedic Surgery 12/14/18 Cayla Sahu MD [address] [place] [address], [address] [place] [address] Obstetrics and Gynecology 12/14/18 documented as of this encounter Additional Source Comments The information contained in this document represents components of the legal health record. It is not the complete legal health record.[facility]
--- OUTSIDE RECORDS SUMMARY | 2025-08-01 10:08 | XMS_ITS | Encounter Summary ---
Author Organization [facility] Address [address] [place] [address] [place] [address] Phone Care Team Providers Care Geospatial Information Technologist Name Role Phone Nancy Gaitan MD Unavailable [phone] Cayla Sahu MD Unavailable Bebeto Wiley MD Primary Care Provider +1- [phone] Encounter Details Date Type Department Care Team (Late st Contact Info) Description 09/15/2021 Procedure Pass [address] [address] Social History Tobacco Use Types Packs/Day Years [...] st Contact Info) Description 07/27/2025 Procedure Pass [facility], [address] [address] 08/22/2025 2:30 PM EST Appointment [facility], [facility] [address] [place] [address] Bebeto Wiley MD 22 [facility], [address] [place] [address] 01/04/2026 1:00 PM EDT Office Visit [facility] [address] [place] [address] Bebeto Wiley MD [address] [place] [address], [address] [place], [place] [id number] [email or web address] documented as of this encounter Visit Diagnoses Not on filedocumented in this encounter Additional Health Concerns Infection Onset Date Last Indicated Resolved Time CoV-Presumed 04/03/2022 04/03/2022 04/24/2022 1:22 AM EDT Assessment Noted Time PHQ-2 Depression Total Score: 1 11/27/19 21 8:47 AM EDT documented as of this encounter Care Teams Geospatial Information Technologist Relationship Specialty Start Date End Date Bebeto Wiley MD [address] [place] [address], [address] [place] [address] [email or web address] PCP - General Family Medicine 03/06/21 Nancy Gaitan MD [address] [place] [address] Orthopedic Surgery 12/14/18 Cayla Sahu MD [address] [place] [address], [address] [place] [address] Obstetrics and Gynecology 12/14/18 documented as of this encounter Additional Source Comments The information contained in this document represents components of the legal health record. It is not the complete legal health record.[facility]
--- OUTSIDE RECORDS SUMMARY | 2025-08-01 10:08 | XMS_ITS | Encounter Summary ---
Author Organization [facility] Address [address] [place] [address] [place] [address] Phone Care Team Providers Care Natural Resources Manager Name Role Phone Nancy Gaitan MD Unavailable Cayla Sahu MD Unavailable Bebeto Wiley MD Primary Care Provider [phone]- [phone] Encounter Details Date Type Department Care Team (Late st Contact Info) Description 11/19/2021 Procedure Pass [address] [address] Social History Tobacco Use Types Packs/Day Years [...] st Contact Info) Description 07/27/2025 Procedure Pass [facility], [address] [address] 08/22/2025 2:30 PM EST Appointment [facility], [facility] [address] [place] [address] Bebeto Wiley MD 22 [facility], [address] [place] [address] 01/04/2026 1:00 PM EDT Office Visit [facility] [address] [place] [address] Bebeto Wiley MD [address] [place] [address], [address] [place], [place] [id number] [email or web address] documented as of this encounter Visit Diagnoses Not on filedocumented in this encounter Additional Health Concerns Infection Onset Date Last Indicated Resolved Time CoV-Presumed 04/03/2022 04/03/2022 04/24/2022 1:22 AM EDT Assessment Noted Time PHQ-2 Depression Total Score: 1 11/27/19 21 8:47 AM EDT documented as of this encounter Care Teams Natural Resources Manager Relationship Specialty Start Date End Date Bebeto Wiley MD [address] [place] [address], [address] [place] [address] [email or web address] PCP - General Family Medicine 03/06/21 Nancy Gaitan MD [address] [place] [address] Orthopedic Surgery 12/14/18 Cayla Sahu MD [address] [place] [address], [address] [place] [address] Obstetrics and Gynecology 12/14/18 documented as of this encounter Additional Source Comments The information contained in this document represents components of the legal health record. It is not the complete legal health record.[facility]
--- OUTSIDE RECORDS SUMMARY | 2025-08-01 10:08 | XMS_ITS | Encounter Summary ---
Author Organization [facility] Address [address] [facility] [address] [place] [address] Phone Care Team Providers Care Perch Machine Inspector Name Role Phone Nancy Gaitan MD Unavailable Cayla Sahu MD Unavailable Bebeto Wiley MD Primary Care Provider [phone]- [phone] Encounter Details Date Type Department Care Team (Latest Contact Info) Description 07/27/2025 Transcribe Orders Virtual Department [address] [place] [address] Bebeto Wiley MD [address] [facility], [address] [place] [address] [email or web address] Breast screening (Primary Dx) Social History Tobacco Use Types [...] st Contact Info) Description 07/27/2025 Procedure Pass [address] [address] 08/22/2025 2:30 PM EST Appointment [address] [address] Bebeto Wiley MD [address] [place] [address], [address] [address] 01/04/2026 1:00 PM EDT Office Visit [facility] [address] [place] [address] Bebeto Wiley MD [address] [place] [address], [address] [place] [address] Scheduled Orders Name Type Priority Associated Diagnoses Orde r Schedule Mammogram Screening (Bilateral) Imaging Routine Breast screening Expected: 07/27/2025, Expires: 07/27/2026 documented as of this encounter Visit Diagnoses Diagnosis Breast screening- Primary Breast screening, unspecified documented in this encounter Additional Health Concerns Assessment Noted Time PHQ-2 Depression Total Score: 0 01/02/20 25 10:06 PM EDT documented as of this encounter Care Teams Perch Machine Inspector Relationship Specialty Start Date End Date Bebeto Wiley MD [address] [place] [address], [address] [place] [address] [email or web address] PCP - General Family Medicine 03/06/21 Nancy Gaitan MD [address] [place] [address] Orthopedic Surgery 12/14/18 Cayla Sahu MD [address] [place] [address], [address] [place] [address] Obstetrics and Gynecology 12/14/18 documented as of this encounter Additional Source Comments The information contained in this document represents components of the legal health record. It is not the complete legal health record.[facility]
--- OUTSIDE RECORDS SUMMARY | 2025-08-01 10:08 | XMS_ITS | Encounter Summary ---
Author Organization [facility] Address [address] [place] [address] [place] [address] Phone Care Team Providers Care Heat Plant Specialist Name Role Phone Nancy Gaitan MD Unavailable [phone] Cayla Sahu MD Unavailable Bebeto Wiley MD Primary Care Provider [phone]- [phone] Encounter Details Date Type Department Care Team (Late st Contact Info) Description 09/15/2021 Procedure Pass [address] [address] Social History Tobacco Use Types Packs/Day Years [...] st Contact Info) Description 07/27/2025 Procedure Pass [facility], [address] [address] 08/22/2025 2:30 PM EST Appointment [facility], [facility] [address] [place] [address] Bebeto Wiley MD 22 [facility], [address] [place] [address] 01/04/2026 1:00 PM EDT Office Visit [facility] [address] [place] [address] Bebeto Wiley MD [address] [place] [address], [address] [place], [place] [id number] [email or web address] documented as of this encounter Visit Diagnoses Not on filedocumented in this encounter Additional Health Concerns Infection Onset Date Last Indicated Resolved Time CoV-Presumed 04/03/2022 04/03/2022 04/24/2022 1:22 AM EDT Assessment Noted Time PHQ-2 Depression Total Score: 1 11/27/19 21 8:47 AM EDT documented as of this encounter Care Teams Heat Plant Specialist Relationship Specialty Start Date End Date Bebeto Wiley MD [address] [place] [address], [address] [place] [address] [email or web address] PCP - General Family Medicine 03/06/21 Nancy Gaitan MD [address] [place] [address] Orthopedic Surgery 12/14/18 Cayla Sahu MD [address] [place] [address], [address] [place] [address] Obstetrics and Gynecology 12/14/18 documented as of this encounter Additional Source Comments The information contained in this document represents components of the legal health record. It is not the complete legal health record.[facility]
--- OUTSIDE RECORDS SUMMARY | 2025-08-01 10:08 | XMS_ITS | Encounter Summary ---
Author Organization [facility] Address [address] [place] [address] Phone Care Team Providers Care Ore Mixer Name Role Phone Nnacy Gaitan MD Unavailable Cayla Sahu MD Unavailable Bebeto Wiley MD Primary Care Provider +1- [phone] Encounter Details Date Type Department Care Team (Late st Contact Info) Description 11/10/2022 Procedure Pass OR Admitting Dept - [facility] Department [address] [place] [address] Social History Tobacco Use Types Packs/Day Years [...] st Contact Info) Description 07/27/2025 Procedure Pass [facility], [facility] [address] [place] [address] 08/22/2025 2:30 PM EST Appointment [facility], [facility] [address] [place] [address] Bebeto Wiley MD [address] [place] [address], [address] [place] [address] 01/04/2026 1:00 PM EDT Office Visit [facility] [address] [place] [address] Bebeto Wiley MD [address] [place] [address], [address] [place] [address] [email or web address] documented as of this encounter Visit Diagnoses Not on filedocumented in this encounter Additional Health Concerns Assessment Noted Time PHQ-2 Depression Total Score: 1 11/27/19 21 8:47 AM EDT documented as of this encounter Care Teams Ore Mixer Relationship Specialty Start Date End Date Bebeto Wiley MD [address] [place] [address], [address] [place] [address] PCP - General Family Medicine 03/06/21 Nancy Gaitan MD [address] [place] [address] Orthopedic Surgery 12/14/18 Cayla Sahu MD [address] [place] [address], [address] [place] [address] [email or web address] Obstetrics and Gynecology 12/14/18 documented as of this encounter Additional Source Comments The information contained in this document represents components of the legal health record. It is not the complete legal health record.[facility]
--- OUTSIDE RECORDS SUMMARY | 2025-08-01 10:08 | XMS_ITS | Patient Health Record ---
Author Organization [facility] Address [address] [place] [address] Care Team Providers Care Purchasing Analyst Name Role Phone Bebeto Wiley MD Primary Care Provider Ismael Nelson Unavailable [phone] Allergies Allergen (clinical drug ingredient) Drug/Non Drug Allergy documented on EMR Reaction Allergy Type Onset Date Status methocarbamol Robaxin Unknown Drug Allergy Act scar Vicodin Unknown Drug Allergy Active Reason For Referral No Information Medications Medication SIG (Take, Route, Frequency, Duration) Notes Start Date End Date Status Vitamin D 50 MCG (1999) Tablet 1 tablet Orally Once a day; Duration: 30 day(s) 05/07/2023 Active Clobetasol Emul Foam w/MoistCr 0.05 % Kit as directed Externally 05/07/2023 Active Levothyroxine Sodium 50 MCG Tablet TAKE 1 TABLET BY MOUTH EVERY DAY IN THE MORNING Oral; Duration: 90 Active Naproxen 500 MG Tablet Oral; Duration: 10 PRN fo r knee-started 04/2023 Active Amoxicillin 500 MG Tablet TAKE 4 TABLETS BY MOUTH 1 HOUR PRIOR TO DENTAL APPOINTMENT Oral; Duration: 5 Active Atorvastatin Calcium 20 MG Tablet TAKE 1 TABLET BY MOUTH EVERY DAY Oral; Duration: 90 Active Immunizations Vaccine Route Administration Date Status Comme nts Influenza Unknown 04/21/2022 Administered Social History Tobacco Use: Social History Observation Description Date Details (start date - stop date) Never Smoker NA - NA Social History Drugs/Alcohol: Social Info Question Answer Notes Alcohol Screen Did you have a drink containing alcohol in the past year? Yes How often did you have a drink containing alcohol in the past year? 4 or more times a week (4 points) How many drinks did you have on a typical day when you were drinking in the past year? 1 or 2 drinks (0 point) How often did you have 6 or more drinks on one occasion in the past year? Never (0 point) Points 4 Interpretation Positive Tobacco Use: Social Info Question Answer Notes Tobacco Use/Smoking Patient is a nonsmoker Additional Details Category Social Info Options Details Miscellaneous: Marital status: Occupation: retired Section Notes: 4 or 5 drinks per week; nons moker Problems Problem Type SNOMED Code ICD Code Onset Dates Problem Status W/U Status Risk Notes Problem Abdominal bloating (891283882) Abdominal bloating (R14.0) Active confirmed Problem Change in bowel habit (52883981) Change in bowel habits (R19.4) Active confirmed Problem Diverticular disease of colon (713082230) Diverticulosis of large intestine without perforation or abscess without bleeding (K57.30) Active confirmed Problem Gastroesophageal reflux disease (790455881) Gastroesophageal reflux disease (K21.9) Active confirmed Problem Constipation (74801827) Constipation, unspecified constipation type (K59.00) Active confirmed Problem Gastroesophageal reflux disease (135756380) Gastroesophageal reflux disease, unspecified whether esophagitis present (K21.9) Active confirmed Plan Of Treatment Pending Test Test Name Order Date CELIAC PANEL #10 05/07/2023 Future Test Test Name Order Date UPPER GI ENDOSCOPY 05/07/2023 COLONOSCOPY 05/07/2023 Insurance Providers Payer Name Payer Address Payer Phone Subscriber Number Group Number Insured Name Patient Relationship to Insured Coverage Start Date Coverage End Date [facility] [address] [place], [place] [id number] JASWANT GEE Self - patient is the insured Medical (General) History Medical History History ICD Code Bladder cancer for which she undergoes p eriodic cystoscopies Hypothyroidism Hyperlipidemia Denies AL,DM,CVA,Lung disease,renal dise ase She describes a negative col onoscopy at age 49 and another negative colonoscopy in 2016. Surgical History Surgery Date(Month/Year) Bladder cancer treated with cystoscopy Bunionectomy Appendectomy Left knee replacement 2017 Left wrist 2022
--- OUTSIDE RECORDS SUMMARY | 2025-08-01 10:08 | XMS_ITS | Encounter Summary ---
Author Organization [facility] Address [address] [place] [address] [place] [address] Phone Care Team Providers Care Sail Finisher Machine Name Role Phone Nancy Gaitan MD Unavailable Cayla Sahu MD Unavailable Bebeto Wiley MD Primary Care Provider +1- [phone] Encounter Details Date Type Department Care Team (Late st Contact Info) Description 03/11/2022 Procedure Pass [address] [address] Social History Tobacco Use Types Packs/Day Years [...] st Contact Info) Description 07/27/2025 Procedure Pass [facility], [address] [address] 08/22/2025 2:30 PM EST Appointment [facility], [facility] [address] [place] [address] Bebeto Wiley MD [address] [facility], [address] [place] [address] 01/04/2026 1:00 PM EDT Office Visit [facility] 22 [place] [address] Bebeto Wiley MD [address] [place] [address], [address] [place], [place] [id number] [email or web address] documented as of this encounter Visit Diagnoses Not on filedocumented in this encounter Additional Health Concerns Infection Onset Date Last Indicated Resolved Time CoV-Presumed 04/03/2022 04/03/2022 04/24/2022 1:22 AM EDT Assessment Noted Time PHQ-2 Depression Total Score: 1 11/27/19 21 8:47 AM EDT documented as of this encounter Care Teams Sail Finisher Machine Relationship Specialty Start Date End Date Beebto Wiley MD [address] [place] [address], [address] [place] [address] [email or web address] PCP - General Family Medicine 03/06/21 Nancy Gaitan MD [address] [place] [address] Orthopedic Surgery 12/14/18 Cayla Sahu MD [address] [place] [address], [address] [place] [address] Obstetrics and Gynecology 12/14/18 documented as of this encounter Additional Source Comments The information contained in this document represents components of the legal health record. It is not the complete legal health record.[facility]
--- OUTSIDE RECORDS SUMMARY | 2025-08-01 10:08 | XMS_ITS | Patient Health Record ---
Author Organization [facility] Address [address] [place] [address] Care Team Providers Care Brick Pitcher Name Role Phone Bebeto Wiley MD Primary Care Provider Adin Espinal [phone] Allergies Allergen (clinical drug ingredient) Drug/Non Drug [...] Status Risk Notes Problem Acquired hallux rigidus (0029772) Hallux rigidus, left foot (M20.22) Active confirmed Problem Acquired hammer toe of right foot (7286797243273 105) Other hammer toe(s) (acquired), right foot (M20.41) Active confirmed Problem Acquired hammer toe of left foot (9964076491349 103) Other hammer toe(s) (acquired), left foot (M20.42) Active confirmed Problem Acquired hallux rigidus (7488033) Hallux rigidus, right foot (M20.21) Active confirmed Plan Of Treatment Pending Test Test Name Order Date X ray : Foot, left 3V 01/01/2021 X ray : Foot, right 3V 01/01/2021 Insurance Providers Payer Name Payer Address Payer Phone Subscriber Number Group Number Insured Name Patient Relationship to Insured Coverage Start Date Coverage End Date [employer] [address] [place] [phone] [id number] Rico Self - patient is the insured [...]
--- OUTSIDE RECORDS SUMMARY | 2025-08-01 10:08 | XMS_ITS | Encounter Summary ---
Author Organization [facility] Address [address] [facility] [address] [place] [address] Phone Care Team Providers Care Crusher And Blender Operator Name Role Phone Nancy Gaitan MD Unavailable Cayla Sahu MD Unavailable Bebeto Wiley MD Primary Care Provider +1- [phone] Encounter Details Date Type Department Care Team (Late st Contact Info) Description 06/05/2024 Procedure Pass [facility] [address] [place] [address] Social History Tobacco Use Types Packs/Day Years [...] st Contact Info) Description 07/27/2025 Procedure Pass [address] [address] 08/22/2025 2:30 PM EST Appointment [address] [address] Bebeto Wiley MD [address] [place] [address], [address] [address] [email or web address] 01/04/2026 1:00 PM EDT Office Visit [facility] [address] [place] [address] Bebeto Wiley MD [address] [place] [address], [address] [address] [email or web address] documented as of this encounter Visit Diagnoses Not on filedocumented in this encounter Additional Health Concerns Assessment Noted Time PHQ-2 Depression Total Score: 2 12/30/19 24 5:03 PM EDT documented as of this encounter Care Teams Crusher And Blender Operator Relationship Specialty Start Date End Date Bebeto Wiley MD [address] [place] [address], [address] [place] [address] [email or web address] PCP - General Family Medicine 03/06/21 Nancy Gaitan MD [address] [place], [place] [address] [place] [address] Orthopedic Surgery 12/14/18 Cayla Sahu MD [address] [place] [address] [address] [place] [address] [email or web address] Obstetrics and Gynecology 12/14/18 documented as of this encounter Additional Source Comments The information contained in this document represents components of the legal health record. It is not the complete legal health record.[facility]
--- OUTSIDE RECORDS SUMMARY | 2025-08-01 10:08 | XMS_ITS | Encounter Summary ---
Author Organization [facility] Address [address] [place] [address] [place] [address] Phone Care Team Providers Care Real Estate Branch Manager Name Role Phone Nancy Gaitan MD Unavailable Cayla Sahu MD Unavailable Bebeto Wiley MD Primary Care Provider +1- [phone] Encounter Details Date Type Department Care Team (Late st Contact Info) Description 03/11/2022 Procedure Pass OR Admitting Dept - [facility] Department [address] [place] [address] Social History Tobacco Use Types Packs/Day Years [...] st Contact Info) Description 07/27/2025 Procedure Pass [facility], [facility] [address] [place] [address] 08/22/2025 2:30 PM EST Appointment [facility], [facility]- [facility] [address] [place] [address] Bebeto Wiley MD [address] [place] [address], [address] [place] [address] 01/04/2026 1:00 PM EDT Office Visit [facility] [address] [place] [address] Bebeto Wiley MD [address] [place] [address], [address] [place] [address] documented as of this encounter Visit Diagnoses Not on filedocumented in this encounter Additional Health Concerns Infection Onset Date Last Indicated Resolved Time CoV-Presumed 04/03/2022 04/03/2022 04/24/2022 1:22 AM EDT Assessment Noted Time PHQ-2 Depression Total Score: 1 11/27/19 21 8:47 AM EDT documented as of this encounter Care Teams Real Estate Branch Manager Relationship Specialty Start Date End Date Bebeto Wiley MD [address] [place] [address], [address] [place] [address] PCP - General Family Medicine 03/06/21 Nancy Gaitan MD [address] [place], [place] [address], [place] [address] Orthopedic Surgery 12/14/18 Cayla Sahu MD [address] [place] [address], [address] [place] [address] Obstetrics and Gynecology 12/14/18 documented as of this encounter Additional Source Comments The information contained in this document represents components of the legal health record. It is not the complete legal health record.[facility]
--- OUTSIDE RECORDS SUMMARY | 2025-08-01 10:08 | XMS_ITS | Encounter Summary ---
Author Organization [facility] Address [address] [facility] [address] [place] [address] Phone Care Team Providers Care Retail Department Reset Name Role Phone Nancy Gaitan MD Unavailable Cayla Sahu MD Unavailable Bebeto Wiley MD Primary Care Provider +1- [phone] Encounter Details Date Type Department Care Team (Late st Contact Info) Description 12/06/2023 Procedure Pass [facility], [address] [address] Social History Tobacco Use Types Packs/Day Years [...] st Contact Info) Description 07/27/2025 Procedure Pass [address] [address] 08/22/2025 2:30 PM EST Appointment [facility] [address] [place] [address] Bebeto Wiley MD [address] [place] [address], [address] [place] [address] [email or web address] 01/04/2026 1:00 PM EDT Office Visit [facility] [address] [place] [address] Bebeto Wiley MD [address] [place] [address], [address] [place] [address] [email or web address] documented as of this encounter Visit Diagnoses Not on filedocumented in this encounter Additional Health Concerns Assessment Noted Time PHQ-2 Depression Total Score: 2 12/30/19 24 5:03 PM EDT documented as of this encounter Care Teams Retail Department Reset Relationship Specialty Start Date End Date Bebeto Wiley MD [address] [place] [address], [address] [place] [address] PCP - General Family Medicine 03/06/21 Nancy Gaitan MD [facility] [place] [address] Orthopedic Surgery 12/14/18 Cayla Sahu MD [address] [place] [address], [address] [place] [address] [email or web address] Obstetrics and Gynecology 12/14/18 documented as of this encounter Additional Source Comments The information contained in this document represents components of the legal health record. It is not the complete legal health record.[facility]
--- OUTSIDE RECORDS SUMMARY | 2025-08-01 10:09 | XMS_ITS | Encounter Summary ---
Author Organization [facility] Address [address] [facility] [address] [place] [address] Phone Care Team Providers Care Radiology Specialist Name Role Phone Nancy Gaitan MD Unavailable Cayla Sahu MD Unavailable Bebeto Wiley MD Primary Care Provider +1- [phone] Encounter Details Date Type Department Care Team (Late st Contact Info) Description 09/20/2023 Procedure Pass [facility], [address] [address] Social History Tobacco Use Types Packs/Day Years [...] st Contact Info) Description 07/27/2025 Procedure Pass [address] [address] 08/22/2025 2:30 PM EST Appointment [facility] [address] [place] [address] Bebeto Wiley MD [address] [place] [address], [address] [place] [address] [email or web address] 01/04/2026 1:00 PM EDT Office Visit [facility] [address] [place] [address] Bebeto Wiley MD [address] [place] [address], [address] [place] [address] [email or web address] documented as of this encounter Visit Diagnoses Not on filedocumented in this encounter Additional Health Concerns Assessment Noted Time PHQ-2 Depression Total Score: 2 12/30/19 23 1:03 PM EDT documented as of this encounter Care Teams Radiology Specialist Relationship Specialty Start Date End Date Bebeto Wiley MD [address] [place] [address], [address] [place] [address] PCP - General Family Medicine 03/06/21 Nancy Gaitan MD [facility] [place] [address] Orthopedic Surgery 12/14/18 Cayla Sahu MD [address] [place] [address], [address] [place] [address] [email or web address] Obstetrics and Gynecology 12/14/18 documented as of this encounter Additional Source Comments The information contained in this document represents components of the legal health record. It is not the complete legal health record.[facility]
--- OUTSIDE RECORDS SUMMARY | 2025-08-01 10:09 | XMS_ITS | Clinical Summary ---
Author Organization [facility] Address [address] [place] [address] Care Team Providers Care Sales Superintendent Name Role Phone Bebeto Wiley MD Primary Care Provider [phone] Immunizations Immunization Administration Dates Next Due Moderna [...] Medical History Medical History Date Comments Cancer ([facility] V24, [facility] V28) DX:Cancer (HCC) Thyroid disorder [...] on file Sexual Orientation Not on file Plan of Treatment Health Maintenance Due Date Last Done Comments DTaP,Tdap,and Td Vaccines (3 - Td or Tdap) 05/23/2023 05/23/2013, 04/04/1999 Depression Screening 08/09/2024 COVID-19 Vaccine (3 - season) 2025 10/30/2020, 10/02/2020 Influenza Vaccine (#1) 2025 , 05/25/2023, 06/22/2022, Additional history exists Breast Cancer Screening 03/13/2026 03/13/2024, 12/15 Zoster Vaccines Completed 05/17/2019, 0612/2018, 04/23/2015 Pneumococcal Vaccine: 50+ Years Completed 05/25/2023, [...] Procedure Name Priority Date/Time Associated Diagnosis Comments [facility] SCREENING DIGITAL Routine 12/15/2018 1:07 PM EDT Encounter for screening mammogram for malignant neoplasm of breast from Last 3 Months or Most Recently Relevant to Health Maintenance Results * ELISSA SCREENING DIGITAL (12/15/2018 1:07 PM EDT) Anatomical Region Laterality Modality Mammography 12/15/2018 10:5 2 AM EDT Narrative 12/15/2018 [facility] [address] [place] [address] Patient: GEE GALLEGOS /Age/Sex: 1955 - 63 - F Unit#: [id number] Location/Status: SPDIMAM/REG CLI Mnemonic/Ordering Site: [facility] Ordering Physician: NAM SAHU MD Elissa [...] for the next mammogram: CPT II 7025F [id number] Dictating Physician: NAAT CHAO MD Electronically Signed by: NATA CHAO MD Dic Date/Time: 12/15/18 1305 Sign date/Time: 12/15/18 1307 Procedure Note Nata Chao MD - 07/28/2022 [facility] Diagnostic Imaging Department [address] [place] [address] Patient: GEE GALLEGOS /Age/Sex: 1955 63 - F Unit#: [id number] [facility] Mnemonic/Ordering Site: [facility] Ordering Physician: NAM SAHU MD Elissa Screening Digital - 12/15/181106 [...] for the next mammogram: CPT II 7025F [id number] +[id number] Dictating Physician: NATA CHAO MD Electronically Signed by: NATA CHAO MD Dic Date/Time: 12/15/18 1305 Sign date/Time: 12/15/18 1307 Nam Sahu MD IMG BI PROCEDURES Final Result from Last 3 Months or Most Recently Relevant to Health Maintenance Care Teams Sales Superintendent Relationship Specialty Start Date End Date Bebeto Wiley MD [address] [address] PCP - General 09/12/10
--- OUTSIDE RECORDS SUMMARY | 2025-08-01 10:09 | XMS_ITS | Encounter Summary ---
Author Organization [facility] Address [address] [facility] [address] [place] [address] Phone Care Team Providers Care Manager Client Name Role Phone Bebeto Wiley MD Primary Care Provider [phone]- [phone] Nancy Gaitan MD Unavailable Cayla Sahu MD Unavailable Bebeto Wiley MD Primary Care Provider +1- [phone] Encounter Details Date Type Department Care Team (Late st Contact Info) Description 07/25/2020 Ancillary Orders [facility],Outside Imaging [address] [place], [place] [id number] System, Provider Not In, [facility] [address] [address] Social History Tobacco Use Types Packs/Day Years [...] st Contact Info) Description 07/27/2025 Procedure Pass [facility] 30 [place] [address] 08/22/2025 2:30 PM EST Appointment [facility] [address] [place] [address] Bebeto Wiley MD [address] [facility], [address] [place] [address] 01/04/2026 1:00 PM EDT Office Visit [facility] 22 [place] [address] Bebeto Wiley MD [address] [place] [address], [address] [place] [address] documented as of this encounter Results * [...] documented as of this encounter Care Teams Manager Client Relationship Specialty Start Date End Date Bebeto Wiley MD [address] [place] [address], [address] [place] [address] PCP - General Family Medicine 07/15/17 03/05/21 Bebeto Wiley MD [address] [place] [address], [address] [place] [address] [email or web address] PCP - General Family Medicine 03/06/21 Nancy Gaitan MD [address] [place] [address] Orthopedic Surgery 12/14/18 Cayla Sahu MD [address] [facility], [address] [place] [address] [email or web address] Obstetrics and Gynecology 12/14/18 documented as of this encounter Additional Source Comments The information contained in this document represents components of the legal health record. It is not the complete legal health record.[facility]
--- OUTSIDE RECORDS SUMMARY | 2025-08-01 10:09 | XMS_ITS | Encounter Summary ---
Author Organization Formerly [facility] Address [address] [facility] [address] [place] [address] Phone Care Team Providers Care It Support Engineer Name Role Phone Bebeto Wiley MD Primary Care Provider +1- [phone] Nancy Gaitan MD Unavailable [phone] Cayla Sahu MD Unavailable Bebeto Wiley MD Primary Care Provider +1- [phone] Encounter Details Date Type Department Care Team (Late st Contact Info) Description 11/18/2020 Procedure [facility], Vt Scan [address] [address] Social History Tobacco Use Types Packs/Day Years [...] st Contact Info) Description 07/27/2025 Procedure Pass [address] [address] 08/22/2025 2:30 PM EST Appointment [address] [address] Bebeto Wiley MD [address] [place] [address], [address] [place] [address] 01/04/2026 1:00 PM EDT Office Visit [facility] [address] [place] [address] Bebeto Wiley MD [address] [place] [address], [address] [place] [address] documented as of this encounter Visit Diagnoses Not on filedocumented in this encounter Additional Health Concerns Infection Onset Date Last Indicated Resolved Time CoV-Presumed 04/03/2022 04/03/2022 04/24/2022 1:22 AM EDT Assessment Noted Time PHQ-2 Depression Total Score: 1 11/27/19 21 8:47 AM EDT documented as of this encounter Care Teams It Support Engineer Relationship Specialty Start Date End Date Bebeto Wiley MD [address] [place] [address], [address] [place] [address] PCP - General Family Medicine 07/15/17 03/05/21 Bebeto Wiley MD [address] [place] [address], [address] [place] [address] PCP - General Family Medicine 03/06/21 Nancy Gaitan MD [facility] [place] [address] Orthopedic Surgery 12/14/18 Cayla Sahu MD [address] [place] [address], [address] [place] [address] [email or web address] Obstetrics and Gynecology 12/14/18 documented as of this encounter Additional Source Comments The information contained in this document represents components of the legal health record. It is not the complete legal health record.[facility]
--- OUTSIDE RECORDS SUMMARY | 2025-08-01 10:09 | XMS_ITS | Encounter Summary ---
Author Organization [facility] Address [address] [facility] [address] [place] [address] Phone Care Team Providers Care Bpm Architect Name Role Phone Nancy Gaitan MD Unavailable [phone] Cayla Sahu MD Unavailable Bebeto Wiley MD Primary Care Provider +1- [phone] Encounter Details Date Type Department Care Team (Late st Contact Info) Description 02/22/2024 Procedure Pass [place] Admitting Dept - Virtual Department 30 [place] [address] Social History Tobacco Use Types Packs/Day Years [...] st Contact Info) Description 07/27/2025 Procedure Pass [address] [address] 08/22/2025 2:30 PM EST Appointment [facility] 30 [place] [address] Bebeto Wiley MD [address] [place] [address], [address] [place] [address] 01/04/2026 1:00 PM EDT Office Visit [facility] [address] [place] [address] Bebeto Wiley MD [address] [place] [address], [address] [place] [address] documented as of this encounter Visit Diagnoses Not on filedocumented in this encounter Additional Health Concerns Assessment Noted Time PHQ-2 Depression Total Score: 2 12/30/19 24 5:03 PM EDT documented as of this encounter Care Teams Bpm Architect Relationship Specialty Start Date End Date Bebeto Wiley MD [address] [place] [address], [address] [place] [address] PCP - General Family Medicine 03/06/21 Nancy Gaitan MD Formerly named [facility] [place] [address] Orthopedic Surgery 12/14/18 Cayla Sahu MD [address] [place] [address], [address] [place] [address] [email or web address] Obstetrics and Gynecology 12/14/18 documented as of this encounter Additional Source Comments The information contained in this document represents components of the legal health record. It is not the complete legal health record.[facility]
--- OUTSIDE RECORDS SUMMARY | 2025-08-01 10:09 | XMS_ITS | Encounter Summary ---
Author Organization [facility] Address [address] [facility] [address] [place] [address] Phone Care Team Providers Care Steaming Machine Operator Name Role Phone Bebeto Wiley MD Primary Care Provider +1- [phone] Nancy Gaitan MD Unavailable Cayla Sahu MD Unavailable Bebeto Wiley MD Primary Care Provider +1- [phone] Encounter Details Date Type Department Care Team (Late st Contact Info) Description 07/25/2020 Ancillary Orders [facility],Outside Imaging 30 [place], [place] [id number] System, Provider Not In, [facility] [address] [address] Social History Tobacco Use Types Packs/Day Years [...] st Contact Info) Description 07/27/2025 Procedure Pass [facility] 30 [place] [address] 08/22/2025 2:30 PM EST Appointment [facility] 30 [place] [address] Bebeto Wiley MD [address] [facility], [address] [place] [address] 01/04/2026 1:00 PM EDT Office Visit [facility] 22 [place] [address] Bebeto Wiley MD [address] [place] [address], [address] [place] [address] documented as of this encounter Results * [...] documented as of this encounter Care Teams Steaming Machine Operator Relationship Specialty Start Date End Date Bebeto Wiley MD [address] [place] [address], [address] [place] [address] PCP - General Family Medicine 07/15/17 03/05/21 Bebeto Wiley MD [address] [place] [address], [address] [place] [address] [email or web address] PCP - General Family Medicine 03/06/21 Nancy Gaitan MD [address] [place] [address] Orthopedic Surgery 12/14/18 Cayla Sahu MD [address] [facility], [address] [place] [address] [email or web address] Obstetrics and Gynecology 12/14/18 documented as of this encounter Additional Source Comments The information contained in this document represents components of the legal health record. It is not the complete legal health record.[facility]
--- OUTSIDE RECORDS SUMMARY | 2025-08-01 10:09 | XMS_ITS | Encounter Summary ---
Author Organization [facility] Address [address] [place] [address] Phone Care Team Providers Care Mechanic'S Assistant Name Role Phone Nancy Gaitan MD Unavailable Cayla Sahu MD Unavailable Bebeto Wiley MD Primary Care Provider +1- [phone] Encounter Details Date Type Department Care Team (Late st Contact Info) Description 09/25/2022 Procedure Pass OR Admitting Dept - [facility] Department [address] [place] [address] Social History Tobacco Use Types Packs/Day Years [...] st Contact Info) Description 07/27/2025 Procedure Pass [facility] 30 [place] [address] 08/22/2025 2:30 PM EST Appointment [facility] 30 [place] [address] Bebeto Wiley MD [address] [place] [address], [address] [place] [address] 01/04/2026 1:00 PM EDT Office Visit [facility] 22 [place] [address] Bebeto Wiley MD [address] [place] [address], [address] [place] [address] [email or web address] documented as of this encounter Visit Diagnoses Not on filedocumented in this encounter Additional Health Concerns Assessment Noted Time PHQ-2 Depression Total Score: 1 11/27/19 21 8:47 AM EDT documented as of this encounter Care Teams Mechanic'S Assistant Relationship Specialty Start Date End Date Bebeto Wiley MD [address] [place] [address], [address] [place] [address] PCP - General Family Medicine 03/06/21 Nancy Gaitan MD [address] [place] [address] Orthopedic Surgery 12/14/18 Cayla Sahu MD [address] [place] [address], [address] [place] [address] [email or web address] Obstetrics and Gynecology 12/14/18 documented as of this encounter Additional Source Comments The information contained in this document represents components of the legal health record. It is not the complete legal health record.[facility]
--- OUTSIDE RECORDS SUMMARY | 2025-08-01 10:09 | XMS_ITS | Encounter Summary ---
Author Organization [facility] Address [address] [facility] [address] [place] [address] Phone Care Team Providers Care Director Of Education Name Role Phone Bebeto Wiley MD Primary Care Provider +1- [phone] Nancy Gaitan MD Unavailable Cayla Sahu MD Unavailable Bebeto Wiley MD Primary Care Provider +1- [phone] Encounter Details Date Type Department Care Team (Late st Contact Info) Description 11/19/2020 Ancillary Orders [facility],Outside Imaging [address] [place], [place] [id number] System, Provider Not In, PhD Partners [address] [address] Social History Tobacco Use Types Packs/Day Years [...] Department Care Team (Late Contact Info) Description 07/27/2025 Procedure Pass [facility] 30 [place] [address] 08/22/2025 2:30 PM EST Appointment [facility] 30 [place] [address] Bebeto Wiley MD [address] [place] [address], [address] [place] [address] 01/04/2026 1:00 PM EDT Office Visit [facility] [address] [place] [address] Bebeto Wiley MD [address] [place] [address], [address] [place] [address] documented as of this encounter Results * [...] as of this encounter Care Teams Director Of Education Relationship Specialty Start Date End Date Bebeto Wiley MD [address] [place] [address], [address] [place] [address] PCP - General Family Medicine 07/15/17 03/05/21 Bebeto Wiley MD [address] [place] [address], [address] [place] [address] [email or web address] PCP - General Family Medicine 03/06/21 Nancy Gaitan MD [address] [place] [address] Orthopedic Surgery 12/14/18 Cayla Sahu MD [address] [place] [address], [address] [place] [address] [email or web address] Obstetrics and Gynecology 12/14/18 documented as of this encounter Additional Source Comments The information contained in this document represents components of the legal health record. It is not the complete legal health record.[facility]
--- OUTSIDE RECORDS SUMMARY | 2025-08-01 10:09 | XMS_ITS | Encounter Summary ---
Author Organization [facility] Address [address] [facility] [address] [place] [address] Phone Care Team Providers Care Band Attacher Name Role Phone Nancy Gaitan MD Unavailable Cayla Sahu MD Unavailable Bebeto Wiley MD Primary Care Provider +1- [phone] Encounter Details Date Type Department Care Team (Late st Contact Info) Description 06/10/2022 Procedure Pass [facility] Admitting Dept Virtual Department [address] [place] [address] Social History Tobacco Use Types Packs/Day Years [...] st Contact Info) Description 07/27/2025 Procedure Pass [facility] 30 [place] [address] 08/22/2025 2:30 PM EST Appointment [facility], [facility] 30 [place] [address] Bebeto Wiley MD [address] [place] [address], [address] [place] [address] 01/04/2026 1:00 PM EDT Office Visit [facility] 22 [place] [address] Bebeto Wiley MD [address] [place] [address], [address] [place] [address] [email or web address] documented as of this encounter Visit Diagnoses Not on filedocumented in this encounter Additional Health Concerns Assessment Noted Time PHQ-2 Depression Total Score: 1 11/27/19 21 8:47 AM EDT documented as of this encounter Care Teams Band Attacher Relationship Specialty Start Date End Date Bebeto Wiley MD [address] [place] [address], [address] [place] [address] PCP - General Family Medicine 03/06/21 Nancy Gaitan MD 300 [place] [address] Orthopedic Surgery 12/14/18 Cayla Sahu MD [address] [place] [address], [address] [place] [address] [email or web address] Obstetrics and Gynecology 12/14/18 documented as of this encounter Additional Source Comments The information contained in this document represents components of the legal health record. It is not the complete legal health record.[facility]
--- OUTSIDE RECORDS SUMMARY | 2025-08-01 10:09 | XMS_ITS | Encounter Summary ---
Author Organization [facility] Address [address] [facility] [address] [place] [address] Phone Care Team Providers Care Speeder Machine Operator Name Role Phone Bebeto Wiley MD Primary Care Provider +1- [phone] Nancy Gaitan MD Unavailable [phone] Cayla Sahu MD Unavailable Bebeto Wiley MD Primary Care Provider +1- [phone] Encounter Details Date Type Department Care Team (Late st Contact Info) Description 07/25/2020 Ancillary Orders [facility],Outside Imaging 30 [place], [place] [id number] System, Provider Not In, PhD Partners [address] [address] Social History Tobacco Use Types Packs/Day Years [...] st Contact Info) Description 07/27/2025 Procedure Pass [facility] 30 [place] [address] 08/22/2025 2:30 PM EST Appointment [facility] 30 [place] [address] Bebeto Wiley MD [address] [facility], [address] [place] [address] [email or web address] 01/04/2026 1:00 PM EDT Office Visit [facility] 22 [place] [address] Bebeto Wiley MD [address] [place] [address], [address] [place] [address] documented as of this encounter Results * [...] documented as of this encounter Care Teams Speeder Machine Operator Relationship Specialty Start Date End Date Bebeto Wiley MD [address] [place] [address], [address] [place] [address] PCP - General Family Medicine 07/15/17 03/05/21 Bebeto Wiley MD [address] [place] [address], [address] [place] [address] [email or web address] PCP - General Family Medicine 03/06/21 Nancy Gaitan MD [address] [place] [address] Orthopedic Surgery 12/14/18 Cayla Sahu MD [address] [facility], [address] [place] [address] [email or web address] Obstetrics and Gynecology 12/14/18 documented as of this encounter Additional Source Comments The information contained in this document represents components of the legal health record. It is not the complete legal health record.[facility]
--- OUTSIDE RECORDS SUMMARY | 2025-08-01 10:09 | XMS_ITS | Encounter Summary ---
Author Organization [facility] Address [address] [facility] [address] [place] [address] Phone Care Team Providers Care Machinist Helper Marine Name Role Phone Nancy Gaitan MD Unavailable Cayla Sahu MD Unavailable Bebeto Wiley MD Primary Care Provider +1- [phone] Encounter Details Date Type Department Care Team (Late st Contact Info) Description 02/01/2024 Procedure Pass [facility] 30 [place] [address] Social History Tobacco Use Types Packs/Day Years [...] st Contact Info) Description 07/27/2025 Procedure Pass [address] [address] 08/22/2025 2:30 PM EST Appointment [facility] 30 [place] [address] Bebeto Wiley MD [address] [place] [address], [address] [place] [address] 01/04/2026 1:00 PM EDT Office Visit [facility] [address] [place] [address] Bebeto Wiley MD [address] [place] [address], [address] [place] [address] documented as of this encounter Visit Diagnoses Not on filedocumented in this encounter Additional Health Concerns Assessment Noted Time PHQ-2 Depression Total Score: 2 12/30/19 24 5:03 PM EDT documented as of this encounter Care Teams Machinist Helper Marine Relationship Specialty Start Date End Date Bebeto Wiley MD [address] [place] [address], [address] [place] [address] PCP - General Family Medicine 03/06/21 Nancy Gaitan MD [address] [place] [address] Orthopedic Surgery 12/14/18 Cayla Sahu MD [address] [place] [address], [address] [place] [address] [email or web address] Obstetrics and Gynecology 12/14/18 documented as of this encounter Additional Source Comments The information contained in this document represents components of the legal health record. It is not the complete legal health record.[facility]
--- OUTSIDE RECORDS SUMMARY | 2025-08-01 10:09 | XMS_ITS | Encounter Summary ---
Author Organization [facility] Address [address] [facility] [address] [place] [address] Phone Care Team Providers Care Director Of Materials Management Name Role Phone Bebeto Wiley MD Primary Care Provider +1- [phone] Nancy Gaitan MD Unavailable Cayla Sahu MD Unavailable Bebeto Wiley MD Primary Care Provider +1- [phone] Encounter Details Date Type Department Care Team (Late st Contact Info) Description 07/10/[address] [address] Social History Tobacco Use Types Packs/Day Years [...] (Late st Contact Info) Description 07/27/[address] [address] 08/22/2025 2:30 PM EST Appointment [facility] 30 [place] [address] Bebeto Wiley MD [address] [place] [address], [address] [place] [address] 01/04/2026 1:00 PM EDT Office Visit [facility] [address] [place] [address] Bebeto Wiley MD [address] [place] [address], [address] [place] [address] documented as of this encounter Visit Diagnoses Not on filedocumented in this encounter Additional Health Concerns Infection Onset Date Last Indicated Resolved Time CoV-Presumed 04/03/2022 04/03/2022 04/24/2022 1:22 AM EDT Assessment Noted Time PHQ-2 Depression Total Score: 0 05/22/20 20 8:49 AM EDT documented as of this encounter Care Teams Director Of Materials Management Relationship Specialty Start Date End Date Bebeto Wiley MD [address] [place] [address], [address] [place] [address] PCP - General Family Medicine 07/15/17 03/05/21 Bebeto Wiley MD [address] [place] [address], [address] [place] [address] PCP - General Family Medicine 03/06/21 Nancy Gaitan MD [facility] [place] [address] Orthopedic Surgery 12/14/18 Cayla Sahu MD [address] [place] [address], [facility] [[email or web address] [address] [place] [address] [email or web address] Obstetrics and Gynecology 12/14/18 documented as of this encounter Additional Source Comments The information contained in this document represents components of the legal health record. It is not the complete legal health record.[facility]
--- OUTSIDE RECORDS SUMMARY | 2025-08-01 10:09 | XMS_ITS | Encounter Summary ---
Author Organization [facility] Address [address] [facility] [address] [place] [address] Phone Care Team Providers Care Co Director Name Role Phone Bebeto Wiley MD Primary Care Provider +1- [phone] Nancy Gaitan MD Unavailable Cayla Sahu MD Unavailable Bebeto Wiley MD Primary Care Provider +1- [phone] Encounter Details Date Type Department Care Team (Late st Contact Info) Description 07/25/2020 Ancillary Orders [facility],Outside Imaging 30 [place], [place] [id number] System, Provider Not In, PhD Partners [address] [address] Social History Tobacco Use Types Packs/Day Years [...] st Contact Info) Description 07/27/2025 Procedure Pass [facility] 30 [place] [address] 08/22/2025 2:30 PM EST Appointment [facility] 30 [place] [address] Bebeto Wiley MD [address] [facility], [address] [place] [address] 01/04/2026 1:00 PM EDT Office Visit [facility] 22 [place] [address] Bebeto Wiley MD [address] [place] [address], [address] [place] [address] documented as of this encounter Results * [...] documented as of this encounter Care Teams Co Director Relationship Specialty Start Date End Date Bebeto Wiley MD [address] [place] [address], [address] [place] [address] PCP - General Family Medicine 07/15/17 03/05/21 Bebeto Wiley MD [address] [place] [address], [address] [place] [address] [email or web address] PCP - General Family Medicine 03/06/21 Nancy Gaitan MD [address] [place] [address] Orthopedic Surgery 12/14/18 Cayla Sahu MD [address] [facility], [address] [place] [address] [email or web address] Obstetrics and Gynecology 12/14/18 documented as of this encounter Additional Source Comments The information contained in this document represents components of the legal health record. It is not the complete legal health record.[facility]
--- OUTSIDE RECORDS SUMMARY | 2025-08-01 10:09 | XMS_ITS | Encounter Summary ---
Author Organization [facility] Address [address] [facility] [address] [place] [address] Phone Care Team Providers Care Electro Mechanical Designer Name Role Phone Bebeto Wiley MD Primary Care Provider +1- [phone] Nancy Gaitan MD Unavailable Cayla Sahu MD Unavailable Bebeto Wiley MD Primary Care Provider +1- [phone] Encounter Details Date Type Department Care Team (Late st Contact Info) Description 07/25/2020 Ancillary Orders [facility],Outside Imaging 30 [place], [place] [address] System, Provider Not In, PhD Partners [address] [address] Social History Tobacco Use Types Packs/Day Years [...] st Contact Info) Description 07/27/2025 Procedure Pass [facility] 30 [place] [address] 08/22/2025 2:30 PM EST Appointment [facility] 30 [place] [address] Bebeto Wiley MD [address] [facility], [address] [place] [address] 01/04/2026 1:00 PM EDT Office Visit [facility] 22 [place] [address] Bebeto Wiley MD [address] [place] [address], [address] [place] [address] documented as of this encounter Results * [...] documented as of this encounter Care Teams Electro Mechanical Designer Relationship Specialty Start Date End Date Bebeto Wiley MD [address] [place] [address], [address] [place] [address] PCP - General Family Medicine 07/15/17 03/05/21 Bebeto Wiley MD [address] [place] [address], [address] [place] [address] [email or web address] PCP - General Family Medicine 03/06/21 Nancy Gaitan MD [address] [place] [address] Orthopedic Surgery 12/14/18 Cayla Sahu MD [address] [facility], [address] [place] [address] [email or web address] Obstetrics and Gynecology 12/14/18 documented as of this encounter Additional Source Comments The information contained in this document represents components of the legal health record. It is not the complete legal health record.[facility]
--- OUTSIDE RECORDS SUMMARY | 2025-08-01 10:09 | XMS_ITS | Encounter Summary ---
Author Organization [facility] Address [address] [place] [address] Phone Care Team Providers Care Coding Manager Name Role Phone Nancy Gaitan MD Unavailable Cayla Sahu MD Unavailable Bebeto Wiley MD Primary Care Provider +1- [phone] Encounter Details Date Type Department Care Team (Late st Contact Info) Description 02/01/2024 Procedure Pass Avina Alonzo Non-Invasic Cardiology [address] [place] [address] Social History Tobacco Use Types Packs/Day Years [...] st Contact Info) Description 07/27/2025 Procedure Pass [address] [address] 08/22/2025 2:30 PM EST Appointment [facility] [address] [place] [address] Bebeto Wiley MD [address] [place] [address], [address] [place] [address] 01/04/2026 1:00 PM EDT Office Visit [facility] [address] [place] [address] Bebeto Wiley MD [address] [place] [address], [address] [place] [address] documented as of this encounter Visit Diagnoses Not on filedocumented in this encounter Additional Health Concerns Assessment Noted Time PHQ-2 Depression Total Score: 2 12/30/19 24 5:03 PM EDT documented as of this encounter Care Teams Coding Manager Relationship Specialty Start Date End Date Bebeto Wiley MD [address] [place] [address], [address] [place] [address] PCP - General Family Medicine 03/06/21 Nancy Gaitan MD [facility] [place] [address] Orthopedic Surgery 12/14/18 Cayla Sauh MD [address] [place] [address], [address] [place] [address] [email or web address] Obstetrics and Gynecology 12/14/18 documented as of this encounter Additional Source Comments The information contained in this document represents components of the legal health record. It is not the complete legal health record.[facility]
--- OUTSIDE RECORDS SUMMARY | 2025-08-01 10:10 | XMS_ITS | Encounter Summary ---
Author Organization [facility] Address [address] [facility] [place] [address] Phone Care Team Providers Care Infusion Rn Name Role Phone Nancy Gaitan MD Unavailable Cayla Sahu MD Unavailable Bebeto Wiley MD Primary Care Provider +1- [phone] Encounter Details Date Type Department Care Team (Late st Contact Info) Description 02/04/2023 Telephone [facility] [address] [place] [address] Zuleyma Miller, DUONG Social History Tobacco [...] st Contact Info) Description 07/27/2025 Procedure Pass [address] [address] 08/22/2025 2:30 PM EST Appointment [facility] [address] [place] [address] Bebeto Wiley MD [address] [place] [address], [address] [place] [address] [email or web address] 01/04/2026 1:00 PM EDT Office Visit [facility] [address] [place] [address] Bebeto Wiley MD [address] [place] [address], [address] [place] [address] documented as of this encounter Visit Diagnoses Not on filedocumented in this encounter Additional Health Concerns Assessment Noted Time PHQ-2 Depression Total Score: 2 12/30/19 23 1:03 PM EDT documented as of this encounter Care Teams Infusion Rn Relationship Specialty Start Date End Date Bebeto Wiley MD [address] [place] [address], [address] [place] [address] PCP - General Family Medicine 03/06/21 Nancy Gaitan MD [address] [place] [address] Orthopedic Surgery 12/14/18 Cayla Sahu MD [address] [place] [address] [facility] [address] [place] [address] [email or web address] Obstetrics and Gynecology 12/14/18 documented as of this encounter Additional Source Comments The information contained in this document represents components of the legal health record. It is not the complete legal health record.[facility]
--- OUTSIDE RECORDS SUMMARY | 2025-08-01 10:10 | XMS_ITS | Clinical Summary ---
Author Organization [facility] Address [address] [place] [address] Phone Care Team Providers Care Business Performance Analyst Name Role Phone Nancy Gaitan MD Unavailable Cayla Sahu MD Unavailable Bebeto Wiley MD Primary Care Provider +1- [phone] Allergies Active Allergy Reactions Criticality Noted Date [...] for pain. Advised use of heat/ice alternating. [place] balm/icy hot as needed for comfort. Will [...] & Plan (09/14/2022 3:58 PM EST): + [place] Hall[place] in office today. Discussed BPPV with [...] Encounters Date Type Department Care Team Description 07/27/2025 Transcribe Orders [facility] Department [address] [place] [address] Bebeto Wiley MD Breast screening (Primary Dx) 05/23/2025 Telephone [facility] [address] [place] [address] Bebeto Wiley MD Forms & Paperwork (Recent OV and albs); [facility] 05/02/2025 Orders Only [facility] [address] [place] [address] Provider, MD Elías from Last 3 Months Immunizations Immunization Administration [...] Father Heart attack Father Heart disease Father [place] Cancer Mother lung Breast cancer Sister Relation [...] st Contact Info) Description 07/27/2025 Procedure Pass [address] [address] 08/22/2025 2:30 PM EST Appointment [address] [address] Bebeto Wiley MD [address] [place] [address], [address] [place] [address] [email or web address] 01/04/2026 1:00 PM EDT Office Visit [facility] [address] [place] [address] Bebeto Wiley MD [address] [facility], [address] [place] [address] [email or web address] Health Maintenance Due Date Last Done Comments [...] this topic Medical Devices Implanted Type Area Retort Furnace Helper Device Identifier Shelf Expiration Date Model / Serial / Lot Prosthetic Joint Prosthetic Joint Left: Knee System Suspension Fiberlock - Trial Item - [id number] Implanted:Qty: 1 on 11/10/2022 by Moe Hernandez MD at [facility] Left: Thumb [employer] 10/07/2027 [id number] / / [id number] Procedures Procedure Name Priority Date/Time Associated Diagnosis Comments LIPID PANEL Routine 06/12/2025 9:23 AM EST Other hyperlipidemia TSH WITH REFLEX Routine 01/03/2025 [...] 164 <200 mg/dL 06/12/2025 11:25 AM EST [facility] HDL 62 >=40 mg/dL 06/12/2025 11:25 AM EST [facility] Calculated LDL 87 <130 mg/dL 06/12/2025 11:25 AM EST [facility] Comment:LDL is calculated us ing the Weaver-NIH equation (CARMELO Cardiol. 2019December 07;5(5):540-548). Non-HDL Cholesterol 102 mg/dL 06/12/2025 11:25 AM EST [facility] Comment:Guidelines suggest a non-HDL cholesterol goal 30 mg/dL higher than the patient-specific LDL cholesterol goal. Cardiac Risk Ratio 2.6 0.0 - 5.0 2024 11:25 AM EST [facility] Triglycerides 79 <=150 mg/dL 06/12/2025 11:25 AM EST [facility] Blood Venipuncture / Unknown 06/12/2025 9:23 AM EST 06/12/2025 9:32 AM EST Bebeto Wiley MD LAB BLOOD BKR ORDERABLES F inal Result Performing Organization Address City/[facility]/ZIP Co de Phone Number [address] [address] * TSH with reflex (01/03/2025 7:14 AM EDT) TSH 2.82 0.27 - 4.20 uIU/mL [facility] Blood 01/03/2025 7:14 AM EDT 01/03/2025 7:18 AM EDT Bebeto Wiley MD LAB BLOOD BKR ORDERABLES F inal Result Performing Organization Address [facility]/ZIP Co de Phone Number [address] [address] * BI MAMMOGRAM SCREENING WITH TOMOSYNTHESIS WITH [...] a total bone mineral density of 0.831 g/hr5wpbx a T- score of -0.9. This is [...] Maintenance Insurance MEDICARE PART A & B [employer] MEDEX SUPPLEMENT MEDICARE PART A & B [employer] MEDEX SUPPLEMENT MEDICARE PART A & B [employer] MEDEX SUPPLEMENT MEDICARE PART A & B [employer] MEDEX SUPPLEMENT MEDICARE PART A & B [employer] MEDEX SUPPLEMENT MEDICARE PART A & B [employer] MEDEX SUPPLEMENT Advance Directives For more information, please contact: [phone] (9AM - 5PM [facility], Wednesday-Wednesday) * Full Code (Latest Code Status on File) Date Activated Date Inactivated Comments 11/10/2022 7:34 AM Question Answer Comments Code Status Confirmed With: Patient * Full Code Date Activated Date Inactivated Comments 03/12/2022 7:02 AM 11/10/2022 7:34 AM Question Answer Comments Code Status Confirmed With: Patient Care Teams Business Performance Analyst Relationship Specialty Start Date End Date Bebeto Wiley MD [address] [place] [address], [address] [place] [address] [email or web address] PCP - General Family Medicine 03/06/21 Nancy Gaitan MD [facility] [place] [address] Orthopedic Surgery 12/14/18 Cayla Sahu MD [address] [place] [address], [address] [place] [address] [email or web address] Obstetrics and Gynecology 12/14/18 Additional Source Comments The information contained in this document represents components of the legal health record. It is not the complete legal health record.[facility]
--- OUTSIDE RECORDS SUMMARY | 2025-08-01 10:10 | XMS_ITS | Encounter Summary ---
Author Organization [facility] Address [address] [facility] [address] [place] [address] Phone Care Team Providers Care Comic Book Designer Name Role Phone Nancy Gaitan MD Unavailable Cayla Sahu MD Unavailable Bebeto Wiley MD Primary Care Provider +1- [phone] Reason for Referral * MRI/CAT Scan - Closed Specialty Diagnoses / Procedures Referred By Contac t Referred To Contact Radiology Diagnoses Pre-operative cardiovascular examination, high risk surgery Procedures NC Stress Result for Nuclear Stress Test Bebeto Wiley MD Phone: tel: fax: [email or web address] Referral ID Status Reason Start Date Expiration Date Visits Re quested Visits Authorized [id number] Closed 02/22/2024 02/21/2025 1 1 Encounter Details Date Type Department Care Team (Latest Contact Info) Description 02/22/[address] [facility] [address] [place] [address] Bebeto Wiley MD [address] [facility] [place], [place] [id number] [email or web address] Pre-operative cardiovascular examination, high risk surgery (Primary [...] st Contact Info) Description 07/27/2025 Procedure Pass [address] [address] 08/22/2025 2:30 PM EST Appointment [address] [address] Bebeto Wiley MD [address] [place] [address], [address] [place] [address] 01/04/2026 1:00 PM EDT Office Visit [facility] [address] [place] [address] [place] [address] Bebeto Wiley MD [address] [place] [address], [address] [place] [address] documented as of this encounter Results * NC Stress Result for Nuclear Stress Test (02/22/2024 11:50 AM EDT) Max Predicted Heart Rate 151 bpm [facility] Max BP Systolic 180 mmHg [facility] Max BP Diastolic 90 mmHg [facility] Max HR 148 BPM [facility] Resting HR 90 BPM [facility] Resting BP Systolic 132 mmHg [facility] Resting BP Diastolic 70 mmHg [facility] Peak METS 1.6 METS [facility] Peak HR 104 BPM [facility] Anatomical Region Laterality Modality Heart Other [...] followed by injection of Tc99m Sestamibi by [facility] physicist nuclear. 1. EKG - Baseline EKG [...] documented as of this encounter Care Teams Comic Book Designer Relationship Specialty Start Date End Date Bebeto Wiley MD [address] [place] [address], [address] [place] [address] [email or web address] PCP - General Family Medicine 03/06/21 Nancy Gaitan MD [address] [place] [address] Orthopedic Surgery 12/14/18 Cayla Sahu MD [address] [place] [address], [address] [place] [address] Obstetrics and Gynecology 12/14/18 documented as of this encounter Additional Source Comments The information contained in this document represents components of the legal health record. It is not the complete legal health record.[facility]
--- OUTSIDE RECORDS SUMMARY | 2025-08-01 10:10 | XMS_ITS | Clinical Summary ---
Author Organization [facility] Prior to 01/06/25 Address [address] [place] [address] Care Team Providers Care Licensed Clinician Name Role Phone Bebeto Wiley MD Primary Care Provider +1- [phone] Allergies Active Allergy Reactions Criticality Noted Date [...] age to complete this topic Care Teams Licensed Clinician Relationship Specialty Start Date End Date Bebeto Wiley MD [address] [id number] PCP - General Family Medicine 04/19/17
--- OUTSIDE RECORDS SUMMARY | 2025-08-01 10:10 | XMS_ITS | Encounter Summary ---
Author Organization [facility] Address [address] [place] [address] Phone Care Team Providers Care Human Performance Consultant Name Role Phone Nancy Gaitan MD Unavailable Cayla Sahu MD Unavailable Bebeto Wiley MD Primary Care Provider +1- [phone] Encounter Details Date Type Department Care Team (Late st Contact Info) Description 04/01/2022 Procedure Pass [address] [address] Social History Tobacco Use Types Packs/Day Years [...] (Late st Contact Info) Description 07/27/[address] [address] 08/22/2025 2:30 PM EST Appointment [facility] [address] [place] [address] Bebeto Wiley MD [address] [place] [address], [address] [place] [address] 01/04/2026 1:00 PM EDT Office Visit [facility] [address] [place] [address] Bebeto Wiley MD [address] [place] [address], [address] [place], [place] [id number] [email or web address] documented as of this encounter Visit Diagnoses Not on filedocumented in this encounter Additional Health Concerns Infection Onset Date Last Indicated Resolved Time CoV-Presumed 04/03/2022 04/03/2022 04/24/2022 1:22 AM EDT Assessment Noted Time PHQ-2 Depression Total Score: 1 11/27/19 21 8:47 AM EDT documented as of this encounter Care Teams Human Performance Consultant Relationship Specialty Start Date End Date Bebeto Wiley MD [address] [place] [address], [address] [place] [address] [email or web address] PCP - General Family Medicine 03/06/21 Nancy Gaitan MD [address] [place] [address] [address] Orthopedic Surgery 12/14/18 Cayla Sahu MD [address] [place] [address], [address] [place] [address] [email or web address] Obstetrics and Gynecology 12/14/18 documented as of this encounter Additional Source Comments The information contained in this document represents components of the legal health record. It is not the complete legal health record.[facility]
--- OUTSIDE RECORDS SUMMARY | 2025-08-01 10:10 | XMS_ITS ---
Author Organization [facility] Address [address] [facility] [address] [place] [address] Phone Care Team Providers Care Delivery Table Operator Name Role Phone Nancy Gaitan MD Unavailable Cayla Sahu MD Unavailable Bebeto Wiley MD Primary Care Provider +1- [phone] Active Problems Problem Noted Date Diagnosed Date [...] for pain. Advised use of heat/ice alternating. [place] balm/icy hot as needed for comfort. Will [...] of pocket cost concerns (works there in [employer]) Anxiety Current Treatment and Therapy Plans No current plan information found. Past Treatment and Therapy Plans
== END 2025-08-01 09:57 | disposition home or self-care (01) ==
LOC: HO.HOSX 09:56
PROVIDERS: Visit Provider Physician Assistant
DX: Z98.1 Arthrodesis status (principal)
CPT/HCPCS: 72050; 99212

== ENCOUNTER 2025-08-01 10:39 | Outpatient (AMB) | payer MEDICARE, SELFPAY ==
--- NOTE | 2025-08-01 10:52 | HO.SPINEOV ---
Intake Visit Reasons: 2nd post op with Xrays Intake Note: Ms. Gallegos is here today for her 2nd post op with x-rays. Coating Manager Required: No Allergies hydrocodone (From Vicodin) Allergy (Severe, Verified 04/26/25 13:11) Nausea methocarbamol (From Robaxin) Allergy (Severe, Verified 04/26/25 13:11) Hives Assessment & Plan Assessment & Plan (1) S/P cervical spinal fusion: Code(s): Z98.1 - Arthrodesis status Category: Medical Plan Procedure: C5-6 ACDF Adriel is a pleasant 70 year old female who comes in today for her 2nd postoperative visit after having the above mentioned procedure completed by Dr. Sutton. To recap during her last office visit we discussed goals of surgery and she expressed some concerns regarding the results that she had obtained from her surgery after 3 weeks postop. Thankfully today, she reports the bulk of her pain has subsided aside from some low-grade posterior neck pain on the left-hand side. This sounds like a pulling sensation related pain secondary to some trapezius stretching from her cervical fusion. She asked several questions regarding the postoperative healing course, all of which I answered best of my ability. We reviewed her x-ray imaging together in my office which shows stable placement of her surgical construct in no changes from prior images. No new neurological deficits. The patient ambulates well and rises from a seated position without difficulty. She uses no assistive devices to ambulate. Her anterior incision site is closed and well healed. There is no need for continued routine follow up, she may follow up in the future on an as-needed basis. Hai Sutton MD,PhD [facility] Orders: Orders XR cervical spine 4V Today Z98.1 - Arthrodesis status Coding Level of Care Code Global (88808) Diagnoses S/P cervical spinal fusion Z98.1
== END 2025-08-01 11:15 | disposition home or self-care (01) ==
LOC: HO.HNS 10:40
PROVIDERS: PCP Family Medicine; Visit Provider Physician Assistant
DX: Z98.1 Arthrodesis status (principal)
CPT/HCPCS: 99024

== ENCOUNTER → 2025-08-01 10:43 | Outpatient (BNV) | payer MEDICARE, SELFPAY | PROVIDERS: Visit Provider Radiology Diagnostic Ultrasound | DX: M47.812 Spondylosis without myelopathy or radiculopathy, cervical region (principal) | CPT/HCPCS: 72050 ==